=== PATIENT | male | born 1955 | race Caucasian/White ===

== ENCOUNTER 2018-11-01 07:39 | Emergency (ER) | payer MEDICARE, SELFPAY ==
[2018-11-01 07:40] VITALS: BP 170/93; PULSE 75; RESP 18; TEMP 36.2; O2SAT 95; BMI 23.9
[2018-11-01 07:55] VITALS: BP 163/101; PULSE 77; RESP 21; O2SAT 97
[2018-11-01] MEDS: 0.9% Normal Saline 1,000 ML 1000 ML IV (08:08)
[2018-11-01] MEDS: Ondansetron 4 MG/2 ML Vial IV (08:08)
[2018-11-01] MEDS: Morphine 4 MG/ML Syringe IV (08:09)
[2018-11-01 08:12] LABS: Absolute Lymphocyte Count 1.07 X10^3/ul (0.83-4.51); Absolute Neutrophil Count 11.1 X10^3/uL (2.0-7.7); Basophil# 0.02 X10^3/uL; Basophil% 0.2 % (0-1); Eosinophil# 0.08 X10^3/uL; Eosinophils% 0.6 % (0-5); Hematocrit 45.4 % (40-54); Hemoglobin 15.1 g/dl (13.0-16.5); Lymphocyte # 1.07 X10^3/ul (4.0); Lymphocyte % 8.3 % (19-41); Mean Corp Hgb Conc 33.3 g/gl (32-36); Mean Corpuscular Hgb 29.3 pg (27.0-32.0); Mean Platelet Vol. 8.8 fl (6.2-12.0); Monocyte# 0.54 X10^3/uL; Monocyte% 4.2 % (0-10); Neutrophil # 11.14 X10^3/uL (2.7-7.7); Neutrophil % 86.4 % (47-70); Platelet Count 387 K/mm3 (150-450); RBC Distribution Width CV 14.5 % (11.6-14.6); RBC Distribution Width SD 46.5 fl (35.1-43.9); Red Blood Count 5.16 M/mm3 (4.6-6.2); White Blood Count 12.9 K/mm3 (4.4-11.0)
[2018-11-01 08:14] LABS: POSITIVE COUNT NO; POSITIVE DIFFERENTIAL NO; POSITIVE MORPHOLOGY NO
[2018-11-01 08:25] LABS: ALB/GLOB Ratio 1.2 RATIO (0.9-2.4); AST(SGOT) 18 U/L (15-37); Alanine Aminotransfer ALT/SGPT 35 U/L (16-61); Albumin, Serum 4.1 g/dL (3.2-5.0); Alkaline Phosphatase 89 U/L (45-117); Anion Gap 11 (5-15); BUN 15 mg/dL (7-18); BUN/Creat Ratio 14.3 RATIO (10-20); Chloride 106 mmol/L (98-107); Creatinine, Serum 1.05 mg/dL (0.70-1.30); EST Glomerular Filtration Rate 75 mL/min (>60); Est Glom Filt Rate - Afr Amer 91 mL/min (>60); Estimated Creatinine Clearance 78.01 ml/min; Globulin 3.3 g/dL (2.2-4.2); Glucose 151 mg/dL (74-106); Lipase 51 U/L (73-393); Protein, Total 7.4 g/dL (6.4-8.2); Sodium Level 142 mmol/L (136-145)
[2018-11-01 08:50] LABS: Bacteria 0 SEEN /hpf (None Seen); Mucous, Urine 0 SEEN /hpf (<or=2+); Squamous Epithelial Cells - UA 0 SEEN /hpf (0-5); White Blood Cells 0 SEEN /hpf (0-5)
[2018-11-01 08:57] LABS: Color, Urine Yellow (Yellow); Glucose, Dipstick Normal (Normal); Ketone-Dipstick Negative (Negative); Leukocyte Esterase-Dipstick Negative /ul (Negative); Nitrite-Dipstick Negative (Negative); Occult Blood-Urine 25 /ul (Negative); Protein-Dipstick Negative (Negative); Urine Bilirubin Dipstick Negative (Negative); Urine Clarity Clear (Clear); Urine Urobilinogen Normal (Normal)
[2018-11-01 09:00] LABS: Red Blood Cells-Urine 0-5 SEEN /hpf (0-5)
--- NOTE | 2018-11-01 09:26 | ED.VISSUMM ---
- ER Visit Summary Date of Service: 11/01/18 Chief Complaint: I think I have the flu History of Present Illness: The patient is a 63 M who woke up around 2:30 AM today with nausea, vomiting, and diarrhea. He also reports right flank pain. He says he has a history of stomach issues but they can never find the cause. He is visiting from out of town. He reports a history of hypertension and COPD. He had an appendectomy. Physical Examination: Afebrile and vital signs unremarkable. HEENT exam unremarkable. Oropharynx is clear. No exudates. Neck nontender with no lymphadenopathy. Heart regular rate and rhythm. Lungs clear bilaterally. Abdomen soft and nontender. No CVA tenderness, but he does have some tenderness to palpation to the right flank just inferior to the rib margin. Skin appears unremarkable. Good pulses and sensation. Test Results: White count 12.9, glucose 151, lipase normal, liver normal, UA showed no evidence of bleeding or infection. Influenza test negative. Emergency Department Course and Treatment: Patient likely has a viral gastroenteritis. His UA did not show signs of infection or bleeding which makes kidney infection or stones very unlikely. His vital signs and laboratory studies were reassuring. He was treated with fluids, morphine, and Zofran and had improvement of his symptoms. There is nothing to suggest cardiac or pulmonary disease. Nothing to suggest vascular disease. Patient will be discharged with a course of Zofran and Imodium. Stay hydrated. Return for any new or worsening issues. Treatment Plan: As above Disposition: Discharge Impression: 1. Nausea, vomiting, diarrhea This note was generated with [employer] dictation software. It may contain incorrect words, spelling, and punctuation that were not noted in review of the chart prior to signing ED Disposition - Plan for ED Patient: Referrals: [facility],Out of [Primary Care Provider] -
--- NOTE | 2018-11-01 09:29 | ED.DEP ---
ED Disposition - Plan for ED Patient: Instructions: ED Diet Vomiting Diarrhea Prescriptions: Loperamide [Imodium] 2 mg PO Q4H PRN PRN #30 cap PRN Reason: Diarrhea Ondansetron [Zofran Odt] 4 mg PO Q8H PRN PRN #10 tab PRN Reason: Nausea Referrals: [facility],Out of [Primary Care Provider] -
[2018-11-01 09:47] VITALS: BP 135/87; PULSE 83; RESP 16; O2SAT 95
== END 2018-11-01 09:50 | disposition home or self-care (01) ==
PROVIDERS: Emergency Provider Emergency Medicine
DX: R11.2 Nausea with vomiting, unspecified (principal); R19.7 Diarrhea, unspecified; R10.9 Unspecified abdominal pain; J44.9 Chronic obstructive pulmonary disease, unspecified; I10 Essential (primary) hypertension; Z79.82 Long term (current) use of aspirin; Z79.899 Other long term (current) drug therapy
CPT/HCPCS: 80053; 81001; 83690; 85025; 87804; 96361; 96374; 96375; 99283; J7030; A4216; J2405

== ENCOUNTER 2019-02-01 11:31 | Emergency (ER) | payer MEDICARE, SELFPAY ==
[2019-02-01 11:32] VITALS: BP 155/70; PULSE 83; RESP 16; TEMP 36.9; O2SAT 95; BMI 22.4
--- NOTE | 2019-02-01 11:45 | EKG12_ITS ---
Test Reason : ABD PAIN Blood Pressure : / mmHG Vent. Rate : 074 BPM Atrial Rate : 074 BPM P-R Int : 148 ms QRS Dur : 096 ms QT Int : 420 ms P-R-T Axes : 082 073 061 degrees QTc Int : 466 ms Sinus rhythm Confirmed by MAKENZIE RIVERA, MESFIN ([id number]), manuscript editor NAFISA VALERO ([id number]) on 02/05/2019 1:12:28 PM Referred By: RAVI Confirmed By:MESFIN BANEGAS MD
[2019-02-01 12:01] LABS: Absolute Lymphocyte Count 0.92 X10^3/ul (0.83-4.51); Absolute Neutrophil Count 13.8 X10^3/uL (2.0-7.7); Basophil# 0.02 X10^3/uL; Basophil% 0.1 % (0-1); Hematocrit 47.6 % (40-54); Hemoglobin 16.4 g/dl (13.0-16.5); Lymphocyte # 0.92 X10^3/ul (4.0); Mean Corp Hgb Conc 34.5 g/gl (32-36); Mean Corpuscular Hgb 29.2 pg (27.0-32.0); Mean Corpuscular Volume 84.8 fL (80-94); Mean Platelet Vol. 8.9 fl (6.2-12.0); Monocyte# 0.64 X10^3/uL; Monocyte% 4.2 % (0-10); Neutrophil # 13.79 X10^3/uL (2.7-7.7); Neutrophil % 89.4 % (47-70); Platelet Count 356 K/mm3 (150-450); RBC Distribution Width SD 43.5 fl (35.1-43.9); Red Blood Count 5.61 M/mm3 (4.6-6.2); White Blood Count 15.4 K/mm3 (4.4-11.0)
[2019-02-01 12:02] LABS: POSITIVE COUNT NO; POSITIVE DIFFERENTIAL NO; POSITIVE MORPHOLOGY NO
--- NOTE | 2019-02-01 12:04 | CT_ITS ---
STUDY: CT ABDOMEN AND PELVIS WITH CONTRAST REASON FOR EXAM: Male, 63 years old. Nausea and vomiting. Prior appendectomy. RADIATION DOSAGE (If Supplied By Facility): CTDIvol = ( 10.62 ) mGy, DLP = ( 548.81 ) mGycm TECHNIQUE: Transaxial images were obtained from the dome of the diaphragm to the symphysis pubis without oral contrast. 100 IV/Oral Isovue 300 was administered. Sagittal and coronal images were reconstructed. Individualized dose optimization techniques were used for this CT. COMPARISON: None. FINDINGS: Mild degree of emphysematous changes seen in the lower lobes. The visualized portions of the heart are within normal limits. Normal liver. Normal gallbladder and extrahepatic biliary system. Normal spleen. Normal pancreas. Normal bilateral adrenal glands. Normal right kidney. Normal left kidney. Normal visualized stomach. Normal small intestine. There are multiple colonic diverticula consistent with diverticulosis. The patient is status post appendectomy. There is diffuse atherosclerotic calcification of the abdominal aorta and the major visceral branches, without a demonstrated aneurysm. Normal inferior vena cava. Normal retroperitoneum. Normal urinary bladder. There is enlargement of the prostate gland. The prostate measures 4.6 cm x 5.4 cm. Central calcifications are seen. Normal abdominal wall. Focal sclerosis seen along the anterior inferior origin of the L4 vertebrae on the right side. Focal metastasis cannot be ruled out. CT/Abdomen/Pelvis WITH Contrast IMPRESSION: Sigmoid diverticulosis. Enlarged prostate. Focal sclerosis in the inferior lateral aspect of the L4 vertebrae on the right side. Electronically Signed: Gabe Barrientos, at 15:10 EDT , Service support ,
--- NOTE | 2019-02-01 12:06 | ED.VISSUMM ---
- ER Visit Summary Date of Service: 02/01/19 Chief Complaint: Nausea, vomiting, abdominal pain History of Present Illness: The patient is a 63 M presents to the emergency department nausea and vomiting. The patient is in his normal state of health. He states last night, he had sudden onset abdominal cramping. He states he felt the urge to vomit. He states he vomited approximately 10 times. He is been unable to be taken down. He describes diffuse pain like a band across his abdomen. He has no history of prior abdominal surgery. He denies any fevers or chills. He denies any chest pain shortness of breath. He states up until last night, he was in his normal state of health. He does admit to occasional alcohol use. Physical Examination: Vital signs reviewed General: Well-nourished, well-developed Head: Normocephalic, atraumatic Eyes: Pupils equal and reactive, extraocular muscles intact Neck, supple, no lymphadenopathy Heart: Regular rate and rhythm Respiratory: No distress, clear bilaterally Abdomen: Soft, nontender, nondistended, no peritoneal signs Back: Nontender Extremities: Nontender, no edema, no cords Skin: Normal color no rash Neuro: Alert and oriented, no focal or lateralizing deficits Test Results: [] Emergency Department Course and Treatment: [The patient did have some diffuse abdominal pain, but no peritoneal signs. IV was established. He was given fluids, analgesics, and antiemetics. Pain was improved, but he was still nauseated. He did have a leukocytosis. With this, I did want to rule out dangerous intra-abdominal process. The patient underwent CT imaging. This was unremarkable. On reevaluation, he is pain-free. At this point, I do not suspect a dangerous process. I do feel that he is safe for outpatient therapy. He will be treated with Bentyl and Zofran. He was counseled on concerning symptoms and reasons to return. Treatment Plan: Discharge Disposition: Impression: 1. Epigastric abdominal pain 2. Nausea vomiting This note was generated with [employer] dictation software. It may contain incorrect words, spelling, and punctuation that were not noted in review of the chart prior to signing ED Disposition - Plan for ED Patient: Instructions: ED Nausea Vomiting Prescriptions: Ondansetron [Zofran Odt] 4 mg PO Q8H PRN PRN #10 tab PRN Reason: Nausea Dicyclomine HCl [Bentyl] 20 mg PO TIDAC #20 cap Referrals: [facility] Doctor,Out of [NON-STAFF] -
[2019-02-01 12:16] LABS: ALB/GLOB Ratio 1.2 RATIO (0.9-2.4); AST(SGOT) 14 U/L (15-37); Alanine Aminotransfer ALT/SGPT 26 U/L (16-61); Albumin, Serum 4.5 g/dL (3.2-5.0); Alkaline Phosphatase 91 U/L (45-117); Anion Gap 10 (5-15); BUN 16 mg/dL (7-18); BUN/Creat Ratio 12.8 RATIO (10-20); Calcium,Total 9.8 mg/dL (8.5-10.1); Chloride 106 mmol/L (98-107); Creatinine, Serum 1.25 mg/dL (0.70-1.30); EST Glomerular Filtration Rate 62 mL/min (>60); Est Glom Filt Rate - Afr Amer 75 mL/min (>60); Globulin 3.8 g/dL (2.2-4.2); Glucose 171 mg/dL (74-106); Lipase 37 U/L (73-393); Potassium 4.3 mmol/L (3.5-5.1); Protein, Total 8.3 g/dL (6.4-8.2); Sodium Level 141 mmol/L (136-145)
[2019-02-01] MEDS: 0.9% Normal Saline 1,000 ML 1000 ML IV (12:21)
[2019-02-01] MEDS: Morphine 4 MG/ML Syringe IV ×2 (12:22→13:08)
[2019-02-01] MEDS: Ondansetron 4 MG/2 ML Vial IV (12:22)
[2019-02-01] MEDS: proMETHazine 25 MG/ML Syringe 12.5 MG IV (13:07)
[2019-02-01 13:40] VITALS: RESP 18
[2019-02-01 15:00] VITALS: RESP 18
== END 2019-02-01 15:31 | disposition home or self-care (01) ==
LOC: ED 12:08
PROVIDERS: Emergency Provider Emergency Medicine
DX: R10.84 Generalized abdominal pain (principal); R11.2 Nausea with vomiting, unspecified; J44.9 Chronic obstructive pulmonary disease, unspecified; Z79.82 Long term (current) use of aspirin; Z79.899 Other long term (current) drug therapy; Z72.0 Tobacco use; Z86.73 Personal history of transient ischemic attack (TIA), and cerebral infarction without residual deficits
CPT/HCPCS: 74177; 80053; 83690; 85025; 93005; 96361; 96374; 96375; 96376; 99283; J7030; Q9967; A4216; J2405

== ENCOUNTER 2019-03-10 10:16 | Emergency (ER) | payer MEDICARE, SELFPAY ==
[2019-03-10 10:16] VITALS: BP 149/69; PULSE 87; RESP 20; TEMP 36.4; O2SAT 97; BMI 22.8
[2019-03-10 10:41] LABS: Absolute Lymphocyte Count 2.04 X10^3/ul (0.83-4.51); Absolute Neutrophil Count 13.5 X10^3/uL (2.0-7.7); Basophil# 0.05 X10^3/uL; Basophil% 0.3 % (0-1); Eosinophil# 0.41 X10^3/uL; Eosinophils% 2.4 % (0-5); Hematocrit 48.3 % (40-54); Hemoglobin 16.5 g/dl (13.0-16.5); Lymphocyte # 2.04 X10^3/ul (4.0); Lymphocyte % 11.9 % (19-41); Mean Corp Hgb Conc 34.2 g/gl (32-36); Mean Corpuscular Hgb 29.6 pg (27.0-32.0); Mean Corpuscular Volume 86.6 fL (80-94); Monocyte# 1.13 X10^3/uL; Monocyte% 6.6 % (0-10); Neutrophil # 13.48 X10^3/uL (2.7-7.7); Neutrophil % 78.5 % (47-70); Platelet Count 342 K/mm3 (150-450); RBC Distribution Width CV 14.4 % (11.6-14.6); RBC Distribution Width SD 45.2 fl (35.1-43.9); Red Blood Count 5.58 M/mm3 (4.6-6.2); White Blood Count 17.2 K/mm3 (4.4-11.0)
[2019-03-10 10:42] LABS: POSITIVE COUNT NO; POSITIVE DIFFERENTIAL NO; POSITIVE MORPHOLOGY NO
[2019-03-10] MEDS: 0.9% Normal Saline 1,000 ML 1000 ML IV (10:46)
[2019-03-10] MEDS: Morphine 4 MG/ML Syringe IV ×2 (10:46→11:32)
[2019-03-10] MEDS: Ondansetron 4 MG/2 ML Vial IV (10:46)
[2019-03-10 10:59] LABS: Anion Gap 5 (5-15); BUN 9 mg/dL (7-18); BUN/Creat Ratio 7.5 RATIO (10-20); Chloride 105 mmol/L (98-107); EST Glomerular Filtration Rate 65 mL/min (>60); Est Glom Filt Rate - Afr Amer 78 mL/min (>60); Estimated Creatinine Clearance 66.49 ml/min; Glucose 118 mg/dL (74-106); Lipase 46 U/L (73-393); Potassium 4.1 mmol/L (3.5-5.1); Sodium Level 138 mmol/L (136-145)
--- NOTE | 2019-03-10 11:00 | ED.VIS.GEN ---
History of Present Illness Chief Complaint: Nausea/Vomiting/Diarrhea Informant: Patient Onset: Today Narrative: Patient presents to the ED with reports of nausea, vomiting, and diarrhea that began this morning. He reports 5 episodes of emesis and diarrhea today. He reports generalized abdominal cramping but no localized abdominal pain. He did eat Mont[place]grin food last night. He states that he did have this in January and symptoms lasted for several days and then resolved. He was seen at this facility at this time and had complete work-up including CT scan which showed no acute abnormalities. Patient did try to take Zofran orally this morning, however vomited following taking it. Past Medical History - Allergies and Home Meds Allergies/Adverse Reactions: Allergies No Known Allergies Allergy (Verified 03/10/19 10:16) Primary Care Physician: Care Physician,No Primary [Primary Care Provider] - Smoking Status: Former smoker Review of Systems General: Denies: Chills, Fever, Sweats Eyes: Denies: Visual changes - bilaterally, Diplopia ENT: Denies: Rhinorrhea, Sore throat Cardiovascular: Denies: Chest pain, Palpitations Respiratory: Denies: Dyspnea, Cough, Dyspnea on exertion Gastrointestinal: Reports: Abdominal pain - Generalized, Nausea, Vomiting, Diarrhea. Denies: Melena, Hematochezia Genitourinary: Denies: Dysuria, Hematuria, Frequency Musculoskeletal: Denies: Back pain, Extremity Pain Skin: Denies: Rash, Wounds Neurological: Denies: Headache, Weakness, Numbness Physical Exam Vital Signs/Narrative: Vital Signs Temp Pulse Resp BP Pulse Ox 03/10/19 10:16 97.6 F L 87 20 H 149/69 H 97 General: Well nourished, Well developed, No Acute Distress Head: Normocephalic, Atraumatic Eyes: Perrl, EOMI ENT: Moist mucous membranes, No rhinorrhea Neck: Supple, Nontender Cardiovascular: Regular rate, Regular rhythm, No murmurs Respiratory: No distress, CTA bilaterally, Chest nontender Abdomen: Soft, Nondistended, Normal bowel sounds, Tender, - - Patient has generalized tenderness to palpation. No guarding, rigidity, or rebound.. Negative for: Rovsig's sign, Cortez's sign Back: Nontender, Normal Inspection Extremities: Nontender, No edema Skin: Normal color, No rash Neurological: Alert, Oriented x3, Cranial nerves II-XII grossly intact, Normal Strength, Normal Sensation Psychological: Normal affect, Normal Mood Diagnostic/Tx/Re-eval - Medical Decision Making Patient presents with nausea, vomiting, diarrhea that began this morning. He did eat takeout [place] last night. Patient was given IV fluids, Zofran, morphine for symptomatic relief. CBC indicates a leukocytosis of 17,000 but is otherwise unremarkable. BMP and lipase are unremarkable. Lactic acid is normal. Patient was given IV fluids, morphine, Zofran, and Phenergan for symptomatic relief. He does report improvement of symptoms. He was able to tolerate p.o. here. At this time, I do not feel further work-up is warranted. Patient was educated that this vomiting and diarrhea could be due to either food poisoning or gastroenteritis viral. He will be discharged home with prescriptions for Zofran and Bentyl. He was instructed to follow-up with his PCP. Educated on signs/symptoms to return to the ED. Provided discharge instructions. Agreeable to plan Impression: Nausea, vomiting, diarrhea, either due to food poisoning or gastroenteritis Disposition: Home stable ED Disposition - Plan for ED Patient: Disposition: Home or Assisted Living Diagnosis: Nausea vomiting and diarrhea Instructions: FOOD POISONING or GASTROENTERITIS (6y-Adult) Prescriptions: Dicyclomine HCl [Bentyl] 20 mg PO TIDAC #20 cap Prescription Printed Ondansetron [Zofran Odt] 4 mg PO Q8H PRN PRN #10 tab PRN Reason: Nausea Prescription Printed Referrals: Care Physician,No Primary [Primary Care Provider] -
[2019-03-10 11:16] VITALS: BP 182/93; PULSE 66; RESP 20; O2SAT 99
[2019-03-10] MEDS: proMETHazine 25 MG/ML Syringe 12.5 MG IV (11:32)
[2019-03-10 11:51] LABS: Lactic Acid 1.5 mmol/L (0.4-2.0)
--- NOTE | 2019-03-10 12:00 | ED.VISSUMM ---
- ER Visit Summary Date of Service: 03/10/19 Chief Complaint: [Vomiting and diarrhea] History of Present Illness: The patient is a 64 M presents to the emergency department complaint of vomiting and diarrhea that started around 3 AM. Patient initially started with nausea and then subsequently developed diarrhea. He is vomited 5 or 6 times and has had 5-6 episodes of watery stool. Patient describes diffuse abdominal discomfort before he throws up but otherwise does not have much in the way of abdominal pain. He has had no fevers. Patient does give a history of eating Sinhala food last night which his also ate but she ate different foods that he ate. Patient denies recent travel. He denies recent antibiotic usage. Patient has had prior appendectomy. He has history of COPD.] Physical Examination: [HEENT-PERRLA, EOMI. Cranial nerves II through XII grossly intact. TMs clear. Mucous membranes moist. No adenopathy. Cardiovascular-regular rate and rhythm without murmur or ectopy Lungs-clear to auscultation, chest wall stable without crepitus or subcu emphysema Abdomen-normoactive bowel sounds, soft. Patient has some mild diffuse tenderness to palpation. There is no rebound, rigidity, or perineal signs. Extremities-intact ?4, normal range of motion, normal pulses, atraumatic] Test Results: [Patient had an elevated white count of 17,000. Chemistries were unremarkable. Lactate was normal.] Emergency Department Course and Treatment: [Patient was medicated with Zofran and Phenergan and given a liter normal same fluid bolus. Patient was able to tolerate a p.o. challenge.] Treatment Plan: [Will be given a prescription for Zofran and Bentyl. Patient advised to push fluids. Patient to use Imodium as needed for diarrhea.] Disposition: [Discharged home stable condition.] Impression: [Vomiting and diarrhea-gastroenteritis versus food poisoning] This note was generated with [employer] dictation software. It may contain incorrect words, spelling, and punctuation that were not noted in review of the chart prior to signing ED Disposition - Plan for ED Patient: Referrals: Care Physician,No Primary [Primary Care Provider] -
[2019-03-10 12:37] VITALS: BP 184/92; PULSE 66; RESP 16; O2SAT 94
--- NOTE | 2019-03-10 12:38 | ED.RN ---
Pt StatesI don't feel good. Communicated this to PA. She stated he most likely had food poisoning. Pt d/c to home. Verbalized understanding. Tolerated po fluids well.
== END 2019-03-10 12:39 | disposition home or self-care (01) ==
PROVIDERS: Emergency Provider Physician Assistant
DX: K52.9 Noninfective gastroenteritis and colitis, unspecified (principal); J44.9 Chronic obstructive pulmonary disease, unspecified; Z87.891 Personal history of nicotine dependence
CPT/HCPCS: 80048; 83605; 83690; 85025; 96361; 96374; 96375; 96376; 99283; J7030; A4216; J2405

== ENCOUNTER 2019-04-11 08:28 | Emergency (ER) | payer MEDICARE, SELFPAY ==
[2019-04-11 08:29] VITALS: BP 172/121; PULSE 92; RESP 24; TEMP 36.6; O2SAT 97; BMI 22.4
--- NOTE | 2019-04-11 08:57 | ED.DCSUM_ITS ---
- ER Visit Summary Date of Service: 04/11/19 Chief Complaint: Abdominal pain with nausea and vomiting. History of Present Illness: The patient is a 64 M of prior stroke, COPD, BPH, diverticulosis and Pizano's esophagus. Patient states by last morning he started having abdominal pain with nausea vomiting. Able to sleep. Denies any dysuria. No diarrhea or melena. He had episodes like this before without any specific diagnosis. He was actually over trying to get in to see the GI nurse practitioner today at the [facility] when this episode occurred this in the ER. He denies any fever or chills. No dysuria. He has had a prior appendectomy Physical Examination: Older male diaphoretic vomiting. Vital signs are stable with blood pressure elevated 172 121 not be rechecked. He is afebrile. HEENT exam unremarkable. Neck nontender no lymphadenopathy. Lungs clear to auscultation bilaterally. Heart regular rhythm no murmur. Abdomen is soft. Nondistended. Normal bowel sounds. No peritoneal signs. Is nondistended with no signs of obstruction. There is no localizing tenderness. Extremities moves all 4. No edema. Neurologically he is awake alert with no focal deficits. Skin is diaphoretic. Back nontender. Test Results: CBC White count 16. Hemoglobin 16. No bands. Electrolytes A. BUN 13 creatinine 1.2. Liver enzymes normal. Lipase normal. Lactate 2.8. Emergency Department Course and Treatment: No abdominal pain no nausea vomiting. He has been worked up in the past that I saw him a CAT scan was basically unremarkable in January. Is really abdomen exam at this time is unimpressive. He will be treated with IV fluids Zofran and morphine. Screening labs will be obtained. On repeat exams and multiple doses of manic symptoms including morphine and Phenergan. He also received IV Haldol and Benadryl. His abdomen is been benign and nontender the entire time. At 1315 p.m. he is doing much better and felt comfortable being discharged home. It is noted that the patient does admit to smoking marijuana last evening and then started having the nausea and vomiting after that. Treatment Plan: Zofran as needed for nausea. Stop smoking marijuana. Disposition: Discharge Impression: Acute abdominal pain with nausea vomiting Marijuana use This note was generated with [employer] dictation software. It may contain incorrect words, spelling, and punctuation that were not noted in review of the chart prior to signing ED Disposition - Plan for ED Patient: Referrals: Care Physician,No Primary [Primary Care Provider] -
[2019-04-11 09:12] LABS: Absolute Lymphocyte Count 1.46 X10^3/uL (0.83-4.51); Absolute Neutrophil Count 13.6 X10^3/uL (2.0-7.7); Basophil# 0.08 X10^3/uL; Basophil% 0.5 % (0-1); Eosinophils% 1.2 % (0-5); Hematocrit 48.4 % (40-54); Hemoglobin 16.1 g/dL (13.0-16.5); Lymphocyte # 1.46 X10^3/ul (4.0); Lymphocyte % 8.8 % (19-41); Mean Corp Hgb Conc 33.3 g/dL (32-36); Mean Corpuscular Hgb 28.8 pg (27.0-32.0); Mean Corpuscular Volume 86.6 fL (80-94); Mean Platelet Vol. 8.8 fl (6.2-12.0); Monocyte# 1.11 X10^3/uL; Monocyte% 6.7 % (0-10); NRBC Flagged by Analyzer 0 % (0-5); Neutrophil # 13.62 X10^3/uL (2.7-7.7); Platelet Count 367 K/mm3 (150-450); RBC Distribution Width CV 14.2 % (11.6-14.6); RBC Distribution Width SD 45.1 fl (35.1-43.9); Red Blood Count 5.59 M/mm3 (4.6-6.2); White Blood Count 16.6 K/mm3 (4.4-11.0)
[2019-04-11] MEDS: Ondansetron 4 MG/2 ML Vial IV ×2 (09:13→10:06)
[2019-04-11] MEDS: Morphine 4 MG/ML Syringe IV ×2 (09:14→10:06)
[2019-04-11] MEDS: 0.9% Normal Saline 1,000 ML 1000 ML IV (09:15)
[2019-04-11 09:16] VITALS: BP 189/102; PULSE 77; RESP 16; TEMP 36.6; O2SAT 98
[2019-04-11 09:24] LABS: AST(SGOT) 15 U/L (15-37); Alanine Aminotransfer ALT/SGPT 30 U/L (16-61); Albumin, Serum 4.8 g/dL (3.2-5.0); Alkaline Phosphatase 86 U/L (45-117); Anion Gap 8 (5-15); BUN 13 mg/dL (7-18); BUN/Creat Ratio 10.2 RATIO (10-20); Bilirubin, Direct 0.19 mg/dL (0.00-0.30); Chloride 105 mmol/L (98-107); Creatinine, Serum 1.28 mg/dL (0.70-1.30); EST Glomerular Filtration Rate 60 mL/min (>60); Est Glom Filt Rate - Afr Amer 73 mL/min (>60); Estimated Creatinine Clearance 60.91 ml/min; Globulin 3.7 g/dL (2.2-4.2); Glucose 133 mg/dL (74-106); Lipase 40 U/L (73-393); Potassium 3.9 mmol/L (3.5-5.1); Protein, Total 8.5 g/dL (6.4-8.2); Sodium Level 139 mmol/L (136-145)
--- NOTE | 2019-04-11 09:46 | EKG12_ITS ---
Test Reason : CP Blood Pressure : / mmHG Vent. Rate : 072 BPM Atrial Rate : 072 BPM P-R Int : 158 ms QRS Dur : 100 ms QT Int : 384 ms P-R-T Axes : 079 064 061 degrees QTc Int : 420 ms Normal sinus rhythm Normal ECG Confirmed by DAGO MICHAEL ([id number]), assistant editor AYAN GUADALUPE ([id number]) on 04/16/2019 1:30:08 PM Referred By: ANJALI Confirmed By:DAGO MICHAEL
[2019-04-11 09:59] LABS: Lactic Acid 2.8 mmol/L (0.4-2.0)
--- NOTE | 2019-04-11 11:23 | EKG12_ITS ---
Test Reason : AB PAIN Blood Pressure : / mmHG Vent. Rate : 079 BPM Atrial Rate : 079 BPM P-R Int : 152 ms QRS Dur : 096 ms QT Int : 378 ms P-R-T Axes : 082 072 056 degrees QTc Int : 433 ms Sinus rhythm with marked sinus arrhythmia Otherwise normal ECG Confirmed by DAGO MICHAEL ([id number]), commissioning editor AYAN GUADALUPE ([id number]) on 04/16/2019 1:30:25 PM Referred By: ANJALI
[2019-04-11] MEDS: proMETHazine 25 MG/ML Syringe 12.5 MG IM (11:36)
[2019-04-11 11:37] VITALS: BP 189/106; PULSE 77; RESP 16; TEMP 36.4; O2SAT 98
[2019-04-11] MEDS: Haloperidol Lactate 5 MG/ML Vial 2 MG IV (12:28)
[2019-04-11] MEDS: DiphenhydrAMINE 50 MG/ML Syringe 25 MG IV (12:28)
[2019-04-11 12:56] VITALS: BP 187/109; PULSE 72; RESP 15; O2SAT 96
[2019-04-11 13:12] LABS: Reflex Lactate? Y
--- NOTE | 2019-04-11 13:17 | ED.DEP ---
ED Disposition - Plan for ED Patient: Disposition: Home or Assisted Living Prescriptions: Ondansetron [Zofran Odt] 4 mg PO Q8H PRN PRN #7 tab PRN Reason: Nausea Prescription Printed Referrals: Beto Wu MD [NON-STAFF] - 3-5 Days if not improving Additional Instructions: Stop smoking marijuana !!! Zofran as needed for nausea. Follow-up not improving return if worse.
== END 2019-04-11 13:39 | disposition home or self-care (01) ==
PROVIDERS: Emergency Provider Emergency Medicine
DX: R10.9 Unspecified abdominal pain (principal); R11.2 Nausea with vomiting, unspecified; F12.10 Cannabis abuse, uncomplicated; J44.9 Chronic obstructive pulmonary disease, unspecified; R03.0 Elevated blood-pressure reading, without diagnosis of hypertension; K22.70 Barrett's esophagus without dysplasia; Z79.82 Long term (current) use of aspirin; Z79.899 Other long term (current) drug therapy; Z90.49 Acquired absence of other specified parts of digestive tract; Z86.73 Personal history of transient ischemic attack (TIA), and cerebral infarction without residual deficits
CPT/HCPCS: 80048; 80076; 83605; 83690; 85025; 93005; 96361; 96372; 96374; 96375; 96376; 99284; J7030; A4216; J2405

== ENCOUNTER 2019-04-19 13:29 | Emergency (ER) | payer MEDICARE, SELFPAY ==
[2019-04-19 13:29] VITALS: BP 146/108; PULSE 95; RESP 22; TEMP 36.3; O2SAT 98; BMI 25.0
--- NOTE | 2019-04-19 13:38 | ED.VIS.GEN ---
History of Present Illness Chief Complaint: Abd Pain Informant: Patient Onset: Today Context: Gradual Onset Current Severity: Moderate Maximum Severity: Moderate Narrative: Patient presents with nausea vomiting and epigastric pain since this morning. He has been diagnosed with gastroparesis secondary to THC use. He however does not believe that diagnosis. He continues to smoke marijuana, he woke up with quite a bit of pain this morning he has no radiation to his back no tearing sensation he has no chest pain shortness of breath fever or chills. He has no diarrhea or constipation. Past Medical History - Allergies and Home Meds Allergies/Adverse Reactions: Allergies No Known Allergies Allergy (Verified 04/19/19 13:31) Primary Care Physician: Jordan Rosales MD [Primary Care Provider] - 3-5 Days Past Medical History: - - Otherwise noncontributory, gastroparesis Lives: Spouse/ Significant Other Smoking Status: Former smoker Review of Systems All systems negative except as indicated General: Denies: Fever Eyes: Denies: Visual changes - bilaterally Cardiovascular: Denies: Chest pain, Palpitations Respiratory: Denies: Dyspnea, Cough Gastrointestinal: Reports: Abdominal pain, Nausea, Vomiting. Denies: Diarrhea, Constipation Musculoskeletal: Denies: Back pain Skin: Denies: Rash Neurological: Denies: Headache, Weakness Psych: Denies: Depression Endocrine: Denies: Polyuria Physical Exam Vital Signs/Narrative: Vital Signs Temp Pulse Resp BP Pulse Ox 04/19/19 13:29 97.4 F L 95 22 H 146/108 H 98 General: - - He appears in some distress Head: Normocephalic ENT: Moist mucous membranes, No rhinorrhea Neck: Supple Cardiovascular: Regular rate, Regular rhythm, No murmurs Respiratory: No distress, CTA bilaterally Abdomen: Soft, - - There is epigastric tenderness without any guarding or rebound Back: Negative for: Nontender, Normal Inspection Extremities: Negative for: Nontender, No edema Skin: Negative for: Normal color Neurological: Oriented x3. Negative for: Alert Psychological: Normal affect Diagnostic/Tx/Re-eval - Medical Decision Making Patient is given analgesics and antiemetics, capsaicin. I will discharge him with education again. ED Disposition - Plan for ED Patient: Disposition: Home or Assisted Living Diagnosis: Gastroparesis Instructions: Gastroparesis Referrals: Jordan Rosales MD [Primary Care Provider] - 3-5 Days
[2019-04-19] MEDS: 0.9% Normal Saline 1,000 ML 1000 ML IV (13:48)
[2019-04-19] MEDS: Metoclopramide 10 MG/2 ML Vial IV ×2 (13:49→15:26)
[2019-04-19] MEDS: diazePAM 5 MG Tablet PO (13:49)
[2019-04-19] MEDS: HYDROmorphone 1 MG/ML Syringe IV (13:49)
[2019-04-19 13:53] LABS: Absolute Lymphocyte Count 1.23 X10^3/uL (0.83-4.51); Absolute Neutrophil Count 10.8 X10^3/uL (2.0-7.7); Basophil# 0.06 X10^3/uL; Basophil% 0.5 % (0-1); Eosinophil# 0.08 X10^3/uL; Eosinophils% 0.6 % (0-5); Hematocrit 48.4 % (40-54); Hemoglobin 16.3 g/dL (13.0-16.5); Lymphocyte # 1.23 X10^3/ul (4.0); Lymphocyte % 9.5 % (19-41); Mean Corp Hgb Conc 33.7 g/dL (32-36); Mean Corpuscular Hgb 29.4 pg (27.0-32.0); Mean Corpuscular Volume 87.2 fL (80-94); Mean Platelet Vol. 8.9 fl (6.2-12.0); Monocyte# 0.72 X10^3/uL; Monocyte% 5.5 % (0-10); NRBC Flagged by Analyzer 0 % (0-5); Neutrophil # 10.82 X10^3/uL (2.7-7.7); Neutrophil % 83.1 % (47-70); Platelet Count 376 K/mm3 (150-450); RBC Distribution Width CV 13.9 % (11.6-14.6); RBC Distribution Width SD 44.6 fl (35.1-43.9); Red Blood Count 5.55 M/mm3 (4.6-6.2)
[2019-04-19 14:15] LABS: ALB/GLOB Ratio 1.3 RATIO (0.9-2.4); AST(SGOT) 14 U/L (15-37); Alanine Aminotransfer ALT/SGPT 25 U/L (16-61); Albumin, Serum 4.8 g/dL (3.2-5.0); Alkaline Phosphatase 86 U/L (45-117); Anion Gap 9 (5-15); BUN 15 mg/dL (7-18); BUN/Creat Ratio 9.7 RATIO (10-20); Chloride 106 mmol/L (98-107); Creatinine, Serum 1.54 mg/dL (0.70-1.30); EST Glomerular Filtration Rate 48 mL/min (>60); Est Glom Filt Rate - Afr Amer 59 mL/min (>60); Estimated Creatinine Clearance 46.27 ml/min; Globulin 3.8 g/dL (2.2-4.2); Glucose 158 mg/dL (74-106); Lipase 37 U/L (73-393); Potassium 4.3 mmol/L (3.5-5.1); Protein, Total 8.6 g/dL (6.4-8.2); Sodium Level 141 mmol/L (136-145)
[2019-04-19] MEDS: HYDROmorphone 0.5 MG/0.5 ML SYRINGE IV (15:18)
[2019-04-19] MEDS: DiphenhydrAMINE 50 MG/ML Syringe 25 MG IV (15:23)
[2019-04-19 15:33] VITALS: BP 178/92; PULSE 86; RESP 18; O2SAT 94
[2019-04-19 15:43] VITALS: RESP 18
== END 2019-04-19 15:51 | disposition home or self-care (01) ==
PROVIDERS: Emergency Provider Emergency Medicine; Family Provider Internal Medicine; PCP Internal Medicine
DX: K31.84 Gastroparesis (principal); F12.988 Cannabis use, unspecified with other cannabis-induced disorder; Z79.899 Other long term (current) drug therapy; Z87.891 Personal history of nicotine dependence
CPT/HCPCS: 80053; 83690; 85025; 96361; 96374; 96375; 96376; 99284; J7030; A4216

== ENCOUNTER 2019-06-08 08:27 | Emergency (ER) | payer MEDICARE, SELFPAY ==
[2019-06-08 08:28] VITALS: BP 183/123; PULSE 75; RESP 17; TEMP 37; O2SAT 98; BMI 24.0
--- NOTE | 2019-06-08 08:55 | ED.DCSUM_ITS ---
- ER Visit Summary Date of Service: 06/08/19 Chief Complaint: Abdominal pain, nausea, vomiting History of Present Illness: The patient is a 64 M presents with abdominal pain, nausea, and vomiting that began today. Patient states he has a history of cyclic vomiting syndrome. Patient states he did use some marijuana yesterday. Patient denies any hematemesis or coffee-ground emesis. Patient states his pain is aching and burning. Patient states his pain is diffuse across his abdomen. Patient denies any diarrhea, melena, or hematochezia. Patient denies any dysuria or hematuria. Patient denies any chest pain or shortness of breath. Patient denies any fevers or chills. Physical Examination: Vital signs are stable except for an elevated blood pressure of 183/123. Patient is afebrile. Patient is in no acute distress. Oral mucosa is pink and moist. Neck is supple. Trachea is midline. There is no JVD noted. Heart was regular rate and rhythm. Lungs are clear and equal bilaterally. Abdomen is soft. Bowel sounds are somewhat diminished. There is diffuse tenderness. There is no rebound or guarding noted. Cranial nerves II through XII are intact. There are no focal motor or sensory deficits noted. Test Results: CBC shows a mild leukocytosis of 16.4. Comprehensive metabolic profile was normal. Emergency Department Course and Treatment: Patient was given IV fluids, morphine, and Zofran here. Patient required a repeat dose of morphine and Zofran. She was given a prescription for Zofran. Patient was instructed to follow-up with his primary care physician in 5 to 7 days. Patient understood and was agreeable with the plan. All questions were answered. Disposition: Discharge home Impression: 1. Cyclic vomiting This note was generated with [employer] dictation software. It may contain incorrect words, spelling, and punctuation that were not noted in review of the chart prior to signing ED Disposition - Plan for ED Patient: Disposition: Home or Assisted Living Diagnosis: Cyclical vomiting Instructions: ABDOMINAL PAIN, Unknown Cause, (Female) Prescriptions: Ondansetron [Zofran Odt] 4 mg PO Q8H PRN PRN #10 tab PRN Reason: Nausea Prescription Printed Referrals: Jordan Rosales MD [Primary Care Provider] - 5-7 Days
[2019-06-08] MEDS: 0.9% Normal Saline 1,000 ML 1000 ML IV (09:17)
[2019-06-08] MEDS: Morphine 2 MG/ML Syringe IV ×2 (09:17→10:39)
[2019-06-08] MEDS: Ondansetron 4 MG/2 ML Vial IV ×2 (09:17→10:39)
[2019-06-08 09:18] LABS: Absolute Lymphocyte Count 2.28 X10^3/uL (0.83-4.51); Absolute Neutrophil Count 11.6 X10^3/uL (2.0-7.7); Basophil# 0.12 X10^3/uL; Basophil% 0.7 % (0-1); Eosinophil# 0.46 X10^3/uL; Eosinophils% 2.8 % (0-5); Hematocrit 50.8 % (40-54); Lymphocyte # 2.28 X10^3/ul (4.0); Lymphocyte % 13.9 % (19-41); Mean Corp Hgb Conc 31.5 g/dL (32-36); Mean Corpuscular Hgb 28.8 pg (27.0-32.0); Mean Corpuscular Volume 91.4 fL (80-94); Mean Platelet Vol. 8.7 fl (6.2-12.0); Monocyte# 1.71 X10^3/uL; Monocyte% 10.5 % (0-10); NRBC Flagged by Analyzer 0 % (0-5); Neutrophil # 11.63 X10^3/uL (2.7-7.7); Neutrophil % 71.1 % (47-70); POSITIVE DIFFERENTIAL YES; Platelet Count 369 K/mm3 (150-450); RBC Distribution Width CV 14.2 % (11.6-14.6); RBC Distribution Width SD 47.9 fl (35.1-43.9); Red Blood Count 5.56 M/mm3 (4.6-6.2); White Blood Count 16.4 K/mm3 (4.4-11.0)
[2019-06-08 09:21] LABS: Differential Indicated SCAN CRITERIA MET
[2019-06-08 09:35] LABS: ALB/GLOB Ratio 1.6 RATIO (0.9-2.4); AST(SGOT) 19 U/L (15-37); Alanine Aminotransfer ALT/SGPT 29 U/L (16-61); Alkaline Phosphatase 75 U/L (45-117); Anion Gap 8 (5-15); BUN 14 mg/dL (7-18); Calcium,Total 9.8 mg/dL (8.5-10.1); Chloride 106 mmol/L (98-107); Creatinine, Serum 1.27 mg/dL (0.70-1.30); EST Glomerular Filtration Rate 60 mL/min (>60); Est Glom Filt Rate - Afr Amer 73 mL/min (>60); Estimated Creatinine Clearance 61.76 ml/min; Globulin 3.2 g/dL (2.2-4.2); Glucose 127 mg/dL (74-106); Lipase 81 U/L (73-393); Potassium 4.3 mmol/L (3.5-5.1); Protein, Total 8.2 g/dL (6.4-8.2); Sodium Level 144 mmol/L (136-145)
[2019-06-08 09:54] LABS: Hypersegmented Neutrophils RARE
[2019-06-08 10:51] VITALS: BP 164/78; PULSE 87; RESP 18; O2SAT 99
[2019-06-11 12:03] LABS: Pathologist Review Reviewed
== END 2019-06-08 10:52 | disposition home or self-care (01) ==
PROVIDERS: Emergency Provider Emergency Medicine; Family Provider Internal Medicine; PCP Internal Medicine
DX: R11.15 Cyclical vomiting syndrome unrelated to migraine (principal); J44.9 Chronic obstructive pulmonary disease, unspecified; I10 Essential (primary) hypertension; Z79.82 Long term (current) use of aspirin; Z79.899 Other long term (current) drug therapy
CPT/HCPCS: 80053; 83690; 85025; 96361; 96374; 96375; 96376; 99283; J7030; A4216; J2405

== ENCOUNTER 2019-07-25 07:08 | Emergency (ER) | payer MEDICARE, SELFPAY ==
[2019-07-25 07:09] VITALS: BP 168/120; PULSE 105; RESP 17; TEMP 36.5; O2SAT 97; BMI 23.3
[2019-07-25] MEDS: 0.9% Normal Saline 1,000 ML 1000 ML IV (07:39)
[2019-07-25] MEDS: Ondansetron 4 MG/2 ML Vial IV (07:40)
[2019-07-25] MEDS: LORazepam 2 MG/ML Syringe 0.5 MG IV (07:40)
[2019-07-25] MEDS: Famotidine 200 MG/20 ML MDV 20 MG in 0.9% Normal Saline (Pres. free 8 ML 300 MG IV (07:45)
--- NOTE | 2019-07-25 07:55 | ED.VIS.GEN ---
History of Present Illness Chief Complaint: Abd Pain Informant: Patient Onset: Today Context: Sudden Onset Timing: Continuous, Waxes and wanes Quality: Pain Location: Entire abdomen Current Severity: Moderate Maximum Severity: Severe Worsened by: Nothing Relieved by: Nothing Associated Symptoms: Nausea and vomiting, thirst and dry mouth and lightheadedness Narrative: Patient is a 64-year-old male with history of cyclic vomiting who presents because of nausea and vomiting started over 400. He is vomited numerous times. States emesis was green in color. There was no blood or coffee grounds. He states he had a hard bowel movement yesterday. He denied blood or mucus in his stool. He denies fever, chills or night sweats. He denies any exacerbating, precipitating or alleviating factors. He denies cardiac or respiratory symptoms. He denies history of pancreatitis. He denies history of food intolerance. Prior similar symptoms: Yes - 2 Months ago Recent Illness/Hospitalization: No - Past Medical History (1) History of hypercholesterolemia Status: Acute (2) History of hypertension Status: Acute (3) History of COPD Status: Chronic Past Medical History - Allergies and Home Meds Allergies/Adverse Reactions: Allergies No Known Allergies Allergy (Verified 07/25/19 07:09) Primary Care Physician: Jordan Rosales MD [Primary Care Provider] - Prior records reviewed: Yes Surgical History: appendectomy Lives: Alone Smoking Status: Former smoker Alcohol: None Drugs: None Review of Systems General: Denies: Chills, Fever, Malaise, Sweats Eyes: Denies: Visual changes - bilaterally, Blurred Vision - bilaterally, Diplopia ENT: Denies: Rhinorrhea, Sore throat Cardiovascular: Denies: Chest pain, Palpitations Respiratory: Denies: Dyspnea, Cough, Dyspnea on exertion Gastrointestinal: Reports: Abdominal pain, Nausea, Vomiting, Constipation. Denies: Diarrhea, Melena, Hematochezia Genitourinary: Denies: Dysuria, Hematuria, Frequency Musculoskeletal: Denies: Myalgias, Arthralgias, Neck pain, Back pain, Extremity Pain Skin: Denies: Rash, Wounds Neurological: Denies: Headache, Weakness, Parasthesia, Numbness Endocrine: Denies: Polyuria, Polydipsia Physical Exam Vital Signs/Narrative: Vital Signs Temp Pulse Resp BP Pulse Ox 07/25/19 07:09 97.7 F L 105 H 17 168/120 H 97 Inital Vital Signs reviewed: Yes General: Well nourished, Well developed Head: Normocephalic, Atraumatic. Negative for: Trauma, Tenderness Eyes: Perrl, EOMI. Negative for: Pale conjunctiva, Scleral icterus ENT: No rhinorrhea, TM's clear, Dry mucous membranes. Negative for: Nasal congestion Neck: Supple, Nontender Cardiovascular: Regular rate, Regular rhythm, No murmurs Respiratory: No distress, CTA bilaterally, Chest nontender Abdomen: Soft, Nondistended, Normal bowel sounds, No masses, Tender, - - Slight tympana to percussion.. Negative for: Guarding, Rebound tenderness Rectal: Deferred Back: Nontender, Normal Inspection. Negative for: CVA tenderness, Spinal tenderness Extremities: Nontender, No edema Skin: Normal color, No rash. Negative for: Cyanosis, Diaphoresis, Jaundice, No Trauma Neurological: Alert, Oriented x3, Cranial nerves II-XII grossly intact, Normal Strength, Normal Sensation Psychological: Depressed Diagnostic/Tx/Re-eval - Medical Decision Making With history of cyclic vomiting and a benign abdominal exam cyclic vomiting order set was initiated. I was informed by nursing staff he seemed puzzled that he did not receive morphine for his pain. He did receive 1 L of normal saline wide open since clinically he appears dehydrated and give symptoms of dehydration. His onset was less than 4 hours ago laboratory tests were not obtained. He was reassessed at 1055. He has slight queasiness. He has had no vomiting since arrival. He is passed p.o. challenge. Will discharge after he receives IV Reglan. ED Disposition - Plan for ED Patient: Disposition: Home or Assisted Living Diagnosis: Cyclical vomiting syndrome Instructions: When Your Child Has Cyclic Vomiting Syndrome ([facility]) Referrals: Jordan Rosales MD [Primary Care Provider] - 1-2 Days if not improving Additional Instructions: Since there are no adult home-going instructions for cyclic vomiting you receive the pediatric home-going instructions for cyclic vomiting.
[2019-07-25 08:40] VITALS: BP 203/96; PULSE 95; RESP 20; O2SAT 96
--- NOTE | 2019-07-25 09:38 | ED.RN ---
PT IS RESTING VERY COMFORTABLY IN BED. NO S/S OF DISTRESS, PAIN OR VOMITING.
[2019-07-25] MEDS: Metoclopramide 10 MG/2 ML Vial 2.5 MG IV (11:19)
[2019-07-25 11:21] VITALS: BP 178/84; PULSE 120; RESP 20; TEMP 36.8; O2SAT 92
[2019-07-25 11:37] VITALS: BP 150/81; PULSE 77; RESP 16; O2SAT 97
== END 2019-07-25 11:40 | disposition home or self-care (01) ==
PROVIDERS: Emergency Provider Emergency Medicine; Family Provider Internal Medicine; PCP Internal Medicine
DX: R11.15 Cyclical vomiting syndrome unrelated to migraine (principal); I10 Essential (primary) hypertension; J44.9 Chronic obstructive pulmonary disease, unspecified; E78.00 Pure hypercholesterolemia, unspecified; F32.9 Major depressive disorder, single episode, unspecified; Z79.82 Long term (current) use of aspirin; Z79.899 Other long term (current) drug therapy; Z87.891 Personal history of nicotine dependence
CPT/HCPCS: 96361; 96365; 96375; 99283; J7050; A4216; J2405; J3490

== ENCOUNTER 2019-08-02 03:34 | Emergency (ER) | payer MEDICARE, SELFPAY ==
[2019-08-02 03:35] VITALS: BP 136/91; PULSE 77; RESP 20; TEMP 36.6; O2SAT 96; BMI 24.0
--- NOTE | 2019-08-02 03:44 | CT_ITS ---
STUDY: CT ABDOMEN AND PELVIS WITHOUT CONTRAST REASON FOR EXAM: Male, 64 years old. Right-sided groin and flank pain. RADIATION DOSAGE (If Supplied By Facility): CTDIvol = ( 7.30 ) mGy, DLP = ( 350.04 ) mGycm TECHNIQUE: Transaxial images were obtained from the dome of the diaphragm to the symphysis pubis without oral contrast, and without intravenous contrast. Sagittal and coronal images were reconstructed. Individualized dose optimization techniques were used for this CT. COMPARISON: CT abdomen and pelvis dated February 01, 2019. FINDINGS: There is increased lucency at the lung bases probably related to centrilobular emphysema. There is a left basilar Bochdalek hernia. The visualized portions of the heart are within normal limits. Normal liver. The gallbladder is very distended and there are calcified gallstones. This may be related to prolonged fasting. Normal spleen. Normal pancreas. Normal bilateral adrenal glands. Normal right kidney. Normal left kidney. Normal visualized stomach. There is no evidence for dilated bowel, ascites or pneumoperitoneum. Stool is visible throughout the colon with scattered diverticula. There are multiple sigmoid colon diverticula with thickening of the guzmán of sigmoid colon. There is non-visualization of the appendix. There is multifocal atherosclerotic calcification of the abdominal aorta, without a demonstrated aneurysm. Normal inferior vena cava. Normal retroperitoneum. Normal urinary bladder. Normal abdominal wall. There are sclerotic lesions within the L4 vertebral body, unchanged since the previous study and may represent bone islands. There is narrowing of L4-5 and L5-S1 disc spaces with vacuum disc phenomenon consistent with degenerative disc disease. CT/Abdomen/Pelvis without Cont IMPRESSION: 1. Very distended gallbladder with cholelithiasis. 2. Moderately severe sigmoid colon diverticulosis with thickened guzmán could be indicative of very early acute diverticulitis. Electronically Signed: Kristie Banks MD at 4:43 EST , Service support ,
--- NOTE | 2019-08-02 03:45 | ED.VIS.GEN ---
History of Present Illness Chief Complaint: Flank Pain Detail of Chief Complaint: Right groin pain Informant: Patient Onset: Days - 3 days Context: Gradual Onset Timing: Waxes and wanes Current Severity: Moderate Maximum Severity: Moderate Narrative: Patient presents with pain to his right groin for the past 3 days. He states he thought he had thrown his back out and that his pain initially started in the back. He presents earlier this morning thinking he may have a DVT in his leg. He has no DVT risk factors. He has not noted swelling in his leg. He has had some chills but no fever. He denies nausea or vomiting. He denies diarrhea. Last bowel movement was this morning. He denies difficulty urinating or any obvious blood in his urine. He has no history of kidney stones. - Past Medical History (1) History of hypercholesterolemia Status: Chronic (2) History of hypertension Status: Chronic (3) History of COPD Status: Chronic Past Medical History - Allergies and Home Meds Allergies/Adverse Reactions: Allergies No Known Allergies Allergy (Verified 07/25/19 07:09) Primary Care Physician: Jordan Rosales MD [Primary Care Provider] - Prior records reviewed: Yes Surgical History: appendectomy Lives: Spouse/ Significant Other Smoking Status: Former smoker Review of Systems General: Reports: Chills. Denies: Fever Eyes: Denies: Visual changes - bilaterally ENT: Denies: Bilateral ear pain Cardiovascular: Denies: Chest pain Respiratory: Denies: Dyspnea, Cough Gastrointestinal: Reports: Abdominal pain. Denies: Nausea, Vomiting, Diarrhea Genitourinary: Denies: Dysuria, Hematuria Musculoskeletal: Reports: Extremity Pain - Right groin Skin: Denies: Rash, Wounds Endocrine: Denies: Polyuria, Polydipsia Hematologic: Denies: Easy bruising, Easy bleeding Allergy: Denies: Uticaria Physical Exam Vital Signs/Narrative: Vital Signs Temp Pulse Resp BP Pulse Ox 08/02/19 03:35 97.9 F 77 20 H 136/91 H 96 Inital Vital Signs reviewed: Yes General: Well nourished, Well developed Head: Normocephalic ENT: Moist mucous membranes Neck: Supple Cardiovascular: Regular rate, Regular rhythm Respiratory: No distress, CTA bilaterally Abdomen: Soft, Tender - Mild tenderness along the right groin. No palpable masses., Hypoactive bowel sounds Back: Negative for: CVA tenderness Extremities: Nontender, No edema Skin: Normal color Neurological: Alert, Oriented x3, Normal Strength, Normal Sensation Psychological: - - Anxious Diagnostic/Tx/Re-eval Impressions Abdomen/Pelvis CT 08/02/19 03:44 IMPRESSION: 1. Very distended gallbladder with cholelithiasis. 2. Moderately severe sigmoid colon diverticulosis with thickened guzmán could be indicative of very early acute diverticulitis. Electronically Signed: Kristie Banks MD at 4:43 EST , Service support , 08/02/19 03:44 Abdomen/Pelvis without Cont [CT] Stat Laboratory Results 08/02/19 08/02/19 08/02/19 03:55 03:55 03:55 WBC 10.9 RBC 5.13 Hgb 14.5 Hct 45.0 MCV 87.7 MCH 28.3 MCHC 32.2 RDW Std Deviation 44.1 H RDW Coeff of Sue 13.6 Plt Count 397 MPV 8.6 Immature Gran % (Auto) 1.000 H Neut % (Auto) 59.0 Lymph % (Auto) 21.8 [place] % (Auto) 13.9 H Eos % (Auto) 3.2 Baso % (Auto) 1.1 H Absolute Neuts (auto) 6.5 Absolute Lymphs (auto) 2.38 Nucleated RBC % 0 Differential Comment SCANNED Reactive Lymphocytes 2+ Platelet Estimate SLT INC D-Dimer Quant (PE/DVT) 0.48 Sodium 138 Potassium 4.0 Chloride 103 Carbon Dioxide 28.0 Anion Gap 7 BUN 14 Creatinine 1.07 Estim Creat Clear Calc 73.31 Est GFR (MDRD) Af Amer 89 Est GFR (MDRD) Non-Af 74 BUN/Creatinine Ratio 13.1 Glucose 113 H Calcium 8.9 Urine Color Urine Clarity Urine pH Ur Specific [place] Urine Protein Urine Glucose (UA) Urine Ketones Urine Occult Blood Urine Nitrite Urine Bilirubin Urine Urobilinogen Ur Leukocyte Esterase Urine RBC Urine WBC Ur Squamous Epith Cells Amorphous Sediment Urine Bacteria Urine Mucus 08/02/19 03:55 WBC RBC Hgb Hct MCV MCH MCHC RDW Std Deviation RDW Coeff of Sue Plt Count MPV Immature Gran % (Auto) Neut % (Auto) Lymph % (Auto) [place] % (Auto) Eos % (Auto) Baso % (Auto) Absolute Neuts (auto) Absolute Lymphs (auto) Nucleated RBC % Differential Comment Reactive Lymphocytes Platelet Estimate D-Dimer Quant (PE/DVT) Sodium Potassium Chloride Carbon Dioxide Anion Gap BUN Creatinine Estim Creat Clear Calc Est GFR (MDRD) Af Amer Est GFR (MDRD) Non-Af BUN/Creatinine Ratio Glucose Calcium Urine Color Yellow Urine Clarity Clear Urine pH 8.0 Ur Specific [place] 1.015 Urine Protein Negative Urine Glucose (UA) Normal Urine Ketones Negative Urine Occult Blood 25 H Urine Nitrite Negative Urine Bilirubin Negative Urine Urobilinogen Normal Ur Leukocyte Esterase Negative Urine RBC 0-5 SEEN Urine WBC 0 SEEN Ur Squamous Epith Cells 0 SEEN Amorphous Sediment 2+ Urine Bacteria 0 SEEN Urine Mucus 0 SEEN - Medical Decision Making Patient was initially given morphine and Zofran for pain. On repeat evaluation test results are discussed with him. He has no pain in the right upper quadrant around the gallbladder. He has no pain in the left side where they are reading evidence diverticulosis with possible early diverticulitis. He has no white count or fever. Pain is localized right along the right groin. There is no evidence of hernia. There is no evidence of radiopaque kidney stone. Due to continued pain patient was given a dose of Toradol along with another dose of morphine and Zofran. At this time patient's pain is improved. Test results were discussed with him. He will be given Toradol and Severn for pain. If his pain worsens, moves the left lower quadrant, or he develops fever he is to return for repeat evaluation. ED Disposition - Plan for ED Patient: Disposition: Home or Assisted Living Diagnosis: Abdominal pain Instructions: ABDOMINAL PAIN, Unkown Cause, (Male) Prescriptions: Hydrocodone Bitart/Apap 5-325 [Severn 5MG-325MG] 1 tablet PO Q6H PRN PRN 3 Days #10 tablet PRN Reason: Pain Ketorolac [Toradol] 10 mg PO Q6H PRN #10 tablet PRN Reason: Pain Score 1-10/10 Referrals: Jordan Rosales MD [Primary Care Provider] - 3-5 Days if not improving
[2019-08-02] MEDS: Morphine 4 MG/ML Syringe IV ×2 (03:59→05:11)
[2019-08-02] MEDS: 0.9% Normal Saline 1,000 ML 150 ML IV (03:59)
[2019-08-02] MEDS: Ondansetron 4 MG/2 ML Vial IV ×2 (03:59→05:11)
[2019-08-02 04:04] LABS: Bacteria 0 SEEN /hpf (None Seen); Mucous, Urine 0 SEEN /hpf (<or=2+); Squamous Epithelial Cells - UA 0 SEEN /hpf (0-5); White Blood Cells 0 SEEN /hpf (0-5)
[2019-08-02 04:24] LABS: Absolute Lymphocyte Count 2.38 X10^3/uL (0.83-4.51); Absolute Neutrophil Count 6.5 X10^3/uL (2.0-7.7); Basophil# 0.12 X10^3/uL; Basophil% 1.1 % (0-1); Eosinophil# 0.35 X10^3/uL; Eosinophils% 3.2 % (0-5); Hemoglobin 14.5 g/dL (13.0-16.5); Lymphocyte # 2.38 X10^3/ul (4.0); Lymphocyte % 21.8 % (19-41); Mean Corp Hgb Conc 32.2 g/dL (32-36); Mean Corpuscular Hgb 28.3 pg (27.0-32.0); Mean Corpuscular Volume 87.7 fL (80-94); Mean Platelet Vol. 8.6 fl (6.2-12.0); Monocyte# 1.52 X10^3/uL; Monocyte% 13.9 % (0-10); NRBC Flagged by Analyzer 0 % (0-5); Neutrophil # 6.45 X10^3/uL (2.7-7.7); POSITIVE DIFFERENTIAL YES; Platelet Count 397 K/mm3 (150-450); RBC Distribution Width CV 13.6 % (11.6-14.6); RBC Distribution Width SD 44.1 fl (35.1-43.9); Red Blood Count 5.13 M/mm3 (4.6-6.2); White Blood Count 10.9 K/mm3 (4.4-11.0)
[2019-08-02 04:27] LABS: Color, Urine Yellow (Yellow); Glucose, Dipstick Normal (Normal); Ketone-Dipstick Negative (Negative); Leukocyte Esterase-Dipstick Negative /ul (Negative); Nitrite-Dipstick Negative (Negative); Occult Blood-Urine 25 /ul (Negative); Protein-Dipstick Negative (Negative); Specific Gravity, Urine 1.015 (1.002-1.030); Urine Bilirubin Dipstick Negative (Negative); Urine Clarity Clear (Clear); Urine Urobilinogen Normal (Normal)
[2019-08-02 04:28] LABS: Differential Indicated SCAN CRITERIA MET
[2019-08-02 04:32] LABS: Amorphous Sediment 2+; Red Blood Cells-Urine 0-5 SEEN /hpf (0-5)
[2019-08-02 04:33] LABS: D-Dimer Quantitative (DVT/PE) 0.48 FEU/ug/m (0.27-0.49)
[2019-08-02 04:35] LABS: Anion Gap 7 (5-15); BUN 14 mg/dL (7-18); BUN/Creat Ratio 13.1 RATIO (10-20); Calcium,Total 8.9 mg/dL (8.5-10.1); Chloride 103 mmol/L (98-107); Creatinine, Serum 1.07 mg/dL (0.70-1.30); EST Glomerular Filtration Rate 74 mL/min (>60); Est Glom Filt Rate - Afr Amer 89 mL/min (>60); Estimated Creatinine Clearance 73.31 ml/min; Glucose 113 mg/dL (74-106); Sodium Level 138 mmol/L (136-145)
[2019-08-02 04:51] LABS: Differential Comment SCANNED; Reactive Lymphocyte 2+
[2019-08-02 04:52] LABS: Platelet Estimate SLT INC (ADEQ)
[2019-08-02] MEDS: Ketorolac 15 MG/ML Vial IV (05:11)
[2019-08-02 05:13] VITALS: BP 154/90; PULSE 68; RESP 20; O2SAT 94
[2019-08-02 06:00] VITALS: PULSE 92; RESP 16; O2SAT 95
== END 2019-08-02 06:06 | disposition home or self-care (01) ==
PROVIDERS: Emergency Provider Emergency Medicine; Family Provider Internal Medicine; PCP Internal Medicine
DX: R10.31 Right lower quadrant pain (principal); K80.20 Calculus of gallbladder without cholecystitis without obstruction; K57.30 Diverticulosis of large intestine without perforation or abscess without bleeding; J44.9 Chronic obstructive pulmonary disease, unspecified; I10 Essential (primary) hypertension; E78.00 Pure hypercholesterolemia, unspecified; Z79.82 Long term (current) use of aspirin; Z79.899 Other long term (current) drug therapy; Z87.891 Personal history of nicotine dependence
CPT/HCPCS: 74176; 80048; 81001; 85025; 85379; 96361; 96374; 96375; 96376; 99283; J7030; J2405

== ENCOUNTER 2019-08-25 06:05 | Emergency (ER) | payer MEDICARE, SELFPAY ==
[2019-08-25 06:06] VITALS: BP 148/87; PULSE 94; RESP 16; TEMP 36.6; O2SAT 100; BMI 24.0
--- NOTE | 2019-08-25 06:18 | ED.DCSUM_ITS ---
- ER Visit Summary Date of Service: 08/25/19 Chief Complaint: I think I have cyclic vomiting History of Present Illness: The patient is a 64 M who presents with cyclic vomiting syndrome. He said his symptoms started around 2 AM. He reports nausea and vomiting. He also has associated diffuse abdominal cramping. This is worse after using marijuana. It is relieved by using a hot shower and hot water on his abdomen. He has multiple visits for this in the past. Physical Examination: Afebrile and vital signs unremarkable. Patient appears uncomfortable but not toxic or in distress. He is moving without any apparent difficulty. Heart regular. No respiratory distress. Abdomen is soft and nontender. No guarding or rebound. Skin appears unremarkable. Test Results: CBC and CMP are pending. Emergency Department Course and Treatment: Patient declined topical capsaicin for treatment of cannabinoid hyperemesis syndrome. He said I would rather have pain medicine. His symptoms are consistent with cannabinoid hyperemesis syndrome. His exam is unremarkable. His vital signs are reassuring. We will check CBC and CMP given his vomiting. No indication to repeat imaging or other testing. He was treated with a liter of fluids, Zofran, and morphine. Will reassess. Labs were unremarkable. His white count is 13.6. Tends to run elevated. His symptoms only partly improved with morphine, Zofran, and capsaicin. We will try an additional round of pain medicine and Phenergan. Oncoming doctor will reassess Treatment Plan: As above Disposition: Discharge pending reassessment Impression: 1. Nausea and vomiting This note was generated with [employer] dictation software. It may contain incorrect words, spelling, and punctuation that were not noted in review of the chart prior to signing ED Disposition - Plan for ED Patient: Referrals: Jordan Rosales MD [Primary Care Provider] -
[2019-08-25 06:24] LABS: Absolute Lymphocyte Count 0.82 X10^3/uL (0.83-4.51); Absolute Neutrophil Count 11.8 X10^3/uL (2.0-7.7); Basophil# 0.05 X10^3/uL; Basophil% 0.4 % (0-1); Eosinophil# 0.23 X10^3/uL; Eosinophils% 1.7 % (0-5); Hematocrit 44.4 % (40-54); Hemoglobin 14.8 g/dL (13.0-16.5); Lymphocyte # 0.82 X10^3/ul (4.0); Mean Corp Hgb Conc 33.3 g/dL (32-36); Mean Corpuscular Volume 87.1 fL (80-94); Mean Platelet Vol. 8.3 fl (6.2-12.0); Monocyte# 0.63 X10^3/uL; Monocyte% 4.6 % (0-10); NRBC Flagged by Analyzer 0 % (0-5); Neutrophil # 11.82 X10^3/uL (2.7-7.7); Neutrophil % 86.8 % (47-70); Platelet Count 363 K/mm3 (150-450); RBC Distribution Width CV 13.8 % (11.6-14.6); RBC Distribution Width SD 44.4 fl (35.1-43.9); White Blood Count 13.6 K/mm3 (4.4-11.0)
[2019-08-25] MEDS: 0.9% Normal Saline 1,000 ML 1000 ML IV (06:25)
[2019-08-25 06:37] LABS: ALB/GLOB Ratio 1.2 RATIO (0.9-2.4); AST(SGOT) 21 U/L (15-37); Alanine Aminotransfer ALT/SGPT 32 U/L (16-61); Albumin, Serum 4.1 g/dL (3.2-5.0); Alkaline Phosphatase 73 U/L (45-117); Anion Gap 6 (5-15); BUN 14 mg/dL (7-18); BUN/Creat Ratio 13.3 RATIO (10-20); Calcium,Total 9.2 mg/dL (8.5-10.1); Chloride 108 mmol/L (98-107); Creatinine, Serum 1.05 mg/dL (0.70-1.30); EST Glomerular Filtration Rate 75 mL/min (>60); Est Glom Filt Rate - Afr Amer 91 mL/min (>60); Estimated Creatinine Clearance 72.42 ml/min; Globulin 3.5 g/dL (2.2-4.2); Glucose 144 mg/dL (74-106); Potassium 3.8 mmol/L (3.5-5.1); Protein, Total 7.6 g/dL (6.4-8.2); Sodium Level 140 mmol/L (136-145)
[2019-08-25] MEDS: Capsaicin 0.025% 1 APPLIC Tube TOPICAL (06:57)
[2019-08-25 07:24] VITALS: BP 173/96; PULSE 82; RESP 16
[2019-08-25] MEDS: Morphine 4 MG/ML Syringe IV ×2 (07:24→08:11)
[2019-08-25] MEDS: Ondansetron 4 MG/2 ML Vial IV (07:24)
[2019-08-25] MEDS: proMETHazine 25 MG/ML Syringe 6.25 MG IV (08:11)
[2019-08-25 09:06] VITALS: BP 184/99; PULSE 80; RESP 16; O2SAT 98; O2SAT 99
== END 2019-08-25 09:08 | disposition home or self-care (01) ==
PROVIDERS: Emergency Provider Emergency Medicine; Family Provider Internal Medicine; PCP Internal Medicine
DX: R11.2 Nausea with vomiting, unspecified (principal); R10.84 Generalized abdominal pain; J44.9 Chronic obstructive pulmonary disease, unspecified; F12.90 Cannabis use, unspecified, uncomplicated
CPT/HCPCS: 80053; 85025; 96361; 96374; 96375; 96376; 99284; J7030; A4216; J2405

== ENCOUNTER 2019-09-18 12:31 | Emergency (ER) | payer MEDICARE, SELFPAY ==
[2019-09-18 12:31] VITALS: BP 118/65; PULSE 97; RESP 18; TEMP 36.8; O2SAT 97; BMI 23.8
[2019-09-18] MEDS: 0.9% Normal Saline 1,000 ML 1000 ML IV (13:43)
[2019-09-18] MEDS: Ondansetron 4 MG/2 ML Vial IV (13:44)
[2019-09-18] MEDS: Dicyclomine 20 MG/2 ML Vial IM (13:44)
[2019-09-18 13:48] LABS: Absolute Lymphocyte Count 1.34 X10^3/uL (0.83-4.51); Absolute Neutrophil Count 13.2 X10^3/uL (2.0-7.7); Basophil# 0.08 X10^3/uL; Basophil% 0.5 % (0-1); Eosinophil# 0.05 X10^3/uL; Eosinophils% 0.3 % (0-5); Hematocrit 49.5 % (40-54); Hemoglobin 16.2 g/dL (13.0-16.5); Lymphocyte # 1.34 X10^3/ul (4.0); Lymphocyte % 8.5 % (19-41); Mean Corp Hgb Conc 32.7 g/dL (32-36); Mean Corpuscular Hgb 28.8 pg (27.0-32.0); Mean Corpuscular Volume 88.1 fL (80-94); Mean Platelet Vol. 8.7 fl (6.2-12.0); Monocyte# 0.93 X10^3/uL; Monocyte% 5.9 % (0-10); NRBC Flagged by Analyzer 0 % (0-5); Neutrophil # 13.23 X10^3/uL (2.7-7.7); Neutrophil % 84.2 % (47-70); Platelet Count 379 K/mm3 (150-450); RBC Distribution Width SD 44.9 fl (35.1-43.9); Red Blood Count 5.62 M/mm3 (4.6-6.2); White Blood Count 15.7 K/mm3 (4.4-11.0)
[2019-09-18 14:02] LABS: ALB/GLOB Ratio 1.3 RATIO (0.9-2.4); AST(SGOT) 19 U/L (15-37); Alanine Aminotransfer ALT/SGPT 37 U/L (16-61); Alkaline Phosphatase 88 U/L (45-117); Anion Gap 6 (5-15); BUN 15 mg/dL (7-18); BUN/Creat Ratio 12.5 RATIO (10-20); Calcium,Total 10.6 mg/dL (8.5-10.1); Chloride 108 mmol/L (98-107); EST Glomerular Filtration Rate 65 mL/min (>60); Est Glom Filt Rate - Afr Amer 78 mL/min (>60); Estimated Creatinine Clearance 63.37 ml/min; Globulin 3.9 g/dL (2.2-4.2); Glucose 131 mg/dL (74-106); Lipase 50 U/L (73-393); Potassium 4.3 mmol/L (3.5-5.1); Protein, Total 8.9 g/dL (6.4-8.2); Sodium Level 142 mmol/L (136-145)
[2019-09-18] MEDS: proMETHazine 25 MG/ML Syringe 12.5 MG IV (15:14)
[2019-09-18 15:36] VITALS: BP 167/99; PULSE 99; RESP 18; O2SAT 94
--- NOTE | 2019-09-18 15:38 | ED.VISSUMM ---
- ER Visit Summary Date of Service: 09/18/19 Chief Complaint: [Nausea vomiting and diarrhea] History of Present Illness: The patient is a 64 M [presents to the emergency department with symptoms that started this morning. Patient has thrown up 6 or 7 times and has had 6-7 episodes of watery stools. He denies any sick contacts. He denies eating any undercooked foods. Patient's had chills. He denies fevers. He describes diffuse abdominal discomfort and cramping. Patient has had prior appendectomy. He has a history of COPD, hypertension, and high cholesterol. ] Physical Examination: [HEENT-PERRLA, EOMI. Cranial nerves II through XII grossly intact. TMs clear. Mucous membranes moist. No adenopathy. Cardiovascular-regular rate and rhythm without murmur or ectopy Lungs-clear to auscultation, chest wall stable without crepitus or subcu emphysema Abdomen-normoactive bowel sounds, soft. Patient has some mild diffuse tenderness. There is no rebound, rigidity, or peritoneal signs. There is no distention. Extremities-intact ?4, normal range of motion, normal pulses, atraumatic] Test Results: [CBC with differential obtained showed a white blood cell count of 15.7, hemoglobin 16, hematocrit 49, platelets 379. Chemistries unremarkable. LFTs were normal. Lipase was normal at 50.] Emergency Department Course and Treatment: [She was given a liter in the same fluid bolus. Patient was medicated with Bentyl 20 mg IM as well as Zofran 4 mg IV patient was given 4 mg of morphine IV she also given Phenergan 12.5 mg IV for continued nausea.] Did feel improved after treatment. I do not feel any imaging is indicated as I feel he likely has a viral gastroenteritis. His exam is not consistent with bowel obstruction. I did order stool for enteric pathogens patient unable to give sample in the ER. Treatment Plan: [Patient will be given a prescription for Zofran and Bentyl. Patient advised to push fluids. Patient will be advised to follow-up with his primary care physician within next 3 to 5 days. Patient advised to return if persistent vomiting, dehydration, or condition should worsen anyway.] Disposition: [Discharged home in stable condition] Impression: [Viral gastroenteritis] This note was generated with [email or web address] software. It may contain incorrect words, spelling, and punctuation that were not noted in review of the chart prior to signing ED Disposition - Plan for ED Patient: Referrals: Jordan Rosales MD [Primary Care Provider] -
--- NOTE | 2019-09-18 15:43 | ED.DEP ---
ED Disposition - Plan for ED Patient: Instructions: GASTROENTERITIS, Viral (5y-Adult) Prescriptions: Dicyclomine HCl [Bentyl] 20 mg PO TIDAC #20 cap Prescription Printed proMETHazine tablet [Phenergan] 25 mg PO Q6H PRN PRN #10 tab PRN Reason: Nausea Prescription Printed Referrals: Jordan Rosales MD [Primary Care Provider] - 3-5 Days
[2019-09-18] MEDS: Morphine 4 MG/ML Syringe IV (15:53)
== END 2019-09-18 16:27 | disposition home or self-care (01) ==
LOC: ED 13:44
PROVIDERS: Emergency Provider Emergency Medicine; Family Provider Internal Medicine; PCP Internal Medicine
DX: A08.4 Viral intestinal infection, unspecified (principal); J44.9 Chronic obstructive pulmonary disease, unspecified; I10 Essential (primary) hypertension; E78.00 Pure hypercholesterolemia, unspecified; Z79.82 Long term (current) use of aspirin; Z79.899 Other long term (current) drug therapy
CPT/HCPCS: 80053; 83690; 85025; 96361; 96372; 96374; 96375; 99283; J7030; A4216; J2405

== ENCOUNTER 2019-10-13 10:12 | Emergency (ER) | payer MEDICARE, SELFPAY ==
[2019-10-13 10:13] VITALS: BP 162/114; PULSE 101; RESP 20; TEMP 36.6; O2SAT 95; BMI 23.6
--- NOTE | 2019-10-13 10:43 | ED.VISSUMM ---
- ER Visit Summary Date of Service: 10/13/19 Chief Complaint: Abdominal pain History of Present Illness: The patient is a 64 M presenting with abdominal pain and vomiting. He states this started this morning. He has had several episodes of vomiting and now dry heaving. Denies diarrhea or constipation. Complains of diffuse abdominal cramping. Denies fever. Denies chest pain or shortness of breath. He states his sister is also sick with similar symptoms. Denies other complaints. Physical Examination: Vitals are stable. Patient is afebrile. Alert no acute distress. HEENT exam is unremarkable. Neck is supple. Lungs are clear and equal bilaterally. Heart is regular rate and rhythm. Abdomen is soft nontender nondistended. No rebound or guarding Extremities are unremarkable. Skin is warm and dry. No focal neurologic deficit. Remainder of exam is unremarkable. Emergency Department Course and Treatment: Patient was given IV fluids, morphine, Phenergan. CBC shows white count 12.7. Chemistries show glucose 145. Liver lipase are normal. On reevaluation, patient is feeling improved. He is able to tolerate p.o. in the emergency department. Repeat abdominal exam is soft and nontender with no guarding or rebound. Patient feels improved and would like to go home. He is given prescription for Phenergan. Advised return to ED for worsening complaints. Disposition: Discharge home Impression: Abdominal pain, vomiting This note was generated with [employer] dictation software. It may contain incorrect words, spelling, and punctuation that were not noted in review of the chart prior to signing ED Disposition - Plan for ED Patient: Instructions: ABDOMINAL PAIN, Unknown Cause, (Female) Prescriptions: proMETHazine tablet [Phenergan] 25 mg PO Q6H PRN PRN #10 tab PRN Reason: Nausea Prescription Printed Referrals: Jordan Rosales MD [Primary Care Provider] -
[2019-10-13] MEDS: Morphine 4 MG/ML Syringe IV ×2 (10:58→12:17)
[2019-10-13] MEDS: proMETHazine 25 MG/ML Syringe 6.25 MG IV ×2 (10:58→12:15)
[2019-10-13] MEDS: 0.9% Normal Saline 1,000 ML 1000 ML IV (10:58)
[2019-10-13 11:05] LABS: Absolute Lymphocyte Count 0.96 X10^3/uL (0.83-4.51); Absolute Neutrophil Count 10.9 X10^3/uL (2.0-7.7); Basophil# 0.04 X10^3/uL; Basophil% 0.3 % (0-1); Eosinophil# 0.03 X10^3/uL; Eosinophils% 0.2 % (0-5); Lymphocyte # 0.96 X10^3/ul (4.0); Lymphocyte % 7.6 % (19-41); Mean Corp Hgb Conc 33.3 g/dL (32-36); Mean Corpuscular Hgb 28.7 pg (27.0-32.0); Mean Platelet Vol. 8.8 fl (6.2-12.0); Monocyte# 0.71 X10^3/uL; Monocyte% 5.6 % (0-10); NRBC Flagged by Analyzer 0 % (0-5); Neutrophil % 85.8 % (47-70); Platelet Count 358 K/mm3 (150-450); RBC Distribution Width CV 14.2 % (11.6-14.6); RBC Distribution Width SD 44.7 fl (35.1-43.9); Red Blood Count 5.23 M/mm3 (4.6-6.2); White Blood Count 12.7 K/mm3 (4.4-11.0)
[2019-10-13 11:22] LABS: ALB/GLOB Ratio 1.3 RATIO (0.9-2.4); AST(SGOT) 19 U/L (15-37); Alanine Aminotransfer ALT/SGPT 35 U/L (16-61); Albumin, Serum 4.5 g/dL (3.2-5.0); Alkaline Phosphatase 76 U/L (45-117); Anion Gap 6 (5-15); BUN 13 mg/dL (7-18); BUN/Creat Ratio 13.1 RATIO (10-20); Calcium,Total 10.3 mg/dL (8.5-10.1); Chloride 108 mmol/L (98-107); EST Glomerular Filtration Rate 80 mL/min (>60); Est Glom Filt Rate - Afr Amer 97 mL/min (>60); Estimated Creatinine Clearance 76.04 ml/min; Globulin 3.5 g/dL (2.2-4.2); Glucose 145 mg/dL (74-106); Lipase 29 U/L (73-393); Potassium 3.9 mmol/L (3.5-5.1); Sodium Level 139 mmol/L (136-145)
[2019-10-13 12:23] VITALS: PULSE 97; RESP 18; O2SAT 94
--- NOTE | 2019-10-13 12:40 | ED.DEP ---
ED Disposition - Plan for ED Patient: Instructions: ABDOMINAL PAIN, Unknown Cause, (Female) Prescriptions: proMETHazine tablet [Phenergan] 25 mg PO Q6H PRN PRN #10 tablet PRN Reason: Nausea Referrals: Jordan Rosales MD [Primary Care Provider] -
[2019-10-13 13:04] VITALS: PULSE 91; RESP 18; O2SAT 96
== END 2019-10-13 13:06 | disposition home or self-care (01) ==
LOC: ED 11:18
PROVIDERS: Emergency Provider Emergency Medicine; PCP Internal Medicine
DX: R10.9 Unspecified abdominal pain (principal); R11.2 Nausea with vomiting, unspecified; I10 Essential (primary) hypertension; J44.9 Chronic obstructive pulmonary disease, unspecified; Z79.82 Long term (current) use of aspirin; Z79.899 Other long term (current) drug therapy
CPT/HCPCS: 80053; 83690; 85025; 96361; 96374; 96375; 96376; 99283; J7030; A4216

== ENCOUNTER 2019-11-11 08:54 | Observation (INO) | payer MEDICARE, SELFPAY ==
[2019-11-11] VITALS (16 sets, daily range): BP systolic 108–156; BP diastolic 84–122; PULSE 90–118; RESP 14–24; TEMP 36.6–36.9; O2SAT 92–96; BMI 23.6; BMI 23.1; BMI 23.2
--- NOTE | 2019-11-11 09:10 | EKG12_ITS ---
Test Reason : CP/SOB Blood Pressure : / mmHG Vent. Rate : 112 BPM Atrial Rate : 112 BPM P-R Int : 154 ms QRS Dur : 094 ms QT Int : 328 ms P-R-T Axes : 083 075 063 degrees QTc Int : 447 ms Sinus tachycardia Right atrial enlargement Borderline ECG Confirmed by YAQUELIN RIVERA, BRANDI ([id number]), development editor NAFISA VALERO ([id number]) on 11/12/2019 3:20:58 PM Referred By: ADELA Confirmed By:BRANDI JAMISON MD
--- NOTE | 2019-11-11 09:10 | RAD_ITS ---
STUDY: X-RAY CHEST REASON FOR EXAM: Male, 64 years old. Dyspnea TECHNIQUE: Frontal and lateral views COMPARISON: None. FINDINGS: The lungs are hyperaerated. There is no demonstrated pleural abnormality. Normal size heart. Normal mediastinum and jonathan. Normal visualized pulmonary arteries. Mildly calcified visualized aortic arch and descending thoracic aorta. Normal visualized thoracic spine. Normal visualized ribs, clavicles, and shoulders. There is no demonstrated abnormality of the visualized soft tissue structures of the upper abdomen. RAD/Chest PA and Lateral IMPRESSION: Mild hyperaeration. Electronically Signed: Maury Hayden DO at 11:26 EDT Tel [phone], Service support ,
--- NOTE | 2019-11-11 09:15 | ED.VIS.DYS ---
History of Present Illness Informant: Patient, Relative Onset: Days - 3 days Activity at onset: Exertion, Light Activity Timing: Continuous Quality: Dyspnea on exertion, Wheezing. Negative for: Orthopnea, PND Current Severity: Severe Maximum Severity: Severe Worsened by: Coughing, Exertion Relieved by: Albuterol, Rest Associated Symptoms: Cough, Green sputum, Yellow sputum. Negative for: Bloody Sputum, Chills, Clear sputum, Ear pain, Fever, Post-nasal drainage, Rhinorrhea, Sore throat, Sweats, White sputum Chest Pain: Tightness Narrative: 64-year-old male history of CVA, COPD, Pizano's esophagus presents to the emergency department with shortness of breath. He has had shortness of breath now consistently for 3 days. Mostly with exertion. Usually relieved with rest and his nebulizer but he had an episode today of shortness of breath followed by coughing spell that made him lightheaded and he is now with his sister in the emergency department. He feels tightness in his chest that he gets frequently with his COPD. No fevers. No hemoptysis. No diaphoresis. No exertional chest pain. No vomiting or diarrhea. No symptoms of bleeding. No fevers. No sick contacts. No leg pain or swelling. No recent travel or surgery or history of DVT or PE. PE Risk Factors: Negative for: Cancer, OCP + Smoking + > 35, Prior DVT or PE, Recent immobilization, Recent surgery, Recent travel Prior similar symptoms: Yes Recent Illness/Hospitalization: No <Bartolome Devine - Last Filed: 11/11/19 10:34> <Cathryn Conde - Last Filed: 11/11/19 12:53> Chief Complaint: Shortness of Breath Past Medical History Prior records reviewed: Yes Past Medical History: - - COPD, CVA, Pizano's esophagus, hypertension, hyperlipidemia, chronic back pain, seasonal allergies Surgical History: appendectomy Lives: Alone Smoking Status: Former smoker Alcohol: Occasional Drugs: Marijuana <Bartolome Devine - Last Filed: 11/11/19 10:34> - Family History Maternal Family History: Reports: Diabetes, Hypertension Paternal Family History: Reports: Heart Disease <Cathryn Conde - Last Filed: 11/11/19 12:53> - Allergies and Home Meds Allergies/Adverse Reactions: Allergies No Known Allergies Allergy (Verified 11/11/19 08:56) Review of Systems All systems negative except as indicated General: Denies: Chills, Fever, Malaise Eyes: Denies: Visual changes - bilaterally, Blurred Vision - bilaterally, Diplopia ENT: Denies: Rhinorrhea, Sore throat Cardiovascular: Reports: Chest pain. Denies: Palpitations, Heart racing Respiratory: Reports: Dyspnea, Cough, Sputum, Dyspnea on exertion. Denies: Orthopnea, Paroxysmal nocturnal dyspnea Gastrointestinal: Denies: Abdominal pain, Nausea, Vomiting, Diarrhea, Melena, Hematochezia Genitourinary: Denies: Dysuria, Hematuria, Frequency Musculoskeletal: Denies: Myalgias, Neck pain, Back pain, Swelling, Extremity Pain Skin: Denies: Rash, Abscess, Abrasions, Wounds Neurological: Denies: Headache, Weakness, Parasthesia Hematologic: Denies: Easy bruising, Easy bleeding <Bartolome Devine - Last Filed: 11/11/19 10:34> Physical Exam Vital Signs/Narrative: Vital Signs Temp Pulse Resp BP Pulse Ox 11/11/19 08:55 97.8 F 118 H 24 H 156/90 H 92 Inital Vital Signs reviewed: Yes General: Well nourished, Well developed, No Acute Distress Head: Normocephalic, Atraumatic Eyes: Perrl, EOMI ENT: Moist mucous membranes Neck: Supple, Nontender, No lymphadenopathy, No JVD Cardiovascular: Regular rate, Regular rhythm, No murmurs Respiratory: No distress, Chest nontender, Wheezing, Decreased Air Movement Abdomen: Soft, Nontender, Nondistended, Normal bowel sounds, No masses Back: Nontender, Normal Inspection Extremities: Nontender, No edema Skin: Normal color, No rash Neurological: Alert, Oriented x3, Normal Gait Psychological: Normal affect, Normal Mood <Bartolome Devine - Last Filed: 11/11/19 10:34> Vital Signs/Narrative: Vital Signs Temp Pulse Resp BP Pulse Ox 11/11/19 09:28 108 H 14 11/11/19 08:55 97.8 F 118 H 24 H 156/90 H 92 <Cathryn Conde - Last Filed: 11/11/19 12:53> Diagnostic/Tx/Re-eval Chest X-Ray - ED: 2 View, Read by ED Physician, Chronic Changes, Right Infiltrate - Rhythm Strip Rhythm Strip: Sinus Tach Rate: 111 Ectopy: None - EKG Initial EKG Interpretation: No Acute Injury Pattern, Sinus Tachycardia Treatment - Dyspnea: Oxygen, Albuterol, Atrovent - Medical Decision Making On arrival EKG was sinus tachycardia without any signs of ST segment or T wave changes. Normal intervals. No ectopy. Patient is not having chest pain on arrival. He was treated with aerosols. Currently stable on 2 L of oxygen by nasal cannula. Laboratory work-up including CBC, BMP unremarkable but troponin was 0.1. Chest x-ray has not yet been read by radiology but was independently interpreted by the emergency physician showing a right-sided pneumonia. Patient was given Rocephin and Zithromax. He was given aspirin. He remains chest pain-free. His vital signs are stable. We will admit for further work-up. I spoke with Dr. Hall who agreed to admit the patient onto his service. <Bartolome Devine - Last Filed: 11/11/19 10:34> - Medical Decision Making Patient was seen with Bartolome the JOSÉ MIGUEL agree with history and physical as above complains of some cough and shortness of breath history of COPD his vital signs are unremarkable he has diminished at the bases minimal wheezing he is awake and alert abdomen soft nontender moving all 4 extremities in no distress undergo ED evaluation see the chart for full details <Cathryn Conde - Last Filed: 11/11/19 12:53> ED Disposition <Bartolome Devine - Last Filed: 11/11/19 10:34> <Cathryn Conde - Last Filed: 11/11/19 12:53> - Plan for ED Patient: Disposition: Acute Care Hospital [facility] Diagnosis: Chest pain, Elevated troponin, COPD (chronic obstructive pulmonary disease), Community acquired pneumonia
[2019-11-11 09:18] LABS: Absolute Lymphocyte Count 0.89 X10^3/uL (0.83-4.51); Absolute Neutrophil Count 7.8 X10^3/uL (2.0-7.7); Basophil# 0.05 X10^3/uL; Basophil% 0.5 % (0-1); Eosinophil# 0.16 X10^3/uL; Eosinophils% 1.5 % (0-5); Hematocrit 48.8 % (40-54); Hemoglobin 16.1 g/dL (13.0-16.5); Lymphocyte # 0.89 X10^3/ul (4.0); Lymphocyte % 8.2 % (19-41); Mean Corpuscular Hgb 28.7 pg (27.0-32.0); Mean Platelet Vol. 8.8 fl (6.2-12.0); Monocyte# 1.94 X10^3/uL; Monocyte% 17.9 % (0-10); NRBC Flagged by Analyzer 0 % (0-5); Neutrophil # 7.75 X10^3/uL (2.7-7.7); Neutrophil % 71.5 % (47-70); POSITIVE DIFFERENTIAL YES; Platelet Count 254 K/mm3 (150-450); RBC Distribution Width CV 14.2 % (11.6-14.6); RBC Distribution Width SD 45.3 fl (35.1-43.9); Red Blood Count 5.61 M/mm3 (4.6-6.2); White Blood Count 10.8 K/mm3 (4.4-11.0)
[2019-11-11] MEDS: Albuterol 2.5 MG/3 ML VIAL.NEB. INHALATION ×3 (09:28)
[2019-11-11] MEDS: Ipratropium/Albuterol Sulfate 3 ML AMPUL.NEB INHALATION ×4 (09:28→22:19)
[2019-11-11 09:38] LABS: Anion Gap 8 (5-15); BUN 15 mg/dL (7-18); Calcium,Total 9.5 mg/dL (8.5-10.1); Chloride 100 mmol/L (98-107); EST Glomerular Filtration Rate 80 mL/min (>60); Est Glom Filt Rate - Afr Amer 97 mL/min (>60); Estimated Creatinine Clearance 76.04 ml/min; Glucose 118 mg/dL (74-106); Potassium 4.1 mmol/L (3.5-5.1); Sodium Level 132 mmol/L (136-145)
[2019-11-11 09:41] LABS: Differential Indicated SCAN CRITERIA MET
[2019-11-11 10:01] LABS: Platelet Estimate ADEQUATE (ADEQ); Red Cell Morphology NORM C+C NORMAL (NORM C&C)
[2019-11-11] MEDS: Ceftriaxone 1 GM/50 ML BAG IV (11:02)
[2019-11-11] MEDS: Aspirin 325 MG Tablet PO (11:03)
--- NOTE | 2019-11-11 11:43 | HP.PCM_ITS ---
History of Present Illness Date of Admission: 11/11/19 Chief Complaint: Chest pain The patient is a 64 year old M with a PMH as below who presents with shortness of breath, cough, and chest pain for the last several days. Most of his shortness of breath has been with exertion, however he does get significantly short of breath with coughing which limits to lightheadedness and dizziness. He states that his chest pain is more in the left chest without any radiation. There is some consistency with his chest pain and palpation. He is a former smoker and has a significant family history of heart attacks and heart disease. He had a cath about 15 years ago but he does not remember if it was positive for any, he denies having a stent. In the ER he was found to have abnormal EKG with elevated troponin of 0.165. He was given antibiotics for the possible pneumonia as well as aspirin for his elevated troponin. He will be admitted to the PCU for observation. Past Medical History Past Medical History (Chronic Problems): Chronic Problems History of hypercholesterolemia (Chronic) History of hypertension (Chronic) History of COPD (Chronic) COPD (chronic obstructive pulmonary disease) (Chronic) Allergies No Known Allergies Allergy (Verified 11/11/19 08:56) Home Medications: Ambulatory Orders Medication Instructions Recorded Albuterol Aerosols [Ventolin 2.5 mg INHALATION Q6H PRN PRN 11/01/18 Aerosols] Aspirin [Aspirin, Baby] 81 mg PO DAILY@0800 11/01/18 Citalopram [Celexa] 20 mg PO DAILY 11/01/18 Lisinopril 5 mg PO DAILY 11/01/18 Loperamide [Imodium] 2 mg PO Q4H PRN PRN #30 cap 11/01/18 Omeprazole 40 mg PO DAILY 11/01/18 Simvastatin 20 mg PO DAILY 11/01/18 Gabapentin [Neurontin] 300 mg PO QHS 08/02/19 Dicyclomine HCl [Bentyl] 20 mg PO TIDAC #20 cap 09/18/19 proMETHazine tablet [Phenergan] 25 mg PO Q6H PRN PRN #10 tab 09/18/19 proMETHazine tablet [Phenergan] 25 mg PO Q6H PRN PRN #10 tab 10/13/19 Surgical History: appendectomy Lives: Alone Smoking Status: Former smoker Alcohol: Occasional Drugs: Marijuana - *Family History Maternal History Items: Diabetes, Hypertension Paternal History Items: Heart Disease Review of Systems Constitutional: Denies: Chills, Fever, Weight Change HEENT: Denies: Head Aches, Sinus Congestion, Sinus Drainage Cardiovascular: Reports: Chest Tightness, Light Headedness. Denies: Chest Pain, Palpitations Respiratory: Reports: Cough, Shortness of Breath, Shortness of breath upon exertion, Sputum production. Denies: Shortness of breath at rest Gastrointestinal: Denies: Abdominal Pain, Nausea, Vomiting Genitourinary: Denies: Dysuria Musculoskeletal: Denies: Joint Pain, Joint Tenderness Skin: Denies: Rash, Wounds Neurological: Denies: Numbness, Tingling, Focal weakness Psychiatric: Denies: Anxiety, Depression Hematologic/ Lymphatic: Denies: Easy Bruising, Easy Bleeding VTE Information - Inpt Only VTE Present on Admission: No Patient Problems: Active and Suspected Problems Chest pain (Acute) Elevated troponin (Acute) Community acquired pneumonia (Acute) - Physical Exam Vitals/I&O's: Vital Signs Temp Pulse Resp BP Pulse Ox 98.4 F 117 H 19 H 137/97 H 95 11/11/19 10:33 11/11/19 11:00 11/11/19 11:00 11/11/19 11:00 11/11/19 11:00 Oxygen Flow Rate (L/min) 2 Oxygen Delivery Method Nasal Cannula Weight: 165 lb Body Mass Index (BMI) 23.6 General: Alert, Oriented x3, Cooperative, No apparent distress HEENT: Atraumatic, PERRLA, EOMI, Normocephalic Oral: Moist Mucosa Neck: Supple, No JVD Lungs: Clear to auscultation, No rhonchi, No wheeze, No rales, - - Poor air movement Cardiovascular: Regular rate, Regular Rhythm, Normal S1, Normal S2, No murmurs Abdomen: Soft, Non Tender, Non-Distended, No Hepato-splenomegaly Extremities: No edema, Capillary Refill Less than 3 Seconds Skin: No rashes, No breakdown Neurological: Neuro grossly intact, Sensory exam intact to light touch and pain Psych/Mental Status: Normal Affect, Appropriate Laboratory Results 11/11/19 09:00: WBC 10.8, RBC 5.61, Hgb 16.1, Hct 48.8, MCV 87.0, MCH 28.7, MCHC 33.0, RDW Std Deviation 45.3 H, RDW Coeff of Sue 14.2, Plt Count 254, MPV 8.8, Immature Gran % (Auto) 0.400, Neut % (Auto) 71.5 H, Lymph % (Auto) 8.2 L, [place] % (Auto) 17.9 H, Eos % (Auto) 1.5, Baso % (Auto) 0.5, Absolute Neuts (auto) 7.8 H , Absolute Lymphs (auto) 0.89, Nucleated RBC % 0, Diff Path Review January foll, Pl atelet Estimate ADEQUATE, RBC Morphology NORM C+C 11/11/19 09:00: Sodium 132 L, Potassium 4.1, Chloride 100, Carbon Dioxide 24.0, Anion Gap 8, BUN 15, Creatinine 1.00, Estim Creat Clear Calc 76.04, Est GFR (MDRD) Af Amer 97, Est GFR (MDRD) Non-Af 80, BUN/Creatinine Ratio 15.0, Glucose 118 H, Calcium 9.5, Troponin I 0.165 H Current Medications Acetaminophen (Tylenol) 650 mg PO Q6H PRN PRN PRN Reason: Pain Score 1-10/Temp > 100.7 F Albuterol/Ipratropium (Duoneb) 3 ml INHALATION Q4HWA.RT CHLOE Enoxaparin Sodium (Lovenox) 70 mg SC Q12 CHLOE Azithromycin 500 mg/ Dextrose 255 mls @ 250 mls/hr IV Q24 CHLOE Ceftriaxone Sodium 2 gm/ (Sodium Chloride) 50 mls @ 100 mls/hr IV Q24 CHLOE Nitroglycerin (Nitrostat) 0.4 mg SUBLINGUAL Q5M PRN PRN Reason: CARDIAC/CHEST PAIN Ondansetron HCl (Zofran) 4 mg IV Q8H PRN PRN PRN Reason: NAUSEA/VOMITING Assessment/Plan All Active Problems Chest pain (Acute) Elevated troponin (Acute) Community acquired pneumonia (Acute) 1. Chest pain/HTN/HLD -We will trend his troponin however his a SWATI score 4-5 therefore also providing therapeutic Lovenox and aspirin -Nitro is available as well for his pain -We will consult cardiology -He does say that there is some reproduction of his chest pain with palpation this could represent some costochondritis given his coughing -Continue with his lisinopril and simvastatin 2. Acute COPD exacerbation -He is currently on 2 L nasal cannula which he states that he wears at night but not usually during the day -We will start him on steroids as well as duo nebs -There is no leukocytosis and he is afebrile, chest x-ray on my read did not show significant pneumonia and radiology concurs -We will discontinue antibiotics 3. Anxiety/depression -Stable -Continue with Celexa 4. GERD -Stable -Continue with PPI DVT: Lovenox OBSV E&M: [id number] Initial observation care L3
--- NOTE | 2019-11-11 12:01 | EKG12_ITS ---
Test Reason : AM EKG Blood Pressure : / mmHG Vent. Rate : 095 BPM Atrial Rate : 095 BPM P-R Int : 152 ms QRS Dur : 100 ms QT Int : 378 ms P-R-T Axes : 083 081 063 degrees QTc Int : 475 ms Normal sinus rhythm Normal ECG Confirmed by MAKENZIE RIVERA, MESFIN ([id number]), slot editor AYAN GUADALUPE ([id number]) on 11/14/2019 10:00:28 AM Referred By: CATHLEEN Confirmed By:MESFIN BANEGAS MD
--- NOTE | 2019-11-11 12:45 | ECHOD_ITS ---
Reason For Study: CHEST PAIN Procedure This was a 2D Doppler, Color Flow transthoracic echocardiogram. Exam performed portable in patient room. Left Ventricle Normal LV size. Left ventricular systolic function is normal. The estimated ejection fraction is 55 %. Stage 2 diastolic dysfunction. No regional wall motion abnormalities noted. Right Ventricle Normal RV size. Normal systolic function. Atria Normal left atrium. Normal right atrium. Mitral Valve Normal mitral valve. Tricuspid Valve Normal tricuspid valve. Mild tricuspid valve insufficiency. Pulmonary artery systolic pressure is 36 mmHg. Aortic Valve Normal aortic valve. Trisinus/trileaflet aortic valve. Pulmonic Valve Normal pulmonic valve. Great Vessels Normal aortic root. The pulmonary artery is normal size. Normal inferior vena cava. Pericardium/Pleural No pericardial effusion. MMode/2D Measurements & Calculations LVIDd: 4.5 cm IVSd: 0.82 cm Ao root diam: 3.4 cm LVIDs: 2.7 cm LVPWd: 0.94 cm RVDd: 3.5 cm FS: 39.3 % LAV(MOD-bp): 36.0 ml LVAd ap4: 32.7 cm2 SV(MOD-sp4): 53.9 ml LAV(MOD-bp) Indexed: 18.9 ml/m2 EDV(MOD-sp4): 103.1 ml LAV(MOD-sp2): 36.1 ml EDV(sp4-el): 105.9 ml LAV(MOD-sp4): 35.5 ml LVAs ap4: 20.7 cm2 ESV(MOD-sp4): 49.2 ml ESV(sp4-el): 49.2 ml EF(MOD-sp4): 52.3 % EF(sp4-el): 53.6 % SV(sp4-el): 56.8 ml LA A4 area: 14.3 cm2 LA dimension(2D): 3.6 cm RA A4 area: 8.9 cm2 Time Measurements MV dec time: 0.47 sec Doppler Measurements & Calculations MV E max andrew: 54.8 cm/sec Lat Peak E' Andrew: 10.5 cm/sec Med Peak E' Andrew: 6.8 cm/sec MV A max andrew: 62.6 cm/sec E/E' lat: 5.2 E/E' med: 8.1 MV E/A: 0.88 Ao V2 max: 129.9 cm/sec LV V1 max: 106.0 cm/sec PA V2 max: 110.4 cm/sec Ao max P.8 mmHg LV V1 max P.5 mmHg TR max andrew: 288.0 cm/sec TR max P.2 mmHg Interpretation Summary Normal LV size. Left ventricular systolic function is normal. The estimated ejection fraction is 55 %. Stage 2 diastolic dysfunction. Mild tricuspid valve insufficiency. Pulmonary artery systolic pressure is 36 mmHg. Ordering Physician: Justin Clifton Referring Physician: Jordan Rosales M.D. Performed By: Hyacinth Holman, JEVON, RVT
--- NOTE | 2019-11-11 12:46 | CON.PCM_ITS ---
Reason for Consult Date of Consultation: 11/11/19 Reason for Consultation: Shortness of breath and chest pain. Abnormal cardiac enzymes History of Present Illness: The patient is a 64 year old M with a past medical history significant for hypertension and COPD and previous remote cardiac catheterization. He presents with shortness of breath which he says has been progressive and much worse over the last few days. He has had no dizziness or diaphoresis no near syncope or syncope. He did have mild chest discomfort described as a tightness. He decided to present to the emergency room was evaluated and noted to have normal EKG, and mildly abnormal troponin. Cardiology was called for further evaluation and management. He has had no neck arm or jaw discomfort otherwise. He has not had any presyncope. He is currently pain-free but mildly short of breath. [] Past Medical History Allergies/Adverse Reactions: Allergies No Known Allergies Allergy (Verified 11/11/19 08:56) Home Medications: Ambulatory Orders Medication Instructions Recorded Albuterol Aerosols [Ventolin 2.5 mg INHALATION Q6H PRN PRN 11/01/18 Aerosols] Aspirin [Aspirin, Baby] 81 mg PO DAILY@0800 11/01/18 Citalopram [Celexa] 20 mg PO DAILY 11/01/18 Lisinopril 5 mg PO DAILY 11/01/18 Loperamide [Imodium] 2 mg PO Q4H PRN PRN #30 cap 11/01/18 Omeprazole 40 mg PO DAILY 11/01/18 Simvastatin 20 mg PO DAILY 11/01/18 Gabapentin [Neurontin] 300 mg PO QHS 08/02/19 proMETHazine tablet [Phenergan] 25 mg PO Q6H PRN PRN #10 tab 09/18/19 proMETHazine tablet [Phenergan] 25 mg PO Q6H PRN PRN #10 tab 10/13/19 Cetirizine HCl [Zyrtec] 10 mg PO DAILY 11/11/19 Cyclobenzaprine HCl 10 mg PO DINNER 11/11/19 Past Medical History (Chronic Problems): Chronic Problems History of hypercholesterolemia (Chronic) History of hypertension (Chronic) History of COPD (Chronic) COPD (chronic obstructive pulmonary disease) (Chronic) Surgical History: appendectomy - *Family History Maternal History Items: Diabetes, Hypertension Paternal History Items: Heart Disease Lives: Alone Smoking Status: Former smoker Alcohol: Occasional Drugs: Marijuana Review of Systems - Review of Systems General: Denies: Fever, Night Sweats, Fatigue HEENT: Denies: Vision Change Cardiovascular: Reports: Chest Discomfort, Shortness of Breath. Denies: Orthopnea, PND, Peripheral Edema, Palpitations, Lightheadedness, Dizziness, Near Syncope, Syncope Respiratory: Denies: Cough, Sputum Production, Hemoptysis Gastrointestinal: Denies: Hematemesis, Hematochezia, Melena Genitourinary: Denies: Dysuria, Hematuria Muscoloskeletal: Denies: Myalgias Skin: Denies: Rash Neurological: Denies: Dizziness Psychiatric: Denies: Anxiety Endocrine: Denies: Unexplained Weight Loss Hematologic/ Lymphatic: Denies: Anemia Subjectve: Pleasant gentleman in no distress Objective: Vital Signs Temp Pulse Resp BP Pulse Ox 98.5 F 107 H 16 126/84 H 95 11/11/19 11:50 11/11/19 11:50 11/11/19 11:50 11/11/19 11:50 11/11/19 12:07 Oxygen Flow Rate (L/min) 3 Oxygen Delivery Method Nasal Cannula Weight: 161 lb 9.581 oz Body Mass Index (BMI) 23.1 General: Awake, Alert, Oriented x 3 HEENT: PERRL, EOMI, Sclera Non Icteric Neck: Supple, Good ROM, No Lymph Node Enlargement Lungs: Clear to auscultation Cardiovascular: Regular Rhythm, Normal S1, Normal S2, No Murmurs, No Rubs, No Gallops Vascular: No Carotid Bruits, Normal Femoral Pulses, Normal Radial Pulses, Normal Dorsalis Pedal Pulse, Normal Posterior Tibial Pulses Abdomen: Bowel Sounds Present, Soft, Non Tender, No HSM, No Organomegaly Extremities: No Cyanosis, No Clubbing, No edema Musculoskeletal: No Erythema Skin: No Rashes Lymphatic: No Lymph Node Enlargement Neurological: No Focal Motor or Sensory Deficit Psych/Mental Status: Appropriate 11/11/19 09:00: WBC 10.8, RBC 5.61, Hgb 16.1, Hct 48.8, MCV 87.0, MCH 28.7, MCHC 33.0, Plt Count 254, MPV 8.8, Immature Gran % (Auto) 0.400, Neut % (Auto) 71.5 H, Lymph % (Auto) 8.2 L, [place] % (Auto) 17.9 H, Eos % (Auto) 1.5, Baso % (Auto) 0.5, Absolute Neuts (auto) 7.8 H, Nucleated RBC % 0 11/11/19 09:00: Sodium 132 L, Potassium 4.1, Chloride 100, Carbon Dioxide 24.0, Anion Gap 8, BUN 15, Creatinine 1.00, Est GFR (MDRD) Af Amer 97, Est GFR (MDRD) Non-Af 80, BUN/Creatinine Ratio 15.0, Glucose 118 H, Calcium 9.5, Troponin I 0.165 H 11/11/19 12:10: Troponin I 0.116 H Rhythm: EKG: Normal sinus rhythm with no acute changes ECHO: Stress Test: Cardiac Cath: PCI: CT Surgery: Holter monitor: EPS: PPM: CXR: Chest CT Scan: Assessment/Plan 1. Shortness of breath * The etiology of the above is unclear at this particular time. It could very well be an anginal equivalent. I would also like us to exclude congestive heart failure by obtaining a natruretic peptide level. * Would also recommend that we obtain an echocardiogram to assess his left ventricular function * I would also like to obtain a d-dimer to exclude pulmonary embolism even though he has not had any recent travel. His EKG demonstrates right atrial enlargement * Together with the abnormal cardiac enzymes I would recommend that we evaluate his coronary anatomy with a left heart catheterization. The risks benefits and alternatives have been explained to him he understands and agrees to proceed. * 2. Abnormal cardiac enzymes * He does have a history of abnormal cardiac enzymes. This suggests myocardial necrosis. In view of the fact that he has markedly progressive shortness of breath I would like us to exclude obstructive coronary disease. He will be scheduled for cardiac catheterization in a.m. * He will continue on aspirin * We will start clopidogrel * He will be started on high intensity statin * 3. Hypertension * His blood pressure appears to be under good control at this particular time and I would not recommend we make any other changes. * * Thank you for allowing me to participate in the care of your patient. Please don't hesitate to call if any issues arise
[2019-11-11] MEDS: Enoxaparin 80 MG/0.8 ML Syringe 70 MG SC ×2 (13:05→21:12)
[2019-11-11 13:26] LABS: D-Dimer Quantitative (DVT/PE) 0.46 FEU/ug/m (0.27-0.49)
[2019-11-11 13:40] LABS: BNP,B-Type NATRIURETIC PEPTIDE 173.6 pg/mL (0-100)
[2019-11-11] MEDS: Clopidogrel Bisulfate 300 MG Tablet PO (13:50)
[2019-11-11] MEDS: 0.9% Saline Lock 10 ML Syringe IV ×2 (13:52→21:12)
[2019-11-11] MEDS: Dicyclomine 10 MG Capsule 20 MG PO (16:45)
--- NOTE | 2019-11-11 18:27 | NURSING ---
Per pt, staff may speak with meghan and JOSE L Barton about pt care/status
[2019-11-11] MEDS: Gabapentin 300 MG Capsule PO (21:13)
[2019-11-11] MEDS: Atorvastatin Calcium 10 MG Tablet PO (21:13)
[2019-11-11] MEDS: Citalopram 20 MG Tablet PO (21:19)
[2019-11-12] VITALS (20 sets, daily range): BP systolic 101–141; BP diastolic 61–97; PULSE 72–107; RESP 16–22; TEMP 36.3–36.7; O2SAT 84–96
[2019-11-12] MEDS: Ipratropium/Albuterol Sulfate 3 ML AMPUL.NEB INHALATION ×3 (03:24→11:06)
--- NOTE | 2019-11-12 05:55 | EKG12_ITS ---
Test Reason : CP ADMIT Blood Pressure : / mmHG Vent. Rate : 108 BPM Atrial Rate : 108 BPM P-R Int : 152 ms QRS Dur : 096 ms QT Int : 342 ms P-R-T Axes : 082 067 061 degrees QTc Int : 458 ms Sinus tachycardia Confirmed by MAKENZIE RIVERA, MESFIN ([id number]), editor producer AYAN GUADALUPE ([id number]) on 11/14/2019 10:01:23 AM Referred By: CATHLEEN Confirmed By:MESFIN BANEGAS MD
[2019-11-12 06:26] LABS: Absolute Lymphocyte Count 0.69 X10^3/uL (0.83-4.51); Absolute Neutrophil Count 5.5 X10^3/uL (2.0-7.7); Basophil# 0.01 X10^3/uL; Basophil% 0.1 % (0-1); Hematocrit 46.8 % (40-54); Hemoglobin 15.3 g/dL (13.0-16.5); Lymphocyte # 0.69 X10^3/ul (4.0); Mean Corp Hgb Conc 32.7 g/dL (32-36); Mean Corpuscular Hgb 28.3 pg (27.0-32.0); Mean Corpuscular Volume 86.5 fL (80-94); Mean Platelet Vol. 9.2 fl (6.2-12.0); Monocyte# 0.67 X10^3/uL; Monocyte% 9.7 % (0-10); NRBC Flagged by Analyzer 0 % (0-5); Neutrophil # 5.53 X10^3/uL (2.7-7.7); Neutrophil % 79.8 % (47-70); Platelet Count 263 K/mm3 (150-450); RBC Distribution Width CV 14.3 % (11.6-14.6); RBC Distribution Width SD 45.4 fl (35.1-43.9); Red Blood Count 5.41 M/mm3 (4.6-6.2); White Blood Count 6.9 K/mm3 (4.4-11.0)
[2019-11-12] MEDS: Clopidogrel Bisulfate 75 MG Tablet PO (06:30)
[2019-11-12] MEDS: 0.9% Saline Lock 10 ML Syringe IV ×2 (06:30→14:15)
[2019-11-12] MEDS: Lisinopril 5 MG Tablet PO (06:30)
[2019-11-12] MEDS: Aspirin 81 MG TAB.CHEW PO (06:30)
[2019-11-12] MEDS: 0.9% Normal Saline 1,000 ML 15 ML IV (06:31)
[2019-11-12 06:48] LABS: Anion Gap 8 (5-15); BUN 20 mg/dL (7-18); BUN/Creat Ratio 21.7 RATIO (10-20); Calcium,Total 9.5 mg/dL (8.5-10.1); Chloride 103 mmol/L (98-107); Creatinine, Serum 0.92 mg/dL (0.70-1.30); EST Glomerular Filtration Rate 87 mL/min (>60); Est Glom Filt Rate - Afr Amer 106 mL/min (>60); Estimated Creatinine Clearance 82.65 ml/min; Glucose 126 mg/dL (74-106); Potassium 4.7 mmol/L (3.5-5.1); Sodium Level 134 mmol/L (136-145)
--- NOTE | 2019-11-12 09:02 | PN.CARD_ITS ---
Subjectve: Patient seen and evaluated. Appears to be doing well this morning. Underwent cardiac catheterization. Objective: Vital Signs Temp Pulse Resp BP Pulse Ox 97.7 F L 102 H 16 127/77 H 94 11/12/19 06:27 11/12/19 07:02 11/12/19 06:58 11/12/19 06:27 11/12/19 06:58 Oxygen Flow Rate (L/min) 2 Oxygen Delivery Method Nasal Cannula Weight: 161 lb 9.581 oz Body Mass Index (BMI) 23.1 Intake and Output for Last 24 Hours 11/10/19 11/11/19 11/12/19 22:59 23:59 23:59 Intake Total Balance General: Awake, Alert, Oriented x 3 HEENT: PERRL, EOMI, Sclera Non Icteric Neck: Supple, Good ROM, No Lymph Node Enlargement Lungs: Clear to auscultation Cardiovascular: Regular Rhythm, Normal S1, Normal S2, No Murmurs, No Rubs, No Gallops Vascular: No Carotid Bruits, Normal Femoral Pulses, Normal Radial Pulses, Normal Dorsalis Pedal Pulse, Normal Posterior Tibial Pulses Abdomen: Bowel Sounds Present, Soft, Non Tender, No HSM, No Organomegaly Extremities: No Cyanosis, No Clubbing, No edema Musculoskeletal: No Erythema Skin: No Rashes Lymphatic: No Lymph Node Enlargement Neurological: No Focal Motor or Sensory Deficit Psych/Mental Status: Appropriate 11/11/19 09:00: WBC 10.8, RBC 5.61, Hgb 16.1, Hct 48.8, MCV 87.0, MCH 28.7, MCHC 33.0, Plt Count 254, MPV 8.8, Immature Gran % (Auto) 0.400, Neut % (Auto) 71.5 H , Lymph % (Auto) 8.2 L, Mellette % (Auto) 17.9 H, Eos % (Auto) 1.5, Baso % (Auto) 0.5, Absolute Neuts (auto) 7.8 H, Nucleated RBC % 0 11/11/19 09:00: Sodium 132 L, Potassium 4.1, Chloride 100, Carbon Dioxide 24.0, Anion Gap 8, BUN 15, Creatinine 1.00, Est GFR (MDRD) Af Amer 97, Est GFR (MDRD) Non-Af 80, BUN/Creatinine Ratio 15.0, Glucose 118 H, Calcium 9.5, Troponin I 0.165 H 11/11/19 09:00: B-Natriuretic Peptide 173.6 H 11/11/19 09:00: D-Dimer Quant (PE/DVT) 0.46 11/11/19 12:10: Troponin I 0.116 H 11/11/19 15:00: Troponin I 0.097 H 11/12/19 05:54: WBC 6.9, RBC 5.41, Hgb 15.3, Hct 46.8, MCV 86.5, MCH 28.3, MCHC 32.7, Plt Count 263, MPV 9.2, Immature Gran % (Auto) 0.400, Neut % (Auto) 79.8 H , Lymph % (Auto) 10.0 L, Mellette % (Auto) 9.7, Eos % (Auto) 0.0, Baso % (Auto) 0.1, Absolute Neuts (auto) 5.5, Nucleated RBC % 0 11/12/19 05:54: Sodium 134 L, Potassium 4.7, Chloride 103, Carbon Dioxide 23.0, Anion Gap 8, BUN 20 H, Creatinine 0.92, Est GFR (MDRD) Af Amer 106, Est GFR (MDRD) Non-Af 87, BUN/Creatinine Ratio 21.7 H, Glucose 126 H, Calcium 9.5 Rhythm: EKG: ECHO: Stress Test: Cardiac Cath: PCI: CT Surgery: Holter monitor: EPS: PPM: CXR: Chest CT Scan: Medical Necessity - Tobacco Use Smoking Status: Former smoker Assessment/Plan 1. Shortness of breath * The etiology of the above is unclear at this particular time. It could very well be an anginal equivalent. * Cardiac catheterization today demonstrated the following: Normal left main coronary artery. Left anterior descending artery with mild disease. First diagonal vessel with moderate segment disease. Left circumflex artery with no significant disease. Dominant right coronary artery with no significant disease. Preserved left ventricular ejection fraction. Based on the above angiographic findings I would recommend that we treat him with medical therapy. This will consist of aspirin, statin, and diet. * 2. Abnormal cardiac enzymes * He does have a history of abnormal cardiac enzymes. Cardiac catheterization results noted above * He will be started on high intensity statin * 3. Hypertension * His blood pressure appears to be under good control at this particular time and I would not recommend we make any other changes. * Would recommend diltiazem 120 mg a day due to his relative tachycardia which is likely secondary to his pulmonary disease. * Thank you for allowing me to participate in the care of your patient. Please don't hesitate to call if any issues arise
--- NOTE | 2019-11-12 09:10 | CL.D_ITS ---
Patient Name: BRIGIDA BARCENAS Study Date: 11/12/2019 Performing: Justin Clifton MD Ht: 70.07 inches 178 cm : 1955 Wt: 160.94 lbs 73 kg Age: 64 Gender: male BSA: 1.9 PROCEDURE(S) PERFORMED UR83-TRH/COR/LV CLINICAL PROFILE AND INDICATIONS Indications: Suspected CAD Heart Failure: None Stress/Imaging Stress/Image Study Performed: No CAD Presentations: Unstable angina. CONCLUSIONS Mild disease involved in the first diagonal vessel. Minimal disease in the left anterior descending artery. RECOMMENDATIONS Medical therapy DESCRIPTION OF PROCEDURE The patient arrived to the procedure lab. The risks and benefits of the procedure as well as a full d escription of our services here and current unavailability of surgical backup were fully explained to the patient and/or their significant other prior to the catheterization. The Timeout was completed, verifying the correct patient and procedure. The patient's procedural site was prepped and draped in the usual fashion. Local anesthetic was given subcutaneously to right groin region with Lidocaine 2%. Using a modified Seldinger technique, arterial access was obtained via the right femoral artery, a 5 Fr sheath was inserted. Left Coronary Artery selective angiography was performed in multiple views u sing a 5 Fr. JL4 catheter. Right Coronary Artery selective angiography was then performed in multiple views using a 5 Fr. 3DRC (Ravindra) catheter. Left Ventriculography was performed in PIZANO projection using a 5 Fr. Pigtail catheter. LV to AO pullback pressures were then recorded.Contrast was injected through the sheath and the Right Iliac and Femoral artery were assessed for possible aurora sure device.The arterial sheath was pulled and manual compression applied until hemostasis is achieve d. CORONARY ANGIOGRAPHY DOMINANCE: Right Dominant LEFT HEART ASSESSMENT Left Ventricular Ejection Fraction: by LV Gram 60 % Normal LV wall motion Normal Left Ventricular systolic function LEFT MAIN: Angiographically normal, Mild calcification LEFT ANTERIOR DESCENDING ARTERY: Mild luminal irregularities DIAGONAL 1: Proximal - Diffusely diseased up to 60 % CIRCUMFLEX ARTERY: Mild luminal irregularities RIGHT CORONARY ARTERY: No significant disease noted COMPLICATIONS No Complications PROCEDURE MEDICATIONS Versed 2 mg IV Oxygen: 2 L/min via nasal cannula SUMMARY OF HEMODYNAMIC DATA Time AIR REST ECG 08:36:05 AO 93/77 (82) SA 08:44:29 AO 103/67 (83) 08:44:54 LV 88/5, 10 08:51:53 LV 91/5, 10 08:52:00 LV 93/7, 10 08:52:42 LV 91/7, 12 08:52:49 LVp 90/6, 11 08:52:53 AO 98/65 (80) 08:52:58 Signed By Justin Clifton MD On 11/12/2019 09:09:54 Justin Clifton MD
--- NOTE | 2019-11-12 09:10 | PCA ---
pt off floor
--- NOTE | 2019-11-12 10:44 | PCM.DC ---
- Discharge Diagnoses Current Active Problems: Current Active and Chronic Problems (Last Updated 11/12/19 @ 09:48 by Kasey Gutiérrez) Arteriosclerotic cardiovascular disease (ASCVD) (Chronic) Mild disease involved in the first diagonal vessel. Minimal disease in the left anterior descending artery Medical therapy recommended. 11/12/2019 per [employer] CLOSER History of left heart catheterization (Chronic 11/12/19) Mild disease involved in the first diagonal vessel. Minimal disease in the left anterior descending artery Medical therapy recommended. 11/12/2019 per SH[employer] CLOSER Chest pain (Acute) Elevated troponin (Acute) COPD (chronic obstructive pulmonary disease) (Chronic) Community acquired pneumonia (Acute) You will use the following diet at home:: Cardiac Discharge Activity: Return to Normal Activity Allergies/Adverse Reactions: Allergies No Known Allergies Allergy (Verified 11/11/19 08:56) Medications to take at Discharge Albuterol Aerosols [Ventolin Aerosols] 2.5 mg INHALATION Q6H PRN PRN 11/01/18 Aspirin [Aspirin, Baby] 81 mg PO DAILY@0800 11/01/18 Citalopram [Celexa] 20 mg PO DAILY 11/01/18 Loperamide [Imodium] 2 mg PO Q4H PRN PRN #30 cap 11/01/18 Omeprazole 40 mg PO DAILY 11/01/18 Gabapentin [Neurontin] 600 mg PO BID 08/02/19 proMETHazine tablet [Phenergan tablet] 25 mg PO Q6H PRN PRN #10 tab 09/18/19 proMETHazine tablet [Phenergan tablet] 25 mg PO Q6H PRN PRN #10 tab 10/13/19 Cetirizine HCl [Zyrtec] 10 mg PO DAILY 11/11/19 Cyclobenzaprine HCl 10 mg PO DINNER 11/11/19 Atorvastatin Calcium [Lipitor] 40 mg PO QHS #90 tab 11/12/19 Azithromycin [Zithromax] 500 mg PO DAILY #3 tab 11/12/19 Diltiazem CD [Cardizem CD] 120 mg PO DAILY #90 cap 11/12/19 Guaifenesin [Mucinex] 1,200 mg PO BID #14 tab.er.12h 11/12/19 Prednisone 40 mg PO DAILY #10 tab 11/12/19 The following prescriptions were given: Diltiazem CD [Cardizem CD] 120 mg PO DAILY #90 cap Transmission Status: Pending to [facility] Atorvastatin Calcium [Lipitor] 40 mg PO QHS #90 tab Transmission Status: P[facility] to [facility] Guaifenesin [Mucinex] 1,200 mg PO BID #14 tab.er.12h Transmission Status: Pending to [facility] Prednisone 40 mg PO DAILY #10 tab Transmission Status: Pending to [facility] Azithromycin [Zithromax] 500 mg PO DAILY #3 tab Transmission Status: Pending to [facility] Primary Care Physician: Jordan Rosales MD [Primary Care Provider] - Test Results: Test results from this visit will be discussed in further detail at your follow-up appointment, if applicable. Please Follow Up With: Jordan Rosales MD Proposed Discharge Date: 11/12/19
[2019-11-12] MEDS: dilTIAZem CD 120 MG Capsule PO (10:50)
[2019-11-12] MEDS: Pantoprazole Sodium 40 MG Tablet PO (10:51)
--- NOTE | 2019-11-12 11:00 | PCM.DC.SUM ---
Discharge Date and Diagnosis - Problem List Patient Problems: Active and Suspected Problems (Last Updated 11/12/19 @ 09:48 by Kasey Gutiérrez) Chest pain (Acute) Elevated troponin (Acute) Community acquired pneumonia (Acute) Date of Admission: 11/11/19 Date of Discharge: 11/12/19 - Primary Discharge Diagnosis Active and Suspected Problems (Last Updated 11/12/19 @ 09:48 by Kasey Gutiérrez) Chest pain (Acute) Elevated troponin (Acute) Community acquired pneumonia (Acute) - Secondary Discharge Diagnosis Chronic Problems (Last Updated 11/12/19 @ 09:48 by Kasey Gutiérrez) Arteriosclerotic cardiovascular disease (ASCVD) (Chronic) Mild disease involved in the first diagonal vessel. Minimal disease in the left anterior descending artery Medical therapy recommended. 11/12/2019 per [employer] MA[employer]GER History of left heart catheterization (Chronic 11/12/19) Mild disease involved in the first diagonal vessel. Minimal disease in the left anterior descending artery Medical therapy recommended. 11/12/2019 per [employer]LL[employer] MANAGER History of hypercholesterolemia (Chronic) History of hypertension (Chronic) History of COPD (Chronic) COPD (chronic obstructive pulmonary disease) (Chronic) Hospital Course and Treatment Summary of Care Provided: The patient is a 64 year old M with medical history single for dyslipidemia hypertension COPD who presented with chest pain 1. Acute non-STEMI type II secondary to demand ischemia Patient was admitted to monitored bed consult placed to cardiology patient underwent left heart catheterization by Dr. Clifton on 11/12/2019 which failed to demonstrate any hemodynamically significant lesions. Patient was discharged home with optimization of medical therapy 2. COPD with acute exacerbation ?Patient was managed with systemic steroid antibiotics as well as aerosol treatment. Patient was assessed for home oxygen prior to being discharged 3. Chronic hypoxic respiratory failure ?Patient is on home oxygen at night was assessed for 24-hour needs prior to discharge 4. Dyslipidemia ?Patient was on simvastatin this was switched to Lipitor following addition of Cardizem to patient antihypertensive regimen and also to control his heart rate 5. Depression with anxiety ?Patient stable on Celexa did continue 6. Essential hypertension ?Patient blood pressure remains controlled. Was on lisinopril discontinued following addition of Cardizem 7. GERD ?On PPI discontinued 8. DVT prophylaxis ?Lovenox Patient Problems: Active and Suspected Problems (Last Updated 11/12/19 @ 09:48 by Kasey Gutiérrez) Chest pain (Acute) Elevated troponin (Acute) Community acquired pneumonia (Acute) - Physical Exam Vitals/I&O's: Vital Signs Temp Pulse Resp BP Pulse Ox 97.4 F L 99 18 101/70 92 11/12/19 09:30 11/12/19 10:58 11/12/19 10:58 11/12/19 10:58 11/12/19 10:58 Oxygen Flow Rate (L/min) 2 Oxygen Delivery Method Room Air Weight: 73.3 kg Body Mass Index (BMI) 23.1 Intake and Output for Last 24 Hours 11/10/19 11/11/19 11/12/19 22:59 23:59 23:59 Intake Total Balance HEENT: Atraumatic Lungs: Diminished Cardiovascular: Regular rate, Regular Rhythm Laboratory Results 11/11/19 09:00: B-Natriuretic Peptide 173.6 H 11/11/19 09:00: D-Dimer Quant (PE/DVT) 0.46 11/11/19 12:10: Troponin I 0.116 H 11/11/19 15:00: Troponin I 0.097 H 11/12/19 05:54: WBC 6.9, RBC 5.41, Hgb 15.3, Hct 46.8, MCV 86.5, MCH 28.3, MCHC 32.7, RDW Std Deviation 45.4 H, RDW Coeff of Sue 14.3, Plt Count 263, MPV 9.2, Immature Gran % (Auto) 0.400, Neut % (Auto) 79.8 H, Lymph % (Auto) 10.0 L, Dunn % (Auto) 9.7, Eos % (Auto) 0.0, Baso % (Auto) 0.1, Absolute Neuts (auto) 5.5, Absolute Lymphs (auto) 0.69 L, Nucleated RBC % 0 11/12/19 05:54: Sodium 134 L, Potassium 4.7, Chloride 103, Carbon Dioxide 23.0, Anion Gap 8, BUN 20 H, Creatinine 0.92, Estim Creat Clear Calc 82.65, Est GFR (MDRD) Af Amer 106, Est GFR (MDRD) Non-Af 87, BUN/Creatinine Ratio 21.7 H, Glucose 126 H, Calcium 9.5 Current Medications Acetaminophen (Tylenol) 650 mg PO Q6H PRN PRN PRN Reason: Pain Score 1-10/Temp > 100.7 F Albuterol/Ipratropium (Duoneb) 3 ml INHALATION Q4HWA.RT [facility] Last Admin: 11/12/19 06:58 Dose: 3 ml Documented by: Aspirin (Aspirin, Baby) 81 mg PO DAILY@0800 [facility] Last Admin: 11/12/19 06:30 Dose: 81 mg Documented by: Atorvastatin Calcium (Lipitor) 10 mg PO QHS [facility] Last Admin: 11/11/19 21:13 Dose: 10 mg Documented by: Citalopram Hydrobromide (Celexa) 20 mg PO DAILY [facility] Last Admin: 11/12/19 10:42 Dose: Not Given Documented by: Dicyclomine HCl (Bentyl) 20 mg PO TIDAC [facility] Last Admin: 11/12/19 10:43 Dose: Not Given Documented by: Diltiazem HCl (Cardizem Cd) 120 mg PO DAILY [facility] Last Admin: 11/12/19 10:50 Dose: 120 mg Documented by: Enoxaparin Sodium (Lovenox) 40 mg SC DAILY [facility] Last Admin: 11/12/19 09:46 Dose: Not Given Documented by: Gabapentin (Neurontin) 600 mg PO QHS [facility] Heparin Sodium (Beef Lung) (Heparin 500 Unit/5 Ml (100/Ml)) 500 unit IV UD PRN PRN Reason: HEPARIN FLUSH Sodium Chloride () 250 mls @ 15 mls/hr IV .[id number] PRN PRN Reason: Saline Flush Sodium Chloride () 250 mls @ 15 mls/hr IV .[id number] PRN PRN Reason: Additional IVPB Infusion Sodium Chloride () 1,000 mls @ 15 mls/hr IV .Q48H [facility] Last Admin: 11/12/19 06:31 Dose: 15 mls/hr Documented by: Labetalol HCl (Trandate) 5 mg IV X1 PRN PRN Reason: SBP > 160 prior to sheath pull Stop: 11/14/19 09:05 Methylprednisolone (Solu-Medrol) 40 mg IV Q8 [facility] Last Admin: 11/12/19 06:30 Dose: 40 mg Documented by: Nitroglycerin (Nitrostat) 0.4 mg SUBLINGUAL Q5M PRN PRN Reason: CARDIAC/CHEST PAIN Ondansetron HCl (Zofran) 4 mg IV Q8H PRN PRN PRN Reason: NAUSEA/VOMITING Pantoprazole Sodium (Protonix) 40 mg PO DAILY [facility] Last Admin: 11/12/19 10:51 Dose: 40 mg Documented by: Sodium Chloride () 10 - 40 ml IV UD PRN PRN Reason: SALINE FLUSH Last Admin: 11/12/19 06:30 Dose: 10 ml Documented by: Discharge Diet: No Restrictions Discharge Activity: Return to Normal Activity Home Medications: Medications to take at Discharge Albuterol Aerosols [Ventolin Aerosols] 2.5 mg INHALATION Q6H PRN PRN 11/01/18 Aspirin [Aspirin, Baby] 81 mg PO DAILY@0800 11/01/18 Citalopram [Celexa] 20 mg PO DAILY 11/01/18 Loperamide [Imodium] 2 mg PO Q4H PRN PRN #30 cap 11/01/18 Omeprazole 40 mg PO DAILY 11/01/18 Gabapentin [Neurontin] 600 mg PO BID 08/02/19 proMETHazine tablet [Phenergan tablet] 25 mg PO Q6H PRN PRN #10 tab 09/18/19 proMETHazine tablet [Phenergan tablet] 25 mg PO Q6H PRN PRN #10 tab 10/13/19 Cetirizine HCl [Zyrtec] 10 mg PO DAILY 11/11/19 Cyclobenzaprine HCl 10 mg PO DINNER 11/11/19 Atorvastatin Calcium [Lipitor] 40 mg PO QHS #90 tab 11/12/19 Azithromycin [Zithromax] 500 mg PO DAILY #3 tab 11/12/19 Diltiazem CD [Cardizem CD] 120 mg PO DAILY #90 cap 11/12/19 Guaifenesin [Mucinex] 1,200 mg PO BID #14 tab.er.12h 11/12/19 Prednisone 40 mg PO DAILY #10 tab 11/12/19 Following Prescrptions Were Given to Patient: Diltiazem CD [Cardizem CD] 120 mg PO DAILY #90 cap Transmission Status: Received by [facility] Atorvastatin Calcium [Lipitor] 40 mg PO QHS #90 tab Transmission Status: Received by [facility] Guaifenesin [Mucinex] 1,200 mg PO BID #14 tab.er.12h Transmission Status: Received by [facility] Prednisone 40 mg PO DAILY #10 tab Transmission Status: Received by [facility] Azithromycin [Zithromax] 500 mg PO DAILY #3 tab Transmission Status[facility] Primary Care Physician: Jordan Rosales MD [Primary Care Provider] - Please Follow Up With: Jordan Rosales MD Disposition: Home Minutes spent on discharge:: 35 Patient Condition:: Stable Medical Necessity - Tobacco Use Smoking Status: Former smoker Meaningful Use Info Meaningful Use Diagnoses (Choose all that apply): None applicable OBSV E&M: 30970 Observation care discharge
--- NOTE | 2019-11-12 11:34 | PHA.DC.MC ---
Pharmacy Service has performed discharge medication reconciliation and counseling for this patient. The patient's discharge medication list was reviewed for discrepancies and discrepancies were resolved. The patient was counseled on the following discharge medications and changes in medications for homegoing were reviewed. 1. DILTIAZEM 2. ATORVASTATIN 3. PREDNISONE 4. ZITHROMAX The Reason for Use, instructions for use, and potential side effects were reviewed for all new medications. The patient's questions regarding all of their medications were answered. The patient was able to verbally demonstrate an understanding of their discharge medications. Home Medications Albuterol Aerosols [Ventolin Aerosols] 2.5 mg INHALATION Q6H PRN PRN 11/01/18 Aspirin [Aspirin, Baby] 81 mg PO DAILY@0800 11/01/18 Citalopram [Celexa] 20 mg PO DAILY 11/01/18 Loperamide [Imodium] 2 mg PO Q4H PRN PRN #30 cap 11/01/18 Omeprazole 40 mg PO DAILY 11/01/18 Gabapentin [Neurontin] 600 mg PO BID 08/02/19 proMETHazine tablet [Phenergan tablet] 25 mg PO Q6H PRN PRN #10 tab 09/18/19 Cetirizine HCl [Zyrtec] 10 mg PO DAILY 11/11/19 Cyclobenzaprine HCl 10 mg PO DINNER 11/11/19 Atorvastatin Calcium [Lipitor] 40 mg PO QHS #90 tab 11/12/19 Azithromycin [Zithromax] 500 mg PO DAILY #3 tab 11/12/19 Diltiazem CD [Cardizem CD] 120 mg PO DAILY #90 cap 11/12/19 Guaifenesin [Mucinex] 1,200 mg PO BID #14 tab.er.12h 11/12/19 Prednisone 40 mg PO DAILY #10 tab 11/12/19
--- NOTE | 2019-11-12 14:45 | NURSING ---
pt abmulated to bathroom and in hallway post 5 hours of bedrest. Heart cath site c/d/i, no signs of bleeding or hematoma noted. Pt denies pain.
[2019-11-13 10:26] LABS: Pathologist Review Reviewed
== END 2019-11-12 09:05 | disposition home or self-care (01) ==
LOC: ED 10:36 → PCU 10:50
PROVIDERS: Internal Medicine Cardiovascular Disease; Admitting Provider Family Medicine; Emergency Provider Physician Assistant Medical; PCP Internal Medicine; Visit Provider Internal Medicine
DX: J44.0 Chronic obstructive pulmonary disease with (acute) lower respiratory infection (principal); J18.9 Pneumonia, unspecified organism; R07.89 Other chest pain; E78.5 Hyperlipidemia, unspecified; K22.70 Barrett's esophagus without dysplasia; I10 Essential (primary) hypertension; G89.29 Other chronic pain; J44.1 Chronic obstructive pulmonary disease with (acute) exacerbation; K21.9 Gastro-esophageal reflux disease without esophagitis; Z79.899 Other long term (current) drug therapy; Z87.891 Personal history of nicotine dependence; Z79.82 Long term (current) use of aspirin; J96.11 Chronic respiratory failure with hypoxia; Z99.81 Dependence on supplemental oxygen; F41.8 Other specified anxiety disorders; R00.0 Tachycardia, unspecified; I07.1 Rheumatic tricuspid insufficiency
CPT/HCPCS: 36415; 71046; 80048; 83880; 84484; 85025; 85379; 93005; 93306; 93458; 94640; 96365; 96372; 96375; 96376; 99152; 99218; 99251; 99285; C1760; J7030; J7050; A4216; C1769; G0378; G0463; Q9967

== ENCOUNTER 2019-12-09 16:24 | Emergency (ER) | payer MEDICARE, SELFPAY ==
[2019-11-11 11:48] VITALS: BMI 23.1
[2019-12-09] VITALS (9 sets, daily range): BP systolic 128–165; BP diastolic 87–103; PULSE 93–112; RESP 12–21; TEMP 36.6; O2SAT 93–96; BMI 23.6
--- NOTE | 2019-12-09 16:31 | EKG12_ITS ---
Test Reason : SOB/CP Blood Pressure : / mmHG Vent. Rate : 102 BPM Atrial Rate : 102 BPM P-R Int : 150 ms QRS Dur : 100 ms QT Int : 354 ms P-R-T Axes : 082 072 050 degrees QTc Int : 461 ms Sinus tachycardia Otherwise normal ECG Confirmed by MAKENZIE RIVERA, MESFIN ([id number]), food expeditor LARA IZQUIERDO ([id number]) on 12/11/2019 1:23:11 PM Referred By: DC Confirmed By:MESFIN BANEGAS MD
--- NOTE | 2019-12-09 17:06 | RAD_ITS ---
STUDY: X-RAY CHEST REASON FOR EXAM: Male, 64 years old. Shortness of breath TECHNIQUE: Frontal view of the chest COMPARISON: 11/11/2019 FINDINGS: The lungs are hyperinflated, but clear. There are no pleural effusions. There is no pneumothorax. The heart is normal in size. The visualized osseous structures are within normal limits. RAD/Chest 1 View (Portable) IMPRESSION: No acute thoracic pathology. Electronically Signed: Rodolfo Villalobos, at 17:42 EDT Tel , Service support ,
[2019-12-09 17:15] LABS: Absolute Lymphocyte Count 1.45 X10^3/uL (0.83-4.51); Absolute Neutrophil Count 11.5 X10^3/uL (2.0-7.7); Basophil# 0.06 X10^3/uL; Basophil% 0.4 % (0-1); Eosinophils% 1.4 % (0-5); Hematocrit 45.8 % (40-54); Lymphocyte # 1.45 X10^3/ul (4.0); Lymphocyte % 10.1 % (19-41); Mean Corp Hgb Conc 32.8 g/dL (32-36); Mean Corpuscular Hgb 28.5 pg (27.0-32.0); Mean Corpuscular Volume 87.1 fL (80-94); Mean Platelet Vol. 8.3 fl (6.2-12.0); Monocyte# 0.98 X10^3/uL; Monocyte% 6.8 % (0-10); NRBC Flagged by Analyzer 0 % (0-5); Neutrophil # 11.51 X10^3/uL (2.7-7.7); Neutrophil % 80.5 % (47-70); Platelet Count 372 K/mm3 (150-450); RBC Distribution Width CV 14.6 % (11.6-14.6); RBC Distribution Width SD 45.9 fl (35.1-43.9); Red Blood Count 5.26 M/mm3 (4.6-6.2); White Blood Count 14.3 K/mm3 (4.4-11.0)
[2019-12-09 17:21] LABS: D-Dimer Quantitative (DVT/PE) 0.48 FEU/ug/m (0.27-0.49)
[2019-12-09 17:22] LABS: ALB/GLOB Ratio 1.1 RATIO (0.9-2.4); AST(SGOT) 21 U/L (15-37); Alanine Aminotransfer ALT/SGPT 39 U/L (16-61); Albumin, Serum 4.3 g/dL (3.2-5.0); Alkaline Phosphatase 95 U/L (45-117); Anion Gap 9 (5-15); BUN 9 mg/dL (7-18); BUN/Creat Ratio 9.5 RATIO (10-20); Calcium,Total 9.5 mg/dL (8.5-10.1); Chloride 100 mmol/L (98-107); Creatinine, Serum 0.95 mg/dL (0.70-1.30); EST Glomerular Filtration Rate 85 mL/min (>60); Est Glom Filt Rate - Afr Amer 102 mL/min (>60); Estimated Creatinine Clearance 80.04 ml/min; Globulin 3.8 g/dL (2.2-4.2); Glucose 112 mg/dL (74-106); Potassium 3.6 mmol/L (3.5-5.1); Protein, Total 8.1 g/dL (6.4-8.2); Sodium Level 137 mmol/L (136-145)
--- NOTE | 2019-12-09 17:49 | ED.VISSUMM ---
- ER Visit Summary Date of Service: 12/09/19 Chief Complaint: Shortness of breath History of Present Illness: The patient is a 64 M who presents with shortness of breath and chest pain that began yesterday. Patient states it is gradually gotten worse. Patient states it is been constant. Patient describes the pain as a pressure. Patient states the pain is across the substernal area. Patient states nothing makes it better or worse. Patient does admit to a cough with some thick yellow sputum. Patient denies any fevers or chills. Patient admits to nausea but denies any vomiting. Patient admits to some diaphoresis. Patient is concerned that he is having a heart attack. Physical Examination: Vital signs are stable. Patient is afebrile. Patient is in no acute distress. Oral mucosa is pink and moist. Oropharynx is clear. Neck is supple. Trachea is midline. There is no JVD. Heart was regular rate and rhythm. Lungs are clear and equal bilaterally. Abdomen is soft. Bowel sounds are normal. There is no tenderness. Cranial nerves II through XII are intact. There are no focal motor or sensory deficits noted. Extremities are intact. There is no calf tenderness or edema. Test Results: EKG showed sinus tachycardia with a rate of 102. There are no acute ST or T wave changes. This is unchanged compared to previous EKG dated 11/12/2019. Portable chest x-ray was obtained. There is no acute cardiopulmonary process. CBC shows a mild leukocytosis of 14.3. Comprehensive metabolic profile was within normal limits. Troponin was normal. D-dimer was normal. Emergency Department Course and Treatment: Patient was given aspirin and nitroglycerin here. Patient was feeling better on reevaluation. Old records were reviewed. Patient had a recent cardiac catheterization on 11/12/2019 that showed minimal coronary artery disease. Given that his symptoms have been present for approximately 24 hours and his troponin is normal along with his EKG and labs, I feel the patient is able to be discharged home safely. Patient was instructed to follow-up with his primary care physician in 3 to 5 days. Patient understood and was agreeable with the plan. All questions were answered. Disposition: Discharge home Impression: Chest pain of uncertain etiology This note was generated with [employer] dictation software. It may contain incorrect words, spelling, and punctuation that were not noted in review of the chart prior to signing ED Disposition - Plan for ED Patient: Disposition: Home or Assisted Living Diagnosis: Chest pain Instructions: ED Chest Pain Atypical Unkn Cause Referrals: Jordan Rosales MD [Primary Care Provider] - 3-5 Days
[2019-12-09] MEDS: Aspirin 81 MG TAB.CHEW 324 MG PO (18:20)
[2019-12-09] MEDS: Nitroglycerin SL (ED/IMG/CATH) 0.4 MG TABLET SUBLINGUAL ×3 (18:20→18:29)
== END 2019-12-09 19:26 | disposition home or self-care (01) ==
PROVIDERS: Emergency Provider Emergency Medicine; PCP Internal Medicine
DX: R07.9 Chest pain, unspecified (principal); R06.02 Shortness of breath; R06.00 Dyspnea, unspecified; R05 Cough; R11.0 Nausea; I25.10 Atherosclerotic heart disease of native coronary artery without angina pectoris; R00.0 Tachycardia, unspecified; I25.2 Old myocardial infarction; Z79.82 Long term (current) use of aspirin; Z79.899 Other long term (current) drug therapy; Z87.891 Personal history of nicotine dependence
CPT/HCPCS: 71045; 80053; 84484; 85025; 85379; 87804; 87807; 87880; 93005; 99285; A4216

== ENCOUNTER 2020-03-21 11:07 | Emergency (ER) | payer MEDICARE, SELFPAY ==
[2019-12-09 16:25] VITALS: BMI 23.6
[2020-03-21 11:08] VITALS: BP 180/123; PULSE 105; RESP 22; TEMP 36.4; O2SAT 96; BMI 22.7
--- NOTE | 2020-03-21 11:21 | CT_ITS ---
STUDY: CT ABDOMEN AND PELVIS WITHOUT CONTRAST REASON FOR EXAM: Male, 65 years old. NO BM X ONE WEEK/ABD PAIN. Prior appendectomy and hernia repair x 2 RADIATION DOSAGE (If Supplied By Facility): CTDIvol = ( 6.79 ) mGy, DLP = ( 310.23 ) mGycm TECHNIQUE: Transaxial images were obtained from the dome of the diaphragm to the symphysis pubis without oral contrast, and without intravenous contrast. Sagittal and coronal images were reconstructed. Individualized dose optimization techniques were used for this CT. COMPARISON: August 02, 2019 FINDINGS: The visualized lung bases are hyperaerated. The visualized portions of the heart are within normal limits. Normal liver. Normal gallbladder and extrahepatic biliary system. Normal spleen. Normal pancreas. Normal bilateral adrenal glands. Normal right kidney. 7 mm hypoattenuated cortical nodule in the left kidney. Normal visualized stomach. Normal small intestine. Mild diverticulosis. Mild fecal retention in the colon. The appendix is not visualized. Calcified abdominal aorta. Normal inferior vena cava. Normal retroperitoneum. Normal urinary bladder. Normal abdominal wall. Normal osseous structures. CT/Abdomen/Pelvis without Cont IMPRESSION: Hypoattenuated left renal nodule possibly cystic in nature. Mild colonic fecal retention. Mild colonic diverticulosis. Electronically Signed: Maury Hayden DO at 12:23 EDT Tel [phone], Service support ,
[2020-03-21] MEDS: Morphine 4 MG/ML Syringe IV ×2 (11:28→12:44)
[2020-03-21] MEDS: Metoclopramide 10 MG/2 ML Vial IV (11:28)
[2020-03-21 11:33] LABS: Absolute Lymphocyte Count 1.81 X10^3/uL (0.83-4.51); Absolute Neutrophil Count 7.8 X10^3/uL (2.0-7.7); Basophil# 0.05 X10^3/uL; Basophil% 0.4 % (0-1); Eosinophil# 0.17 X10^3/uL; Eosinophils% 1.5 % (0-5); Hematocrit 50.5 % (40-54); Lymphocyte # 1.81 X10^3/ul (4.0); Lymphocyte % 16.1 % (19-41); Mean Corp Hgb Conc 33.7 g/dL (32-36); Mean Corpuscular Hgb 28.4 pg (27.0-32.0); Mean Corpuscular Volume 84.3 fL (80-94); Mean Platelet Vol. 8.5 fl (6.2-12.0); Monocyte# 1.37 X10^3/uL; Monocyte% 12.2 % (0-10); NRBC Flagged by Analyzer 0 % (0-5); Neutrophil # 7.76 X10^3/uL (2.7-7.7); Neutrophil % 69.3 % (47-70); Platelet Count 412 K/mm3 (150-450); RBC Distribution Width CV 14.2 % (11.6-14.6); RBC Distribution Width SD 43.5 fl (35.1-43.9); Red Blood Count 5.99 M/mm3 (4.6-6.2); White Blood Count 11.2 K/mm3 (4.4-11.0)
[2020-03-21] MEDS: 0.9% Normal Saline 1,000 ML 125 ML IV (11:35)
[2020-03-21 11:50] LABS: ALB/GLOB Ratio 1.4 RATIO (0.9-2.4); AST(SGOT) 17 U/L (15-37); Alanine Aminotransfer ALT/SGPT 26 U/L (16-61); Albumin, Serum 5.2 g/dL (3.2-5.0); Alkaline Phosphatase 103 U/L (45-117); Anion Gap 9 (5-15); BUN 15 mg/dL (7-18); BUN/Creat Ratio 12.1 RATIO (10-20); Calcium,Total 10.5 mg/dL (8.5-10.1); Chloride 105 mmol/L (98-107); Creatinine, Serum 1.24 mg/dL (0.70-1.30); EST Glomerular Filtration Rate 62 mL/min (>60); Est Glom Filt Rate - Afr Amer 75 mL/min (>60); Estimated Creatinine Clearance 59.51 ml/min; Globulin 3.8 g/dL (2.2-4.2); Glucose 162 mg/dL (74-106); Lipase 24 U/L (73-393); Sodium Level 138 mmol/L (136-145)
--- NOTE | 2020-03-21 11:58 | ED.VISSUMM ---
- ER Visit Summary Date of Service: 03/21/20 ` Chief Complaint: Abdominal pain History of Present Illness: The patient is a [address] Rosales. He reports that he has diffuse abdominal pain that began at 4:00 this morning is gradually gotten worse. Is a cramping pain is 10 of 10 at worst 910 currently. Is worsened by nothing. It was transiently relieved by a hot shower. He reports he is been nausea and vomited several times. No blood in his emesis. Reports his last bowel was 1 week ago. States that since that time it is just been marbles. Denies any new medications. Denies dysuria or frequency. No fever, chills, chest pain, shortness of breath. Physical Examination: Vitals: Stable. Afebrile. General: Well-nourished and well-developed. Head: Normocephalic atraumatic. Neck: Supple, no lymphadenopathy. No JVD. Nontender. Cardiovascular: Regular rate and rhythm. No murmurs. Respiratory: No respiratory distress. Clear to auscultation bilaterally. Abdominal: Soft, mild diffuse tenderness to palpation, nondistended, normal bowel sounds. No guarding, rebound, or peritoneal signs. Back: Nontender. Extremities: Nontender, no edema. Skin: Normal color, no rash. Neurologic: Alert and oriented ?3. Cranial nerves II through XII are intact. Normal strength and sensation. Psych: Normal affect. Test Results: CBC shows a white count of 11.2 with hemoglobin of 17.0, lymphocytes 16, monocytes 12. Chem-7 shows a glucose 162, calcium of 10.5. LFTs show total protein 9.0 and albumin of 5.2. Lipase is 24. Corrected calcium for his albumin of 5.2 was 9.5. Clinical Impression(s) from Imaging Studies Abdomen/Pelvis CT 03/21/20 11:21 IMPRESSION: Hypoattenuated left renal nodule possibly cystic in nature. Mild colonic fecal retention. Mild colonic diverticulosis. Electronically Signed: Maury Hayden DO at 12:23 EDT Tel [phone], Service support , Emergency Department Course and Treatment: Patient had an IV placed. He was given morphine and Reglan IV. He is resting more comfortably. Patient had a soapsuds enema performed with moderate results. Treatment Plan: Patient will be discharged with Reglan and magnesium citrate. Instructed to follow-up with his primary care physician in 1 to 2 days if not improving. Return to the emergency department for any worsening symptoms. Disposition: To home in improved and stable condition. Impression: 1. Constipation. This note was generated with [employer] dictation software. It may contain incorrect words, spelling, and punctuation that were not noted in review of the chart prior to signing ED Disposition - Plan for ED Patient: Instructions: ED Constipation Prescriptions: Magnesium Citrate [Citrate Of Magnesia] 300 ml PO X1 #1 bottle Metoclopramide [Reglan] 10 mg PO 4X/DAY PRN #20 tablet PRN Reason: Nausea Referrals: Jordan Rosales MD [Primary Care Provider] - 1-2 Days if not improving
[2020-03-21] MEDS: Ketorolac 15 MG/ML Vial IV (12:21)
[2020-03-21] MEDS: Ondansetron 4 MG/2 ML Vial IV (12:21)
[2020-03-21 13:19] VITALS: RESP 18
[2020-03-21 14:17] VITALS: RESP 18
== END 2020-03-21 14:43 | disposition home or self-care (01) ==
LOC: ED 12:11
PROVIDERS: Emergency Provider Emergency Medicine; PCP Internal Medicine
DX: K59.00 Constipation, unspecified (principal); R11.2 Nausea with vomiting, unspecified; I25.10 Atherosclerotic heart disease of native coronary artery without angina pectoris; J44.9 Chronic obstructive pulmonary disease, unspecified; I10 Essential (primary) hypertension; Z79.82 Long term (current) use of aspirin; Z79.899 Other long term (current) drug therapy
CPT/HCPCS: 74176; 80053; 83690; 85025; 96361; 96374; 96375; 96376; 99285; J7030; A4216; J2405

== ENCOUNTER 2020-05-24 09:21 | Emergency (ER) | payer MEDICARE, SELFPAY ==
[2020-05-24 09:22] VITALS: BP 152/106; PULSE 106; RESP 19; TEMP 36.7; O2SAT 97; BMI 23.6
--- NOTE | 2020-05-24 10:01 | ED.VIS.GEN ---
History of Present Illness <Jerson Hurley - Last Filed: 05/24/20 10:01> Narrative: 65 year old male with no significant PMH presents with abdominal pain that started at 0300 this morning. Pain is diffuse cramping. He vomited twice and now has dry heaves. No hematemesis. Pain improved with a hot shower. He is having normal urinary and bowel movements with last BM yesterday. He gets this abdominal pain every couple months and has had negative CT scans. He does admit to smoking marijuana several days per week and he smoked yesterday. Abdominal surgeries include appendectomy and bilateral inguinal hernia repairs. [place] fevers, chills, cough, chest pain, dyspnea, urinary complaints, back pain, or blood in stool. <Enedina Muniz - Last Filed: 05/24/20 14:30> Chief Complaint: Abd Pain Past Medical History Surgical History: appendectomy Smoking Status: Former smoker - Family History Maternal Family History: Reports: Diabetes, Hypertension Paternal Family History: Reports: Heart Disease <Jerson Hurley - Last Filed: 05/24/20 10:01> Surgical History: appendectomy, - - Bilateral inguinal hernia repair <Enedina Muniz - Last Filed: 05/24/20 14:30> - Allergies and Home Meds Allergies/Adverse Reactions: Allergies No Known Allergies Allergy (Verified 05/24/20 09:22) Primary Care Physician: Jordan Rosales MD [Primary Care Provider] - Review of Systems General: Denies: Chills, Fever, Sweats Eyes: Denies: Visual changes - bilaterally, Diplopia ENT: Denies: Rhinorrhea, Sore throat Cardiovascular: Denies: Chest pain, Palpitations Respiratory: Denies: Dyspnea, Cough, Dyspnea on exertion Gastrointestinal: Reports: Abdominal pain, Nausea, Vomiting. Denies: Diarrhea, Melena, Hematochezia Genitourinary: Denies: Dysuria, Hematuria, Frequency Musculoskeletal: Denies: Back pain, Extremity Pain Skin: Denies: Rash, Wounds Neurological: Denies: Headache, Weakness, Numbness <Enedina Muniz - Last Filed: 05/24/20 14:30> Physical Exam Vital Signs/Narrative: Vital Signs Temp Pulse Resp BP Pulse Ox 05/24/20 09:22 98.1 F 106 H 19 H 152/106 H 97 <Jerson Hurley - Last Filed: 05/24/20 10:01> Vital Signs/Narrative: Vital Signs Temp Pulse Resp BP Pulse Ox 05/24/20 09:22 98.1 F 106 H 19 H 152/106 H 97 <Enedina Muniz - Last Filed: 05/24/20 14:30> Diagnostic/Tx/Re-eval Laboratory Data 05/24/20 05/24/20 05/24/20 10:05 10:05 11:40 WBC 10.5 RBC 6.02 Hgb 16.5 Hct 50.3 MCV 83.6 MCH 27.4 MCHC 32.8 RDW Std Deviation 45.4 H RDW Coeff of Sue 15.0 H Plt Count 433 MPV 8.4 Immature Gran % (Auto) 0.600 Neut % (Auto) 82.0 H Lymph % (Auto) 9.7 L [place] % (Auto) 6.8 Eos % (Auto) 0.3 Baso % (Auto) 0.6 Absolute Neuts (auto) 8.6 H Absolute Lymphs (auto) 1.02 Nucleated RBC % 0 Sodium 136 Potassium 3.8 Chloride 99 Carbon Dioxide 27.0 Anion Gap 10 BUN 18 Creatinine 1.19 Estim Creat Clear Calc 63.05 Est GFR (MDRD) Af Amer 79 Est GFR (MDRD) Non-Af 65 BUN/Creatinine Ratio 15.1 Glucose 151 H Calcium 10.2 H Total Bilirubin 1.20 H AST 23 ALT 29 Alkaline Phosphatase 110 Total Protein 8.7 H Albumin 4.9 Globulin 3.8 Albumin/Globulin Ratio 1.3 Lipase 19 L Urine Color Yellow Urine Clarity Clear Urine pH 6.0 Ur Specific [place] 1.025 Urine Protein 30 H Urine Glucose (UA) Normal Urine Ketones 150 H Urine Occult Blood 150 H Urine Nitrite Negative Urine Bilirubin 1 H Urine Urobilinogen 1 H Ur Leukocyte Esterase 25 H Urine RBC 0 SEEN Urine WBC 0-5 SEEN Ur Squamous Epith Cells 0-5 SEEN Urine Bacteria 0 SEEN Urine Mucus 2+ - Medical Decision Making Patient appears well and nontoxic. Vital signs show a BP of 165/100, otherwise normal. This is actually improved from his baseline BP. He has generalized abdominal tenderness but no peritoneal signs. Labs and urine were obtained and are unremarkable. He was treated with morphine, Zofran, and capsaicin cream. No vomiting in the ED but he did still complain of nausea and was treated with Phenergan. He is now feeling significantly improved and has a completely benign abdominal exam. With a normal CT in March and improvement of symptoms I feel the risk outweighs the benefit for CT today. Patient was advised that his symptoms of cyclical vomiting and abdominal pain that improves with hot showers may be due to cannabis hyperemesis syndrome. I advised him to stop smoking. He was given a prescription for Phenergan as he states this worked best and discharged home in stable condition. <Enedina Muniz - Last Filed: 05/24/20 14:30> ED Disposition <Jerson Hurley - Last Filed: 05/24/20 10:01> <Enedina Muniz - Last Filed: 05/24/20 14:30> - Plan for ED Patient: Disposition: Home or Assisted Living Diagnosis: Abdominal pain, Vomiting, Cannabinoid hyperemesis syndrome Instructions: ED Acute Pain UKO, ED Vomiting and Diarrhea Nonspecific Adult Prescriptions: proMETHazine tablet [Phenergan tablet] 25 mg PO Q6H PRN PRN 5 Days #20 tab PRN Reason: Gi Cramping Transmission Status: Received by [id number] Referrals: Jordan Rosales MD [Primary Care Provider] -
[2020-05-24] MEDS: 0.9% Normal Saline 1,000 ML 1000 ML IV (10:09)
[2020-05-24] MEDS: Ondansetron 4 MG/2 ML Vial IV (10:09)
[2020-05-24] MEDS: Morphine 4 MG/ML Syringe IV (10:09)
[2020-05-24 10:25] LABS: Absolute Lymphocyte Count 1.02 X10^3/uL (0.83-4.51); Absolute Neutrophil Count 8.6 X10^3/uL (2.0-7.7); Basophil# 0.06 X10^3/uL; Basophil% 0.6 % (0-1); Eosinophil# 0.03 X10^3/uL; Eosinophils% 0.3 % (0-5); Hematocrit 50.3 % (40-54); Hemoglobin 16.5 g/dL (13.0-16.5); Lymphocyte # 1.02 X10^3/ul (4.0); Lymphocyte % 9.7 % (19-41); Mean Corp Hgb Conc 32.8 g/dL (32-36); Mean Corpuscular Hgb 27.4 pg (27.0-32.0); Mean Corpuscular Volume 83.6 fL (80-94); Mean Platelet Vol. 8.4 fl (6.2-12.0); Monocyte# 0.72 X10^3/uL; Monocyte% 6.8 % (0-10); NRBC Flagged by Analyzer 0 % (0-5); Neutrophil # 8.64 X10^3/uL (2.7-7.7); Platelet Count 433 K/mm3 (150-450); RBC Distribution Width SD 45.4 fl (35.1-43.9); Red Blood Count 6.02 M/mm3 (4.6-6.2); White Blood Count 10.5 K/mm3 (4.4-11.0)
[2020-05-24 10:30] LABS: ALB/GLOB Ratio 1.3 RATIO (0.9-2.4); AST(SGOT) 23 U/L (15-37); Alanine Aminotransfer ALT/SGPT 29 U/L (16-61); Albumin, Serum 4.9 g/dL (3.2-5.0); Alkaline Phosphatase 110 U/L (45-117); Anion Gap 10 (5-15); BUN 18 mg/dL (7-18); BUN/Creat Ratio 15.1 RATIO (10-20); Calcium,Total 10.2 mg/dL (8.5-10.1); Chloride 99 mmol/L (98-107); Creatinine, Serum 1.19 mg/dL (0.70-1.30); EST Glomerular Filtration Rate 65 mL/min (>60); Est Glom Filt Rate - Afr Amer 79 mL/min (>60); Estimated Creatinine Clearance 63.05 ml/min; Globulin 3.8 g/dL (2.2-4.2); Glucose 151 mg/dL (74-106); Lipase 19 U/L (73-393); Potassium 3.8 mmol/L (3.5-5.1); Protein, Total 8.7 g/dL (6.4-8.2); Sodium Level 136 mmol/L (136-145)
[2020-05-24] MEDS: Capsaicin 0.025% 1 APPLIC Tube TOPICAL (10:54)
[2020-05-24 11:38] VITALS: BP 165/100; PULSE 73; RESP 16
[2020-05-24] MEDS: proMETHazine 25 MG/ML Syringe 12.5 MG IV (11:42)
[2020-05-24] MEDS: Morphine 2 MG/ML Syringe IV (11:42)
[2020-05-24 11:51] LABS: Bacteria 0 SEEN /hpf (None Seen); Red Blood Cells-Urine 0 SEEN /hpf (0-5)
[2020-05-24 11:53] LABS: Color, Urine Yellow (Yellow); Glucose, Dipstick Normal (Normal); Leukocyte Esterase-Dipstick 25 /ul (Negative); Nitrite-Dipstick Negative (Negative); Occult Blood-Urine 150 /ul (Negative); Protein-Dipstick 30 mg/dl (Negative); Specific Gravity, Urine 1.025 (1.002-1.030); Urine Clarity Clear (Clear); Urine Urobilinogen 1 mg/dl (Normal)
[2020-05-24 11:57] LABS: Urine Bilirubin Dipstick 1 mg/dL (Negative)
[2020-05-24 11:58] LABS: Ketone-Dipstick 150 mg/dl (Negative)
[2020-05-24 12:24] LABS: Mucous, Urine 2+ /hpf (<or=2+); Squamous Epithelial Cells - UA 0-5 SEEN /hpf (0-5); White Blood Cells 0-5 SEEN /hpf (0-5)
[2020-05-24 13:02] VITALS: BP 148/91; PULSE 89; RESP 14; O2SAT 99
== END 2020-05-24 13:02 | disposition home or self-care (01) ==
PROVIDERS: Emergency Provider Physician Assistant; PCP Internal Medicine
DX: R10.84 Generalized abdominal pain (principal); R11.2 Nausea with vomiting, unspecified; Z79.82 Long term (current) use of aspirin; Z79.899 Other long term (current) drug therapy; Z87.891 Personal history of nicotine dependence
CPT/HCPCS: 80053; 81001; 83690; 85025; 96361; 96374; 96375; 96376; 99282; J7030; A4216; J2405

== ENCOUNTER 2020-06-17 09:11 | Emergency (ER) | payer MEDICARE, SELFPAY ==
[2020-06-17 09:12] VITALS: BP 165/106; PULSE 93; RESP 16; TEMP 36.4; O2SAT 96; BMI 23.6
--- NOTE | 2020-06-17 09:18 | ED.VIS.GEN ---
History of Present Illness Chief Complaint: Abd Pain Informant: Patient Onset: Yesterday Context: Gradual Onset Timing: Continuous Current Severity: Moderate Maximum Severity: Moderate Narrative: The patient is a 65-year-old male with history of marijuana abuse that presents to the emergency department nausea, vomiting, diarrhea. The patient states that he has had this a few times in the past. He states he has had multiple CT scans which were negative. He states that yesterday, he began to have some cramping. Today, he had 3 episodes of vomiting. The patient states that he is also had some loose, watery diarrhea. He denies any focal pain. He denies any fevers or chills. He denies any recent travel. He states he is otherwise been on his normal state of health. He does have history of prior appendectomy. Prior similar symptoms: Yes Recent Illness/Hospitalization: No Past Medical History - Allergies and Home Meds Allergies/Adverse Reactions: Allergies No Known Allergies Allergy (Verified 06/17/20 09:11) Primary Care Physician: Jordan Rosales MD [Primary Care Provider] - Prior records reviewed: Yes Past Medical History: - - Prior marijuana abuse Surgical History: appendectomy, - - Bilateral inguinal hernia repair Smoking Status: Never smoker - Family History Maternal Family History: Reports: Diabetes, Hypertension Paternal Family History: Reports: Heart Disease Review of Systems General: Denies: Chills, Fever, Sweats Eyes: Denies: Visual changes - bilaterally, Diplopia ENT: Denies: Rhinorrhea, Sore throat Cardiovascular: Denies: Chest pain, Palpitations Respiratory: Denies: Dyspnea, Cough, Dyspnea on exertion Gastrointestinal: Reports: Abdominal pain, Nausea, Vomiting, Diarrhea. Denies: Melena, Hematochezia Genitourinary: Denies: Dysuria, Hematuria, Frequency Musculoskeletal: Denies: Back pain, Extremity Pain Skin: Denies: Rash, Wounds Neurological: Denies: Headache, Weakness, Numbness Physical Exam Vital Signs/Narrative: Vital Signs Temp Pulse Resp BP Pulse Ox 06/17/20 09:12 97.5 F L 93 16 165/106 H 96 Inital Vital Signs reviewed: Yes General: Well nourished, Well developed, No Acute Distress Head: Normocephalic, Atraumatic Eyes: Perrl, EOMI ENT: Moist mucous membranes, No rhinorrhea Neck: Supple, Nontender Cardiovascular: Regular rate, Regular rhythm, No murmurs Respiratory: No distress, CTA bilaterally, Chest nontender Abdomen: Soft, Nontender, Nondistended, Normal bowel sounds Back: Nontender, Normal Inspection Extremities: Nontender, No edema Skin: Normal color, No rash Neurological: Alert, Oriented x3, Cranial nerves II-XII grossly intact, Normal Strength, Normal Sensation Psychological: Normal affect, Normal Mood Diagnostic/Tx/Re-eval Abnormal Lab Results 06/17/20 06/17/20 10:35 10:35 WBC 13.1 H RBC 5.62 Hgb 15.7 Hct 48.7 MCV 86.7 MCH 27.9 MCHC 32.2 RDW Std Deviation 48.0 H RDW Coeff of Sue 14.9 H Plt Count 353 MPV 8.2 Immature Gran % (Auto) 0.500 Neut % (Auto) 86.4 H Lymph % (Auto) 7.6 L [place] % (Auto) 4.5 Eos % (Auto) 0.5 Baso % (Auto) 0.5 Absolute Neuts (auto) 11.4 H Absolute Lymphs (auto) 1.00 Nucleated RBC % 0 Sodium 139 Potassium 3.7 Chloride 106 Carbon Dioxide 26.0 Anion Gap 7 BUN 10 Creatinine 1.10 Estim Creat Clear Calc 68.21 Est GFR (MDRD) Af Amer 86 Est GFR (MDRD) Non-Af 71 BUN/Creatinine Ratio 9.1 L Glucose 137 H Calcium 9.5 Total Bilirubin 1.00 AST 15 ALT 28 Alkaline Phosphatase 103 Total Protein 8.1 Albumin 4.5 Globulin 3.6 Albumin/Globulin Ratio 1.2 - Medical Decision Making The patient presents with nausea, vomiting, and diarrhea. He does have significant history of marijuana dependence. He has had this presentation multiple times. His abdomen is soft without focal tenderness. There is no rebound, guarding, peritoneal signs. IV was established. The patient was treated with IV fluids, antiemetics, and analgesics. Screening labs were obtained were unremarkable. On reevaluation, he is resting more comfortably. At this point, I do feel that he safe for outpatient follow-up. I will prescribe Phenergan for symptom control. He will be discharged. Impression 1. Nausea vomiting diarrhea 2. Cannabinoid hyperemesis ED Disposition - Plan for ED Patient: Instructions: ED Nausea Vomiting Adult Prescriptions: proMETHazine tablet [Phenergan] 25 mg PO Q6H PRN PRN #10 tab PRN Reason: Nausea Prescription Printed Referrals: Jordan Rosales MD [Primary Care Provider] -
[2020-06-17] MEDS: proMETHazine 25 MG/ML Syringe 12.5 MG IV (10:43)
[2020-06-17] MEDS: Famotidine 200 MG/20 ML MDV 20 MG in 0.9% Normal Saline (Pres. free 8 ML 300 MG IV (10:44)
[2020-06-17] MEDS: LORazepam 2 MG/ML Syringe 0.5 MG IV (10:46)
[2020-06-17 10:48] VITALS: BP 166/84; PULSE 85; RESP 17; TEMP 36.7; O2SAT 97
[2020-06-17 10:50] LABS: Absolute Neutrophil Count 11.4 X10^3/uL (2.0-7.7); Basophil# 0.06 X10^3/uL; Basophil% 0.5 % (0-1); Eosinophil# 0.07 X10^3/uL; Eosinophils% 0.5 % (0-5); Hematocrit 48.7 % (40-54); Hemoglobin 15.7 g/dL (13.0-16.5); Lymphocyte % 7.6 % (19-41); Mean Corp Hgb Conc 32.2 g/dL (32-36); Mean Corpuscular Hgb 27.9 pg (27.0-32.0); Mean Corpuscular Volume 86.7 fL (80-94); Mean Platelet Vol. 8.2 fl (6.2-12.0); Monocyte# 0.59 X10^3/uL; Monocyte% 4.5 % (0-10); NRBC Flagged by Analyzer 0 % (0-5); Neutrophil # 11.35 X10^3/uL (2.7-7.7); Neutrophil % 86.4 % (47-70); Platelet Count 353 K/mm3 (150-450); RBC Distribution Width CV 14.9 % (11.6-14.6); Red Blood Count 5.62 M/mm3 (4.6-6.2); White Blood Count 13.1 K/mm3 (4.4-11.0)
[2020-06-17 11:19] LABS: ALB/GLOB Ratio 1.2 RATIO (0.9-2.4); AST(SGOT) 15 U/L (15-37); Alanine Aminotransfer ALT/SGPT 28 U/L (16-61); Albumin, Serum 4.5 g/dL (3.2-5.0); Alkaline Phosphatase 103 U/L (45-117); Anion Gap 7 (5-15); BUN 10 mg/dL (7-18); BUN/Creat Ratio 9.1 RATIO (10-20); Calcium,Total 9.5 mg/dL (8.5-10.1); Chloride 106 mmol/L (98-107); EST Glomerular Filtration Rate 71 mL/min (>60); Est Glom Filt Rate - Afr Amer 86 mL/min (>60); Estimated Creatinine Clearance 68.21 ml/min; Globulin 3.6 g/dL (2.2-4.2); Glucose 137 mg/dL (74-106); Potassium 3.7 mmol/L (3.5-5.1); Protein, Total 8.1 g/dL (6.4-8.2); Sodium Level 139 mmol/L (136-145)
[2020-06-17 11:47] VITALS: BP 170/90; PULSE 85; RESP 25; TEMP 36.7; O2SAT 93
[2020-06-17 11:48] VITALS: BP 170/90; PULSE 85; RESP 25; O2SAT 93
[2020-06-17] MEDS: Dicyclomine 20 MG/2 ML Vial IM (12:01)
[2020-06-17] MEDS: Morphine 4 MG/ML Syringe IV (12:48)
[2020-06-17 13:10] VITALS: BP 132/77; PULSE 116; RESP 22
[2020-06-17 13:17] VITALS: BP 136/77; PULSE 116; RESP 22; O2SAT 91
== END 2020-06-17 13:39 | disposition home or self-care (01) ==
LOC: ED 10:03
PROVIDERS: Emergency Provider Emergency Medicine; PCP Internal Medicine
DX: R11.2 Nausea with vomiting, unspecified (principal); R19.7 Diarrhea, unspecified; Z79.82 Long term (current) use of aspirin; Z79.899 Other long term (current) drug therapy
CPT/HCPCS: 80053; 85025; 96365; 96367; 96372; 96375; 99282; J7030; A4216; J3490

== ENCOUNTER 2020-09-16 12:58 | Emergency (ER) | payer MEDICARE, SELFPAY ==
[2020-09-16 12:59] VITALS: BP 159/109; PULSE 105; RESP 16; TEMP 36.3; O2SAT 93; BMI 24.6
[2020-09-16] MEDS: 0.9% Normal Saline 1,000 ML 999 ML IV (14:37)
[2020-09-16] MEDS: LORazepam 2 MG/ML Syringe 1 MG IV (14:39)
[2020-09-16] MEDS: Famotidine 200 MG/20 ML MDV 20 MG in 0.9% Normal Saline (Pres. free 8 ML 300 MG IV (14:40)
[2020-09-16] MEDS: Ondansetron 4 MG/2 ML Vial IV (14:40)
--- NOTE | 2020-09-16 14:47 | ED.VIS.GEN ---
History of Present Illness Chief Complaint: Nausea/Vomiting Informant: Patient Narrative: 65-year-old male states that he has a history of cyclic vomiting syndrome. He tells me that chocolate is his trigger and he ate a chocolate last night. He states has been several month since his last flare. He does not believe it is related to cannabis use. He does not see anybody for cyclic vomiting. He states that he always gets narcotics and Phenergan when he comes to the emergency department. He notes crampy abdominal pain that is not any different than his normal cyclic vomiting symptoms. He reports a normal bowel movement this morning. He notes a prior appendectomy. No history of small bowel obstructions. 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 Minimal disease in the left anterior descending artery Medical therapy recommended. 11/12/2019 per [employer] (2) COPD (chronic obstructive pulmonary disease) Status: Chronic (3) History of hypercholesterolemia Status: Chronic (4) History of hypertension Status: Chronic Past Medical History - Allergies and Home Meds Allergies/Adverse Reactions: Allergies No Known Allergies Allergy (Verified 09/16/20 13:00) Primary Care Physician: Jordan Rosales MD [Primary Care Provider] - Past Medical History: - - Cyclic vomiting syndrome Surgical History: appendectomy, - - Bilateral inguinal hernia repair Smoking Status: Former smoker Drugs: Marijuana - Family History Maternal Family History: Reports: Diabetes, Hypertension Paternal Family History: Reports: Heart Disease Review of Systems General: Denies: Chills, Fever, Sweats Eyes: Denies: Visual changes - bilaterally, Diplopia ENT: Denies: Rhinorrhea, Sore throat Cardiovascular: Denies: Chest pain, Palpitations Respiratory: Denies: Dyspnea, Cough, Dyspnea on exertion Gastrointestinal: Reports: Abdominal pain, Nausea, Vomiting. Denies: Diarrhea, Melena, Hematochezia Genitourinary: Denies: Dysuria, Hematuria, Frequency Musculoskeletal: Denies: Back pain, Extremity Pain Skin: Denies: Rash, Wounds Neurological: Denies: Headache, Weakness, Numbness Physical Exam Vital Signs/Narrative: Vital Signs Temp Pulse Resp BP Pulse Ox 09/16/20 12:59 97.4 F L 105 H 16 159/109 H 93 Inital Vital Signs reviewed: Yes General: Well nourished, Well developed, No Acute Distress Head: Normocephalic, Atraumatic Eyes: Perrl, EOMI ENT: Moist mucous membranes, No rhinorrhea Neck: Supple, Nontender Cardiovascular: Regular rate, Regular rhythm, No murmurs Respiratory: No distress, CTA bilaterally, Chest nontender Abdomen: Soft, Nontender, Nondistended, Normal bowel sounds Back: Nontender, Normal Inspection Extremities: Nontender, No edema Skin: Normal color, No rash Neurological: Alert, Oriented x3, Cranial nerves II-XII grossly intact, Normal Strength, Normal Sensation Psychological: Normal affect, Normal Mood Diagnostic/Tx/Re-eval - Medical Decision Making Using the cyclic vomiting order set I ordered the patient famotidine, Ativan, and Zofran. He also received a liter of IV fluids. It is no longer having any vomiting and he tells me I am still uncomfortable my stomach.. I do not feel that narcotics are the appropriate medication for him. I will give him a dose of Bentyl. He has Phenergan at home. I will refer him to gastroenterology. ED Disposition - Plan for ED Patient: Disposition: Home or Assisted Living Diagnosis: Cyclic vomiting syndrome Instructions: ED Vomiting (Adult) Prescriptions: Dicyclomine HCl [Bentyl] 20 mg PO TIDAC #20 cap Prescription Printed Referrals: Jordan Rosales MD [Primary Care Provider] - As Needed Torito Benjamin MD [NON-STAFF] - (for gastroenterology )
[2020-09-16] MEDS: Dicyclomine 20 MG/2 ML Vial IM (16:07)
[2020-09-16 16:09] VITALS: BP 157/89
== END 2020-09-16 16:38 | disposition home or self-care (01) ==
PROVIDERS: Emergency Provider Emergency Medicine; PCP Internal Medicine
DX: R11.15 Cyclical vomiting syndrome unrelated to migraine (principal); I25.10 Atherosclerotic heart disease of native coronary artery without angina pectoris; J44.9 Chronic obstructive pulmonary disease, unspecified; I10 Essential (primary) hypertension; E78.00 Pure hypercholesterolemia, unspecified; Z79.82 Long term (current) use of aspirin; Z79.899 Other long term (current) drug therapy; Z87.891 Personal history of nicotine dependence
CPT/HCPCS: 96361; 96372; 96374; 96375; 99283; J7030; A4216; J2405; J3490

== ENCOUNTER 2020-11-11 10:10 | Outpatient (RCR) | payer MEDICARE, SELFPAY ==
[2020-11-11] MEDS: COVID-19 VACC, MRNA(PFIZER)/PF 30 MCG/0.3 ML SYRINGE IM (17:24)
[2020-12-02] MEDS: COVID-19 VACC, MRNA(PFIZER)/PF 30 MCG/0.3 ML SYRINGE IM (16:30)
== END 2021-02-10 23:59 ==
LOC: IMMUN 10:10
PROVIDERS: PCP Internal Medicine; Referring Provider Family Medicine; Visit Provider Family Medicine
DX: Z23 Encounter for immunization (principal)
CPT/HCPCS: 0001A; 0002A; 91300

== ENCOUNTER 2020-12-26 09:45 | Observation (INO) | payer MEDICARE, SELFPAY ==
[2020-12-18 09:29] VITALS: BMI 25.5
[2020-12-26] VITALS (13 sets, daily range): BP systolic 136–151; BP diastolic 80–106; PULSE 71–105; RESP 14–20; TEMP 36.7–37.1; O2SAT 90–95; BMI 24.3; BMI 24.0
--- NOTE | 2020-12-26 10:02 | RAD_ITS ---
STUDY: X-RAY CHEST REASON FOR EXAM: Male, 65 years old. Sob TECHNIQUE: Single AP portable view of the chest. COMPARISON: Comparison is made with prior study dated 12/09/2019. FINDINGS: EKG electrodes are seen. There is hyperinflation of the lungs consistent with chronic obstructive lung disease (COPD). There is no demonstrated pleural abnormality. Normal size heart. Normal mediastinum and jonathan. Normal visualized pulmonary arteries. There is atherosclerotic calcification of the aortic arch with tortuosity. Normal visualized thoracic spine. Normal visualized ribs, clavicles, and shoulders. There is no demonstrated abnormality of the visualized soft tissue structures of the upper abdomen. RAD/Chest 1 View (Portable) IMPRESSION: Hyperinflation and emphysematous changes with decreased bronchovascular markings in the upper lobes. Electronically Signed: Gabe Barrientos MD at 10:46 EDT , Service support ,
--- NOTE | 2020-12-26 10:03 | EKG12_ITS ---
Test Reason : Blood Pressure : / mmHG Vent. Rate : 096 BPM Atrial Rate : 096 BPM P-R Int : 148 ms QRS Dur : 098 ms QT Int : 370 ms P-R-T Axes : 083 081 066 degrees QTc Int : 467 ms Normal sinus rhythm Normal ECG Confirmed by MEHUL RIVERA, KELVIN ([id number]), restaurant expeditor AYAN GUADALUPE ([id number]) on 12/29/2020 9:47:08 AM Referred By: Confirmed By:YEHUDA CARVER MD
--- NOTE | 2020-12-26 10:03 | CT_ITS ---
STUDY: CT ABDOMEN AND PELVIS WITH CONTRAST REASON FOR EXAM: Male, 65 years old. 3 day history of generalized abdominal pain. RADIATION DOSAGE (If Supplied By Facility): CTDIvol = ( 8.29 ) mGy, DLP = ( 350.20 ) mGycm TECHNIQUE: Transaxial images were obtained from the dome of the diaphragm to the symphysis pubis without oral contrast. IV 100ML ISOVUE 300 was administered. Sagittal and coronal images were reconstructed. Individualized dose optimization techniques were used for this CT. COMPARISON: Comparison is made with prior study dated 03/21/2020. FINDINGS: The visualized lung bases are unremarkable. The visualized portions of the heart are within normal limits. Normal liver. Normal gallbladder and extrahepatic biliary system. Normal spleen. Normal pancreas. Normal bilateral adrenal glands. Normal right kidney. 7 mm cyst in the posterior aspect of the left kidney. Normal visualized stomach. Normal small intestine. There is diverticulosis, with mild thickening of the colon wall, and mild pericolonic inflammation changes consistent with mild acute diverticulitis. The patient is status post appendectomy. There is diffuse atherosclerotic calcification of the abdominal aorta and its major visceral branches, without a demonstrated aneurysm. Normal inferior vena cava. Normal retroperitoneum. Normal urinary bladder. Normal abdominal wall. Disc space narrowing and disc degeneration at the L4-L5 and L5-S1 levels. CT/Abdomen/Pelvis W IV Cont ONLY IMPRESSION: Findings suggest a mild degree of sigmoid diverticulitis. Electronically Signed: Gabe Barrientos MD at 12:03 EDT , Service support ,
[2020-12-26] MEDS: Ondansetron 4 MG/2 ML Vial IV (10:48)
[2020-12-26] MEDS: Morphine 4 MG/ML Syringe IV ×2 (10:48→11:28)
[2020-12-26 10:55] LABS: Absolute Lymphocyte Count 1.53 X10^3/uL (0.83-4.51); Absolute Neutrophil Count 7.2 X10^3/uL (2.0-7.7); Basophil# 0.05 X10^3/uL; Basophil% 0.5 % (0-1); Eosinophil# 0.05 X10^3/uL; Eosinophils% 0.5 % (0-5); Hematocrit 46.2 % (40-54); Hemoglobin 15.3 g/dL (13.0-16.5); Lymphocyte # 1.53 X10^3/ul (0.83-4.51); Lymphocyte % 15.5 % (19-41); Mean Corp Hgb Conc 33.1 g/dL (32-36); Mean Corpuscular Hgb 28.3 pg (27.0-32.0); Mean Corpuscular Volume 85.6 fL (80-94); Mean Platelet Vol. 8.3 fl (6.2-12.0); Monocyte# 0.97 X10^3/uL; Monocyte% 9.8 % (0-10); NRBC Flagged by Analyzer 0 % (0-5); Neutrophil # 7.22 X10^3/uL (2.7-7.7); Neutrophil % 73.3 % (47-70); Platelet Count 367 K/mm3 (150-450); RBC Distribution Width CV 14.7 % (11.6-14.6); RBC Distribution Width SD 46.7 fl (35.1-43.9); White Blood Count 9.9 K/mm3 (4.4-11.0)
[2020-12-26 10:58] LABS: Mucous, Urine 0 SEEN /hpf (<or=2+)
[2020-12-26 11:03] LABS: Color, Urine Yellow (Yellow); Glucose, Dipstick Normal (Normal); Ketone-Dipstick 50 mg/dl (Negative); Leukocyte Esterase-Dipstick 25 /ul (Negative); Nitrite-Dipstick Negative (Negative); Occult Blood-Urine 25 /ul (Negative); Protein-Dipstick 30 mg/dl (Negative); Specific Gravity, Urine 1.015 (1.002-1.030); Urine Bilirubin Dipstick Negative (Negative); Urine Clarity Sl. Cloudy (Clear); Urine Urobilinogen 1 mg/dl (Normal)
--- NOTE | 2020-12-26 11:09 | ED.DCSUM_ITS ---
- ER Visit Summary Date of Service: 12/26/20 Chief Complaint: Abdominal pain, chest pain History of Present Illness: The patient is a 65 M presenting with abdominal pain and chest pain. States this started approximately 3 days ago. He states he feels dehydrated. He has had nausea and vomiting. He denies diarrhea or constipation. Denies urinary complaints. He also complains of chest pain and shortness of breath which has also been ongoing for the last several days. He has a history of COPD. He received a second Covid vaccine on December 02. Physical Examination: Vitals are stable. Patient is afebrile. Alert no acute distress. HEENT exam is unremarkable. Neck is supple. Lungs are clear and equal bilaterally. Heart is regular rate and rhythm. Abdomen is soft diffuse tenderness, no guarding or rebound Extremities are unremarkable. Skin is warm and dry. No focal neurologic deficit. Remainder of exam is unremarkable. Emergency Department Course and Treatment: Patient given morphine, Zofran IV. EKG sinus rhythm rate of 96 with no acute ischemic changes. Chest x-ray read by myself and radiology shows hyperinflation and emphysematous changes with decreased bronchovascular markings in the upper lobes. Covid negative. CBC, chemistries unremarkable. Troponin is negative. Urinalysis unremarkable. Lipase is normal. CT abdomen pelvis shows findings suggest a mild degree of sigmoid diverticulitis. Patient continues to have significant pain. He is given Cipro Flagyl IV. Discussed with hospitalist for observation. Disposition: Observation Impression: Diverticulitis, chest pain This note was generated with [employer] dictation software. It may contain incorrect words, spelling, and punctuation that were not noted in review of the chart prior to signing ED Disposition - Plan for ED Patient:
[2020-12-26 11:13] LABS: Bacteria 1+ /hpf (None Seen); Red Blood Cells-Urine 0-5 SEEN /hpf (0-5); Squamous Epithelial Cells - UA 0-5 SEEN /hpf (0-5); White Blood Cells 0-5 SEEN /hpf (0-5)
[2020-12-26 11:14] LABS: ALB/GLOB Ratio 1.2 RATIO (0.9-2.4); AST(SGOT) 23 U/L (15-37); Alanine Aminotransfer ALT/SGPT 33 U/L (16-61); Albumin, Serum 4.3 g/dL (3.2-5.0); Alkaline Phosphatase 95 U/L (45-117); Anion Gap 7 (5-15); BUN 16 mg/dL (7-18); BUN/Creat Ratio 15.7 RATIO (10-20); Calcium,Total 9.9 mg/dL (8.5-10.1); Chloride 101 mmol/L (98-107); Creatinine, Serum 1.02 mg/dL (0.70-1.30); EST Glomerular Filtration Rate 78 mL/min (>60); Est Glom Filt Rate - Afr Amer 94 mL/min (>60); Estimated Creatinine Clearance 73.56 ml/min; Globulin 3.7 g/dL (2.2-4.2); Glucose 111 mg/dL (74-106); Lipase 20 U/L (73-393); Potassium 3.8 mmol/L (3.5-5.1); Sodium Level 135 mmol/L (136-145)
--- NOTE | 2020-12-26 12:33 | HP.PCM_ITS ---
Problem List (1) Sigmoid diverticulitis Status: Acute (2) Epigastric/atypical chest pain Status: Acute (3) Nonobstructive atherosclerosis of coronary artery Status: Chronic (4) History of non-ST elevation myocardial infarction (NSTEMI) Status: Inactive (5) Essential hypertension Status: Chronic (6) Hyperlipidemia Status: Chronic (7) Emphysema lung Status: Chronic History of Present Illness Date of Admission: 12/26/20 Chief Complaint: Abdominal pain and epigastric pain The patient is a 65 year old M with multiple comorbidities as listed above came to ER with abdominal pain for 3 days ago. Abdominal pain started spontaneously on lower quadrants got worse in the last 3 days. Patient also has been lose bowel movements for 1 week but no blood, brown/black or red-colored stool. Has nausea but no vomiting. Abdominal pain is 8/10 intensity, persistent with exacerbation mainly in lower quadrants without precipitating or relieving factor. In ED, patient also had chest pain which was more epigastric in location without radiation or migration, dizziness lightheadedness or diaphoresis. Patient has been feeling short of breath for past few days and has doubled his breathing treatment, DuoNeb. In ER vital signs are in the suitable limit. No hypoxia or tachypnea. Patient uses oxygen at night baseline. Twelve-lead EKG shows normal sinus rhythm at 96 bpm, QTC 467 ms. Previous EKG on December 2019 shows sinus tachycardia. Patient was last admitted in November 2019 for non-STEMI but no clinically/hemodynamically significant atherosclerotic disease found on cardiac cath Past Medical History Past Medical History (Chronic Problems): Chronic Problems (Last Reviewed 12/18/20 @ 11:[address] Justin Clifton MD) Emphysema lung (Chronic) Nonobstructive atherosclerosis of coronary artery (Chronic) Essential hypertension (Chronic) Hyperlipidemia (Chronic) Medical History: Medical History (Last Reviewed 12/18/20 @ 11:[address] Justin Clifton MD) Nonobstructive atherosclerosis of coronary artery (Chronic) I25.10 History of non-ST elevation myocardial infarction (NSTEMI) (Resolved) Onset Date: 11/11/19 I25.2 Essential hypertension (Chronic) I10 Hyperlipidemia (Chronic) E78.5 COPD (chronic obstructive pulmonary disease) J44.9 Cyclic vomiting syndrome R11.15 Spinal stenosis M48.00 Allergies No Known Allergies Allergy (Verified 12/26/20 09:46) Home Medications: Ambulatory Orders Medication Instructions Recorded Albuterol Aerosols [Ventolin 2.5 mg INHALATION Q4H PRN PRN 11/01/18 Aerosols] Aspirin [Aspirin, Baby] 81 mg PO DAILY@0800 11/01/18 Omeprazole 40 mg PO DAILY 11/01/18 Cetirizine HCl [Zyrtec] 10 mg PO DAILY 11/11/19 Atorvastatin Calcium [Lipitor] 40 mg PO QHS #90 tab 11/12/19 Diltiazem CD [Cardizem CD] 120 mg PO DAILY #90 cap 11/12/19 citalopram 20 mg tablet 20 mg PO DAILY 12/18/20 fluticasone 500 mcg-salmeterol 50 1 inh INHALATION BID each 12/18/20 mcg/dose blistr powdr for inhalation gabapentin 300 mg capsule 300 mg PO BID 12/18/20 ipratropium 0.5 mg-albuterol 3 mg 3 ml INHALATION Q4H 12/18/20 (2.5 mg base)/3 mL nebulization soln Surgical History: Surgical History (Last Reviewed 12/18/20 @ 11:[address] Justin Clifton MD) History of appendectomy Z90.49 History of inguinal hernia repair Z98.890, Z87.19 History of left heart catheterization Onset Date: 11/12/19 Z98.890 Mild disease involved in the first diagonal vessel. Minimal disease in the left anterior descending artery Medical therapy recommended. 11/12/2019 per [employer] History of lumbosacral spine surgery Z98.890 Surgical History: appendectomy, - - Bilateral inguinal hernia repair Smoking Status: Former smoker - *Family History Maternal Family History: Family History (Last Reviewed 12/18/20 @ 11:[address] Justin Clifton MD) Other Heart disease Hypertension History Items: Diabetes, Hypertension Paternal Family History: Family History (Last Reviewed 12/18/20 @ 11:[address] Justin Clifton MD) Other Heart disease Hypertension History Items: Heart Disease Review of Systems Constitutional: Denies: Chills, Fever, Weight Change HEENT: Denies: Head Aches, Sinus Congestion, Sinus Drainage Cardiovascular: Reports: Chest Pain - Epigastric. Denies: Palpitations Respiratory: Reports: Cough - [place] baseline cough of COPD, Shortness of breath upon exertion. Denies: Shortness of breath at rest, Sputum production Gastrointestinal: Reports: Abdominal Pain, Diarrhea - 5-6 soft bowel movements, Nausea. Denies: Hematemesis, Hematochezia - per day, Melena, Vomiting Genitourinary: Denies: Dysuria, Frequency, Hesitancy, Incontinence, Nocturia, Retention, Urgency Musculoskeletal: Denies: Joint Pain, Joint Tenderness Skin: Denies: Rash, Wounds Neurological: Denies: Numbness, Tingling, Focal weakness Psychiatric: Denies: Anxiety, Depression, Homicidal Ideations, Suicidal Ideations Hematologic/ Lymphatic: Denies: Easy Bruising, Easy Bleeding VTE Information - Inpt Only VTE Present on Admission: No VTE Mechan Device Prophylaxis: None VTE Pharm Prophylaxis ordered?: Yes Objective: Physical exam General: Alert, Oriented x3, Cooperative HEENT: Atraumatic, PERRLA, EOMI, Normocephalic Oral: No Gingival or Mucosal Lesions/ Ulcerations Neck: Supple, No JVD, Negative Carotid Bruits Lungs: Air entry diminished in bilateral lung bases. No crepitation/rhonchi/wheezing. No tachypnea or hypoxia Cardiovascular: Regular rate, Regular Rhythm, Normal S1, Normal S2, No murmurs Abdomen: Redness present in both lower quadrants, left more than right. No guarding or rigidity. No palpable mass. Bowel sounds present. : No renal angle tenderness. No suprapubic tenderness. Extremities: No edema, Capillary Refill Less than 3 Seconds Skin: No rashes, No breakdown Musculoskeletal: No Tenderness to Palpation of Joints or Extremities Neurological: Cranial nerves II-XII grossly intact, Deep Tendon Reflexes 2+/4 and Symmetrical, Neuro grossly intact Psych/Mental Status: Normal Affect, Appropriate. - Physical Exam Vitals/I&O's: Vital Signs Temp Pulse Resp BP Pulse Ox 98.2 F 77 14 151/97 H 93 12/26/20 09:46 12/26/20 11:29 12/26/20 11:29 12/26/20 11:29 12/26/20 11:29 Oxygen Delivery Method Room Air Weight: 170 lb Body Mass Index (BMI) 24.3 Intake and Output for Last 24 Hours 12/24/20 12/25/20 12/26/20 23:59 23:59 23:59 Intake Total 500 / 500 Balance 500 / 500 Microbiology Past 72 Hours 12/26/20 10:45 Nasal Secretion SARS-CoV-2 Antigen (Rapid) - Final Laboratory Results 12/26/20 10:44: WBC 9.9, RBC 5.40, Hgb 15.3, Hct 46.2, MCV 85.6, MCH 28.3, MCHC 33.1, RDW Std Deviation 46.7 H, RDW Coeff of Sue 14.7 H, Plt Count 367, MPV 8.3, Immature Gran % (Auto) 0.400, Neut % (Auto) 73.3 H, Lymph % (Auto) 15.5 L, [place] % (Auto) 9.8, Eos % (Auto) 0.5, Baso % (Auto) 0.5, Absolute Neuts (auto) 7.2, Absolute Lymphs (auto) 1.53, Nucleated RBC % 0 12/26/20 10:44: Sodium 135 L, Potassium 3.8, Chloride 101, Carbon Dioxide 27.0, Anion Gap 7, BUN 16, Creatinine 1.02, Estim Creat Clear Calc 73.56, Est GFR (MDRD) Af Amer 94, Est GFR (MDRD) Non-Af 78, BUN/Creatinine Ratio 15.7, Glucose 111 H, Calcium 9.9, Total Bilirubin 1.00, AST 23, ALT 33, Alkaline Phosphatase 95, Troponin I < 0.015, Total Protein 8.0, Albumin 4.3, Globulin 3.7, Albumin/Globulin Ratio 1.2, Lipase 20 L 12/26/20 10:52: Urine Color Yellow, Urine Clarity Sl. Cloudy, Urine pH 7.0, Ur Specific [place] 1.015, Urine Protein 30 H, Urine Glucose (UA) Normal, Urine Ketones 50 H, Urine Occult Blood 25 H, Urine Nitrite Negative, Urine Bilirubin Negative, Urine Urobilinogen 1 H, Ur Leukocyte Esterase 25 H, Urine RBC 0-5 SEEN, Urine WBC 0-5 SEEN, Ur Squamous Epith Cells 0-5 SEEN, Urine Bacteria 1+, Urine Mucus 0 SEEN Assessment/Plan All Active Problems (Last Reviewed 12/18/20 @ 11:[address] Justin Clifton MD) Sigmoid diverticulitis (Acute) Epigastric/atypical chest pain (Acute) Chest pain (Resolved) Community acquired pneumonia (Resolved) Elevated troponin (Resolved) This 65-year-old question gentleman admitted for lower quadrant abdominal pain and CT findings suggestive of sigmoid diverticulitis. 1. Acute sigmoid diverticulitis: CT abdomen reviewed shows diverticulosis with mild thickening of colon wall, mild pericolic inflammation change consistent with mild acute diverticulitis. Status post appendectomy. IV fluid for hydration. IV Cipro and Flagyl. Started on clear liquid diet. 1. Acute non-STEMI type II secondary to demand ischemia Patient was admitted to monitored bed consult placed to cardiology patient underwent left heart catheterization by Dr. Clifton on 11/12/2019 which failed to demonstrate any hemodynamically significant lesions. Patient was discharged home with optimization of medical therapy 2. Atypical chest pain/epigastric pain probably due to overuse of DuoNeb at home/continuation of abdominal pain: Serial troponin enzymes. Patient recently had cardiac cath in November 2019 which did not show any hemodynamically significant lesion. On medical management. 3. COPD with chronic hypoxic respiratory failure: No exacerbation. Patient is not hypoxic, tachypneic or dyspnea at rest. Continue patient's home inhaler. Oxygen therapy as needed to keep pulse ox about 90% ?Patient was managed with systemic steroid antibiotics as well as aerosol treatment. Patient was assessed for home oxygen prior to being discharged 4. Dyslipidemia: On atorvastatin. Lipid profile tomorrow a.m. 5. Depression with anxiety dose of citalopram decreased to 10 mg daily for drug drug interaction with Cipro to avoid QT prolongation. 6. Essential hypertension blood pressure is controlled. On lisinopril and Cardizem CD. 7. GERD with Pizano's esophagus: Patient had EGD and colonoscopy 4 years ago in [place]. He was told he has Pizano's esophagus but unclear extent and severity of lesion. Continue PPI. Advised outpatient EGD colonoscopy after 1 month of resolution of diverticulitis. 8. DVT prophylaxis ?Lovenox Living will/advanced directive/end of life care: Patient does not have living will or advanced directive. Her daughter is power of criminal attorney for health. After discussion of benefits/risks procedures involved with full code, DNR CC arrest and DNR CC, the patient opted for full code. Patient does want artificial life support including intubation, tube feed, ventilator and/chest compression, central venous catheter, vasopressor and DC shock if needed Total time spent in [id number] encounter in discussion of advanced directive 16 minutes. Clinical Impression(s) from Imaging Studies Chest X-Ray 12/26/20 10:02 IMPRESSION: Hyperinflation and emphysematous changes with decreased bronchovascular markings in the upper lobes. Abdomen/Pelvis CT 12/26/20 10:03 IMPRESSION: Findings suggest a mild degree of sigmoid diverticulitis. Electronically Signed: Gabe Barrientos MD at 12:03 EDT , Service support , OBSV E&M: [id number] Initial observation care L3 Procedures: [id number] Advncd Care Plan 30 Min
[2020-12-26] MEDS: Ciprofloxacin 400 MG/200 ML BAG 200 MG IV ×2 (13:14→22:58)
--- NOTE | 2020-12-26 13:55 | EKG12_ITS ---
Test Reason : CP ADMISSION Blood Pressure : / mmHG Vent. Rate : 070 BPM Atrial Rate : 070 BPM P-R Int : 152 ms QRS Dur : 098 ms QT Int : 408 ms P-R-T Axes : 078 078 061 degrees QTc Int : 440 ms Normal sinus rhythm with sinus arrhythmia Normal ECG Confirmed by MAKENZIE RIVERA, MESFIN ([id number]), sports editor AYAN GUADALUPE ([id number]) on 12/31/2020 9:04:20 AM Referred By: Confirmed By:MESFIN BANEGAS MD
[2020-12-26] MEDS: metroNIDAZOLE 500 MG/100 ML BAG 100 MG IV ×2 (14:22→21:35)
[2020-12-26 16:14] LABS: Cholesterol 136 mg/dL (200); High Density Lipoprotein 48 mg/dL; Triglycerides 98 mg/dL; Very Low Density Lipoprotein 20 mg/dL (5-40)
[2020-12-26 16:18] LABS: Magnesium 2.2 mg/dL (1.6-2.6)
[2020-12-26] MEDS: Gabapentin 300 MG Capsule PO (16:23)
[2020-12-26] MEDS: 0.9% Normal Saline 1,000 ML 100 ML IV (16:23)
[2020-12-26] MEDS: HYDROmorphone 0.5 MG/0.5 ML SYRINGE IV ×2 (16:25→20:28)
[2020-12-26] MEDS: 0.9% Saline Lock 10 ML Syringe IV ×2 (16:26→23:48)
[2020-12-26] MEDS: Pantoprazole Sodium 40 MG Tablet PO (16:28)
[2020-12-26] MEDS: Budesonide Respules 0.5 MG/2 ML AMPUL.NEB. INHALATION (17:03)
[2020-12-26] MEDS: Ipratropium/Albuterol Sulfate 3 ML AMPUL.NEB INHALATION ×2 (17:04→23:08)
[2020-12-26] MEDS: Atorvastatin Calcium 40 MG Tablet PO (21:36)
[2020-12-26] MEDS: proCHLORPERazine 10 MG/2 ML Vial 5 MG IV (23:43)
[2020-12-27] VITALS (8 sets, daily range): BP systolic 117–118; BP diastolic 63–74; PULSE 58–78; RESP 16–20; TEMP 36.8–36.9; O2SAT 94–96
[2020-12-27] MEDS: 0.9% Normal Saline 1,000 ML 100 ML IV (04:31)
[2020-12-27 06:11] LABS: Absolute Lymphocyte Count 1.39 X10^3/uL (0.83-4.51); Absolute Neutrophil Count 5.4 X10^3/uL (2.0-7.7); Basophil# 0.05 X10^3/uL; Basophil% 0.6 % (0-1); Eosinophil# 0.23 X10^3/uL; Eosinophils% 2.8 % (0-5); Hematocrit 41.7 % (40-54); Hemoglobin 13.1 g/dL (13.0-16.5); Lymphocyte # 1.39 X10^3/ul (0.83-4.51); Mean Corp Hgb Conc 31.4 g/dL (32-36); Mean Corpuscular Hgb 27.9 pg (27.0-32.0); Mean Corpuscular Volume 88.9 fL (80-94); Mean Platelet Vol. 8.3 fl (6.2-12.0); Monocyte# 1.12 X10^3/uL; Monocyte% 13.7 % (0-10); NRBC Flagged by Analyzer 0 % (0-5); Neutrophil # 5.36 X10^3/uL (2.7-7.7); Neutrophil % 65.5 % (47-70); Platelet Count 282 K/mm3 (150-450); RBC Distribution Width CV 14.6 % (11.6-14.6); RBC Distribution Width SD 46.9 fl (35.1-43.9); Red Blood Count 4.69 M/mm3 (4.6-6.2); White Blood Count 8.2 K/mm3 (4.4-11.0)
[2020-12-27] MEDS: HYDROmorphone 0.5 MG/0.5 ML SYRINGE IV (06:31)
[2020-12-27] MEDS: 0.9% Saline Lock 10 ML Syringe IV (06:34)
[2020-12-27] MEDS: metroNIDAZOLE 500 MG/100 ML BAG 100 MG IV (06:35)
[2020-12-27] MEDS: Budesonide Respules 0.5 MG/2 ML AMPUL.NEB. INHALATION (06:40)
[2020-12-27] MEDS: Ipratropium/Albuterol Sulfate 3 ML AMPUL.NEB INHALATION (06:40)
[2020-12-27 06:42] LABS: Anion Gap 3 (5-15); BUN 12 mg/dL (7-18); BUN/Creat Ratio 13.9 RATIO (10-20); Calcium,Total 8.6 mg/dL (8.5-10.1); Chloride 105 mmol/L (98-107); Creatinine, Serum 0.86 mg/dL (0.70-1.30); EST Glomerular Filtration Rate 94 mL/min (>60); Est Glom Filt Rate - Afr Amer 114 mL/min (>60); Estimated Creatinine Clearance 87.24 ml/min; Glucose 105 mg/dL (74-106); Potassium 3.9 mmol/L (3.5-5.1); Sodium Level 137 mmol/L (136-145); Thyroid Stim Hormone (TSH) 1.33 uIU/mL (0.358-3.74)
[2020-12-27] MEDS: Ciprofloxacin 400 MG/200 ML BAG 200 MG IV (08:09)
[2020-12-27] MEDS: Citalopram 10 MG Tablet PO (08:13)
[2020-12-27] MEDS: dilTIAZem CD 120 MG Capsule PO (08:13)
[2020-12-27] MEDS: Aspirin 81 MG TAB.CHEW PO (08:13)
[2020-12-27] MEDS: Gabapentin 300 MG Capsule PO (08:13)
[2020-12-27] MEDS: Pantoprazole Sodium 40 MG Tablet PO (08:13)
[2020-12-27] MEDS: Enoxaparin 40 MG/0.4 ML Syringe SC (08:17)
--- NOTE | 2020-12-27 09:35 | PCM.DC ---
- Discharge Diagnoses Current Active Problems: Current Active and Chronic Problems (Last Reviewed 12/18/20 @ 11:[address] Justin Clifton MD) Sigmoid diverticulitis (Acute) Epigastric/atypical chest pain (Acute) Emphysema lung (Chronic) Nonobstructive atherosclerosis of coronary artery (Chronic) Essential hypertension (Chronic) Hyperlipidemia (Chronic) You will use the following diet at home:: Cardiac - Soft diet. Avoid hard meat. Your food should be the consistency of: Soft (bite-sized & easy to chew/swallow) Discharge Activity: May Not Drive - For 2 weeks Call your doctor if you observe: Fever of 101 or Higher, Coldness, Increased Pain, Numbness or Tingling, Change in Color, Inability to urinate, Inability to have a bowel movement, Shortness of breath, Dizziness, Fainting spells, Swelling in the ankles, Chest pain, Prolonged hiccoughing, Increased palpitations (irregular heartbeat), Calf discomfort, Uncontrolled pain Allergies/Adverse Reactions: Allergies No Known Allergies Allergy (Verified 12/26/20 09:46) Medications to take at Discharge Albuterol Aerosols [Ventolin Aerosols] 2.5 mg INHALATION Q4H PRN PRN 11/01/18 Aspirin [Aspirin, Baby] 81 mg PO DAILY@0800 11/01/18 Omeprazole 40 mg PO DAILY 11/01/18 Cetirizine HCl [Zyrtec] 10 mg PO DAILY 11/11/19 Atorvastatin Calcium [Lipitor] 40 mg PO QHS #90 tab 11/12/19 Diltiazem CD [Cardizem CD] 120 mg PO DAILY #90 cap 11/12/19 citalopram 20 mg tablet 20 mg PO DAILY 12/18/20 fluticasone 500 mcg-salmeterol 50 mcg/dose blistr powdr for inhalation 1 inh INHALATION BID each 12/18/20 gabapentin 300 mg capsule 300 mg PO BID 12/18/20 ipratropium 0.5 mg-albuterol 3 mg (2.5 mg base)/3 mL nebulization soln 3 ml INHALATION Q4H 12/18/20 Amox/Clavulanate Tablet [Augmentin Tablet] 875 mg PO Q12H #14 tab 12/27/20 Lactobacillus Acidophilus [Acidophilus] 1 tablet PO BID #14 tab 12/27/20 The following prescriptions were given: Lactobacillus Acidophilus [Acidophilus] 1 tablet PO BID #14 tab Transmission Status: Pending to [id number] Amox/Clavulanate Tablet [Augmentin Tablet] 875 mg PO Q12H #14 tab Transmission Status: Pending to [id number] Primary Care Physician: Jordan Rosales MD [Primary Care Provider] - Please follow up with your Primary Care Physician in: In 2 weeks Test Results: Test results from this visit will be discussed in further detail at your follow-up appointment, if applicable.
--- NOTE | 2020-12-27 09:37 | PCM.DC.SUM ---
Discharge Date and Diagnosis - Problem List Patient Problems: Active and Suspected Problems (Last Reviewed 12/18/20 @ 11:[address] Justin Clifton MD) Sigmoid diverticulitis (Acute) Epigastric/atypical chest pain (Acute) Date of Admission: 12/26/20 Date of Discharge: 12/27/20 - Primary Discharge Diagnosis Acute Problems: Active Problems (Last Reviewed 12/18/20 @ 11:[address] Justin Clifton MD) Sigmoid diverticulitis (Acute) Epigastric/atypical chest pain (Acute) - Secondary Discharge Diagnosis Chronic Problems: Chronic Problems (Last Reviewed 12/18/20 @ 11:[address] Justin Clifton MD) Emphysema lung (Chronic) Nonobstructive atherosclerosis of coronary artery (Chronic) Essential hypertension (Chronic) Hyperlipidemia (Chronic) Hospital Course and Treatment Summary of Care Provided: The patient is a 65 year old M admitted to PCU for left lower quadrant abdominal pain, CT findings suggestive of sigmoid diverticulitis. CT abdomen reviewed shows diverticulosis with mild thickening of colon wall, mild pericolic inflammation change consistent with mild acute diverticulitis. Status post appendectomy. Patient was started on IV fluid, Cipro and Flagyl and pain was well controlled next day. He tolerated clear liquid and then diet advanced to soft diet. Patient wants to go home and is discharged on Augmentin 875 mg p.o. twice daily for 7 days. Patient also had epigastric pain probably migration from his abdominal pain or due to frequent DuoNeb nebulization. Serial troponin enzymes normal. Twelve-lead EKG showed normal sinus rhythm at 96 bpm with no significant change from previous EKG. He had non-STEMI type II due to demand ischemia in November 2019 for which cath did not show any hemodynamically significant lesion. Patient other comorbidities which include COPD with chronic hypoxic respiratory failure, uses oxygen at night, dyslipidemia, anxiety with depression, essential hypertension, GERD with Pizano's esophagus. Patient was advised to follow-up with surgeon Dr. Gilman in 4 weeks for colonoscopy and surveillance EGD for Pizano's esophagus. Full code. Discharge medication reconciliation done. Discharge follow-up instructions completed. Discharge process discussed with the patient and all questions were answered to patient's satisfaction. Patient is on PPI for Pizano's esophagus and has enough refill. Total time spent, exact 35 minutes on discharge meds reconciliation, examination, coordination of care with nurses and ancillary staff, review of imaging and blood test and discussion with the patient on follow-up instructions Patient Problems: Active and Suspected Problems (Last Reviewed 12/18/20 @ 11:[address] Justin Clifton MD) Sigmoid diverticulitis (Acute) Epigastric/atypical chest pain (Acute) Objective: Patient complain of mild pain over left lower quadrant. Tolerated clear liquid diet advance to soft diet to soft. Heart rate and blood pressure controlled. No fever. Physical exam General: Alert, Oriented x3, Cooperative HEENT: Atraumatic, PERRLA, EOMI, Normocephalic Oral: No Gingival or Mucosal Lesions/ Ulcerations Neck: Supple, No JVD, Negative Carotid Bruits Lungs: Air entry diminished in bilateral lung bases. No crepitation/rhonchi Cardiovascular: Regular rate, Regular Rhythm, Normal S1, Normal S2, No murmurs Abdomen: Bowel Sounds Present, Soft, mild diffuse tenderness on palpation over left lower quadrant. No palpable mass. Non-Distended : No renal angle tenderness. No suprapubic tenderness. Extremities: No edema, Capillary Refill Less than 3 Seconds Skin: No rashes, No breakdown Musculoskeletal: No Tenderness to Palpation of Joints or Extremities Neurological: Cranial nerves II-XII grossly intact, Deep Tendon Reflexes 2+/4 and Symmetrical, Neuro grossly intact Psych/Mental Status: Normal Affect, Appropriate. - Physical Exam Vitals/I&O's: Vital Signs Temp Pulse Resp BP Pulse Ox 98.3 F 62 18 118/74 96 12/27/20 08:07 12/27/20 08:07 12/27/20 08:07 12/27/20 08:07 12/27/20 08:07 Oxygen Flow Rate (L/min) 3 Oxygen Delivery Method Nasal Cannula Weight: 167 lb 5.294 oz Body Mass Index (BMI) 24.0 Intake and Output for Last 24 Hours 12/25/20 12/26/20 12/27/20 23:59 23:59 23:59 Intake Total 1700 / 1700 1000 / 1000 Output Total 475 / 475 950 / 950 Balance 1225 / 1225 50 / 50 Microbiology Past 72 Hours 12/26/20 10:45 Nasal Secretion SARS-CoV-2 Antigen (Rapid) - Final Laboratory Results 12/26/20 10:44: WBC 9.9, RBC 5.40, Hgb 15.3, Hct 46.2, MCV 85.6, MCH 28.3, MCHC 33.1, RDW Std Deviation 46.7 H, RDW Coeff of Sue 14.7 H, Plt Count 367, MPV 8.3, Immature Gran % (Auto) 0.400, Neut % (Auto) 73.3 H, Lymph % (Auto) 15.5 L, [place] % (Auto) 9.8, Eos % (Auto) 0.5, Baso % (Auto) 0.5, Absolute Neuts (auto) 7.2, Absolute Lymphs (auto) 1.53, Nucleated RBC % 0 12/26/20 10:44: Sodium 135 L, Potassium 3.8, Chloride 101, Carbon Dioxide 27.0, Anion Gap 7, BUN 16, Creatinine 1.02, Estim Creat Clear Calc 73.56, Est GFR (MDRD) Af Amer 94, Est GFR (MDRD) Non-Af 78, BUN/Creatinine Ratio 15.7, Glucose 111 H, Calcium 9.9, Total Bilirubin 1.00, AST 23, ALT 33, Alkaline Phosphatase 95, Troponin I < 0.015, Total Protein 8.0, Albumin 4.3, Globulin 3.7, Albumin/Globulin Ratio 1.2, Lipase 20 L 12/26/20 10:52: Urine Color Yellow, Urine Clarity Sl. Cloudy, Urine pH 7.0, Ur Specific [place] 1.015, Urine Protein 30 H, Urine Glucose (UA) Normal, Urine Ketones 50 H, Urine Occult Blood 25 H, Urine Nitrite Negative, Urine Bilirubin Negative, Urine Urobilinogen 1 H, Ur Leukocyte Esterase 25 H, Urine RBC 0-5 SEEN, Urine WBC 0-5 SEEN, Ur Squamous Epith Cells 0-5 SEEN, Urine Bacteria 1+, Urine Mucus 0 SEEN 12/26/20 15:05: Triglycerides 98, Cholesterol 136, LDL Cholesterol 68, VLDL Cholesterol 20, HDL Cholesterol 48 12/26/20 15:05: Magnesium 2.2, Troponin I < 0.015 12/26/20 17:36: Troponin I < 0.015 12/27/20 05:50: WBC 8.2, RBC 4.69, Hgb 13.1, Hct 41.7, MCV 88.9, MCH 27.9, MCHC 31.4 L D, RDW Std Deviation 46.9 H, RDW Coeff of Sue 14.6, Plt Count 282, MPV 8.3, Immature Gran % (Auto) 0.400, Neut % (Auto) 65.5, Lymph % (Auto) 17.0 L, [place] % (Auto) 13.7 H, Eos % (Auto) 2.8, Baso % (Auto) 0.6, Absolute Neuts (auto) 5.4, Absolute Lymphs (auto) 1.39, Nucleated RBC % 0 12/27/20 05:50: Sodium 137, Potassium 3.9, Chloride 105, Carbon Dioxide 29.0, Anion Gap 3 L, BUN 12, Creatinine 0.86, Estim Creat Clear Calc 87.24, Est GFR (MDRD) Af Amer 114, Est GFR (MDRD) Non-Af 94, BUN/Creatinine Ratio 13.9, Glucose 105, Calcium 8.6, TSH 1.33 Current Medications Acetaminophen (Acetaminophen 325 Mg Tablet) 650 mg PO Q6H PRN PRN PRN Reason: Pain Score 1-10/Temp > 100.7 F Al Hydroxide/Mg Hydroxide (Mag Hydrox/Al Hydrox/Simeth 30 Ml Udc) 30 ml PO Q6H PRN PRN PRN Reason: Gastric Burning Albuterol Sulfate (Albuterol 2.5 Mg/3 Ml Vial.Neb.) 2.5 mg INHALATION Q6H PRN PRN PRN Reason: Wheezing Albuterol/Ipratropium (Ipratropium/Albuterol Sulfate 3 Ml Ampul.Neb) 3 ml INHALATION Q4HWA.RT [facility] Last Admin: 12/27/20 06:40 Dose: 3 ml Documented by: Aspirin (Aspirin 81 Mg Tab.Chew) 81 mg PO DAILY@0800 [facility] Last Admin: 12/27/20 08:13 Dose: 81 mg Documented by: Atorvastatin Calcium (Atorvastatin Calcium 40 Mg Tablet) 40 mg PO QHS [facility] Last Admin: 12/26/20 21:36 Dose: 40 mg Documented by: Budesonide (Budesonide Respules 0.5 Mg/2 Ml Ampul.Neb.) 0.5 mg INHALATION Q12H.RT [facility] Last Admin: 12/27/20 06:40 Dose: 0.5 mg Documented by: Citalopram Hydrobromide (Citalopram 10 Mg Tablet) 10 mg PO DAILY [facility] Last Admin: 12/27/20 08:13 Dose: 10 mg Documented by: Diltiazem HCl (Diltiazem Cd 120 Mg Capsule) 120 mg PO DAILY [facility] Last Admin: 12/27/20 08:13 Dose: 120 mg Documented by: Enoxaparin Sodium (Enoxaparin 40 Mg/0.4 Ml Syringe) 40 mg SC DAILY [facility] Last Admin: 12/27/20 08:17 Dose: 40 mg Documented by: Gabapentin (Gabapentin 300 Mg Capsule) 300 mg PO BIDCM [facility] Last Admin: 12/27/20 08:13 Dose: 300 mg Documented by: Hydromorphone HCl (Hydromorphone 0.5 Mg/0.5 Ml Syringe) 0.5 mg IV Q4H PRN PRN PRN Reason: Pain Score 6-10 Last Admin: 12/27/20 06:31 Dose: 0.5 mg Documented by: Sodium Chloride () 1,000 mls @ 100 mls/hr IV .Q10H [facility] Stop: 12/27/20 10:45 Last Admin: 12/27/20 04:31 Dose: 100 mls/hr Documented by: Ciprofloxacin (Cipro) 400 mg in 200 mls @ 200 mls/hr IV Q12 [facility] Last Admin: 12/27/20 08:09 Dose: 200 mls/hr Documented by: Metronidazole (Flagyl) 500 mg in 100 mls @ 100 mls/hr IV Q8H [facility] Last Admin: 12/27/20 06:35 Dose: 100 mls/hr Documented by: Loratadine (Loratadine 10 Mg Tablet) 10 mg PO DAILY PRN PRN Reason: nasal allergy Nitroglycerin (Nitroglycerin (Inpatient Use) 0.4 Mg Tab.Subl) 0.4 mg SL Q5M PRN PRN Reason: CARDIAC/CHEST PAIN Oxycodone HCl (Oxycodone 5 Mg Tablet) 5 mg PO Q4H PRN PRN PRN Reason: Pain Score 4-5 Pantoprazole Sodium (Pantoprazole Sodium 40 Mg Tablet) 40 mg PO DAILY [facility] Last Admin: 12/27/20 08:13 Dose: 40 mg Documented by: Prochlorperazine Edisylate (Prochlorperazine 10 Mg/2 Ml Vial) 5 mg IV Q4H PRN PRN PRN Reason: Breakthrough Nausea/Vomiting Last Admin: 12/26/20 23:43 Dose: 5 mg Documented by: Senna/Docusate Sodium (Senna/Docusate Sodium 1 Tablet) 2 tablet PO BID PRN PRN PRN Reason: Constipation Sodium Chloride (0.9% Saline Lock 10 Ml Syringe) 10 - 40 ml IV UD PRN PRN Reason: SALINE FLUSH Last Admin: 12/27/20 06:34 Dose: 10 ml Documented by: Discharge Activity: May Not Drive - For 2 weeks Call your doctor if you observe: Fever of 101 or Higher, Coldness, Increased Pain, Numbness or Tingling, Change in Color, Inability to urinate, Inability to have a bowel movement, Shortness of breath, Dizziness, Fainting spells, Swelling in the ankles, Chest pain, Prolonged hiccoughing, Increased palpitations (irregular heartbeat), Calf discomfort, Uncontrolled pain Home Medications: Medications to take at Discharge Albuterol Aerosols [Ventolin Aerosols] 2.5 mg INHALATION Q4H PRN PRN 11/01/18 Aspirin [Aspirin, Baby] 81 mg PO DAILY@0800 11/01/18 Omeprazole 40 mg PO DAILY 11/01/18 Cetirizine HCl [Zyrtec] 10 mg PO DAILY 11/11/19 Atorvastatin Calcium [Lipitor] 40 mg PO QHS #90 tab 11/12/19 Diltiazem CD [Cardizem CD] 120 mg PO DAILY #90 cap 11/12/19 citalopram 20 mg tablet 20 mg PO DAILY 12/18/20 fluticasone 500 mcg-salmeterol 50 mcg/dose blistr powdr for inhalation 1 inh INHALATION BID each 12/18/20 gabapentin 300 mg capsule 300 mg PO BID 12/18/20 ipratropium 0.5 mg-albuterol 3 mg (2.5 mg base)/3 mL nebulization soln 3 ml INHALATION Q4H 12/18/20 Amox/Clavulanate Tablet [Augmentin Tablet] 875 mg PO Q12H #14 tab 12/27/20 Lactobacillus Acidophilus [Acidophilus] 1 tablet PO BID #14 tab 12/27/20 Following Prescriptions Were Given to Patient: Lactobacillus Acidophilus [Acidophilus] 1 tablet PO BID #14 tab Transmission Status: Received by [id number] Amox/Clavulanate Tablet [Augmentin Tablet] 875 mg PO Q12H #14 tab Transmission Status: Received by [id number] Primary Care Physician: Jordan Rosales MD [Primary Care Provider] - Please follow up with your Primary Care Physician in: In 2 weeks Medical Necessity - Tobacco Use Smoking Status: Former smoker Meaningful Use Info Meaningful Use Diagnoses (Choose all that apply): None applicable OBSV E&M: 37980 Observation care discharge
== END 2020-12-27 09:36 | disposition home or self-care (01) ==
LOC: ED 11:07 → PCU 13:02
PROVIDERS: Admitting Provider Internal Medicine; Emergency Provider Emergency Medicine; PCP Internal Medicine; Visit Provider Internal Medicine
DX: K57.32 Diverticulitis of large intestine without perforation or abscess without bleeding (principal); R07.89 Other chest pain; I25.2 Old myocardial infarction; E78.5 Hyperlipidemia, unspecified; I10 Essential (primary) hypertension; J43.9 Emphysema, unspecified; I25.10 Atherosclerotic heart disease of native coronary artery without angina pectoris; J96.11 Chronic respiratory failure with hypoxia; F41.8 Other specified anxiety disorders; K22.70 Barrett's esophagus without dysplasia; K21.9 Gastro-esophageal reflux disease without esophagitis; Z79.82 Long term (current) use of aspirin; Z79.899 Other long term (current) drug therapy; Z79.51 Long term (current) use of inhaled steroids; Z87.891 Personal history of nicotine dependence
CPT/HCPCS: 36415; 71045; 74177; 80048; 80053; 80061; 81001; 83690; 83735; 84443; 84484; 85025; 87426; 93005; 94640; 96361; 96365; 96366; 96367; 96372; 96375; 96376; 99218; 99251; 99285; J7030; Q9967; A4216; G0378; G0463; J0744; J2405

== ENCOUNTER 2021-01-10 11:23 | Observation (INO) | payer MEDICARE, SELFPAY ==
[2020-12-26 14:00] VITALS: BMI 24.0
[2021-01-10] VITALS (10 sets, daily range): BP systolic 120–203; BP diastolic 78–120; PULSE 80–107; RESP 14–22; TEMP 36.6–37.2; O2SAT 88–97; BMI 24.3
--- NOTE | 2021-01-10 11:42 | CT_ITS ---
STUDY: CT ABDOMEN AND PELVIS WITHOUT CONTRAST REASON FOR EXAM: Male, 65 years old. Pain RADIATION DOSAGE (If Supplied By Facility): CTDIvol = ( 8.52 ) mGy, DLP = ( 383.23 ) mGycm TECHNIQUE: Transaxial images were obtained from the dome of the diaphragm to the symphysis pubis without oral contrast, and without intravenous contrast. Sagittal and coronal images were reconstructed. Individualized dose optimization techniques were used for this CT. COMPARISON: None. FINDINGS: Diffuse COPD related changes of the lung bases are present. The visualized portions of the heart are within normal limits. Normal liver. Normal gallbladder and extrahepatic biliary system. Normal spleen. Normal pancreas. Normal bilateral adrenal glands. Normal right kidney. Normal left kidney. Normal visualized stomach. Normal small intestine. There are multiple colonic diverticula consistent with diverticulosis. Minimal sigmoid wall thickening is present. The appendix is visualized and appears normal. There is diffuse atherosclerotic calcification of the abdominal aorta, without a demonstrated aneurysm. Normal inferior vena cava. Normal retroperitoneum. Normal urinary bladder. Normal abdominal wall. There are diffuse degenerative changes of the visualized lumbar spine. CT/Abdomen/Pelvis without Cont IMPRESSION: Minimal sigmoid wall thickening is possibly present with mild sigmoid colitis not excluded though no evidence of significant inflammatory stranding or fluid layering. Otherwise no evidence of acute process. Electronically Signed: Paresh Hammonds DO at 12:54 EDT , Service support ,
--- NOTE | 2021-01-10 11:44 | EDS_ITS ---
HPI HPI - GI History of Present Illness Chief Complaint: Abd Pain Detail of Chief Complaint: Abdominal pain that started this morning Informant: patient Abdominal Pain/Flank Pain Current Severity: 9/10 Nausea/Vomiting/Emesis GI Symptom: Positive for Nausea Narrative Narrative: Patient presents with lower abdominal pain that started this morning. Patient states that he did not feel well when he woke up and progressively has had increasing pain to the lower abdomen. Patient states that he was admitted 2 weeks ago for diverticulitis and does not think he completely got better. He has been eating and drinking normally leading up to today. He is had no fever. He denies any blood in his stool or black tarry stool. Patient denies urinary symptoms. Prior similar symptoms: Yes [facility] Medical History (Updated 01/10/21 @ 13:[address] Lolly Núñez, ) COPD (chronic obstructive pulmonary disease) Cyclic vomiting syndrome Essential hypertension History of non-ST elevation myocardial infarction (NSTEMI) (11/11/19) Hyperlipidemia Nonobstructive atherosclerosis of coronary artery Spinal stenosis Home Medications albuterol sulfate 2.5 mg INHALATION Q4H PRN PRN 11/01/18 [History Last Taken Unknown] aspirin 81 mg PO DAILY@0800 11/01/18 [History Last Taken 11/11/19] omeprazole 40 mg PO DAILY 11/01/18 [History Last Taken 11/11/19] cetirizine 10 mg PO DAILY 11/11/19 [History Last Taken 11/11/19] atorvastatin 40 mg PO QHS #90 tab 11/12/19 [Rx Last Taken Unknown] diltiazem HCl 120 mg PO DAILY #90 cap 11/12/19 [Rx Last Taken Unknown] citalopram 20 mg tablet 20 mg PO DAILY 12/18/20 [History Last Taken Unknown] fluticasone 500 mcg-salmeterol 50 mcg/dose blistr powdr for inhalation 1 inh INHALATION BID each 12/18/20 [History Last Taken Unknown] gabapentin 300 mg capsule 300 mg PO BID 12/18/20 [History Last Taken Unknown] ipratropium 0.5 mg-albuterol 3 mg (2.5 mg base)/3 mL nebulization soln 3 ml INHALATION Q4H 12/18/20 [History Last Taken Unknown] acidophilus-pectin, citrus 1 tablet PO BID #14 tab 12/27/20 [Rx Last Taken Unknown] amoxicillin-pot clavulanate 875 mg PO Q12H #14 tab 12/27/20 [Rx Last Taken Unknown] Allergy/AdvReac Type Severity Reaction Status Date / Time No Known Allergies Allergy Verified 01/10/21 11:27 Family History Other Heart disease Hypertension Surgical History History of appendectomy History of inguinal hernia repair History of left heart catheterization (11/12/19) History of lumbosacral spine surgery Social History (Updated 12/18/20 @ 11:[address] Justin Clifton MD) Smoking Status: Former smoker substance use type: marijuana ROS ROS ED Constitutional Constitutional ED: Reports systems reviewed and no addt'l complaints, except as documented; Denies body ache(s), change in weight or chills Eyes Eyes: Denies acute decrease in peripheral vision, change in vision, double vision or loss of vision ENT ENT ED: Reports none; Denies ear pain, lip swelling, loss taste/smell, neck pain, otalgia or sore throat Cardiovascular Cardiovascular: Reports none; Denies abdominal pain, chest pain with activity, leg edema, lightheadedness, palpitations, rapid heart rate or syncope Respiratory/Chest Respiratory/Chest: Reports none; Denies change in mental status, dry cough, dyspnea, hemoptysis, shortness of breath at rest or shortness of breath with exertion Gastrointestinal Gastrointestinal: Reports none, abdominal pain and nausea; Denies change in stool character, diarrhea, hematemesis, hematochezia, melena, rectal bleeding or vomiting Genitourinary Genitourinary ED: Reports none; Denies abdominal discomfort, anuria, dysuria, genital pain or polyuria Musculoskeletal Musculoskeletal: Reports none; Denies arthralgias, back pain, difficulty walking, extremity pain, muscle weakness or myalgias Integumentary Reports none; Denies abscess or rash Neurologic Neurologic: Reports none; Denies abnormal gait, confusion, focal weakness, frequent falls, headache(s), loss of vision, numbness, paresthesias, radicular pain, vertigo or weakness Psychiatric Psychiatric: Reports systems reviewed and no addt'l complaints, except as documented and none; Denies behavioral changes, confusion, difficulty concentrating, hallucinations, suicidal ideation, tactile hallucinations or visual hallucinations Endocrine Endocrinology: Denies none, cold intolerance, excessive sweating, fatigue or heat intolerance Hematologic/Lymphatic Hematologic/Lymphatic: Reports none; Denies anemia, easy bleeding or easy bruising Allergic/Immunologic Allergic/Immunologic ED: Denies as per HPI, none, lip swelling, mouth swelling, throat swelling, tongue swelling or hives EXAM Physical Exam Const Vital Signs: 01/10/21 11:26 01/10/21 12:06 Temperature 98.2 F 98.2 F Temperature Source Temporal Oral Pulse Rate 107 H 107 H Respiratory Rate 22 H 20 H Blood Pressure 130/101 H 130/101 H Blood Pressure Mean 110 110 Pulse Ox 94 94 Oxygen Delivery Method Room Air Room Air Positive well nourished and well developed General Appearance ED: well developed and NAD HEENT Reports TM's clear and moist mucous membranes normocephalic and atraumatic; Negative for trauma or tenderness Tympanic Membrane ED: Yes TM's clear Eyes PERRL and EOMs intact bilaterally General Eye ED: Negative for pale conjunctiva or scleral icterus Neck no lymphadenopathy, supple and no JVD General: Negative for tenderness Chest Wall inspection of chest normal and palpation of chest normal Chest: Negative for tenderness Resp normal respiratory effort and clear to auscultation bilaterally Effort and Inspection: Negative for respiratory distress or pain with movement Auscultation: Negative for rhonchi, wheezes or diminished lung sounds Cardio regular rate, regular rhythm, S1 normal heart sound, S2 normal heart sound and no murmurs Peripheral Pulses: pulses 2+ throughout GI normal to inspection, nondistended, normoactive bowel sounds, soft to palpation, non-distended and no masses GI Narrative: Patient has diffuse tenderness over the suprapubic region as well as the left lower quadrant. There is no rebound, rigidity, or perineal signs. Auscultation: normoactive bowel sounds Palpation: soft and tender LLQ and suprapubic Back/Spine no CVA tenderness and no thoracic nor lumbar tenderness Extremity normal to inspection General Extremety ED: Negative for edema General Extremity: Negative for edema Neuro oriented x3, CN's II-XII intact bilaterally, no sensory deficits noted and gait normal Sensorium / Orientation: awake, alert, oriented to person, oriented to place and oriented to time Motor Exam: strength 5/5 throughout and strength abnormal Psych mental status grossly normal Skin no rashes or lesions noted and no wounds MDM MDM MDM Narrative Medical decision making narrative: Patient was medicated morphine and Zofran x2 and continues to complain of severe abdominal pain and nausea. Case will be discussed with hospitalist evaluate for admission for intractable abdominal pain. I will start patient on Cipro and Flagyl. Lab Data Attestation: I reviewed the patient's lab results. Labs: Laboratory Results - last 24 hr 01/10/21 01/10/21 01/10/21 11:48 11:48 12:05 WBC 10.1 RBC 5.21 Hgb 14.5 Hct 44.8 MCV 86.0 MCH 27.8 MCHC 32.4 RDW Std Deviation 47.9 H RDW Coeff of Sue 15.0 H Plt Count 370 MPV 8.3 Immature Gran % (Auto) 0.400 Neut % (Auto) 80.5 H Lymph % (Auto) 11.0 L [place] % (Auto) 6.4 Eos % (Auto) 1.0 Baso % (Auto) 0.7 Absolute Neuts (auto) 8.1 H Absolute Lymphs (auto) 1.11 Nucleated RBC % 0 Sodium 138 Potassium 4.0 Chloride 103 Carbon Dioxide 30.0 Anion Gap 5 BUN 11 Creatinine 0.92 Estim Creat Clear Calc 81.55 Est GFR (MDRD) Af Amer 106 Est GFR (MDRD) Non-Af 87 BUN/Creatinine Ratio 12.0 Glucose 106 Lactic Acid Calcium 9.2 Urine Color Yellow Urine Clarity Clear Urine pH 8.0 Ur Specific [place] 1.015 Urine Protein Negative Urine Glucose (UA) Normal Urine Ketones 50 H Urine Occult Blood 10 H Urine Nitrite Negative Urine Bilirubin Negative Urine Urobilinogen Normal Ur Leukocyte Esterase Negative Urine RBC 0-5 SEEN Urine WBC 0 SEEN Ur Squamous Epith Cells 0 SEEN Urine Bacteria 0 SEEN Urine Mucus 0 SEEN 01/10/21 12:21 WBC RBC Hgb Hct MCV MCH MCHC RDW Std Deviation RDW Coeff of Sue Plt Count MPV Immature Gran % (Auto) Neut % (Auto) Lymph % (Auto) [place] % (Auto) Eos % (Auto) Baso % (Auto) Absolute Neuts (auto) Absolute Lymphs (auto) Nucleated RBC % Sodium Potassium Chloride Carbon Dioxide Anion Gap BUN Creatinine Estim Creat Clear Calc Est GFR (MDRD) Af Amer Est GFR (MDRD) Non-Af BUN/Creatinine Ratio Glucose Lactic Acid 0.9 Calcium Urine Color Urine Clarity Urine pH Ur Specific [place] Urine Protein Urine Glucose (UA) Urine Ketones Urine Occult Blood Urine Nitrite Urine Bilirubin Urine Urobilinogen Ur Leukocyte Esterase Urine RBC Urine WBC Ur Squamous Epith Cells Urine Bacteria Urine Mucus Radiography Diagnostic Testing: Radiology Impression Abdomen/Pelvis CT 01/10/21 11:42 IMPRESSION: Minimal sigmoid wall thickening is possibly present with mild sigmoid colitis not excluded though no evidence of significant inflammatory stranding or fluid layering. Otherwise no evidence of acute process. Electronically Signed: Paresh Hammonds DO at 12:54 EDT , Service support , Discharge Plan Dx/Rx/DC Orders Clinical Impression: Intractable abdominal pain, Colitis Disposition Disposition: Acute Care [facility]
[2021-01-10 12:08] LABS: Absolute Lymphocyte Count 1.11 X10^3/uL (0.83-4.51); Absolute Neutrophil Count 8.1 X10^3/uL (2.0-7.7); Basophil# 0.07 X10^3/uL; Basophil% 0.7 % (0-1); Hematocrit 44.8 % (40-54); Hemoglobin 14.5 g/dL (13.0-16.5); Lymphocyte # 1.11 X10^3/ul (0.83-4.51); Mean Corp Hgb Conc 32.4 g/dL (32-36); Mean Corpuscular Hgb 27.8 pg (27.0-32.0); Mean Platelet Vol. 8.3 fl (6.2-12.0); Monocyte# 0.65 X10^3/uL; Monocyte% 6.4 % (0-10); NRBC Flagged by Analyzer 0 % (0-5); Neutrophil # 8.11 X10^3/uL (2.7-7.7); Neutrophil % 80.5 % (47-70); Platelet Count 370 K/mm3 (150-450); RBC Distribution Width SD 47.9 fl (35.1-43.9); Red Blood Count 5.21 M/mm3 (4.6-6.2); White Blood Count 10.1 K/mm3 (4.4-11.0)
[2021-01-10 12:12] LABS: Anion Gap 5 (5-15); BUN 11 mg/dL (7-18); Calcium,Total 9.2 mg/dL (8.5-10.1); Chloride 103 mmol/L (98-107); Creatinine, Serum 0.92 mg/dL (0.70-1.30); EST Glomerular Filtration Rate 87 mL/min (>60); Est Glom Filt Rate - Afr Amer 106 mL/min (>60); Estimated Creatinine Clearance 81.55 ml/min; Glucose 106 mg/dL (74-106); Sodium Level 138 mmol/L (136-145)
[2021-01-10 12:13] LABS: Bacteria 0 SEEN /hpf (None Seen); Mucous, Urine 0 SEEN /hpf (<or=2+); Squamous Epithelial Cells - UA 0 SEEN /hpf (0-5); White Blood Cells 0 SEEN /hpf (0-5)
[2021-01-10 12:16] LABS: Color, Urine Yellow (Yellow); Glucose, Dipstick Normal (Normal); Ketone-Dipstick 50 mg/dl (Negative); Leukocyte Esterase-Dipstick Negative /ul (Negative); Nitrite-Dipstick Negative (Negative); Occult Blood-Urine 10 /ul (Negative); Protein-Dipstick Negative (Negative); Specific Gravity, Urine 1.015 (1.002-1.030); Urine Bilirubin Dipstick Negative (Negative); Urine Clarity Clear (Clear); Urine Urobilinogen Normal (Normal)
[2021-01-10] MEDS: 0.9% Normal Saline 1,000 ML 125 ML IV (12:18)
[2021-01-10] MEDS: Morphine 4 MG/ML Syringe IV ×2 (12:18→12:44)
[2021-01-10] MEDS: Ondansetron 4 MG/2 ML Vial IV ×2 (12:19→12:44)
[2021-01-10 12:23] LABS: Red Blood Cells-Urine 0-5 SEEN /hpf (0-5)
[2021-01-10 13:09] LABS: Lactic Acid 0.9 mmol/L (0.4-1.9)
[2021-01-10] MEDS: Metoclopramide 10 MG/2 ML Vial 5 MG IV (13:52)
--- NOTE | 2021-01-10 13:58 | HP.PCM.HOS_ITS ---
HPI - General General Date of Admission: 01/10/21 HPI Narrative BRIGIDA BARCENAS, is a 65 M with history of recent admission on 12/26 for sigmoid uncomplicated diverticulitis came to ER with severe abdominal pain, left lower quadrant. Patient stated when he went home his abdominal pain was 1?3/10 intensity and he stated like that until today when it became 10/10 intensity, constant, cramping/colic in nature. Patient has nausea and dry heaving but denies vomiting. No change in bowel movement or GI bleed. Patient felt chills but no fever. Patient also complained of epigastric pain similar to the previous admission. In ED, no fever, mild tachycardia, heart rate 107/min. No hypoxia or tachypnea. CT abdomen done in the ER similar to the previous admission which shows minimal sigmoid wall thickening suggestive of colitis otherwise no evidence of acute process. Patient given IV Zosyn in ED. [facility] Medical History (Updated 01/10/21 @ 14:[address] Lance Paredes MD) COPD (chronic obstructive pulmonary disease) Cyclic vomiting syndrome Epigastric/atypical chest pain Essential hypertension History of non-ST elevation myocardial infarction (NSTEMI) (11/11/19) Hyperlipidemia Nonobstructive atherosclerosis of coronary artery Spinal stenosis Home Medications albuterol sulfate 2.5 mg INHALATION Q4H PRN PRN 11/01/18 [History Last Taken Unknown] aspirin 81 mg PO DAILY@0800 11/01/18 [History Last Taken 11/11/19] omeprazole 40 mg PO DAILY 11/01/18 [History Last Taken 11/11/19] cetirizine 10 mg PO DAILY 11/11/19 [History Last Taken 11/11/19] atorvastatin 40 mg PO QHS #90 tab 11/12/19 [Rx Last Taken Unknown] diltiazem HCl 120 mg PO DAILY #90 cap 11/12/19 [Rx Last Taken Unknown] citalopram 20 mg tablet 20 mg PO DAILY 12/18/20 [History Last Taken Unknown] fluticasone 500 mcg-salmeterol 50 mcg/dose blistr powdr for inhalation 1 inh INHALATION BID each 12/18/20 [History Last Taken Unknown] gabapentin 300 mg capsule 300 mg PO BID 12/18/20 [History Last Taken Unknown] ipratropium 0.5 mg-albuterol 3 mg (2.5 mg base)/3 mL nebulization soln 3 ml INHALATION Q4H 12/18/20 [History Last Taken Unknown] acidophilus-pectin, citrus 1 tablet PO BID #14 tab 12/27/20 [Rx Last Taken Unknown] amoxicillin-pot clavulanate 875 mg PO Q12H #14 tab 12/27/20 [Rx Last Taken Unknown] Allergy/AdvReac Type Severity Reaction Status Date / Time No Known Allergies Allergy Verified 01/10/21 11:27 Family History Other Heart disease Hypertension Surgical History History of appendectomy History of inguinal hernia repair History of left heart catheterization (11/12/19) History of lumbosacral spine surgery Social History (Updated 12/18/20 @ 11:[address] Justin Clifton MD) Smoking Status: Former smoker substance use type: marijuana ROS Constitutional Constitutional: Reports chills, fatigue and weakness Eyes Eyes: Reports systems reviewed and no addt'l complaints, except as documented ENT HEENT: Reports systems reviewed and no addt'l complaints, except as documented Cardiovascular Cardiovascular: Reports other Details: Mild epigastric pain Respiratory/Chest Respiratory/Chest: Denies cough, productive cough or shortness of breath with exertion Gastrointestinal Gastrointestinal: Reports abdominal pain and nausea; Denies coffee ground emesis, constipation, diarrhea, hematemesis, hematochezia, loose stools, melena or vomiting Genitourinary Genitourinary: Denies burning urination Musculoskeletal Musculoskeletal: Reports joint pain and limited range of motion Neurologic Neurologic: Denies seizure-like activity Endocrine Endocrinology: Reports systems reviewed and no addt'l complaints, except as documented Hematologic/Lymphatic Hematologic/Lymphatic: Reports systems reviewed and no addt'l complaints, except as documented Allergic/Immunologic Allergic/Immunologic: Reports systems reviewed and no addt'l complaints, except as documented Vital Signs Vital Signs Vital Signs: 01/10/21 11:26 01/10/21 12:06 Temperature 98.2 F 98.2 F Temperature Source Temporal Oral Pulse Rate 107 H 107 H Respiratory Rate 22 H 20 H Blood Pressure 130/101 H 130/101 H Blood Pressure Mean 110 110 Pulse Ox 94 94 Oxygen Delivery Method Room Air Room Air Physical Exam Narrative General: Alert, Oriented x3, Cooperative HEENT: Atraumatic, PERRLA, EOMI, Normocephalic Oral: Oral mucosa dry. No Gingival or Mucosal Lesions/ Ulcerations Neck: Supple, No JVD, Negative Carotid Bruits Lungs: Air entry diminished in bilateral lung bases. No crepitation/rhonchi/tachypnea or hypoxia Cardiovascular: Regular rate, Regular Rhythm, Normal S1, Normal S2, No murmurs Abdomen: Soft, tenderness present over left lower quadrant. Bowel sounds are hyperactive. No palpable mass. Hernial sites intact : No renal angle tenderness. No suprapubic tenderness. Extremities: No edema, Capillary Refill Less than 3 Seconds Skin: No rashes, No breakdown Musculoskeletal: No Tenderness to Palpation of Joints or Extremities Neurological: Cranial nerves II-XII grossly intact, Deep Tendon Reflexes 2+/4 and Symmetrical, Neuro grossly intact Psych/Mental Status: Normal Affect, Appropriate. Lab / Micro Data Result Diagrams: 01/10/21 11:48 01/10/21 11:48 Labs: Laboratory Results - last 24 hr 01/10/21 01/10/21 01/10/21 11:48 11:48 12:05 WBC 10.1 RBC 5.21 Hgb 14.5 Hct 44.8 MCV 86.0 MCH 27.8 MCHC 32.4 RDW Std Deviation 47.9 H RDW Coeff of Sue 15.0 H Plt Count 370 MPV 8.3 Immature Gran % (Auto) 0.400 Neut % (Auto) 80.5 H Lymph % (Auto) 11.0 L [place] % (Auto) 6.4 Eos % (Auto) 1.0 Baso % (Auto) 0.7 Absolute Neuts (auto) 8.1 H Absolute Lymphs (auto) 1.11 Nucleated RBC % 0 Sodium 138 Potassium 4.0 Chloride 103 Carbon Dioxide 30.0 Anion Gap 5 BUN 11 Creatinine 0.92 Estim Creat Clear Calc 81.55 Est GFR (MDRD) Af Amer 106 Est GFR (MDRD) Non-Af 87 BUN/Creatinine Ratio 12.0 Glucose 106 Lactic Acid Calcium 9.2 Urine Color Yellow Urine Clarity Clear Urine pH 8.0 Ur Specific [place] 1.015 Urine Protein Negative Urine Glucose (UA) Normal Urine Ketones 50 H Urine Occult Blood 10 H Urine Nitrite Negative Urine Bilirubin Negative Urine Urobilinogen Normal Ur Leukocyte Esterase Negative Urine RBC 0-5 SEEN Urine WBC 0 SEEN Ur Squamous Epith Cells 0 SEEN Urine Bacteria 0 SEEN Urine Mucus 0 SEEN 01/10/21 12:21 WBC RBC Hgb Hct MCV MCH MCHC RDW Std Deviation RDW Coeff of Sue Plt Count MPV Immature Gran % (Auto) Neut % (Auto) Lymph % (Auto) [place] % (Auto) Eos % (Auto) Baso % (Auto) Absolute Neuts (auto) Absolute Lymphs (auto) Nucleated RBC % Sodium Potassium Chloride Carbon Dioxide Anion Gap BUN Creatinine Estim Creat Clear Calc Est GFR (MDRD) Af Amer Est GFR (MDRD) Non-Af BUN/Creatinine Ratio Glucose Lactic Acid 0.9 Calcium Urine Color Urine Clarity Urine pH Ur Specific [place] Urine Protein Urine Glucose (UA) Urine Ketones Urine Occult Blood Urine Nitrite Urine Bilirubin Urine Urobilinogen Ur Leukocyte Esterase Urine RBC Urine WBC Ur Squamous Epith Cells Urine Bacteria Urine Mucus Radiology Impression Abdomen/Pelvis CT 01/10/21 11:42 IMPRESSION: Minimal sigmoid wall thickening is possibly present with mild sigmoid colitis not excluded though no evidence of significant inflammatory stranding or fluid layering. Otherwise no evidence of acute process. Electronically Signed: Paresh Hammonds DO at 12:54 EDT , Service support , Assessment & Plan Assessment/Plan (1) Sigmoid diverticulitis: (2) Diverticula of colon: PLAN: This 65-year-old question gentleman admitted for lower quadrant abdominal pain and CT findings suggestive of sigmoid diverticulitis. 1. Acute/subacute persistent sigmoid uncomplicated diverticulitis: CT abdomen individually reviewed and with the surgeon. Minimal sigmoid wall thickening otherwise no evidence of abscess, perforation or serious findings. Surgeon consulted and advised continued antibiotic IV Zosyn. IV fluid hydration. Started on clear liquid diet. Patient does not have leukocytosis or fever in ED. 2.. H/o non-STEMI type II in November 2019 and cardiac cath did not show hemodynamically significant lesion. On medical treatment. Patient complained of mild epigastric pain. IV PPI today and then oral PPI from tomorrow a.m. 3. COPD with history of chronic hypoxic respiratory failure: No exacerbation. Patient is not hypoxic, tachypneic or dyspnea at rest. Continue patient's DuoNeb and home inhaler. Currently patient is on room air. 4. Dyslipidemia: On atorvastatin. 5. Depression with anxiety: 6. Essential hypertension blood pressure is controlled. On lisinopril and Cardizem CD. 7. GERD with Pizano's esophagus: Patient had EGD and colonoscopy 4 years ago in [place]. He was told he has Pizano's esophagus but unclear extent and severity of lesion. Continue PPI. Advised outpatient EGD colonoscopy after 1 month of resolution of diverticulitis and he has appointment with [facility] [place] surgery probably Dr. Roach 8. DVT prophylaxis ?Lovenox 40 subcu daily Advanced directive/CODE STATUS: Discussed with the patient during recent admission. Continue full code. Clinical Impression(s) from Imaging Studies Abdomen/Pelvis CT 01/10/21 11:42 IMPRESSION: Minimal sigmoid wall thickening is possibly present with mild sigmoid colitis not excluded though no evidence of significant inflammatory stranding or fluid layering. Otherwise no evidence of acute process. Visit Charges OBSV E&M: 31318 Initial observation care L3
[2021-01-10 14:11] LABS: Magnesium 2.2 mg/dL (1.6-2.6)
[2021-01-10] MEDS: Morphine 2 MG/ML Syringe IV (15:43)
[2021-01-10] MEDS: oxyCODONE 5 MG Tablet 10 MG PO ×2 (16:26→21:11)
[2021-01-10] MEDS: Ipratropium/Albuterol Sulfate 3 ML AMPUL.NEB INHALATION ×3 (16:30→23:36)
[2021-01-10] MEDS: dilTIAZem CD 120 MG Capsule PO (16:34)
[2021-01-10] MEDS: Senna/Docusate Sodium 1 Tablet 2 TABLET PO (16:34)
[2021-01-10] MEDS: Gabapentin 300 MG Capsule PO (16:34)
[2021-01-10] MEDS: Citalopram 20 MG Tablet PO (16:34)
[2021-01-10] MEDS: Polyethylene Glycol 3350 17 GM PACKET PO (16:35)
[2021-01-10] MEDS: Enoxaparin 40 MG/0.4 ML Syringe SC (16:35)
[2021-01-10] MEDS: 0.9% Normal Saline 1,000 ML 100 ML IV (17:49)
--- NOTE | 2021-01-10 19:42 | CON.PCM.SX_ITS ---
Assessment & Plan Assessment/Plan (1) Acute abdominal pain in right upper quadrant: (2) Epigastric abdominal pain: (3) LLQ abdominal pain: (4) Pizano's esophagus: PLAN: Did personally review CT abdomen pelvis from previous ER visit as well as his most recent ER visit and today. Did show the patient these CAT scan s. CAT scan from 2 weeks ago again does not show much of any inflammation of the sigmoid colon on my read. And at that time patient mitts he did have some epigastric pain as well. CT scan from today again does not really show any inflammation of the sigmoid colon per my read I would doubt that his pain would be due to diverticulitis. Did discuss with patient as well as Dr. Paredes will plan to stop Zosyn. Patient said abdominal pain seems to be more due to constipation he does have a bit of stool in the right colon patient is having right upper quadrant and epigastric pain along with some left lower quadrant pain on exam. Patient gives a history of not feeling well when he wakes up in the morning causing abdominal pain and nausea and he has had multiple episodes of these in the past. Patient also states he has had episodes of and woke up not felt well and when he passed gas he did feel better. We will try laxatives patient did get MiraLAX and senna today. Plan to try half a bottle magnesium citrate tonight try to do this gently as patient states sometimes when he does take laxatives it caused some abdominal discomfort. Did discuss with patient the importance of fiber as well as increase water intake. However with the possibility that he may have had a little bit of diverticulitis 2 weeks ago not sure we would jump right into a high-fiber diet may use more laxatives at that time. Patient also history of Pizano's esophagus. Patient has been on omeprazole 40 mg p.o. daily. Also question if he could have been having some issues with reflux or gastritis due to the epigastric and right upper quadrant discomfort. Suggest patient may do better trying to change to Protonix 40 mg p.o. as an outpatient to see if this would improve some of his discomfort. Patient was agreeable with plan. Patient states she does have colonoscopy scheduled with Dr. Roach in the future. We will continue to follow. Rosa Isela Kennedy M.D. Pager: [phone] [facility] [address] [place] [address], [facility], [address] [place] [address] Office: [phone] HPI Consult Data Date of Consult: 01/12/21 HPI Narrative HPI Narrative: BRIGIDA BARCENAS, is a 65 M who presents presented to the ER due to ab dominal pain. Patient states that he woke up with discomfort in his abdomen which was pretty diffuse and that did cause some nausea. Patient also points to his lower abdomen is also having some discomfort. Patient was previously admitted at the end of December due to similar episode per patient patient states he had CT abdomen pelvis which showed some mild sigmoid diverticulitis. Patient was on antibiotics for 7 days. Patient completed antibiotic over a week ago. Presents again with a similar episode. Patient states he has been to the ER multiple times for this and he has also had previous CAT scans which did not show any diverticulitis. Patient's repeat CAT scan from today because mini mal/possible sigmoid diverticulitis but no obvious stranding or inflammation. Patient has right upper quadrant as well as epigastric and some left lower quadrant abdominal pain. Patient states he has had issues with constipation for a while where he may not go for couple days and then he will go a couple times in 1 day first 1 may be a little bit more formed and then he will have diarrhea for softer stools after. Patient states he has taken some laxatives previously [id number] which has caused some abdominal discomfort. Patient is unsure amount of fiber he gets in a day. Does state that he drinks enough water. [facility] Medical History (Updated 01/10/21 @ 20:[address] Rosa Isela Kennedy MD) COPD (chronic obstructive pulmonary disease) Cyclic vomiting syndrome Epigastric/atypical chest pain Essential hypertension Former smoker History of non-ST elevation myocardial infarction (NSTEMI) (11/11/19) Hyperlipidemia Nonobstructive atherosclerosis of coronary artery Spinal stenosis Stroke/cerebrovascular accident Substance abuse Home Medications albuterol sulfate 2.5 mg INHALATION Q4H PRN PRN 11/01/18 [History Last Taken 01/10/21 09:00] aspirin 81 mg PO DAILY@0800 11/01/18 [History Last Taken 01/09/21] omeprazole 40 mg PO DAILY 11/01/18 [History Last Taken 01/09/21 09:30] cetirizine 10 mg PO DAILY 11/11/19 [History Last Taken 01/09/21] atorvastatin 40 mg PO QHS #90 tab 11/12/19 [Rx Last Taken 01/08/21] diltiazem HCl 120 mg PO DAILY #90 cap 11/12/19 [Rx Last Taken 01/09/21] citalopram 20 mg tablet 20 mg PO DAILY 12/18/20 [History Last Taken 01/08/21] fluticasone 500 mcg-salmeterol 50 mcg/dose blistr powdr for inhalation 1 inh INHALATION BID each 12/18/20 [History Last Taken Unknown] gabapentin 300 mg capsule 300 mg PO BID 12/18/20 [History Last Taken 01/09/21] ipratropium 0.5 mg-albuterol 3 mg (2.5 mg base)/3 mL nebulization soln 3 ml INHALATION Q4H 12/18/20 [History Last Taken Unknown] acidophilus-pectin, citrus 1 tablet PO BID 01/10/21 [History Last Taken 01/09/21 20:30] Allergy/AdvReac Type Severity Reaction Status Date / Time No Known Allergies Allergy Verified 01/10/21 11:27 Family History Other Heart disease Hypertension Surgical History History of appendectomy History of inguinal hernia repair History of left heart catheterization (11/12/19) History of lumbosacral spine surgery Social History (Updated 12/18/20 @ 11:[address] Justin Clifton MD) Smoking Status: Former smoker substance use type: marijuana ROS Constitutional Constitutional: Reports anorexia; Denies fever(s) ENT HEENT: Denies dizziness Cardiovascular Cardiovascular: Denies chest pain Respiratory/Chest Respiratory/Chest: Denies shortness of breath at rest Gastrointestinal Gastrointestinal: Reports abdominal pain, constipation and diarrhea; Denies heartburn, hematemesis, melena or vomiting Genitourinary Genitourinary: Denies burning urination Musculoskeletal Musculoskeletal: Denies joint pain Integumentary Integumentary: Denies rash Neurologic Neurologic: Denies focal weakness Endocrine Endocrinology: Denies palpitations Hematologic/Lymphatic Hematologic/Lymphatic: Denies easy bleeding or easy bruising Physical Exam Const alert, oriented x3 and no apparent distress HEENT normocephalic and head/scalp atraumatic Resp normal respiratory effort Cardio regular rate GI soft to palpation and non-distended Palpation: tender epigastric, LLQ, RUQ and other (No peritoneal signs); Negative for guarding Extremity no clubbing, cyanosis or edema Neuro CN's II-XII intact bilaterally Psych mental status grossly normal Lab / Micro Data Result Diagrams: 01/11/21 06:35 01/12/21 07:00 Labs: Laboratory Results - last 24 hr 01/10/21 01/10/21 01/10/21 11:48 11:48 11:48 WBC 10.1 RBC 5.21 Hgb 14.5 Hct 44.8 MCV 86.0 MCH 27.8 MCHC 32.4 RDW Std Deviation 47.9 H RDW Coeff of Sue 15.0 H Plt Count 370 MPV 8.3 Immature Gran % (Auto) 0.400 Neut % (Auto) 80.5 H Lymph % (Auto) 11.0 L [place] % (Auto) 6.4 Eos % (Auto) 1.0 Baso % (Auto) 0.7 Absolute Neuts (auto) 8.1 H Absolute Lymphs (auto) 1.11 Nucleated RBC % 0 Sodium 138 Potassium 4.0 Chloride 103 Carbon Dioxide 30.0 Anion Gap 5 BUN 11 Creatinine 0.92 Estim Creat Clear Calc 81.55 Est GFR (MDRD) Af Amer 106 Est GFR (MDRD) Non-Af 87 BUN/Creatinine Ratio 12.0 Glucose 106 Lactic Acid Calcium 9.2 Magnesium 2.2 Urine Color Urine Clarity Urine pH Ur Specific [place] Urine Protein Urine Glucose (UA) Urine Ketones Urine Occult Blood Urine Nitrite Urine Bilirubin Urine Urobilinogen Ur Leukocyte Esterase Urine RBC Urine WBC Ur Squamous Epith Cells Urine Bacteria Urine Mucus 01/10/21 01/10/21 12:05 12:21 WBC RBC Hgb Hct MCV MCH MCHC RDW Std Deviation RDW Coeff of Sue Plt Count MPV Immature Gran % (Auto) Neut % (Auto) Lymph % (Auto) [place] % (Auto) Eos % (Auto) Baso % (Auto) Absolute Neuts (auto) Absolute Lymphs (auto) Nucleated RBC % Sodium Potassium Chloride Carbon Dioxide Anion Gap BUN Creatinine Estim Creat Clear Calc Est GFR (MDRD) Af Amer Est GFR (MDRD) Non-Af BUN/Creatinine Ratio Glucose Lactic Acid 0.9 Calcium Magnesium Urine Color Yellow Urine Clarity Clear Urine pH 8.0 Ur Specific [place] 1.015 Urine Protein Negative Urine Glucose (UA) Normal Urine Ketones 50 H Urine Occult Blood 10 H Urine Nitrite Negative Urine Bilirubin Negative Urine Urobilinogen Normal Ur Leukocyte Esterase Negative Urine RBC 0-5 SEEN Urine WBC 0 SEEN Ur Squamous Epith Cells 0 SEEN Urine Bacteria 0 SEEN Urine Mucus 0 SEEN Radiology Impression Abdomen/Pelvis CT 01/10/21 11:42 IMPRESSION: Minimal sigmoid wall thickening is possibly present with mild sigmoid colitis not excluded though no evidence of significant inflammatory stranding or fluid layering. Otherwise no evidence of acute process. Electronically Signed: Paresh Hammonds DO at 12:54 EDT , Service support , Charges/Coding Visit Charges Inpatient E&M: 11072 Init Hosp L3
[2021-01-10] MEDS: Budesonide Respules 0.5 MG/2 ML AMPUL.NEB. INHALATION (20:17)
[2021-01-10] MEDS: Magnesium Citrate 300 ML 150 ML PO (21:11)
[2021-01-10] MEDS: Atorvastatin Calcium 40 MG Tablet PO (21:13)
[2021-01-11] VITALS (11 sets, daily range): BP systolic 116–138; BP diastolic 72–88; PULSE 62–82; RESP 14–18; TEMP 36.6–36.9; O2SAT 90–96
[2021-01-11] MEDS: Acetaminophen 325 MG Tablet 650 MG PO (02:26)
[2021-01-11] MEDS: Budesonide Respules 0.5 MG/2 ML AMPUL.NEB. INHALATION (06:47)
[2021-01-11] MEDS: Ipratropium/Albuterol Sulfate 3 ML AMPUL.NEB INHALATION ×5 (06:47→23:14)
[2021-01-11 06:59] LABS: Absolute Lymphocyte Count 1.58 X10^3/uL (0.83-4.51); Basophil# 0.06 X10^3/uL; Basophil% 0.7 % (0-1); Eosinophil# 0.26 X10^3/uL; Eosinophils% 2.9 % (0-5); Hemoglobin 13.9 g/dL (13.0-16.5); Lymphocyte # 1.58 X10^3/ul (0.83-4.51); Lymphocyte % 17.6 % (19-41); Mean Corp Hgb Conc 31.6 g/dL (32-36); Mean Corpuscular Hgb 27.7 pg (27.0-32.0); Mean Corpuscular Volume 87.6 fL (80-94); Monocyte# 1.07 X10^3/uL; Monocyte% 11.9 % (0-10); NRBC Flagged by Analyzer 0 % (0-5); Neutrophil # 5.99 X10^3/uL (2.7-7.7); Neutrophil % 66.7 % (47-70); Platelet Count 318 K/mm3 (150-450); RBC Distribution Width CV 15.1 % (11.6-14.6); RBC Distribution Width SD 48.6 fl (35.1-43.9); Red Blood Count 5.02 M/mm3 (4.6-6.2)
[2021-01-11 07:48] LABS: ALB/GLOB Ratio 1.2 RATIO (0.9-2.4); AST(SGOT) 12 U/L (15-37); Alanine Aminotransfer ALT/SGPT 19 U/L (16-61); Albumin, Serum 3.6 g/dL (3.2-5.0); Alkaline Phosphatase 85 U/L (45-117); Anion Gap 3 (5-15); BUN 8 mg/dL (7-18); BUN/Creat Ratio 9.7 RATIO (10-20); Calcium,Total 8.7 mg/dL (8.5-10.1); Chloride 103 mmol/L (98-107); Creatinine, Serum 0.82 mg/dL (0.70-1.30); EST Glomerular Filtration Rate 99 mL/min (>60); Est Glom Filt Rate - Afr Amer 120 mL/min (>60); Globulin 3.1 g/dL (2.2-4.2); Glucose 102 mg/dL (74-106); Potassium 4.2 mmol/L (3.5-5.1); Protein, Total 6.7 g/dL (6.4-8.2); Sodium Level 137 mmol/L (136-145)
--- NOTE | 2021-01-11 07:57 | PCM.PN.SRG ---
Subjective Subjective: Patient states his abdominal pain started to get worse again, points to his entire abdomen rates a 6?7/10. Patient has been having flatus no bowel movement with the laxatives yesterday. Objective Data Objective Data Vital Signs: Vital Signs Temp Pulse Resp BP Pulse Ox 97.8 F 82 14 138/88 H 94 01/11/21 07:53 01/11/21 07:53 01/11/21 07:53 01/11/21 07:53 01/11/21 07:53 Oxygen Flow Rate (L/min) 3 Oxygen Delivery Method Room Air Weight: 170 lb Body Mass Index (BMI) 24.3 Intake & Output: Intake and Output for Last 24 Hours 01/09/21 01/10/21 01/11/21 23:59 23:59 23:59 Intake Total 1430.83 / 1430.83 1323.33 / 1323.33 Balance 1430.83 / 1430.83 1323.33 / 1323.33 Lab / Micro Data Result Diagrams: 01/11/21 06:35 01/12/21 07:00 Labs: Laboratory Results - last 24 hr 01/10/21 01/10/21 01/10/21 11:48 11:48 11:48 WBC 10.1 RBC 5.21 Hgb 14.5 Hct 44.8 MCV 86.0 MCH 27.8 MCHC 32.4 RDW Std Deviation 47.9 H RDW Coeff of Sue 15.0 H Plt Count 370 MPV 8.3 Immature Gran % (Auto) 0.400 Neut % (Auto) 80.5 H Lymph % (Auto) 11.[address] % (Auto) 6.4 Eos % (Auto) 1.0 Baso % (Auto) 0.7 Absolute Neuts (auto) 8.1 H Absolute Lymphs (auto) 1.11 Nucleated RBC % 0 Sodium 138 Potassium 4.0 Chloride 103 Carbon Dioxide 30.0 Anion Gap 5 BUN 11 Creatinine 0.92 Estim Creat Clear Calc 81.55 Est GFR (MDRD) Af Amer 106 Est GFR (MDRD) Non-Af 87 BUN/Creatinine Ratio 12.0 Glucose 106 Lactic Acid Calcium 9.2 Magnesium 2.2 Total Bilirubin AST ALT Alkaline Phosphatase Total Protein Albumin Globulin Albumin/Globulin Ratio Urine Color Urine Clarity Urine pH Ur Specific [place] Urine Protein Urine Glucose (UA) Urine Ketones Urine Occult Blood Urine Nitrite Urine Bilirubin Urine Urobilinogen Ur Leukocyte Esterase Urine RBC Urine WBC Ur Squamous Epith Cells Urine Bacteria Urine Mucus 01/10/21 01/10/21 01/11/21 12:05 12:21 06:35 WBC 9.0 RBC 5.02 Hgb 13.9 Hct 44.0 MCV 87.6 MCH 27.7 MCHC 31.6 L RDW Std Deviation 48.6 H RDW Coeff of Sue 15.1 H Plt Count 318 MPV 8.0 Immature Gran % (Auto) 0.200 Neut % (Auto) 66.7 Lymph % (Auto) 17.[address] % (Auto) 11.9 H Eos % (Auto) 2.9 Baso % (Auto) 0.7 Absolute Neuts (auto) 6.0 Absolute Lymphs (auto) 1.58 Nucleated RBC % 0 Sodium Potassium Chloride Carbon Dioxide Anion Gap BUN Creatinine Estim Creat Clear Calc Est GFR (MDRD) Af Amer Est GFR (MDRD) Non-Af BUN/Creatinine Ratio Glucose Lactic Acid 0.9 Calcium Magnesium Total Bilirubin AST ALT Alkaline Phosphatase Total Protein Albumin Globulin Albumin/Globulin Ratio Urine Color Yellow Urine Clarity Clear Urine pH 8.0 Ur Specific [place] 1.015 Urine Protein Negative Urine Glucose (UA) Normal Urine Ketones 50 H Urine Occult Blood 10 H Urine Nitrite Negative Urine Bilirubin Negative Urine Urobilinogen Normal Ur Leukocyte Esterase Negative Urine RBC 0-5 SEEN Urine WBC 0 SEEN Ur Squamous Epith Cells 0 SEEN Urine Bacteria 0 SEEN Urine Mucus 0 SEEN 01/11/21 06:35 WBC RBC Hgb Hct MCV MCH MCHC RDW Std Deviation RDW Coeff of Sue Plt Count MPV Immature Gran % (Auto) Neut % (Auto) Lymph % (Auto) Lane % (Auto) Eos % (Auto) Baso % (Auto) Absolute Neuts (auto) Absolute Lymphs (auto) Nucleated RBC % Sodium 137 Potassium 4.2 Chloride 103 Carbon Dioxide 31.0 Anion Gap 3 L BUN 8 Creatinine 0.82 Estim Creat Clear Calc 91.50 Est GFR (MDRD) Af Amer 120 Est GFR (MDRD) Non-Af 99 BUN/Creatinine Ratio 9.7 L Glucose 102 Lactic Acid Calcium 8.7 Magnesium Total Bilirubin 0.60 AST 12 L ALT 19 Alkaline Phosphatase 85 Total Protein 6.7 Albumin 3.6 Globulin 3.1 Albumin/Globulin Ratio 1.2 Urine Color Urine Clarity Urine pH Ur Specific [place] Urine Protein Urine Glucose (UA) Urine Ketones Urine Occult Blood Urine Nitrite Urine Bilirubin Urine Urobilinogen Ur Leukocyte Esterase Urine RBC Urine WBC Ur Squamous Epith Cells Urine Bacteria Urine Mucus Radiography Diagnostic Testing: Radiology Impression Abdomen/Pelvis CT 01/10/21 11:42 IMPRESSION: Minimal sigmoid wall thickening is possibly present with mild sigmoid colitis not excluded though no evidence of significant inflammatory stranding or fluid layering. Otherwise no evidence of acute process. Electronically Signed: Paresh Hammonds at 12:54 EDT , Service support , Physical Exam Const oriented x3 and no apparent distress Resp normal respiratory effort Cardio regular rate GI soft to palpation Inspection: Negative for abdominal distention Palpation: tender epigastric, LLQ, RUQ and other (No peritoneal signs) Assessment & Plan Assessment/Plan (1) Acute abdominal pain in right upper quadrant: (2) Epigastric abdominal pain: (3) LLQ abdominal pain: (4) Pizano's esophagus: PLAN: Patient has not had bowel movements with the laxatives, but is passing flatus. Recommend enemas as patient may get a more crampy abdominal pain if we try p.o. laxatives at this time until he starts going. Patient was agreeable we will do a soapsuds enema this morning may do additional ones today depending on if we get a results. Patient still having some epigastric and right upper quadrant discomfort along with the left lower quadrant. Rosa Isela Kennedy M.D. Pager: [phone] [facility] [address] [place] [address], [facility], [address] [place] [address] Office: [phone] Visit Charges Inpatient E&M: 94246 Subs Hosp L2
[2021-01-11] MEDS: oxyCODONE 5 MG Tablet 10 MG PO ×2 (08:05→12:09)
[2021-01-11] MEDS: Ondansetron 4 MG/2 ML Vial IV ×2 (08:05→21:19)
[2021-01-11] MEDS: 0.9% Saline Lock 10 ML Syringe IV ×2 (08:05→21:19)
[2021-01-11] MEDS: dilTIAZem CD 120 MG Capsule PO (08:07)
[2021-01-11] MEDS: Aspirin 81 MG TAB.CHEW PO (08:07)
[2021-01-11] MEDS: Enoxaparin 40 MG/0.4 ML Syringe SC (08:08)
[2021-01-11] MEDS: Polyethylene Glycol 3350 17 GM PACKET PO (08:08)
[2021-01-11] MEDS: Pantoprazole Sodium 40 MG Tablet PO (08:08)
[2021-01-11] MEDS: Senna/Docusate Sodium 1 Tablet 2 TABLET PO ×2 (08:08→21:19)
[2021-01-11] MEDS: Gabapentin 300 MG Capsule PO ×2 (08:09→17:10)
[2021-01-11] MEDS: Citalopram 20 MG Tablet PO (08:09)
--- NOTE | 2021-01-11 11:34 | PCM.PN.HOSP ---
Subjective Subjective: Patient did not had fever chills or tachycardia. Complains of abdominal pain left lower quadrant, right side and epigastrium. CT abdomen reviewed with surgeon discussed. Antibiotic was discontinued yesterday after no clear evidence of diverticulitis found. Objective Data Objective Data Vital Signs: Vital Signs Temp Pulse Resp BP Pulse Ox 97.8 F 69 16 138/88 H 94 01/11/21 07:53 01/11/21 10:14 01/11/21 10:14 01/11/21 07:53 01/11/21 07:53 Oxygen Flow Rate (L/min) 3 Oxygen Delivery Method Room Air Weight: 170 lb Body Mass Index (BMI) 24.3 Intake & Output: Intake and Output for Last 24 Hours 01/09/21 01/10/21 01/11/21 23:59 23:59 23:59 Intake Total 1430.83 / 1430.83 1323.33 / 1323.33 Balance 1430.83 / 1430.83 1323.33 / 1323.33 Lab / Micro Data Result Diagrams: 01/11/21 06:35 01/11/21 06:35 Labs: Laboratory Results - last 24 hr 01/10/21 01/10/21 01/10/21 11:48 11:48 11:48 WBC 10.1 RBC 5.21 Hgb 14.5 Hct 44.8 MCV 86.0 MCH 27.8 MCHC 32.4 RDW Std Deviation 47.9 H RDW Coeff of Sue 15.0 H Plt Count 370 MPV 8.3 Immature Gran % (Auto) 0.400 Neut % (Auto) 80.5 H Lymph % (Auto) 11.0 L [place] % (Auto) 6.4 Eos % (Auto) 1.0 Baso % (Auto) 0.7 Absolute Neuts (auto) 8.1 H Absolute Lymphs (auto) 1.11 Nucleated RBC % 0 Sodium 138 Potassium 4.0 Chloride 103 Carbon Dioxide 30.0 Anion Gap 5 BUN 11 Creatinine 0.92 Estim Creat Clear Calc 81.55 Est GFR (MDRD) Af Amer 106 Est GFR (MDRD) Non-Af 87 BUN/Creatinine Ratio 12.0 Glucose 106 Lactic Acid Calcium 9.2 Magnesium 2.2 Total Bilirubin AST ALT Alkaline Phosphatase Total Protein Albumin Globulin Albumin/Globulin Ratio Urine Color Urine Clarity Urine pH Ur Specific [place] Urine Protein Urine Glucose (UA) Urine Ketones Urine Occult Blood Urine Nitrite Urine Bilirubin Urine Urobilinogen Ur Leukocyte Esterase Urine RBC Urine WBC Ur Squamous Epith Cells Urine Bacteria Urine Mucus 01/10/21 01/10/21 01/11/21 12:05 12:21 06:35 WBC 9.0 RBC 5.02 Hgb 13.9 Hct 44.0 MCV 87.6 MCH 27.7 MCHC 31.6 L RDW Std Deviation 48.6 H RDW Coeff of Sue 15.1 H Plt Count 318 MPV 8.0 Immature Gran % (Auto) 0.200 Neut % (Auto) 66.7 Lymph % (Auto) 17.6 L [place] % (Auto) 11.9 H Eos % (Auto) 2.9 Baso % (Auto) 0.7 Absolute Neuts (auto) 6.0 Absolute Lymphs (auto) 1.58 Nucleated RBC % 0 Sodium Potassium Chloride Carbon Dioxide Anion Gap BUN Creatinine Estim Creat Clear Calc Est GFR (MDRD) Af Amer Est GFR (MDRD) Non-Af BUN/Creatinine Ratio Glucose Lactic Acid 0.9 Calcium Magnesium Total Bilirubin AST ALT Alkaline Phosphatase Total Protein Albumin Globulin Albumin/Globulin Ratio Urine Color Yellow Urine Clarity Clear Urine pH 8.0 Ur Specific [place] 1.015 Urine Protein Negative Urine Glucose (UA) Normal Urine Ketones 50 H Urine Occult Blood 10 H Urine Nitrite Negative Urine Bilirubin Negative Urine Urobilinogen Normal Ur Leukocyte Esterase Negative Urine RBC 0-5 SEEN Urine WBC 0 SEEN Ur Squamous Epith Cells 0 SEEN Urine Bacteria 0 SEEN Urine Mucus 0 SEEN 01/11/21 06:35 WBC RBC Hgb Hct MCV MCH MCHC RDW Std Deviation RDW Coeff of Sue Plt Count MPV Immature Gran % (Auto) Neut % (Auto) Lymph % (Auto) [place] % (Auto) Eos % (Auto) Baso % (Auto) Absolute Neuts (auto) Absolute Lymphs (auto) Nucleated RBC % Sodium 137 Potassium 4.2 Chloride 103 Carbon Dioxide 31.0 Anion Gap 3 L BUN 8 Creatinine 0.82 Estim Creat Clear Calc 91.50 Est GFR (MDRD) Af Amer 120 Est GFR (MDRD) Non-Af 99 BUN/Creatinine Ratio 9.7 L Glucose 102 Lactic Acid Calcium 8.7 Magnesium Total Bilirubin 0.60 AST 12 L ALT 19 Alkaline Phosphatase 85 Total Protein 6.7 Albumin 3.6 Globulin 3.1 Albumin/Globulin Ratio 1.2 Urine Color Urine Clarity Urine pH Ur Specific [place] Urine Protein Urine Glucose (UA) Urine Ketones Urine Occult Blood Urine Nitrite Urine Bilirubin Urine Urobilinogen Ur Leukocyte Esterase Urine RBC Urine WBC Ur Squamous Epith Cells Urine Bacteria Urine Mucus Radiography Diagnostic Testing: Radiology Impression Abdomen/Pelvis CT 01/10/21 11:42 IMPRESSION: Minimal sigmoid wall thickening is possibly present with mild sigmoid colitis not excluded though no evidence of significant inflammatory stranding or fluid layering. Otherwise no evidence of acute process. Electronically Signed: Paresh Hammonds DO at 12:54 EDT , Service support , Physical Exam Narrative General: Alert, Oriented x3, Cooperative HEENT: Atraumatic, PERRLA, EOMI, Normocephalic Oral: No Gingival or Mucosal Lesions/ Ulcerations Neck: Supple, No JVD, Negative Carotid Bruits Lungs: Air entry diminished in bilateral lung bases. No crepitation/rhonchi Cardiovascular: Regular rate, Regular Rhythm, Normal S1, Normal S2, No murmurs Abdomen: Mild tenderness present in right and left lower quadrant but overall abdomen is soft. No rebound tenderness. Nondistended. Bowel sounds hyperactive. No palpable mass. : No renal angle tenderness. No suprapubic tenderness. Extremities: No edema, Capillary Refill Less than 3 Seconds Skin: No rashes, No breakdown Musculoskeletal: No Tenderness to Palpation of Joints or Extremities Neurological: Cranial nerves II-XII grossly intact, Deep Tendon Reflexes 2+/4 and Symmetrical, Neuro grossly intact Psych/Mental Status: Normal Affect, Appropriate. Assessment & Plan Assessment/Plan (1) Sigmoid diverticulitis: (2) Diverticula of colon: PLAN: This 65-year-old question gentleman admitted for lower quadrant abdominal pain and CT findings suggestive of sigmoid diverticulitis. 1. Acute/subacute abdominal pain most likely due to retained stool/constipation and Pizano's esophagus/GERD: CT abdomen individually reviewed and with the surgeon. Minimal sigmoid wall thickening otherwise no evidence of abscess, perforation or serious findings. Discussed with the surgeon. In view of generalized and intermittent abdominal pain but since patient has retained stool and also has Pizano's esophagus. CT abdomen with no contrast is not sensitive or specific for diverticulitis and patient had full treatment of antibiotic therefore Zosyn was discontinued on 01/10. Diet advanced to soft diet. Patient had magnesium citrate and did not have bowel movement therefore we will try soapsuds enema and p.o. laxatives. Continue PPI. 2.. H/o non-STEMI type II in November 2019 and cardiac cath did not show hemodynamically significant lesion. On medical treatment. Patient complained of mild epigastric pain. IV PPI today and then oral PPI from tomorrow a.m. 3. COPD with history of chronic hypoxic respiratory failure: No exacerbation. Patient is not hypoxic, tachypneic or dyspnea at rest. Continue patient's DuoNeb and home inhaler. Currently patient is on room air. 4. Dyslipidemia: On atorvastatin. 5. Depression with anxiety: 6. Essential hypertension blood pressure is controlled. On lisinopril and Cardizem CD. 7. GERD with Pizano's esophagus: Patient had EGD and colonoscopy 4 years ago in [place]. He was told he has Pizano's esophagus but unclear extent and severity of lesion. Continue PPI. Advised outpatient EGD colonoscopy after 1 month of resolution of diverticulitis and he has appointment with [facility] surgery probably Dr. Roach 8. DVT prophylaxis ?Lovenox 40 subcu daily Advanced directive/CODE STATUS: Discussed with the patient during recent admission. Continue full code. Clinical Impression(s) from Imaging Studies Abdomen/Pelvis CT 01/10/21 11:42 IMPRESSION: Minimal sigmoid wall thickening is possibly present with mild sigmoid colitis not excluded though no evidence of significant inflammatory stranding or fluid layering. Otherwise no evidence of acute process. Visit Charges Inpatient E&M: 19319 Subs Hosp L2
--- NOTE | 2021-01-11 15:02 | NURSING ---
1200 soap suds enema administered, pt tolerated 1500ml. later reported liquid mixed w/stool. has had several movements now and reports seeing no water this last time. reports that he is feeling slightly better.
[2021-01-11] MEDS: Mag Hydrox/Al Hydrox/Simeth 30 ML UDC PO (16:59)
[2021-01-11] MEDS: oxyCODONE 5 MG Tablet PO ×2 (17:00→21:23)
[2021-01-11] MEDS: Magnesium Citrate 300 ML PO (18:30)
[2021-01-11] MEDS: Atorvastatin Calcium 40 MG Tablet PO (21:19)
[2021-01-12] VITALS (7 sets, daily range): BP systolic 107–141; BP diastolic 68–92; PULSE 62–74; RESP 14–20; TEMP 36.8–36.9; O2SAT 93–98
[2021-01-12] MEDS: Ipratropium/Albuterol Sulfate 3 ML AMPUL.NEB INHALATION ×2 (02:08→07:00)
[2021-01-12] MEDS: Acetaminophen 325 MG Tablet 650 MG PO (02:53)
[2021-01-12] MEDS: Budesonide Respules 0.5 MG/2 ML AMPUL.NEB. INHALATION (07:00)
[2021-01-12 07:50] LABS: Anion Gap 3 (5-15); BUN 10 mg/dL (7-18); Chloride 101 mmol/L (98-107); Creatinine, Serum 0.91 mg/dL (0.70-1.30); EST Glomerular Filtration Rate 88 mL/min (>60); Est Glom Filt Rate - Afr Amer 107 mL/min (>60); Estimated Creatinine Clearance 82.45 ml/min; Glucose 102 mg/dL (74-106); Sodium Level 135 mmol/L (136-145)
[2021-01-12] MEDS: Gabapentin 300 MG Capsule PO (08:11)
[2021-01-12] MEDS: Aspirin 81 MG TAB.CHEW PO (08:11)
--- NOTE | 2021-01-12 09:31 | PN.SURG_ITS ---
Subjective Subjective: Patient has been having diarrhea after taking the magnesium citrate. Patient states his abdominal pain has improved. Denies any left lower quadrant abdominal pain still has very minimal right upper quadrant abdominal soreness. Objective Data Objective Data Vital Signs: Vital Signs Temp Pulse Resp BP Pulse Ox 98.2 F 68 18 115/84 H 98 01/12/21 08:55 01/12/21 08:55 01/12/21 09:00 01/12/21 08:55 01/12/21 08:55 Oxygen Flow Rate (L/min) 3 Oxygen Delivery Method Room Air Weight: 170 lb Body Mass Index (BMI) 24.3 Intake & Output: Intake and Output for Last 24 Hours 01/10/21 01/11/21 01/12/21 23:59 23:59 23:59 Intake Total 1430.83 / 1430.83 1723.33 / 1723.33 350 / 350 Balance 1430.83 / 1430.83 1723.33 / 1723.33 350 / 350 Lab / Micro Data Result Diagrams: 01/11/21 06:35 01/12/21 07:00 Labs: Laboratory Results - last 24 hr 01/12/21 07:00 Sodium 135 L Potassium 4.0 Chloride 101 Carbon Dioxide 31.0 Anion Gap 3 L BUN 10 Creatinine 0.91 Estim Creat Clear Calc 82.45 Est GFR (MDRD) Af Amer 107 Est GFR (MDRD) Non-Af 88 BUN/Creatinine Ratio 11.0 Glucose 102 Calcium 9.0 Micro: Microbiology 01/12/21 Unknown Stool Stool Lactoferrin - Final 01/12/21 Unknown Stool Stool Occult Blood (FLAKITO) - Final Physical Exam Const oriented x3 and no apparent distress Resp normal respiratory effort Cardio regular rate GI soft to palpation Inspection: Negative for abdominal distention Palpation: tender RUQ (Minimal) and other (No peritoneal signs) Assessment & Plan Assessment/Plan (1) Acute abdominal pain in right upper quadrant: (2) Epigastric abdominal pain: (3) LLQ abdominal pain: (4) Pizano's esophagus: PLAN: Patient has been having some diarrhea after taking an entire bottle of magnesium citrate last night. Patient states abdominal pain is improved. Denies any left lower quadrant abdominal pain just minimal soreness in the right upper quadrant area. Did discuss importance of hydration and increase fiber intake with the patient. Due to minimal changes on CT for diverticulitis I believe patient would be fine to transition to a high-fiber diet once he is able to. Did discuss with patient to first figure out where he is at his first fiber not to increase too quickly. And also encourage patient to drink plenty of water. Patient does have colonoscopy scheduled with [facility] in a month. Patient to follow-up with him in the future. Patient is agreeable with plan. Rosa Isela Kennedy M.D. Pager: [phone] [facility] [address] [place] [address], [facility], [address] [place] [id number] Office: [phone] Visit Charges Inpatient E&M: 33541 Subs Hosp L2
[2021-01-12] MEDS: Pantoprazole Sodium 40 MG Tablet PO (10:17)
[2021-01-12] MEDS: Enoxaparin 40 MG/0.4 ML Syringe SC (10:17)
[2021-01-12] MEDS: dilTIAZem CD 120 MG Capsule PO (10:25)
--- NOTE | 2021-01-12 11:27 | PCM.DC ---
Discharge Instructions Diet Discharge Diet: No restrictions and - (Abdominal pain increase fiber in diet) Activity Discharge Activity: Return to Normal Activity Follow Up Care Test Results: Test results from this visit will be discussed in further detail at your follow-up appointment, if applicable. Discharge Plan Admission Admit Date/Time: 01/10/21 13:42 Primary Reason for Your Visit: Abdominal pain Attending Provider: Rey Rodriguez Primary Care Provider: Jordan Rosales Consulting Providers: Rosa Isela Kennedy Instructions Patient Instructions: ED Chest Pain, Noncardiac Additional Instructions / Restrictions: Maintain a high-fiber diet and drink 6 to 8 glasses of liquid per day Discharge Orders/Prescriptions Prescriptions: New pantoprazole 40 mg tablet,delayed release (DR/EC) 40 mg PO DAILY Qty: 30 RF: 3 Continued citalopram 20 mg tablet 20 mg PO DAILY RF: 0 fluticasone propion-salmeterol 500-50 mcg/dose blister with device 1 inh INHALATION BID RF: 0 gabapentin 300 mg capsule 300 mg PO BID RF: 0 albuterol sulfate 2.5 MG/3 ML solution for nebulization 2.5 mg INHALATION Q4H PRN PRN (Reason: Shortness Of Breath) RF: 0 aspirin 81 MG tablet,chewable 81 mg PO DAILY@0800 RF: 0 cetirizine 10 MG tablet 10 mg PO DAILY RF: 0 diltiazem HCl 120 MG capsule 120 mg PO DAILY Qty: 90 RF: 0 atorvastatin 40 MG tablet 40 mg PO QHS Qty: 90 RF: 0 ipratropium-albuterol 0.5 mg-3 mg(2.5 mg base)/3 mL solution for nebulization 3 ml INHALATION Q4H RF: 0 acidophilus-pectin, citrus 1 TABLET tablet 1 tablet PO BID RF: 0 Discontinued omeprazole 40 MG capsule,delayed release(DR/EC) 40 mg PO DAILY RF: 0 Referrals / Follow Up: Jordan Rosales MD [Primary Care Provider] - In 1 Week Disposition Disposition (needs filled in before D/C Order can be placed): Home, self care
--- NOTE | 2021-01-12 12:14 | PHA.DC.MC ---
Pharmacy Service has performed discharge medication reconciliation and counseling for this patient. 1. PANTOPRAZOLE 40MG PO DAILY The patient's discharge medication list was reviewed for discrepancies and discrepancies were resolved. Home Medications albuterol sulfate 2.5 mg INHALATION Q4H PRN PRN 11/01/18 aspirin 81 mg PO DAILY@0800 11/01/18 cetirizine 10 mg PO DAILY 11/11/19 atorvastatin 40 mg PO QHS #90 tab 11/12/19 diltiazem HCl 120 mg PO DAILY #90 cap 11/12/19 citalopram 20 mg tablet 20 mg PO DAILY 12/18/20 fluticasone 500 mcg-salmeterol 50 mcg/dose blistr powdr for inhalation 1 inh INHALATION BID each 12/18/20 gabapentin 300 mg capsule 300 mg PO BID 12/18/20 ipratropium 0.5 mg-albuterol 3 mg (2.5 mg base)/3 mL nebulization soln 3 ml INHALATION Q4H 12/18/20 acidophilus-pectin, citrus 1 tablet PO BID 01/10/21 pantoprazole 40 mg PO DAILY #30 tab 01/12/21 The patient was counseled on the following discharge medications and changes in medications for homegoing were reviewed. The Reason for Use, instructions for use, and potential side effects were reviewed for all new medications. The patient's questions regarding all of their medications were answered. The patient was able to verbally demonstrate an understanding of their discharge medications.
--- NOTE | 2021-01-12 12:19 | CASEMGMT ---
CASEY SIMON in to discuss MAY form with patient. RN AURORA explained MAY form to patient, patient voiced understanding. Patient signed MAY Form and filed in chart. Patient provided with copy of signed MAY form. Patient had no further questions or concerns at this time.
--- NOTE | 2021-01-16 19:16 | DS.PCM_ITS ---
Providers Date of Admission: 01/10/21 Date of Discharge: 01/12/21 Primary Care Physician: Dr. Jordan Rosales MD Consultations 01/10/21 15:15 Consult: General Surgery Routine Consulting Provider: Rosa Isela Kennedy Reason for Consult: Persistant sigmoid divertiuclitis EMERGENT Consult: No MD Notified: Yes Date Notified:: 01/10/21 Time Notified: 14:22 Method of Notification: Verbal Reason For Visit: SIGMOID DIVERTICULITIS Diagnosis Discharge Diagnosis (1) Acute abdominal pain in right upper quadrant: Status: Acute Code(s): R10.11 - Right upper quadrant pain (2) Epigastric abdominal pain: Status: Acute Code(s): R10.13 - Epigastric pain (3) LLQ abdominal pain: Status: Acute Code(s): R10.32 - Left lower quadrant pain (4) Pizano's esophagus: Status: Acute Code(s): K22.70 - Pizano's esophagus without dysplasia Plan: 1. Acute abdominal pain secondary to constipation #2 chronic obstructive pulmonary disease #3 hyperlipidemia #4 essential hypertension No evidence for acute diverticulitis Medications at Discharge Home Medications albuterol sulfate 2.5 mg INHALATION Q4H PRN PRN 11/01/18 aspirin 81 mg PO DAILY@0800 11/01/18 cetirizine 10 mg PO DAILY 11/11/19 atorvastatin 40 mg PO QHS #90 tab 11/12/19 diltiazem HCl 120 mg PO DAILY #90 cap 11/12/19 citalopram 20 mg tablet 20 mg PO DAILY 12/18/20 fluticasone 500 mcg-salmeterol 50 mcg/dose blistr powdr for inhalation 1 inh INHALATION BID each 12/18/20 gabapentin 300 mg capsule 300 mg PO BID 12/18/20 ipratropium 0.5 mg-albuterol 3 mg (2.5 mg base)/3 mL nebulization soln 3 ml INHALATION Q4H 12/18/20 acidophilus-pectin, citrus 1 tablet PO BID 01/10/21 pantoprazole 40 mg PO DAILY #30 tab 01/12/21 Hospital Course Operations None Procedures None Summary of Care Provided Minutes Spent on Discharge: 30 Hospital Course: 65-year-old white male was seen in the emergency room with com plaints of abdominal pain. He had been hospitalized approximately 2 weeks prior for diverticulitis. Labs obtained showed a normal white blood cell count, patient's chemistry was unremarkable and CT of the abdomen and pelvis showed minimal sigmoid wall thickening and question mild colitis. Patient was given antinausea medications in the emergency room and IV fluids and he was placed into observation status on MedSurg 3. He was seen by general surgery who did not feel he had diverticulitis and recommended that he be given laxatives for constipation. Patient had a good bowel movement before discharge and his abdominal pain was greatly improved at the time of discharge. On 01/13/2021, patient was seen and examined: On examination he appeared in good health and spirits. Vital signs as documented. Skin warm and dry and without overt rashes. Neck without JVD, neck was supple, trachea midline, thyroid was normal. Lungs clear bilaterally, normal air movement was noted. Heart exam notable for regular rhythm, normal sounds and absence of murmurs, rubs or gallops. Abdomen unremarkable and without evidence of organomegaly, masses, or abdominal aortic enlargement. Bowel sounds are present, abdomen is not distended. Extremities nonedematous, no cyanosis was noted, no clubbing was noted. Neuro: Cranial nerves II through XII are grossly intact, no focal motor deficits were noted, sensation to light touch and pinprick intact, motor exam 5/5 throughout. Psych: Patient is alert and oriented x3, he does not appear anxious or depressed, he does not appear agitated. Patient was discharged in stable condition on 01/13/2021. ABG / Lab / Microbiology Data Result Diagrams: 01/11/21 06:35 01/12/21 07:00 Microbiology: Microbiology 01/12/21 Unknown Stool Stool Lactoferrin - Final 01/12/21 Unknown Stool Stool Occult Blood (FLAKITO) - Final D/C Instructions Discharge Diet: No restrictions and - (Abdominal pain increase fiber in diet) Discharge Activity: Return to Normal Activity Meaningful Use Info Meaningful Use Diagnoses (Choose all that apply): None applicable Discharge Plan Admission Admit Date/Time: 01/10/21 13:42 Primary Reason for Your Visit: Abdominal pain Attending Provider: Rey Rodriguez Primary Care Provider: Jordan Roasles Consulting Providers: Rosa Isela Kennedy Instructions Patient Instructions: ED Chest Pain, Noncardiac Additional Instructions / Restrictions: Maintain a high-fiber diet and drink 6 to 8 glasses of liquid per day Discharge Orders/Prescriptions Prescriptions: New pantoprazole 40 mg tablet,delayed release (DR/EC) 40 mg PO DAILY Qty: 30 RF: 3 Continued citalopram 20 mg tablet 20 mg PO DAILY RF: 0 fluticasone propion-salmeterol 500-50 mcg/dose blister with device 1 inh INHALATION BID RF: 0 gabapentin 300 mg capsule 300 mg PO BID RF: 0 albuterol sulfate 2.5 MG/3 ML solution for nebulization 2.5 mg INHALATION Q4H PRN PRN (Reason: Shortness Of Breath) RF: 0 aspirin 81 MG tablet,chewable 81 mg PO DAILY@0800 RF: 0 cetirizine 10 MG tablet 10 mg PO DAILY RF: 0 diltiazem HCl 120 MG capsule 120 mg PO DAILY Qty: 90 RF: 0 atorvastatin 40 MG tablet 40 mg PO QHS Qty: 90 RF: 0 ipratropium-albuterol 0.5 mg-3 mg(2.5 mg base)/3 mL solution for nebulization 3 ml INHALATION Q4H RF: 0 acidophilus-pectin, citrus 1 TABLET tablet 1 tablet PO BID RF: 0 Discontinued omeprazole 40 MG capsule,delayed release(DR/EC) 40 mg PO DAILY RF: 0 Referrals / Follow Up: Jordan Rosales MD [Primary Care Provider] - In 1 Week Disposition Disposition (needs filled in before D/C Order can be placed): Home, self care Visit Charges OBSV E&M: 44176 Observation care discharge
== END 2021-01-12 13:40 | disposition home or self-care (01) ==
LOC: ED 13:14 → MS3 13:47
PROVIDERS: Admitting Provider Internal Medicine; Emergency Provider Emergency Medicine; PCP Internal Medicine; Visit Provider Internal Medicine
DX: R10.9 Unspecified abdominal pain (principal); R10.11 Right upper quadrant pain; R10.13 Epigastric pain; K22.70 Barrett's esophagus without dysplasia; E78.5 Hyperlipidemia, unspecified; I25.2 Old myocardial infarction; J44.9 Chronic obstructive pulmonary disease, unspecified; I10 Essential (primary) hypertension; Z79.82 Long term (current) use of aspirin; Z79.51 Long term (current) use of inhaled steroids; Z79.899 Other long term (current) drug therapy; Z87.891 Personal history of nicotine dependence; J96.11 Chronic respiratory failure with hypoxia; K21.9 Gastro-esophageal reflux disease without esophagitis; F41.8 Other specified anxiety disorders
CPT/HCPCS: 36415; 74176; 80048; 80053; 81001; 82274; 83605; 83630; 83735; 85025; 94640; 96361; 96365; 96367; 96372; 96375; 96376; 99218; 99251; 99284; J7030; A4216; G0378; G0463; J2405

== ENCOUNTER 2021-02-26 10:46 | Day surgery (SDC) | payer MEDICARE, SELFPAY ==
[2020-12-26 14:00] VITALS: BMI 24.0
[2021-01-10 15:49] VITALS: BMI 24.3
[2021-02-26] VITALS (12 sets, daily range): BP systolic 118–175; BP diastolic 77–101; PULSE 81–98; RESP 16–20; TEMP 36.5–37; O2SAT 94–99; BMI 23.6
[2021-02-26] MEDS: Lactated Ringers 1,000 ML 100 ML IV ×2 (11:14→13:04)
--- NOTE | 2021-02-26 12:00 | EGD_PTH ---
PATIENT: BRIGIDA BARCENAS LOC: EN U#:[id number] AGE/SX: 66/M ROOM: RE02/26/[address]: Dr. Carlos A Roach MD : 1955 BED: DIS: 02/26/2021 SPEC #: [id number] RECD: 02/26/21 13:17 STATUS: MADHU DWAYNE #: [id number] GISELE: 02/26/21 12:[address]: Carlos A Roach DEPT: SURGICAL PATHOLOGY RECD BY: Zoë Crawford ENTERED: 02/27/21 09:08 SP TYPE: EGD BIOPSY KADI DR: Dr. Jordan Rosales MD Tissues: A - Gastric mucous membrane B - Transverse colon Procedures: Surgery Specimen Level IV HEADER OPERATION[place] [place] DIAGNOSIS: Diverticulitis and Pizano?s esophagus TISSUE SUBMITTED: A ? Antrum biopsy for H. pylori and path, B ? Transverse colon hot snare MICROSCOPIC DIAGNOSIS A. Gastric antrum, biopsy: Mild chronic gastritis. B. Transverse colon, biopsy: Fragments of tubular adenoma. AM:andre 03/02/2021 COMMENT A. The results of immunohistochemistry for Helicobacter pylori will be reported separately ([id number]). MICROSCOPIC DESCRIPTION Slides are reviewed. GROSS DESCRIPTION A - Received in fixative is one container labeled with the patient's name and designated antrum biopsy. The specimen consists of one irregular fragment of light ly soft tissue that measures 0.3 x 0.3 x 0.1 cm. The specimen is totally submitted in one cassette. B - Received in fixative is one container labeled with the patient's name and designated transverse colon. The specimen consists of two irregular fragments of light ly soft tissue that in aggregate measure 0.5 x 0.5 x 0.1 cm. The specimen is totally submitted in one cassette. / SJ:andre 02/27/21 TC:3 CPT: 34784 x2
--- NOTE | 2021-02-26 12:00 | IMM_PTH ---
PATIENT: BRIGIDA BARCENAS LOC: [place] U#:[id number] AGE/SX: 66/M ROOM: RE02/26/[address]: Dr. Carlos A Raoch MD : 1955 BED: DIS: 02/26/2021 SPEC #: [id number] RECD: 02/27/21 09:34 STATUS: MADHU RESubha #: [id number] GISELE: 02/26/21 12:[address]: Carlos A Roach DEPT: IMMUNOHISTOCHEMISTRY RECD BY: Florence Ross ENTERED: 02/27/21 09:41 SP TYPE: IMMUNO OTHR DR: Dr. Jordan Rosales MD Tissues: A - Stomach, NOS Procedures: H Pylori (initial) PHYSICIAN & INSTITUTION [place] [id number] SPECIMEN INFORMATION: Tissue Source: A ? Antrum biopsy Clinical Info: Diverticulitis and Pizano?s esophagus Specimen Number: [id number] CPT code: 55993 METHODOLOGY: Deparaffinized sections of prefer/formalin-fixed tissue or PAP/DQ stained slides are incubated with monoclonal/polyclonal antibodies/oligonucleotide probes. Localization is made via biotin free immunoperoxidase method. Appropriate controls are performed and reacted as expected. Results on target cell population are indicated in the following table: RESULTS: ANTIBODY / CLONE RESULT Block A H Pylori (polyclonal) negative These tests were developed and their performance characteristics determined by [facility]. They may not have been cleared or approved by the U.[place]. Food and Drug Administration. The FDA has determined that such clearance or approval is not necessary. INTERPRETATION: A. Antrum biopsy: Negative for Helicobacter pylori organisms. AM:andre 03/02/2021
--- NOTE | 2021-02-26 12:58 | OP.EGD_ITS ---
Patient Name: Daniel Hand Procedure Date: 02/26/2021 11:41 AM Date of : 1955 Age: 66 Procedure: Upper GI endoscopy Indications: Follow-up of Pizano's esophagus Providers: Carlos A Roach MD Referring MD: Jordan Rosales Medicines: See the Anesthesia note for documentation of the administered medications Patient Profile: This is a 66 year old male. Refer to note in patient chart for documentation of history and physical. Complications: No immediate complications. Procedure: Pre-Anesthesia Assessment: - Prior to the procedure, a History and Physical was performed, and patient medications and allergies were reviewed. The patient's tolerance of previous anesthesia was also reviewed. The risks and benefits of the procedure and the sedation options and risks were discussed with the patient. All questions were answered, and informed consent was obtained. Prior Anticoagulants: The patient has taken aspirin, last dose was 7 days prior to procedure. ASA Grade Assessment: III - A patient with severe systemic disease. After reviewing the risks and benefits, the patient was deemed in satisfactory condition to undergo the procedure. After obtaining informed consent, the endoscope was passed under direct vision. Throughout the procedure, the patient's blood pressure, pulse, and oxygen saturations were monitored continuously. The gastroscope was introduced through the mouth, and advanced to the second part of duodenum. The upper GI endoscopy was accomplished without difficulty. The patient tolerated the procedure well. Scope In: 12:28:10 PM Scope Out: 12:30:52 PM Total Procedure Duration Time 0 hours 2 minutes 42 seconds Findings: The Z-line was regular and was found 45 cm from the incisors. A small hiatal hernia was present. Localized minimal inflammation characterized by erythema was found in the prepyloric region of the stomach. Biopsies were taken with a cold forceps for Helicobacter pylori testing. The examined duodenum was normal. No biopsies or other specimens were collected for this exam. Impression: - Z-line regular, 45 cm from the incisors. - Small hiatal hernia. - Gastritis. Biopsied. - Normal examined duodenum. No specimens collected. Recommendation: - Discharge patient to home. - Resume previous diet. - Continue present medications. - Await pathology results. - Repeat upper endoscopy in 3 years for surveillance. - Return to physician assistant professor of radiology in 1 week. Procedure Code(s): --- Professional --- 97214, Esophagogastroduodenoscopy, flexible, transoral; with biopsy, single or multiple Diagnosis Code(s): --- Professional --- K22.70, Pizano's esophagus without dysplasia K44.9, Diaphragmatic hernia without obstruction or gangrene K29.70, Gastritis, unspecified, without bleeding CPT copyright 2017 [employer]. All rights reserved. The codes documented in this report are preliminary and upon lesson instructor review may be revised to meet current compliance requirements. MD Carlos A Arias MD 02/26/2021 12:58:23 PM This report has been signed electronically. Number of Addenda: 0 Note Initiated On: 02/26/2021 11:41 AM
--- NOTE | 2021-02-26 12:59 | OP.CCLET_ITS ---
02/26/2021 Jordan Rosales [address] [place] [address] Re : Upper GI endoscopy procedure for Daniel Rich[place] Dear Dr. Rosales This procedure was performed on February. My impressions and recommendations are as follows: Impressions : - Z-line regular, 45 cm from the incisors. - Small hiatal hernia. - Gastritis. Biopsied. - Normal examined duodenum. No specimens collected. Recommendations : - Discharge patient to home. - Resume previous diet. - Continue present medications. - Await pathology results. - Repeat upper endoscopy in 3 years for surveillance. - Return to physician media assistant in 1 week. My findings are described in the full procedure note, which is enclosed. If I can be of further assistance, please feel free to contact me at Doctor phone number(s): , Fax: [phone], Work: . Sincerely, MD Carlos A Arias MD 02/26/2021 12:58:23 PM This report has been signed electronically.
--- NOTE | 2021-02-26 13:01 | OP.CCLET_ITS ---
02/26/2021 Jordan Rosales [address] [place] [address] Re : Colonoscopy procedure for Daniel Hand Dear Dr. Rosales This procedure was performed on February. My impressions and recommendations are as follows: Impressions : - One 7 mm polyp in the transverse colon, removed with a hot snare. Resected and retrieved. - One 5 mm polyp in the transverse colon, removed with a jumbo cold forceps. Resected and retrieved. - Diverticulosis in the sigmoid colon and in the descending colon. - Non-bleeding internal hemorrhoids. - The examination was otherwise normal. Recommendations : - Discharge patient to home. - Resume previous diet. - Continue present medications. - Await pathology results. - Repeat colonoscopy in 3 - 5 years for surveillance. - Return to physician commercial assistant in 1 week. My findings are described in the full procedure note, which is enclosed. If I can be of further assistance, please feel free to contact me at Doctor phone number(s): , Fax: [phone], Work: . Sincerely, MD Carlos A Arias MD 02/26/2021 1:01:17 PM This report has been signed electronically.
--- NOTE | 2021-02-26 13:01 | OP.COLON_ITS ---
Patient Name: Daniel Hand Procedure Date: 02/26/2021 12:32 PM Date of : 1955 Age: 66 Procedure: Colonoscopy Indications: Follow-up of diverticulitis Providers: Carlos A Roach MD Referring MD: Jordan Rosales Medicines: See the Anesthesia note for documentation of the administered medications Patient Profile: This is a 66 year old male. Refer to note in patient chart for documentation of history and physical. Last Colonoscopy: several years ago. Complications: No immediate complications. Procedure: Pre-Anesthesia Assessment: - Prior to the procedure, a History and Physical was performed, and patient medications and allergies were reviewed. The patient's tolerance of previous anesthesia was also reviewed. The risks and benefits of the procedure and the sedation options and risks were discussed with the patient. All questions were answered, and informed consent was obtained. Prior Anticoagulants: The patient has taken aspirin, last dose was 7 days prior to procedure. ASA Grade Assessment: III - A patient with severe systemic disease. After reviewing the risks and benefits, the patient was deemed in satisfactory condition to undergo the procedure. After I obtained informed consent, the scope was passed under direct vision. Throughout the procedure, the patient's blood pressure, pulse, and oxygen saturations were monitored continuously. The adult colonoscope was introduced through the anus and advanced to the cecum, identified by appendiceal orifice and ileocecal valve. The colonoscopy was performed without difficulty. The patient tolerated the procedure well. The quality of the bowel preparation was good. Scope In: 12:34:01 PM Scope Withdrawal Time 0 hours 11 minutes 31 seconds Scope Out: 12:51:06 PM Total Procedure Duration Time 0 hours 17 minutes 5 seconds Findings: A 7 mm polyp was found in the transverse colon. The polyp was sessile. The polyp was removed with a hot snare. Resection and retrieval were complete. A 5 mm polyp was found in the transverse colon. The polyp was sessile. The polyp was removed with a jumbo cold forceps. Resection and retrieval were complete. Multiple small and large-mouthed diverticula were found in the sigmoid colon and descending colon. Non-bleeding internal hemorrhoids were found during retroflexion. The hemorrhoids were mild and small. The exam was otherwise without abnormality. Impression: - One 7 mm polyp in the transverse colon, removed with a hot snare. Resected and retrieved. - One 5 mm polyp in the transverse colon, removed with a jumbo cold forceps. Resected and retrieved. - Diverticulosis in the sigmoid colon and in the descending colon. - Non-bleeding internal hemorrhoids. - The examination was otherwise normal. Recommendation: - Discharge patient to home. - Resume previous diet. - Continue present medications. - Await pathology results. - Repeat colonoscopy in 3 - 5 years for surveillance. - Return to physician assistant spa manager in 1 week. Procedure Code(s): --- Professional --- 00633, Colonoscopy, flexible; with removal of tumor(s), polyp(s), or other lesion(s) by snare technique 95882, 59, Colonoscopy, flexible; with biopsy, single or multiple Diagnosis Code(s): --- Professional --- D12.3, Benign neoplasm of transverse colon (hepatic flexure or splenic flexure) K64.8, Other hemorrhoids K57.32, Diverticulitis of large intestine without perforation or abscess without bleeding K57.30, Diverticulosis of large intestine without perforation or abscess without bleeding CPT copyright 2017 [employer]. All rights reserved. The codes documented in this report are preliminary and upon wrapper stemmer hand review may be revised to meet current compliance requirements. MD Carlos A Arias MD 02/26/2021 1:01:17 PM This report has been signed electronically. Number of Addenda: 0 Note Initiated On: 02/26/2021 12:32 PM
--- NOTE | 2021-02-26 13:03 | EX.PCM.DISCH ---
Discharge Instructions Follow Up Care Test Results: Test results from this visit will be discussed in further detail at your follow-up appointment, if applicable. Discharge Plan Admission Attending Provider: Carlos A Roach Primary Care Provider: Jordan Rosales Discharge Orders/Prescriptions Prescriptions: No Action citalopram 20 mg tablet 20 mg PO DAILY RF: 0 gabapentin 300 mg capsule 300 mg PO BID RF: 0 albuterol sulfate 2.5 MG/3 ML solution for nebulization 2.5 mg INHALATION Q4H PRN PRN (Reason: Shortness Of Breath) RF: 0 aspirin 81 MG tablet,chewable 81 mg PO DAILY@0800 RF: 0 cetirizine 10 MG tablet 10 mg PO DAILY RF: 0 diltiazem HCl 120 MG capsule 120 mg PO DAILY Qty: 90 RF: 0 atorvastatin 40 MG tablet 40 mg PO QHS Qty: 90 RF: 0 ipratropium-albuterol 0.5 mg-3 mg(2.5 mg base)/3 mL solution for nebulization 3 ml INHALATION Q4H RF: 0 Trelegy Ellipta 200-62.5-25 mcg blister with device 1 inh INHALATION DAILY RF: 0 fluticasone propionate [Flonase] 50 mcg/actuation [place],Suspension 1 spray INTRANASAL DAILY RF: 0 pantoprazole 40 mg tablet,delayed release (DR/EC) 40 mg PO DAILY Qty: 30 RF: 3
== END 2021-02-26 14:17 | disposition home or self-care (01) ==
LOC: EN 10:47 → AC 10:48
PROVIDERS: PCP Internal Medicine; Referring Provider Internal Medicine; Visit Provider Surgery
PROC: 0DJD8ZZ Inspection of Lower Intestinal Tract, Via Natural or Artificial Opening Endoscopic (ICD-10-PCS; CPT 45378; principal; 2021-02-26 11:55)
DX: D12.3 Benign neoplasm of transverse colon (principal); K29.50 Unspecified chronic gastritis without bleeding; K22.70 Barrett's esophagus without dysplasia; K57.32 Diverticulitis of large intestine without perforation or abscess without bleeding; K44.9 Diaphragmatic hernia without obstruction or gangrene; K21.9 Gastro-esophageal reflux disease without esophagitis; K64.8 Other hemorrhoids; I25.10 Atherosclerotic heart disease of native coronary artery without angina pectoris; J44.9 Chronic obstructive pulmonary disease, unspecified; I10 Essential (primary) hypertension; E78.49 Other hyperlipidemia; M19.90 Unspecified osteoarthritis, unspecified site; F32.9 Major depressive disorder, single episode, unspecified; F41.9 Anxiety disorder, unspecified; Z99.81 Dependence on supplemental oxygen; Z79.899 Other long term (current) drug therapy; Z86.010 Personal history of colon polyps; I25.2 Old myocardial infarction; Z86.73 Personal history of transient ischemic attack (TIA), and cerebral infarction without residual deficits; Z87.19 Personal history of other diseases of the digestive system; Z87.891 Personal history of nicotine dependence
CPT/HCPCS: 43239; 45380; 45385; 88305; 88342; J7120; J2405

== ENCOUNTER 2021-03-04 15:49 | Emergency (ER) | payer MEDICARE, SELFPAY ==
[2021-02-26 11:03] VITALS: BMI 23.6
[2021-03-04 15:49] VITALS: BP 168/105; PULSE 96; RESP 14; O2SAT 97
[2021-03-04 15:50] VITALS: BP 179/111; PULSE 103; RESP 20; TEMP 36.2; O2SAT 97; BMI 23.0
--- NOTE | 2021-03-04 16:16 | EKG12_ITS ---
Test Reason : ABD PAIN Blood Pressure : / mmHG Vent. Rate : 095 BPM Atrial Rate : 095 BPM P-R Int : 186 ms QRS Dur : 098 ms QT Int : 386 ms P-R-T Axes : 084 075 071 degrees QTc Int : 485 ms Normal sinus rhythm Right atrial enlargement Prolonged QT Abnormal ECG Confirmed by YAQUELIN RIVERA, BRANDI ([id number]), industrial editor AYAN GUADALUPE ([id number]) on 03/06/2021 1:11:31 PM Referred By: FREDI Confirmed By:BRANDI JAMISON MD
--- NOTE | 2021-03-04 16:18 | EDS_ITS ---
HPI History of Present Illness Chief Complaint: Abd Pain Narrative Narrative: Patient presents with abdominal pain that started earlier today. It is periumbilical and epigastric. No fever chills cough or congestion he is denying chest pain or shortness of breath although he does have chronic COPD and is not bothering him today. He has no back pain or radiation to his back. He has no urinary symptoms or testicular pain. He has no diarrhea or constipation he has some nausea but no vomiting. Pain is achy and crampy. He tells me he has had this pain before and it feels similarly although he does not have a diagnosis for this pain, he does have a diagnosis of irritable bowel disease and diverticulitis but he tells me this does not feel the same. [facility] Medical History (Updated 03/04/21 @ 18:[address] Jose Cruz Espitia MD) Anxiety Arthritis Back pain Cardiology follow-up encounter Chronic cough COPD (chronic obstructive pulmonary disease) Cyclic vomiting syndrome Depression Epigastric/atypical chest pain Essential hypertension Former smoker Gastric reflux History of diverticulitis History of heart attack History of IBS History of non-ST elevation myocardial infarction (NSTEMI) (11/11/19) Hyperlipidemia Hypertension Marijuana use Nonobstructive atherosclerosis of coronary artery Normal echocardiogram (~11/12/19) On home oxygen therapy Shortness of breath on exertion Spinal stenosis Stroke/cerebrovascular accident Substance abuse Wears dentures Wears glasses Home Medications albuterol sulfate 2.5 mg INHALATION Q4H PRN PRN 11/01/18 [History Last Taken 01/10/21 09:00] aspirin 81 mg PO DAILY@0800 11/01/18 [History Last Taken 01/09/21] cetirizine 10 mg PO DAILY 11/11/19 [History Last Taken 01/09/21] atorvastatin 40 mg PO QHS #90 tab 11/12/19 [Rx Last Taken 01/08/21] diltiazem HCl 120 mg PO DAILY #90 cap 11/12/19 [Rx Last Taken 01/09/21] citalopram 20 mg tablet 20 mg PO DAILY 12/18/20 [History Last Taken 01/08/21] gabapentin 300 mg capsule 300 mg PO BID 12/18/20 [History Last Taken 02/26/21] ipratropium 0.5 mg-albuterol 3 mg (2.5 mg base)/3 mL nebulization soln 3 ml INHALATION Q4H 12/18/20 [History Last Taken Unknown] pantoprazole 40 mg PO DAILY #30 tab 01/12/21 [Rx Last Taken 02/26/21] fluticasone propionate [Flonase] 1 spray INTRANASAL DAILY 02/23/21 [History Last Taken Unknown] ilenzrhqhfc-nhrmjegez-yalwkdmj [Trelegy Ellipta] 1 inh INHALATION DAILY 02/23/21 [History Last Taken Unknown] Allergy/AdvReac Type Severity Reaction Status Date / Time No Known Allergies Allergy Verified 02/23/21 12:11 Family History Other Heart disease Hypertension Surgical History History of appendectomy History of inguinal hernia repair History of left heart catheterization (11/12/19) History of lumbosacral spine surgery History of surgery on right wrist Social History (Updated 12/18/20 @ 11:[address] Justin Clifton MD) Smoking Status: Former smoker substance use type: marijuana ROS ROS ED ROS Narrative Past medical history: Reviewed Medications: Reviewed Social history: Noncontributory Review of systems: All systems negative except as indicated General: No fever Eyes: No visual changes ENT: No upper airway congestion, normal voice Neck: No neck pain Cardiovascular: No chest pain Respiratory: No shortness of breath or cough Gastrointestinal: Abdominal pain as in HPI Genitourinary: No dysuria Musculoskeletal: Denies myalgias no difficulty with ambulation Skin: No rash Neurological: No memory loss, confusion or any focal weakness Psych: No recent behavioral changes Hematologic: No easy bleeding or easy bruising EXAM Physical Exam Narrative Exam Narrative: Physical exam General: Patient appears relatively comfortable in bed. Head: Normocephalic, Atraumatic Eyes: Conjunctiva not pale ENT: Moist mucous membranes Neck: Supple, Nontender, No lymphadenopathy Cardiovascular: Regular rate, Regular rhythm Respiratory: No distress, CTA bilaterally Abdomen: Soft, there is some tenderness over the epigastrium and periumbilical region. No guarding or rebound. No pain in the left lower quadrant, no right lower quadrant pain. No guarding or rebound. Back: Nontender, Normal Inspection. Negative for: CVA tenderness Extremities: Nontender, No edema Skin: Normal color, No rash Neurological: Alert, Normal Strength, Normal Sensation Psychological: Normal affect Const Vital Signs: 03/04/21 15:49 03/04/21 15:50 03/04/21 17:49 Temperature 97.2 F L Temperature Source Temporal Pulse Rate 96 103 H 88 Respiratory Rate 14 20 H 15 Blood Pressure 168/105 H 179/111 H Blood Pressure Mean 126 133 Pulse Ox 97 97 92 Oxygen Delivery Method Room Air Room Air Nasal Cannula MDM MDM MDM Narrative Medical decision making narrative: Patient has an unremarkable work-up, Bentyl significantly improved his symptoms. I will discharge him in stable condition of noticed he is constipated, he has MiraLAX but has not taken it recently I told him to take it 3-4 times a day for the next few days until adequate bowel movement. Otherwise I will discharge in stable condition. Lab Data Labs: Laboratory Results - last 24 hr 03/04/21 03/04/21 03/04/21 16:30 16:30 18:15 WBC 12.8 H RBC 5.23 Hgb 14.9 Hct 45.3 MCV 86.6 MCH 28.5 MCHC 32.9 RDW Std Deviation 46.1 H RDW Coeff of Sue 14.4 Plt Count 360 MPV 8.4 Immature Gran % (Auto) 0.500 Neut % (Auto) 88.3 H Lymph % (Auto) 6.2 L Caroline % (Auto) 4.7 Eos % (Auto) 0.0 Baso % (Auto) 0.3 Absolute Neuts (auto) 11.3 H Absolute Lymphs (auto) 0.79 L Nucleated RBC % 0 Sodium 138 Potassium 4.0 Chloride 102 Carbon Dioxide 28.0 Anion Gap 8 BUN 9 Creatinine 1.05 Estim Creat Clear Calc 70.20 Est GFR (MDRD) Af Amer 91 Est GFR (MDRD) Non-Af 75 BUN/Creatinine Ratio 8.6 L Glucose 137 H Calcium 9.6 Total Bilirubin 0.80 AST 10 L ALT 23 Alkaline Phosphatase 105 Troponin I High Sens 6.4 Total Protein 8.2 Albumin 4.8 Globulin 3.4 Albumin/Globulin Ratio 1.4 Lipase 21 L Urine Color Yellow Urine Clarity Clear Urine pH 8.0 Ur Specific [place] 1.010 Urine Protein Negative Urine Glucose (UA) Normal Urine Ketones 50 H Urine Occult Blood 25 H Urine Nitrite Negative Urine Bilirubin Negative Urine Urobilinogen Normal Ur Leukocyte Esterase Negative Radiography Diagnostic Testing: Radiology Impression Abdomen/Pelvis CT 03/04/21 17:30 IMPRESSION: No acute intra-abdominal process is identified. Large stool burden. Small infrarenal abdominal aortic aneurysm as above. Electronically Signed: Daron Guillen MD at 18:15 EDT Tel , Service support , Discharge Plan Triage Chief Complaint: Abd Pain ED Provider: Jose Cruz Espitia Dx/Rx/DC Orders Clinical Impression: Abdominal pain Instructions: Abdominal Pain Prescriptions: No Action citalopram 20 mg tablet 20 mg PO DAILY RF: 0 gabapentin 300 mg capsule 300 mg PO BID RF: 0 albuterol sulfate 2.5 MG/3 ML solution for nebulization 2.5 mg INHALATION Q4H PRN PRN (Reason: Shortness Of Breath) RF: 0 aspirin 81 MG tablet,chewable 81 mg PO DAILY@0800 RF: 0 cetirizine 10 MG tablet 10 mg PO DAILY RF: 0 diltiazem HCl 120 MG capsule 120 mg PO DAILY Qty: 90 RF: 0 atorvastatin 40 MG tablet 40 mg PO QHS Qty: 90 RF: 0 ipratropium-albuterol 0.5 mg-3 mg(2.5 mg base)/3 mL solution for nebulization 3 ml INHALATION Q4H RF: 0 Trelegy Ellipta 200-62.5-25 mcg blister with device 1 inh INHALATION DAILY RF: 0 fluticasone propionate [Flonase] 50 mcg/actuation [place],Suspension 1 spray INTRANASAL DAILY RF: 0 pantoprazole 40 mg tablet,delayed release (DR/EC) 40 mg PO DAILY Qty: 30 RF: 3 Primary Care Provider: Jordan Rosales Referrals: Jordan Rosales MD [Primary Care Provider] - 2 Days
[2021-03-04] MEDS: 0.9% Normal Saline 1,000 ML 1000 ML IV (16:33)
[2021-03-04] MEDS: Morphine 2 MG/ML Syringe IV (16:34)
[2021-03-04] MEDS: Ondansetron 4 MG/2 ML Vial IV (16:34)
[2021-03-04] MEDS: Dicyclomine 20 MG/2 ML Vial IM (16:35)
[2021-03-04 16:39] LABS: Absolute Lymphocyte Count 0.79 X10^3/uL (0.83-4.51); Absolute Neutrophil Count 11.3 X10^3/uL (2.0-7.7); Basophil# 0.04 X10^3/uL; Basophil% 0.3 % (0-1); Hematocrit 45.3 % (40-54); Hemoglobin 14.9 g/dL (13.0-16.5); Lymphocyte # 0.79 X10^3/ul (0.83-4.51); Lymphocyte % 6.2 % (19-41); Mean Corp Hgb Conc 32.9 g/dL (32-36); Mean Corpuscular Hgb 28.5 pg (27.0-32.0); Mean Corpuscular Volume 86.6 fL (80-94); Mean Platelet Vol. 8.4 fl (6.2-12.0); Monocyte% 4.7 % (0-10); NRBC Flagged by Analyzer 0 % (0-5); Neutrophil % 88.3 % (47-70); Platelet Count 360 K/mm3 (150-450); RBC Distribution Width CV 14.4 % (11.6-14.6); RBC Distribution Width SD 46.1 fl (35.1-43.9); Red Blood Count 5.23 M/mm3 (4.6-6.2); White Blood Count 12.8 K/mm3 (4.4-11.0)
[2021-03-04 16:56] LABS: ALB/GLOB Ratio 1.4 RATIO (0.9-2.4); AST(SGOT) 10 U/L (15-37); Alanine Aminotransfer ALT/SGPT 23 U/L (16-61); Albumin, Serum 4.8 g/dL (3.2-5.0); Alkaline Phosphatase 105 U/L (45-117); Anion Gap 8 (5-15); BUN 9 mg/dL (7-18); BUN/Creat Ratio 8.6 RATIO (10-20); Calcium,Total 9.6 mg/dL (8.5-10.1); Chloride 102 mmol/L (98-107); Creatinine, Serum 1.05 mg/dL (0.70-1.30); EST Glomerular Filtration Rate 75 mL/min (>60); Est Glom Filt Rate - Afr Amer 91 mL/min (>60); Globulin 3.4 g/dL (2.2-4.2); Glucose 137 mg/dL (74-106); Lipase 21 U/L (73-393); Protein, Total 8.2 g/dL (6.4-8.2); Sodium Level 138 mmol/L (136-145); Troponin-I HS 6.4 pg/mL (3.0-78.5)
--- NOTE | 2021-03-04 17:30 | CT_ITS ---
STUDY: CT ABDOMEN AND PELVIS WITHOUT CONTRAST REASON FOR EXAM: Male, 66 years old. Abd pain RADIATION DOSAGE (If Supplied By Facility): CTDIvol = ( 7.40 ) mGy, DLP = ( 366.17 ) mGycm TECHNIQUE: Transaxial images were obtained from the dome of the diaphragm to the symphysis pubis without oral contrast, and without intravenous contrast. Sagittal and coronal images were reconstructed. Individualized dose optimization techniques were used for this CT. COMPARISON: 01/10/21 FINDINGS: The visualized lung bases demonstrate diffuse emphysema. The visualized portions of the heart are within normal limits. Normal liver. Normal gallbladder and extrahepatic biliary system. Normal spleen. Normal pancreas. Normal bilateral adrenal glands. Normal right kidney. Normal left kidney. Normal visualized stomach. Normal small intestine. There are multiple colonic diverticula consistent with diverticulosis. There is non-visualization of the appendix. Large stool burden. Diffuse atherosclerosis of the aorta with a small infrarenal aneurysm measuring up to 2.9 cm. Normal inferior vena cava. Normal retroperitoneum. Normal urinary bladder. Normal visualized prostate gland. Normal abdominal wall. There are diffuse degenerative changes of the visualized lumbar spine. CT/Abdomen/Pelvis without Cont IMPRESSION: No acute intra-abdominal process is identified. Large stool burden. Small infrarenal abdominal aortic aneurysm as above. Electronically Signed: Daron Guillen MD at 18:15 EDT Tel , Service support ,
--- NOTE | 2021-03-04 17:39 | ED.RN ---
1700- pt sleeping in bed with hypoxia obs at 84% pt usually wears 3l at hs at home. o2 applied at 2l at this time
[2021-03-04 17:49] VITALS: PULSE 88; RESP 15; O2SAT 92
[2021-03-04 18:22] LABS: Bacteria 0 SEEN /hpf (None Seen); Mucous, Urine 0 SEEN /hpf (<or=2+); Squamous Epithelial Cells - UA 0 SEEN /hpf (0-5); White Blood Cells 0 SEEN /hpf (0-5)
[2021-03-04 18:41] LABS: Color, Urine Yellow (Yellow); Glucose, Dipstick Normal (Normal); Ketone-Dipstick 50 mg/dl (Negative); Leukocyte Esterase-Dipstick Negative /ul (Negative); Nitrite-Dipstick Negative (Negative); Occult Blood-Urine 25 /ul (Negative); Protein-Dipstick Negative (Negative); Urine Bilirubin Dipstick Negative (Negative); Urine Clarity Clear (Clear); Urine Urobilinogen Normal (Normal)
[2021-03-04 19:00] LABS: Red Blood Cells-Urine 0-5 SEEN /hpf (0-5)
[2021-03-04 19:28] VITALS: BP 134/74; PULSE 71; RESP 16; O2SAT 97
== END 2021-03-04 19:29 | disposition home or self-care (01) ==
PROVIDERS: Emergency Provider Emergency Medicine; PCP Internal Medicine
DX: R10.9 Unspecified abdominal pain (principal); K59.00 Constipation, unspecified; R11.0 Nausea; J44.9 Chronic obstructive pulmonary disease, unspecified; I10 Essential (primary) hypertension; E78.5 Hyperlipidemia, unspecified; M19.90 Unspecified osteoarthritis, unspecified site; K58.9 Irritable bowel syndrome, unspecified; K21.9 Gastro-esophageal reflux disease without esophagitis; F32.9 Major depressive disorder, single episode, unspecified; F41.9 Anxiety disorder, unspecified; Z99.81 Dependence on supplemental oxygen; Z79.82 Long term (current) use of aspirin; Z79.899 Other long term (current) drug therapy; I25.2 Old myocardial infarction; Z87.891 Personal history of nicotine dependence; Z86.73 Personal history of transient ischemic attack (TIA), and cerebral infarction without residual deficits
CPT/HCPCS: 74176; 80053; 81001; 83690; 84484; 85025; 93005; 96361; 96372; 96374; 96375; 99283; A4216; J2405

== ENCOUNTER 2021-04-24 10:35 | Emergency (ER) | payer MEDICARE, SELFPAY ==
[2021-04-24 10:35] VITALS: BP 198/131; PULSE 85; RESP 20; TEMP 36.2; O2SAT 95; BMI 24.3
--- NOTE | 2021-04-24 10:47 | CT_ITS ---
STUDY: CT ABDOMEN AND PELVIS WITH CONTRAST REASON FOR EXAM: Male, 66 years old. Lower abdominal pain, nausea RADIATION DOSAGE (If Supplied By Facility): CTDIvol = ( 13.88 ) mGy, DLP = ( 697.83 ) mGycm TECHNIQUE: Transaxial images were obtained from the dome of the diaphragm to the symphysis pubis without oral contrast. IV 100mL [id number]-[id number] was administered. Sagittal and coronal images were reconstructed. Individualized dose optimization techniques were used for this CT. COMPARISON: 03/04/2021 FINDINGS: Lung bases show underlying emphysema with right basilar atelectasis. The visualized portions of the heart are within normal limits. Normal liver. Normal gallbladder and extrahepatic biliary system. Normal spleen. Normal pancreas. Normal bilateral adrenal glands. Normal right kidney. Normal left kidney. There is a small hiatal hernia. Multiple nondistended fluid-filled small bowel loops are noted consistent with ileus. Retained stool noted in the colon with scattered sigmoid diverticulosis, no CT evidence of acute diverticulitis The appendix is visualized and appears normal. Appendix best seen on coronal recon images 75 through 80 There is diffuse atherosclerotic calcification of the abdominal aorta, without a demonstrated aneurysm. Normal inferior vena cava. Normal retroperitoneum. Normal urinary bladder. There is mild prostate enlargement, the prostate contains multiple calcifications suggesting chronic prostatitis. Normal abdominal wall. There are diffuse degenerative changes of the visualized lumbar spine, and pelvis. CT/Abdomen/Pelvis W IV Cont ONLY IMPRESSION: Small bowel ileus Sigmoid diverticulosis, no CT evidence of acute diverticulitis Small hiatal hernia with evidence of GE reflux Right basilar atelectasis Mild prostate enlargement Degenerative bony changes Electronically Signed: Jonny Scherer MD at 11:51 EDT , Service support ,
--- NOTE | 2021-04-24 10:49 | EDS_ITS ---
HPI HPI - GI History of Present Illness Chief Complaint: Abd Pain Informant: patient Abdominal Pain/Flank Pain Onset: Today Context: Sudden Onset Timing: Continuous Location: LLQ Current Severity: Mild Maximum Severity: Mild Nausea/Vomiting/Emesis GI Symptom: Positive for Nausea and Vomiting Onset: Today Severity: Mild Diarrhea/Melena/Hematochezia GI Symptom: Negative for Diarrhea, Melena and Hematochezia Associated Symptoms Associated Symptoms: Negative for Dysuria, Frequency and Hematuria Narrative Narrative: Six 6-year-old male with prior history of coronary disease and prior stroke. States that this morning he had sudden onset left lower quadrant abdominal pain. Associated with one episode nausea vomiting. No diarrhea or dysuria. No fever or chills. No melena. He had a history of diverticulitis before in the past. Prior similar symptoms: Yes Recent Illness/Hospitalization: No PFSH PFSH Medical History Anxiety Arthritis Back pain Cardiology follow-up encounter Chronic cough COPD (chronic obstructive pulmonary disease) Cyclic vomiting syndrome Depression Epigastric/atypical chest pain Essential hypertension Former smoker Gastric reflux History of diverticulitis History of heart attack History of IBS History of non-ST elevation myocardial infarction (NSTEMI) (11/11/19) Hyperlipidemia Hypertension Marijuana use Nonobstructive atherosclerosis of coronary artery Normal echocardiogram (~11/12/19) On home oxygen therapy Shortness of breath on exertion Spinal stenosis Stroke/cerebrovascular accident Substance abuse Wears dentures Wears glasses Home Medications albuterol sulfate 2.5 mg INHALATION Q4H PRN PRN 11/01/18 [History Last Taken 01/10/21 09:00] aspirin 81 mg PO DAILY@0800 11/01/18 [History Last Taken 01/09/21] cetirizine 10 mg PO DAILY 11/11/19 [History Last Taken 01/09/21] atorvastatin 40 mg PO QHS #90 tab 11/12/19 [Rx Last Taken 01/08/21] diltiazem HCl 120 mg PO DAILY #90 cap 11/12/19 [Rx Last Taken 01/09/21] citalopram 20 mg tablet 20 mg PO DAILY 12/18/20 [History Last Taken 01/08/21] gabapentin 300 mg capsule 300 mg PO BID 12/18/20 [History Last Taken 02/26/21] ipratropium 0.5 mg-albuterol 3 mg (2.5 mg base)/3 mL nebulization soln 3 ml INHALATION Q4H 12/18/20 [History Last Taken Unknown] pantoprazole 40 mg PO DAILY #30 tab 01/12/21 [Rx Last Taken 02/26/21] fluticasone propionate [Flonase] 1 spray INTRANASAL DAILY 02/23/21 [History Last Taken Unknown] giejtjtirli-qetustomt-toznmtke [Trelegy Ellipta] 1 inh INHALATION DAILY 02/23/21 [History Last Taken Unknown] ondansetron HCl [Zofran] 4 mg PO Q8H #7 tab 03/04/21 [Rx Last Taken Unknown] ondansetron 4 mg PO Q6H PRN #7 tab 04/24/21 [Rx Last Taken Unknown] Allergy/AdvReac Type Severity Reaction Status Date / Time No Known Allergies Allergy Verified 04/24/21 10:36 Family History Other Heart disease Hypertension Surgical History History of appendectomy History of inguinal hernia repair History of left heart catheterization (11/12/19) History of lumbosacral spine surgery History of surgery on right wrist Social History Smoking Status: Former smoker substance use type: marijuana ROS ROS ED ROS Narrative Denies recent illness. Review of Systems ROS Unobtainable: Denies due to encephalopathy Constitutional Constitutional ED: Denies chills or fever(s) ENT ENT ED: Denies ear pain or sore throat Cardiovascular Cardiovascular: Denies chest pain or racing heartbeat Respiratory/Chest Respiratory/Chest: Denies dyspnea Gastrointestinal Gastrointestinal: Reports abdominal pain, nausea and vomiting; Denies constipation, diarrhea or melena Genitourinary Genitourinary ED: Denies dysuria or hematuria Musculoskeletal Musculoskeletal: Denies myalgias Integumentary Denies rash Neurologic Neurologic: Denies headache(s) Psychiatric Psychiatric: Denies depression Endocrine Endocrinology: Denies polyuria Hematologic/Lymphatic Hematologic/Lymphatic: Denies easy bruising Allergic/Immunologic Allergic/Immunologic ED: Denies urticaria EXAM Physical Exam Narrative Exam Narrative: 66-year-old male no acute distress. Vital signs stable afebrile initial blood pressure elevated will recheck that. H EENT exam unremarkable. Moist with memories. Lungs clear to auscultation. Heart regular rhythm. Abdomen soft. Nondistended normal bowel sounds no peritoneal signs. Mild tenderness left lower quadrant. Otherwise unremarkable. No pulsatile mass. No hernias. No signs of obstruction. Extremities moves all four. No edema. Back nontender. Neurologically awake and alert moving all four extremities. Const Vital Signs: 04/24/21 10:35 Temperature 97.2 F L Temperature Source Temporal Pulse Rate 85 Respiratory Rate 20 H Blood Pressure 198/131 H Blood Pressure Mean 153 Pulse Ox 95 Oxygen Delivery Method Room Air Positive well nourished and well developed; Negative for obese, cachectic, contractures or unkempt General Appearance ED: well developed and NAD; Negative for unkempt, cachectic or contractures Nutritional Appearance: Negative for cachectic or obese HEENT Reports moist mucous membranes; Denies TM's clear normocephalic and atraumatic; Negative for trauma or tenderness Tympanic Membrane ED: Negative for TM's clear Eyes PERRL and EOMs intact bilaterally Neck no lymphadenopathy, supple and no JVD General: Negative for tenderness Resp normal respiratory effort and clear to auscultation bilaterally Auscultation: Negative for rales, rhonchi or wheezes Cardio regular rate, regular rhythm, S1 normal heart sound, S2 normal heart sound and no murmurs GI non-distended and no masses; Negative for non-tender Auscultation: normoactive bowel sounds Palpation: soft and tender; Negative for guarding, rigid or rebound tenderness present Back/Spine no CVA tenderness General Back: Negative for CVA tenderness Extremity full ROM General Extremety ED: Negative for edema or tenderness General Extremity: Negative for edema Neuro CN's II-XII intact bilaterally and moves all extremities Sensorium / Orientation: alert, oriented to person, oriented to place and oriented to time; Negative for orientation impaired Motor Exam: strength 5/5 throughout Psych mental status grossly normal Appearance: Negative for unkempt Skin Lesions: no lesions Rashes: no rashes MDM MDM MDM Narrative Medical decision making narrative: 66-year-old male with left lower quadrant abdominal pain. Screening labs urinalysis and CAT scan will be obtained. He has a history of diverticulitis. He will be treated with Zofran for nausea and morphine for pain. IV fluids. Repeat exam patient doing well at 12:19 PM. He will be given a second dose of Zofran IV. And p.o. fluid challenge. Showing nothing specific on his CAT scan that he would need to be admitted for any further evaluation. He will be discharged home with Zofran for nausea and clear liquid diet increase slowly as tolerated. Repeat exam at 1:40 PM patient doing well. Held down p.o. fluids difficulty. Abdomen is soft and completely benign and nontender. Lab Data Attestation: I reviewed the patient's lab results. Lab results narrative: CBC shows a white count of 13.2. Hemoglobin 15. Electrolytes unremarkable gap of 5. Creatinine of 1. Urinalysis normal no signs of infection. Labs: Laboratory Results - last 24 hr 04/24/21 04/24/21 04/24/21 10:55 10:55 11:42 WBC 13.2 H RBC 5.15 Hgb 15.0 Hct 44.5 MCV 86.4 MCH 29.1 MCHC 33.7 RDW Std Deviation 45.9 H RDW Coeff of Sue 14.4 Plt Count 337 MPV 8.3 Immature Gran % (Auto) 0.300 Neut % (Auto) 84.8 H Lymph % (Auto) 7.8 L [place] % (Auto) 5.5 Eos % (Auto) 1.1 Baso % (Auto) 0.5 Absolute Neuts (auto) 11.2 H Absolute Lymphs (auto) 1.03 Nucleated RBC % 0 Sodium 139 Potassium 4.0 Chloride 104 Carbon Dioxide 30.0 Anion Gap 5 BUN 9 Creatinine 1.00 Estim Creat Clear Calc 74.01 Est GFR (MDRD) Af Amer 96 Est GFR (MDRD) Non-Af 79 BUN/Creatinine Ratio 9.0 L Glucose 137 H Calcium 9.9 Urine Color Yellow Urine Clarity Clear Urine pH 8.0 Ur Specific [place] 1.015 Urine Protein Negative Urine Glucose (UA) Normal Urine Ketones 50 H Urine Occult Blood 10 H Urine Nitrite Negative Urine Bilirubin Negative Urine Urobilinogen Normal Ur Leukocyte Esterase Negative Urine RBC 0-5 SEEN Urine WBC 0 SEEN Ur Squamous Epith Cells 0-5 SEEN Urine Bacteria 0 SEEN Urine Mucus 0 SEEN Radiography Diagnostic Testing: Radiology Impression Abdomen/Pelvis CT 04/24/21 10:47 IMPRESSION: Small bowel ileus Sigmoid diverticulosis, no CT evidence of acute diverticulitis Small hiatal hernia with evidence of GE reflux Right basilar atelectasis Mild prostate enlargement Degenerative bony changes Electronically Signed: Jonny Scherer MD at 11:51 EDT , Service support , Discharge Plan Triage Chief Complaint: Abd Pain ED Provider: Miles Pena Dx/Rx/DC Orders Clinical Impression: LLQ abdominal pain Instructions: Abdominal Pain Prescriptions: New ondansetron 4 mg tablet,disintegrating 4 mg PO Q6H PRN (Reason: nausea and vomiting) Qty: 7 RF: 0 No Action citalopram 20 mg tablet 20 mg PO DAILY RF: 0 gabapentin 300 mg capsule 300 mg PO BID RF: 0 albuterol sulfate 2.5 MG/3 ML solution for nebulization 2.5 mg INHALATION Q4H PRN PRN (Reason: Shortness Of Breath) RF: 0 aspirin 81 MG tablet,chewable 81 mg PO DAILY@0800 RF: 0 cetirizine 10 MG tablet 10 mg PO DAILY RF: 0 diltiazem HCl 120 MG capsule 120 mg PO DAILY Qty: 90 RF: 0 atorvastatin 40 MG tablet 40 mg PO QHS Qty: 90 RF: 0 ipratropium-albuterol 0.5 mg-3 mg(2.5 mg base)/3 mL solution for nebulization 3 ml INHALATION Q4H RF: 0 Trelegy Ellipta 200-62.5-25 mcg blister with device 1 inh INHALATION DAILY RF: 0 fluticasone propionate [Flonase] 50 mcg/actuation [place],Suspension 1 spray INTRANASAL DAILY RF: 0 pantoprazole 40 mg tablet,delayed release (DR/EC) 40 mg PO DAILY Qty: 30 RF: 3 ondansetron HCl [Zofran] 4 mg tablet 4 mg PO Q8H Qty: 7 RF: 0 Primary Care Provider: Jordan Rosales Referrals: Jordan Rosales MD [Primary Care Provider] - 3-5 Days if not improving Activity Restrictions/Additional Instructions: Follow-up with your doctor if not improving. Zofran as needed for nausea. If you are feeling worse increasing pain, fever intractable vomiting return. Start with clear liquids and then slowly increase your diet as tolerated. Disposition Disposition: Home, Self Care
[2021-04-24 10:59] LABS: Absolute Lymphocyte Count 1.03 X10^3/uL (0.83-4.51); Absolute Neutrophil Count 11.2 X10^3/uL (2.0-7.7); Basophil# 0.06 X10^3/uL; Basophil% 0.5 % (0-1); Eosinophil# 0.14 X10^3/uL; Eosinophils% 1.1 % (0-5); Hematocrit 44.5 % (40-54); Lymphocyte # 1.03 X10^3/ul (0.83-4.51); Lymphocyte % 7.8 % (19-41); Mean Corp Hgb Conc 33.7 g/dL (32-36); Mean Corpuscular Hgb 29.1 pg (27.0-32.0); Mean Corpuscular Volume 86.4 fL (80-94); Mean Platelet Vol. 8.3 fl (6.2-12.0); Monocyte# 0.73 X10^3/uL; Monocyte% 5.5 % (0-10); NRBC Flagged by Analyzer 0 % (0-5); Neutrophil # 11.16 X10^3/uL (2.7-7.7); Neutrophil % 84.8 % (47-70); Platelet Count 337 K/mm3 (150-450); RBC Distribution Width CV 14.4 % (11.6-14.6); RBC Distribution Width SD 45.9 fl (35.1-43.9); Red Blood Count 5.15 M/mm3 (4.6-6.2); White Blood Count 13.2 K/mm3 (4.4-11.0)
[2021-04-24] MEDS: Metoclopramide 10 MG/2 ML Vial IV (10:59)
[2021-04-24] MEDS: 0.9% Normal Saline 1,000 ML 1000 ML IV (10:59)
[2021-04-24] MEDS: morphine 8 MG/ML Syringe 6 MG IV (10:59)
[2021-04-24 11:12] LABS: Anion Gap 5 (5-15); BUN 9 mg/dL (7-18); Calcium,Total 9.9 mg/dL (8.5-10.1); Chloride 104 mmol/L (98-107); EST Glomerular Filtration Rate 79 mL/min (>60); Est Glom Filt Rate - Afr Amer 96 mL/min (>60); Estimated Creatinine Clearance 74.01 ml/min; Glucose 137 mg/dL (74-106); Sodium Level 139 mmol/L (136-145)
[2021-04-24 11:52] LABS: Bacteria 0 SEEN /hpf (None Seen); Mucous, Urine 0 SEEN /hpf (<or=2+); White Blood Cells 0 SEEN /hpf (0-5)
[2021-04-24 11:53] LABS: Color, Urine Yellow (Yellow); Glucose, Dipstick Normal (Normal); Ketone-Dipstick 50 mg/dl (Negative); Leukocyte Esterase-Dipstick Negative /ul (Negative); Nitrite-Dipstick Negative (Negative); Occult Blood-Urine 10 /ul (Negative); Protein-Dipstick Negative (Negative); Specific Gravity, Urine 1.015 (1.002-1.030); Urine Bilirubin Dipstick Negative (Negative); Urine Clarity Clear (Clear); Urine Urobilinogen Normal (Normal)
[2021-04-24 12:04] LABS: Red Blood Cells-Urine 0-5 SEEN /hpf (0-5); Squamous Epithelial Cells - UA 0-5 SEEN /hpf (0-5)
[2021-04-24] MEDS: Ondansetron 4 MG/2 ML Vial IV (12:44)
[2021-04-24 13:55] VITALS: BP 134/88; PULSE 97; RESP 18; O2SAT 94
== END 2021-04-24 13:55 | disposition home or self-care (01) ==
PROVIDERS: Emergency Provider Emergency Medicine; PCP Internal Medicine
DX: R10.32 Left lower quadrant pain (principal); K58.9 Irritable bowel syndrome, unspecified; I25.10 Atherosclerotic heart disease of native coronary artery without angina pectoris; J44.9 Chronic obstructive pulmonary disease, unspecified; I10 Essential (primary) hypertension; M19.90 Unspecified osteoarthritis, unspecified site; K21.9 Gastro-esophageal reflux disease without esophagitis; F32.9 Major depressive disorder, single episode, unspecified; F41.9 Anxiety disorder, unspecified; Z99.81 Dependence on supplemental oxygen; Z79.82 Long term (current) use of aspirin; Z79.899 Other long term (current) drug therapy; I25.2 Old myocardial infarction; Z87.19 Personal history of other diseases of the digestive system; Z86.73 Personal history of transient ischemic attack (TIA), and cerebral infarction without residual deficits; Z87.891 Personal history of nicotine dependence
CPT/HCPCS: 74177; 80048; 81001; 85025; 96361; 96374; 96375; 99283; J7030; Q9967; A4216; J2405

== ENCOUNTER 2021-06-21 18:10 | Observation (INO) | payer MEDICARE, SELFPAY ==
[2021-06-21] VITALS (11 sets, daily range): BP systolic 106–200; BP diastolic 81–143; PULSE 89–141; RESP 15–26; TEMP 36.6–36.8; O2SAT 89–96; BMI 24.3
--- NOTE | 2021-06-21 18:18 | EKG12_ITS ---
Test Reason : CP Blood Pressure : / mmHG Vent. Rate : 155 BPM Atrial Rate : 155 BPM P-R Int : 130 ms QRS Dur : 088 ms QT Int : 328 ms P-R-T Axes : 088 079 084 degrees QTc Int : 526 ms Sinus tachycardia Nonspecific ST abnormality Abnormal ECG Confirmed by YAQUELIN RIVERA, BRANDI ([id number]), social media editor AYAN GUADALUPE ([id number]) on 06/23/2021 9:20:16 AM Referred By: MARISELA Confirmed By:BRANID JAMISON MD
[2021-06-21] MEDS: Nitroglycerin SL (ED/IMG/CATH) 0.4 MG TABLET SL ×3 (18:24→18:34)
[2021-06-21] MEDS: Aspirin 81 MG TAB.CHEW 324 MG PO (18:24)
[2021-06-21 18:26] LABS: Absolute Lymphocyte Count 1.19 X10^3/uL (0.83-4.51); Absolute Neutrophil Count 5.7 X10^3/uL (2.0-7.7); Basophil# 0.09 X10^3/uL; Eosinophil# 0.38 X10^3/uL; Eosinophils% 4.2 % (0-5); Hemoglobin 16.2 g/dL (13.0-16.5); Lymphocyte # 1.19 X10^3/ul (0.83-4.51); Lymphocyte % 13.1 % (19-41); Mean Corp Hgb Conc 33.1 g/dL (32-36); Mean Corpuscular Hgb 28.2 pg (27.0-32.0); Mean Corpuscular Volume 85.4 fL (80-94); Mean Platelet Vol. 7.8 fl (6.2-12.0); Monocyte# 1.62 X10^3/uL; Monocyte% 17.9 % (0-10); NRBC Flagged by Analyzer 0 % (0-5); Neutrophil # 5.73 X10^3/uL (2.7-7.7); Neutrophil % 63.4 % (47-70); POSITIVE DIFFERENTIAL YES; Platelet Count 295 K/mm3 (150-450); RBC Distribution Width CV 14.7 % (11.6-14.6); RBC Distribution Width SD 45.7 fl (35.1-43.9); Red Blood Count 5.74 M/mm3 (4.6-6.2); White Blood Count 9.1 K/mm3 (4.4-11.0)
[2021-06-21 18:27] LABS: Differential Indicated SCAN CRITERIA MET
--- NOTE | 2021-06-21 18:35 | RAD_ITS ---
EXAM: XR CHEST, 1 VIEW : 1955 CLINICAL INDICATION: chest pain TECHNIQUE: Frontal view of the chest. This report was created using [employer] [place] report generation technology. COMPARISON: 12/26/2020 FINDINGS: LUNGS AND PLEURAL SPACES: The lungs are hyperinflated. No pneumothorax. No effusion. HEART: Unremarkable. Cardiac silhouette not enlarged. MEDIASTINUM: Central airways and mediastinal contour are unremarkable. BONES/JOINTS: Unremarkable. SOFT TISSUES: Unremarkable. RAD/Chest 1 View (Portable) IMPRESSION: Pulmonary hyperinflation compatible with chronic obstructive pulmonary disease. There are no acute pulmonary abnormalities. at 1902 Reported and signed by: Prakash Hudson MD Electronically Signed: Prakash Hudson MD at 19:01 EDT Tel , Service support ,
[2021-06-21 18:41] LABS: Anion Gap 9 (5-15); BUN 9 mg/dL (7-18); BUN/Creat Ratio 8.8 RATIO (10-20); Calcium,Total 9.9 mg/dL (8.5-10.1); Chloride 98 mmol/L (98-107); Creatinine, Serum 1.02 mg/dL (0.70-1.30); EST Glomerular Filtration Rate 77 mL/min (>60); Est Glom Filt Rate - Afr Amer 94 mL/min (>60); Estimated Creatinine Clearance 72.56 ml/min; Glucose 104 mg/dL (74-106); Potassium 3.9 mmol/L (3.5-5.1); Sodium Level 136 mmol/L (136-145); Troponin-I HS 34 pg/mL (3.0-78.0)
[2021-06-21 18:54] LABS: Platelet Estimate ADEQUATE (ADEQ); Red Cell Morphology NORM C+C NORMAL (NORM C&C)
--- NOTE | 2021-06-21 19:15 | EDS_ITS ---
HPI History of Present Illness Chief Complaint: Chest Pain Informant: patient Onset/Context/Timing Onset: Today Activity at onset: gradual Timing: Waxes and wanes Quality: Positive for Pressure and Tightness Location: Substernal Worsened By: Nothing Relieved By: Nothing Associated Symptoms: Positive for Diaphoresis, Dyspnea and Cough; Negative for Nausea, Vomiting, Fever, Lightheadedness, Acid Reflux and Palpitations Narrative Narrative: Patient presents with chest pain that began today. Patient states that he felt like he had another heart attack this morning. Patient states his pain this morning felt like it did when he had his prior heart attack. Patient states he got better in the middle of the day and is starting to come back. Patient describes as a tightness and heaviness. Patient states it is over the substernal area. Patient states nothing makes it worse and nothing makes it better. Patient states he broke out into a sweat with it. Patient states he got short of breath with it. Patient also admits to a cough. Patient states the pain radiated up into his jaw. Patient denies any rhinorrhea. Patient denies any nausea or vomiting. CVD Risk Factors: Positive for Hypertension; Negative for Diabetes, Hypercholesterolemia, Family History 1' </=55 and Smoking PE Risk Factors: Negative for Recent Travel/Surgery, Recent Immobilization, Prior DVT or PE and Cancer [facility] Medical History Anxiety Arthritis Back pain Cardiology follow-up encounter Chronic cough COPD (chronic obstructive pulmonary disease) Cyclic vomiting syndrome Depression Epigastric/atypical chest pain Essential hypertension Former smoker Gastric reflux History of diverticulitis History of heart attack History of IBS History of non-ST elevation myocardial infarction (NSTEMI) (11/11/19) Hyperlipidemia Hypertension Marijuana use Nonobstructive atherosclerosis of coronary artery Normal echocardiogram (~11/12/19) On home oxygen therapy Shortness of breath on exertion Spinal stenosis Stroke/cerebrovascular accident Substance abuse Wears dentures Wears glasses Home Medications albuterol sulfate 2.5 mg INHALATION Q4H PRN PRN 11/01/18 [History Last Taken 06/22/21] aspirin 81 mg PO DAILY@0800 11/01/18 [History Last Taken 06/22/21] cetirizine 10 mg PO DAILY 11/11/19 [History Last Taken 06/21/21] atorvastatin 40 mg PO QHS #90 tab 11/12/19 [Rx Last Taken 06/21/21] diltiazem HCl 120 mg PO DAILY #90 cap 11/12/19 [Rx Last Taken 06/21/21] citalopram 20 mg tablet 20 mg PO DAILY 12/18/20 [History Last Taken 06/21/21] gabapentin 300 mg capsule 300 mg PO BID 12/18/20 [History Last Taken 06/21/21] ipratropium 0.5 mg-albuterol 3 mg (2.5 mg base)/3 mL nebulization soln 3 ml INHALATION Q4H 12/18/20 [History Last Taken 06/22/21] pantoprazole 40 mg PO DAILY #30 tab 01/12/21 [Rx Last Taken 06/21/21] fluticasone propionate [Flonase] 1 spray INTRANASAL DAILY 02/23/21 [History Last Taken 06/21/21] weqzmzhjzot-grvjzxqur-tffrncxj [Trelegy Ellipta] 1 inh INHALATION DAILY 02/23/21 [History Last Taken 06/22/21] ondansetron HCl [Zofran] 4 mg PO Q8H #7 tab 03/04/21 [Rx Last Taken Unknown] ondansetron 4 mg PO Q6H PRN #7 tab 04/24/21 [Rx Last Taken Unknown] Allergy/AdvReac Type Severity Reaction Status Date / Time No Known Allergies Allergy Verified 04/24/21 10:36 Family History Other Heart disease Hypertension Surgical History History of appendectomy History of inguinal hernia repair History of left heart catheterization (11/12/19) History of lumbosacral spine surgery History of surgery on right wrist Social History Smoking Status: Former smoker substance use type: marijuana ROS ROS ED Constitutional Constitutional ED: Denies chills or fever(s) Eyes Eyes: Denies blurry vision or change in vision ENT ENT ED: Reports rhinorrhea; Denies sore throat Cardiovascular Cardiovascular: Reports chest pain; Denies palpitations Respiratory/Chest Respiratory/Chest: Reports cough and dyspnea Gastrointestinal Gastrointestinal: Denies abdominal pain, nausea or vomiting Genitourinary Genitourinary ED: Denies dysuria or hematuria Musculoskeletal Musculoskeletal: Denies back pain or neck pain Integumentary Denies abscess or rash Neurologic Neurologic: Denies headache(s) or weakness Allergic/Immunologic Allergic/Immunologic ED: Denies mouth swelling or urticaria EXAM Physical Exam Const Vital Signs: 06/21/21 18:14 06/21/21 18:21 06/21/21 18:24 Temperature 98.3 F Temperature Source Oral Pulse Rate 115 H 105 H Respiratory Rate 26 H Blood Pressure 200/143 H 158/103 H Blood Pressure Mean 162 Pulse Ox 89 96 Oxygen Delivery Method Room Air Nasal Cannula Nasal Cannula Oxygen Flow Rate (L/min) 3 2 06/21/21 18:29 06/21/21 18:34 06/21/21 19:24 Temperature Temperature Source Pulse Rate 112 H 119 H 108 H Respiratory Rate 20 H Blood Pressure 165/95 H 150/127 H 106/81 H Blood Pressure Mean 89 Pulse Ox 96 Oxygen Delivery Method Nasal Cannula Oxygen Flow Rate (L/min) 2 Positive well nourished and well developed General Appearance ED: well developed HEENT normocephalic and atraumatic Eyes PERRL and EOMs intact bilaterally Neck supple and no JVD Chest Wall palpation of chest normal Resp normal respiratory effort and clear to auscultation bilaterally Effort and Inspection: Negative for respiratory distress Cardio regular rate, regular rhythm and no murmurs GI normal to inspection, nondistended, normoactive bowel sounds, soft to palpation, non-tender and non-distended Extremity normal to inspection General Extremety ED: Negative for edema or tenderness General Extremity: Negative for edema Neuro oriented x3, CN's II-XII intact bilaterally and no sensory deficits noted Sensorium / Orientation: awake and alert Motor Exam: strength 5/5 throughout Psych mental status grossly normal Heart Score History: Moderately Suspicious ECG: Nonspecific Repolarization Age: >/= 65 years Risk Factors: >/= 3 Risk Factors or History of CAD Troponin: </= Normal Limit Score: 6 MDM MDM MDM Narrative Medical decision making narrative: Patient was given aspirin and nitroglycerin here. CBC and basic metabolic profile were within normal limits. Initial high- sensitivity troponin was normal at 34. 2-hour repeat high-sensitivity troponin was normal at 29. Portable 1 view chest x-ray was obtained. On my interpretation, lung croft show hyperinflation consistent with COPD. There is normal cardiac silhouette. Bony thorax is normal. There is no acute process noted. Radiologist also interpreted the x-ray and agrees. Patient is feeling better on reevaluation. Patient was advised of his findings. Patient has a HEART score of 6. There is no recent stress test within the system. His last cardiac catheterization was 11/12/2019. This showed moderate disease of the first diagonal branch of the left anterior descending artery with up to 60% stenosis in some areas. Because of this, I feel patient would benefit from observation in the hospital. Patient is agreeable with this. Case was discussed with the hospitalist. He will admit the patient for observation. After the patient was seen by the hospitalist, he became diaphoretic and more short of breath. Repeat EKG showed a sinus tachycardia with a rate of 155. There are nonspecific ST-T wave changes but essentially unchanged from previous EKG. Patient was given adenosine 6 mg. Patient's heart rate was slowed. There were no flutter waves noted. Patient returned to a sinus tachycardia in the rate of the 120s. Patient was given a dose of morphine. Patient was also given a DuoNeb aerosol. Patient was given a dose of Lovenox. CTA of the chest was ordered. There evidence of pulmonary embolism. This was interpreted by the radiologist and reviewed by myself. Case was discussed with application internship on- call. He had no further recommendations. He will see the patient tomorrow. Lab Data Attestation: I reviewed the patient's lab results. Labs: Laboratory Results - last 24 hr 06/21/21 06/21/21 06/21/21 18:13 18:13 20:00 WBC 9.1 RBC 5.74 Hgb 16.2 Hct 49.0 MCV 85.4 MCH 28.2 MCHC 33.1 RDW Std Deviation 45.7 H RDW Coeff of Sue 14.7 H Plt Count 295 MPV 7.8 Immature Gran % (Auto) 0.400 Neut % (Auto) 63.4 Lymph % (Auto) 13.1 L [place] % (Auto) 17.9 H Eos % (Auto) 4.2 Baso % (Auto) 1.0 Absolute Neuts (auto) 5.7 Absolute Lymphs (auto) 1.19 Nucleated RBC % 0 Platelet Estimate ADEQUATE RBC Morphology NORM C+C Sodium 136 Potassium 3.9 Chloride 98 Carbon Dioxide 29.0 Anion Gap 9 BUN 9 Creatinine 1.02 Estim Creat Clear Calc 72.56 Est GFR (MDRD) Af Amer 94 Est GFR (MDRD) Non-Af 77 BUN/Creatinine Ratio 8.8 L Glucose 104 Calcium 9.9 Troponin I High Sens 34 29 Radiography Chest X-Ray - ED: 1 View, Read by ED Physician, Read by Radiologist and Chronic Changes Diagnostic Testing: Clinical Impression(s) from Imaging Studies Chest X-Ray 06/21/21 18:35 IMPRESSION: Pulmonary hyperinflation compatible with chronic obstructive pulmonary disease. There are no acute pulmonary abnormalities. at 1902 Reported and signed by: Prakash Hudson MD Electronically Signed: Prakash Hudson MD at 19:01 EDT Tel , Service support , EKG Initial EKG: Attestation: I personally reviewed and interpreted this EKG as follows: Interpretation: Sinus Tachycardia (115) and S-T Depression (V2 through V5) Prior EKG tracings: available for review Prior: Unchanged (03/04/2021) Treatment and Re-Evaluation Vital Sign Attestation:: Vital signs were reviewed prior to admission. They are stable. Discharge Plan Dx/Rx/DC Orders Clinical Impression: Chest pain Disposition Disposition: Acute Care Hospital [facility] Discharge Date/Time: 06/22/21 00:08
[2021-06-21 20:20] LABS: Troponin-I HS 29 pg/mL (3.0-78.0)
--- NOTE | 2021-06-21 21:30 | HP.PCM.HOS_ITS ---
[facility] - General General Date of Admission: 06/21/21 Date of Service: 06/21/21 Chief Complaint: Shortness of breath HPI Narrative BRIGIDA BARCENAS, is a 66 M with a significant history of former tobacco abuse; AZ and COPD who presents to the emergency department with shortness of breath. Associated with symptom is diaphoresis. Patient denies nausea or vomiting. His symptoms started on the same day of presentation. He reported his symptom is consistent with his AZ. At the emergent department patient got more dyspneic. Initial EKG showed sinus rhythm with ST depressions in V2 to V6 repeat EKG showed narrow complex tachycardia with a rate of 155. Patient was given adenosine and rhythm changed to sinus rhythm and later to sinus tach. Patient was given DuoNeb at the emergency department. [facility] Medical History Anxiety Arthritis Back pain Cardiology follow-up encounter Chronic cough COPD (chronic obstructive pulmonary disease) Cyclic vomiting syndrome Depression Epigastric/atypical chest pain Essential hypertension Former smoker Gastric reflux History of diverticulitis History of heart attack History of IBS History of non-ST elevation myocardial infarction (NSTEMI) (11/11/19) Hyperlipidemia Hypertension Marijuana use Nonobstructive atherosclerosis of coronary artery Normal echocardiogram (~11/12/19) On home oxygen therapy Shortness of breath on exertion Spinal stenosis Stroke/cerebrovascular accident Substance abuse Wears dentures Wears glasses Home Medications albuterol sulfate 2.5 mg INHALATION Q4H PRN PRN 11/01/18 [History Last Taken 01/10/21 09:00] aspirin 81 mg PO DAILY@0800 11/01/18 [History Last Taken 01/09/21] cetirizine 10 mg PO DAILY 11/11/19 [History Last Taken 01/09/21] atorvastatin 40 mg PO QHS #90 tab 11/12/19 [Rx Last Taken 01/08/21] diltiazem HCl 120 mg PO DAILY #90 cap 11/12/19 [Rx Last Taken 01/09/21] citalopram 20 mg tablet 20 mg PO DAILY 12/18/20 [History Last Taken 01/08/21] gabapentin 300 mg capsule 300 mg PO BID 12/18/20 [History Last Taken 02/26/21] ipratropium 0.5 mg-albuterol 3 mg (2.5 mg base)/3 mL nebulization soln 3 ml INH ALATION Q4H 12/18/20 [History Last Taken Unknown] pantoprazole 40 mg PO DAILY #30 tab 01/12/21 [Rx Last Taken 02/26/21] fluticasone propionate [Flonase] 1 spray INTRANASAL DAILY 02/23/21 [History Last Taken Unknown] wlqbuevrilk-yokumvgsc-tjtojfcj [Trelegy Ellipta] 1 inh INHALATION DAILY 02/23/21 [History Last Taken Unknown] ondansetron HCl [Zofran] 4 mg PO Q8H #7 tab 03/04/21 [Rx Last Taken Unknown] ondansetron 4 mg PO Q6H PRN #7 tab 04/24/21 [Rx Last Taken Unknown] Allergy/AdvReac Type Severity Reaction Status Date / Time No Known Allergies Allergy Verified 04/24/21 10:36 Family History Other Heart disease Hypertension Surgical History History of appendectomy History of inguinal hernia repair History of left heart catheterization (11/12/19) History of lumbosacral spine surgery History of surgery on right wrist Social History Smoking Status: Former smoker substance use type: marijuana ROS ROS Narrative Constitutional: Denies fever, chills, fatigue, anorexia and change in weight Eyes: Denies blurry vision, change in eye color, change in vision, discharge from eye(s), double vision, erythema, eye pain, loss of vision or other HEENT: Denies abnormal hearing, dysphagia, ear pain, epistaxis, headache(s), hearing loss, nasal congestion, nasal discharge, post nasal drip, sinus pressure, sore throat or other Cardiovascular: Denies chest pain or palpitations. Denies orthopnea. Reports paroxysmal nocturnal dyspnea. Respiratory/Chest: Reports productive cough. Reports shortness of breath. Denies wheezes. Gastrointestinal: Denies abdominal pain, coffee ground emesis, constipation, diarrhea, dyspepsia, hematemesis, hematochezia, loose stools, melena, nausea, vomiting or other Genitourinary: Denies burning urination, difficulty urinating, dysuria, hematuria, nocturia, urinary frequency, urinary hesitancy, urinary incontinence, urinary urgency or other Musculoskeletal: Denies arthralgias, back pain, joint pain, joint stiffness, joint swelling, myalgias, neck pain or other Neurologic: Denies abnormal gait, abnormal speech, confusion, disequilibrium, dizziness, focal weakness, headache(s), numbness, paresthesias, seizure-like activity, seizures, syncope, tingling, tremor(s) or other Psychiatric: Denies homicidal ideation, suicidal ideation or other Endocrinology: Denies change in body appearance, cold intolerance, excessive sweating, heat intolerance, polydipsia, polyuria or other Hematologic/Lymphatic: Denies anemia, easy bleeding, easy bruising, lymphadenopathy or other Integumentary: Denies rashes Allergic/Immunologic: Denies rhinitis, hives, eczema, asthma or other Vital Signs Vital Signs Vital Signs: 06/21/21 18:14 06/21/21 18:21 06/21/21 18:24 Temperature 98.3 F Temperature Source Oral Pulse Rate 115 H 105 H Respiratory Rate 26 H Blood Pressure 200/143 H 158/103 H Blood Pressure Mean 162 Pulse Ox 89 96 Oxygen Delivery Method Room Air Nasal Cannula Nasal Cannula Oxygen Flow Rate (L/min) 3 2 06/21/21 18:29 06/21/21 18:34 06/21/21 19:24 Temperature Temperature Source Pulse Rate 112 H 119 H 108 H Respiratory Rate 20 H Blood Pressure 165/95 H 150/127 H 106/81 H Blood Pressure Mean 89 Pulse Ox 96 Oxygen Delivery Method Nasal Cannula Oxygen Flow Rate (L/min) 2 Weight Weight: 77.1 kg Body Mass Index (BMI) 24.3 Physical Exam Narrative Physical exam: General: Diaphoretic and in respiratory distress. Head: Normocephalic, atraumatic, no tenderness Eyes: PERRLA, EOMI ENT, no trauma, moist mucous membranes, no rhinorrhea Neck: Nontender, full range of motion, no spinal tenderness, deformities, step- off CVS: Tachycardia. S1-S2 present. No murmur, gallop or rub. Respiratory : Tachypnea; using accessory muscles of respiration diminished. chest wall nontender, no wheezing Abdomen: Soft, nontender, nondistended, normal bowel sounds, no masses : Deferred Back: Nontender, no CVA tenderness, no midline spinal tenderness, deformities, step-offs Extremities: Nontender full range of motion, no trauma Skin: Normal color, no trauma, abrasions Neuro: Alert, oriented, cranial nerves II through XII grossly intact. Psychiatry: Anxious. Not depressed. Results Lab / Micro Data Result Diagrams: 06/21/21 18:13 06/21/21 18:13 Labs: Laboratory Results - last 24 hr 06/21/21 18:13: WBC 9.1, RBC 5.74, Hgb 16.2, Hct 49.0, MCV 85.4, MCH 28.2, MCHC 33.1, RDW Std Deviation 45.7 H, RDW Coeff of Sue 14.7 H, Plt Count 295, MPV 7.8, Immature Gran % (Auto) 0.400, Neut % (Auto) 63.4, Lymph % (Auto) 13.1 L, [place] % (Auto) 17.9 H, Eos % (Auto) 4.2, Baso % (Auto) 1.0, Absolute Neuts (auto) 5.7, Absolute Lymphs (auto) 1.19, Nucleated RBC % 0, Platelet Estimate ADEQUATE, RBC Morphology NORM C+C 06/21/21 18:13: Sodium 136, Potassium 3.9, Chloride 98, Carbon Dioxide 29.0, Anion Gap 9, BUN 9, Creatinine 1.02, Estim Creat Clear Calc 72.56, Est GFR (MDRD) Af Amer 94, Est GFR (MDRD) Non-Af 77, BUN/Creatinine Ratio 8.8 L, Glucose 104, Calcium 9.9, Troponin I High Sens 34 06/21/21 20:00: Troponin I High Sens 29 Radiology Impression Chest X-Ray 06/21/21 18:35 IMPRESSION: Pulmonary hyperinflation compatible with chronic obstructive pulmonary disease. There are no acute pulmonary abnormalities. at 1902 Reported and signed by: Prakash Hudson MD Electronically Signed: Prakash Hudson MD at 19:01 EDT Tel , Service support , Assessment & Plan Assessment/Plan (1) Respiratory distress, acute: PLAN: Acute respiratory distress Differential diagnosis includes COPD exacerbation and unstable angina. Patient report that it is reminiscent of his previous heart attack. Solu-Medrol 125 mg x 1 and then [id number]-[id number] ordered. Tessalon Perles as needed ordered. DuoNeb izuzjd-lfk-[id number] ordered. Albuterol as needed ordered. Lovenox therapeutic dose x1 given received full dose aspirin at emergency department. Aspirin 81 mg daily continued. Nitroglycerin paste iwncdd-qmc-rqwzl ordered. Initial high sensitive troponin x2 was negative. Trend. Cardiac cath on 11/12/2019 showed normal left ventricular ejection fraction. Left anterior descending artery diagonal 1 with proximal diffuse disease up to 60%. Emergent department doctor discussed the case with cardiology. Cardiology consult. Chest CTA ordered emergency department. Depression/anxiety Citalopram continued Chronic pain Gabapentin continued DVT prophylaxis Lovnox x 1 and scd ordered Charges/Coding Visit Charges OBSV E&M: 15368 Initial observation care L3
[2021-06-21] MEDS: Morphine 4 MG/ML Syringe IV (22:25)
[2021-06-21] MEDS: Ipratropium/Albuterol Sulfate 3 ML AMPUL.NEB INHALATION (22:27)
[2021-06-21] MEDS: Adenosine 6 MG/2 ML Syringe IV (22:31)
--- NOTE | 2021-06-21 22:32 | EKG12_ITS ---
Test Reason : CP Blood Pressure : / mmHG Vent. Rate : 115 BPM Atrial Rate : 115 BPM P-R Int : 190 ms QRS Dur : 092 ms QT Int : 304 ms P-R-T Axes : 084 078 053 degrees QTc Int : 420 ms Sinus tachycardia Right atrial enlargement ST & T wave abnormality, consider inferior ischemia Abnormal ECG Confirmed by YAQUELIN RIVERA, BRANDI ([id number]), social media editor AYAN GUADALUPE ([id number]) on 06/23/2021 9:20:45 AM Referred By: SARAH Confirmed By:BRANDI JAMISON MD
--- NOTE | 2021-06-21 22:35 | CT_ITS ---
EXAM: CT ANGIOGRAPHY CHEST WITHOUT AND WITH INTRAVENOUS CONTRAST : 1955 CLINICAL INDICATION: Pulmonary embolism TECHNIQUE: Helically acquired angiography images were obtained of the chest without and with intravenous contrast. This CT exam was performed using one or more of the following dose reduction techniques: automated exposure control, adjustment of the mA and/or kV according to patient size, and/or use of iterative reconstruction technique. This report was created using [employer] report generation technology. MIP reconstructed images were created and reviewed. CONTRAST: IV 75mL Isovue-370 COMPARISON: None. FINDINGS: PULMONARY ARTERIES: Unremarkable. Normal in caliber. No evidence of pulmonary embolism. AORTA: Unremarkable. Normal in caliber. No evidence of dissection. GREAT VESSELS OF AORTIC ARCH: Unremarkable. Normal in caliber. No evidence of dissection. LUNGS AND PLEURAL SPACES: There is a spiculated density in the right upper lobe measures 2.9 x 1.6 cm may represent an area of scar however malignancy cannot be excluded. Further evaluation with a PET CT scan may be beneficial. There are emphysematous changes seen within within both lungs. No pleural effusion or thickening. No pneumothorax. HEART: Unremarkable. Heart size is normal. No pericardial effusion. No signs of right heart strain, ratio of right ventricle to left ventricle measures less than 1. MEDIASTINUM: Unremarkable. No mediastinal or hilar adenopathy. Esophagus is unremarkable. No hiatal hernia. THYROID: Unremarkable. No thyroid lesions. BONES/JOINTS: Unremarkable. No suspicious lytic or blastic abnormality. CT/CTA Chest W/WO Contrast IMPRESSION: 1. No evidence of pulmonary embolus. 2. Spiculated lesion in the right upper lobe. This may represent an area of scar however malignancy cannot be excluded if indicated further evaluation with PET CT scan may be beneficial. There are underlying emphysematous changes in both lungs. Individualized dose optimization techniques were used for this CT. at 2349 Reported and signed by: Prakash Hudson MD Electronically Signed: Prakash Hudson MD at 23:48 EDT Tel , Service support ,
[2021-06-21] MEDS: Enoxaparin 80 MG/0.8 ML Syringe SC (22:40)
[2021-06-21] MEDS: MethylPREDNISolone 125 MG/2 ML Vial IV (23:13)
[2021-06-22] VITALS (16 sets, daily range): BP systolic 116–168; BP diastolic 85–108; PULSE 92–106; RESP 16–18; TEMP 36.4–36.7; O2SAT 93–98; BMI 22.5
--- NOTE | 2021-06-22 00:08 | EKG12_ITS ---
Test Reason : CP ADMIN Blood Pressure : / mmHG Vent. Rate : 080 BPM Atrial Rate : 080 BPM P-R Int : 150 ms QRS Dur : 098 ms QT Int : 380 ms P-R-T Axes : 085 074 047 degrees QTc Int : 438 ms Normal sinus rhythm with sinus arrhythmia Normal ECG When compared with ECG of 21-JUN-2021 18:10, MANUAL COMPARISON REQUIRED, DATA IS UNCONFIRMED Confirmed by YAQUELIN RIVERA, BRANDI ([id number]), technical editor LARA IZQUIERDO ([id number]) on 06/23/2021 2:16:43 PM Referred By: ANA Confirmed By:BRANDI JAMISON MD
[2021-06-22] MEDS: Nitroglycerin Oint 1 INCH PACKET TD ×3 (00:35→12:24)
[2021-06-22] MEDS: Ondansetron 4 MG/2 ML Vial IV (00:42)
[2021-06-22] MEDS: Ipratropium/Albuterol Sulfate 3 ML AMPUL.NEB INHALATION ×2 (00:51→05:55)
[2021-06-22] MEDS: Atorvastatin Calcium 40 MG Tablet PO (00:59)
[2021-06-22] MEDS: Gabapentin 300 MG Capsule PO ×2 (00:59→12:24)
[2021-06-22] MEDS: Clopidogrel Bisulfate 300 MG Tablet PO (01:01)
--- NOTE | 2021-06-22 01:31 | PCS.PANDOC ---
PANDEMIC DOCUMENTATION INITIATED: Date: 04/20/2021 Time: 190
[2021-06-22 01:40] LABS: Troponin-I HS 56 pg/mL (3.0-78.0)
[2021-06-22] MEDS: dilTIAZem CD 120 MG Capsule PO (03:12)
[2021-06-22] MEDS: 0.9% Saline Lock 10 ML Syringe IV (05:44)
[2021-06-22] MEDS: Acetaminophen 325 MG Tablet 650 MG PO ×2 (05:47→12:24)
[2021-06-22] MEDS: Clopidogrel Bisulfate 75 MG Tablet PO (08:36)
[2021-06-22] MEDS: Aspirin E.C. 81 MG Tablet PO (08:36)
[2021-06-22] MEDS: Loratadine 10 MG Tablet PO (12:24)
[2021-06-22] MEDS: Pantoprazole Sodium 40 MG Tablet PO (12:24)
[2021-06-22] MEDS: Fluticasone 0.05% 1 SPRAY NASAL.SRY NASAL (12:25)
[2021-06-22] MEDS: Citalopram 20 MG Tablet PO (12:26)
--- NOTE | 2021-06-22 12:26 | STRESSREP_ITS ---
Stress Test Report Pharmacologic myocardial perfusion stress test. 66-year-old male with a history of chest pain. Stress protocol: Resting EKG demonstrates normal sinus rhythm with a rate of 102 bpm resting blood pressure is 152/84 mmHg. 0.4 mg of regadenoson was infused per usual protocol followed by rapid intravenous saline flush injection continuous EKG m onitoring was performed. The maximum heart rate attained was 139 bpm which is 90% of max infected heart rate the maximum workload was 1 metabolic equivalent. At rest there were no ST or T wave changes noted suggest abnormal flow reserve at peak infusion nonspecific ST changes were noted we did not meet the criteria for ischemia. No clinical angina was noted the test was terminated due to completion of the test. Resting blood pressure is 152/84 with a peak blood pressure 178/94 mmHg. Myocardial perfusion protocol. 0 11.8 mCi of technetium 99m sestamibi was injected at rest. 0.4 mg of rega denoson was infused per usual protocol. At peak infusion 33.7 mCi of technetium 99m sestamibi was injected stress images were obtained stress and rest images were reconstructed and compared in the short axis vertical long horizontal long axis. Gated images were also obtained for Perfusion SPECT analysis: Review of the stress images demonstrate normal uptake of tracer noted in all areas of the myocardium the resting images similarly demonstrate normal uptake of tracer noted in all areas of the myocardium. No areas of reversibility are noted to suggest ischemia and no previous infarct is noted. Gated SPECT analysis: The gated ejection fraction is noted to be 66%. Conclusion: Normal pharmacologic myocardial perfusion stress test. Preserved ejection fraction
--- NOTE | 2021-06-22 12:29 | PCM.CONS.C ---
Assessment & Plan Assessment/Plan (1) Chest pain: PLAN: He does have chest discomfort which appears to be atypical. I scheduled him and he underwent a pharmacologic stress test this morning which did not demonstrate any evidence of ischemia. We will therefore continue to manage him with aggressive risk factor modification and medical therapy. I would recommend that we discontinue his diltiazem and place him on Toprol-XL 50 mg a day (2) Nonobstructive atherosclerosis of coronary artery: PLAN: I did review his previous cardiac catheterization and I do agree that we should continue to manage him medically especially in the face of him having a normal stress test. (3) Essential hypertension: PLAN: I would recommend discontinuing the diltiazem and starting him on Toprol-XL 50 mg once a day. Thank you for allowing me to participate in the care of your patient. Please don't hesitate to call if any issues arise. HPI Consult Data Date of Consult: 06/22/21 HPI Narrative HPI Narrative: BRIGIDA BARCENAS, is a 66 M who presents to the emergency room with complaints of chest discomfort. He says that this reminded him of his initial presentation with a myocardial infarction. He denied any dizziness or diaphoresis no near syncope or syncope. There were no EKG changes noted and cardiac enzymes were noted to be normal. He had initially said that he was very tachycardic but it appears that it was a sinus tachycardia. Since being in the hospital he has not had any further chest discomfort. He did undergo cardiac catheterization in November 2019 which demonstrated nonsignificant obstructive disease. [facility] Medical History Anxiety Arthritis Back pain Cardiology follow-up encounter Chronic cough COPD (chronic obstructive pulmonary disease) Cyclic vomiting syndrome Depression Epigastric/atypical chest pain Essential hypertension Former smoker Gastric reflux History of diverticulitis History of heart attack History of IBS History of non-ST elevation myocardial infarction (NSTEMI) (11/11/19) Hyperlipidemia Hypertension Marijuana use Nonobstructive atherosclerosis of coronary artery Normal echocardiogram (~11/12/19) On home oxygen therapy Shortness of breath on exertion Spinal stenosis Stroke/cerebrovascular accident Substance abuse Wears dentures Wears glasses Home Medications albuterol sulfate 2.5 mg INHALATION Q4H PRN PRN 11/01/18 [History Last Taken 06/22/21] aspirin 81 mg PO DAILY@0800 11/01/18 [History Last Taken 06/22/21] cetirizine 10 mg PO DAILY 11/11/19 [History Last Taken 06/21/21] atorvastatin 40 mg PO QHS #90 tab 11/12/19 [Rx Last Taken 06/21/21] diltiazem HCl 120 mg PO DAILY #90 cap 11/12/19 [Rx Last Taken 06/21/21] citalopram 20 mg tablet 20 mg PO DAILY 12/18/20 [History Last Taken 06/21/21] gabapentin 300 mg capsule 300 mg PO BID 12/18/20 [History Last Taken 06/21/21] ipratropium 0.5 mg-albuterol 3 mg (2.5 mg base)/3 mL nebulization soln 3 ml INHALATION Q4H 12/18/20 [History Last Taken 06/22/21] pantoprazole 40 mg PO DAILY #30 tab 01/12/21 [Rx Last Taken 06/21/21] fluticasone propionate [Flonase] 1 spray INTRANASAL DAILY 02/23/21 [History Last Taken 06/21/21] nvmagrurdsk-syzwamucd-aowdxytw [Trelegy Ellipta] 1 inh INHALATION DAILY 02/23/21 [History Last Taken 06/22/21] ondansetron HCl [Zofran] 4 mg PO Q8H #7 tab 03/04/21 [Rx Last Taken Unknown] ondansetron 4 mg PO Q6H PRN #7 tab 04/24/21 [Rx Last Taken Unknown] Allergy/AdvReac Type Severity Reaction Status Date / Time No Known Allergies Allergy Verified 04/24/21 10:36 Family History Other Heart disease Hypertension Surgical History History of appendectomy History of inguinal hernia repair History of left heart catheterization (11/12/19) History of lumbosacral spine surgery History of surgery on right wrist Social History Smoking Status: Former smoker substance use type: marijuana ROS Constitutional Constitutional: Denies fever(s) or weight loss Eyes Eyes: Reports systems reviewed and no addt'l complaints, except as documented ENT HEENT: Reports systems reviewed and no addt'l complaints, except as documented Cardiovascular Cardiovascular: Reports chest pain at rest and chest pain with activity; Denies dyspnea at rest, dyspnea on exertion, edema, palpitations or paroxysmal nocturnal dyspnea Respiratory/Chest Respiratory/Chest: Denies dyspnea on exertion, productive cough, shortness of breath at rest or shortness of breath with exertion Gastrointestinal Gastrointestinal: Denies change in bowel habits, nausea, vomiting or weight changes Genitourinary Genitourinary: Denies difficulty urinating Musculoskeletal Musculoskeletal: Denies joint stiffness or muscle weakness Integumentary Integumentary: Denies lesions Neurologic Neurologic: Denies dizziness or syncope Psychiatric Psychiatric: Denies anxiety Endocrine Endocrinology: Denies excessive sweating or fatigue Hematologic/Lymphatic Hematologic/Lymphatic: Denies anemia Allergic/Immunologic Allergic/Immunologic: Denies seasonal rhinorrhea Physical Exam Const alert, oriented x3 and no apparent distress General Appearance: cooperative HEENT hearing grossly normal bilaterally Head and Scalp: atraumatic Eyes EOMs intact bilaterally Neck General: normal visual inspection Chest inspection of chest normal and palpation of chest normal Resp normal respiratory effort Auscultation: clear to auscultation bilaterally Cardio regular rate, regular rhythm, S1 normal heart sound and S2 normal heart sound Jugular Venous Distention: JVD GI normal to inspection, nondistended, normoactive bowel sounds Extremity normal capillary refill and no pedal edema Peripheral Pulses: Yes pulses 2+ throughout and femoral pulses present Skin no rashes or lesions noted Neuro oriented x3 and CN's II-XII intact bilaterally Psych Appearance: grossly normal and appropriate Objective Data Vital Signs: Vital Signs Temp Pulse Resp BP Pulse Ox 98.1 F 106 H 16 168/108 H 97 06/22/21 12:18 06/22/21 12:18 06/22/21 12:18 06/22/21 12:18 06/22/21 12:18 Oxygen Flow Rate (L/min) 3 Oxygen Delivery Method Nasal Cannula Weight: 156 lb 15.506 oz Body Mass Index (BMI) 22.5 Lab / Micro Data Result Diagrams: 06/21/21 18:13 06/21/21 18:13 Labs: Laboratory Results - last 24 hr 06/21/21 18:13: WBC 9.1, RBC 5.74, Hgb 16.2, Hct 49.0, MCV 85.4, MCH 28.2, MCHC 33.1, RDW Std Deviation 45.7 H, RDW Coeff of Sue 14.7 H, Plt Count 295, MPV 7.8, Immature Gran % (Auto) 0.400, Neut % (Auto) 63.4, Lymph % (Auto) 13.1 L, [place] % (Auto) 17.9 H, Eos % (Auto) 4.2, Baso % (Auto) 1.0, Absolute Neuts (auto) 5.7, Absolute Lymphs (auto) 1.19, Nucleated RBC % 0, Platelet Estimate ADEQUATE, RBC Morphology NORM C+C 06/21/21 18:13: Sodium 136, Potassium 3.9, Chloride 98, Carbon Dioxide 29.0, Anion Gap 9, BUN 9, Creatinine 1.02, Estim Creat Clear Calc 72.56, Est GFR (MDRD) Af Amer 94, Est GFR (MDRD) Non-Af 77, BUN/Creatinine Ratio 8.8 L, Glucose 104, Calcium 9.9, Troponin I High Sens 34 06/21/21 20:00: Troponin I High Sens 29 06/22/21 00:40: Troponin I High Sens 56 Micro: Microbiology 06/21/21 23:25 Nasal Secretion SARS-CoV-2 Antigen (Rapid) - Final Cardiology Labs/Tests 06/21/21 18:13: WBC 9.1, RBC 5.74, Hgb 16.2, Hct 49.0, MCV 85.4, MCH 28.2, MCHC 33.1, Plt Count 295, MPV 7.8, Immature Gran % (Auto) 0.400, Neut % (Auto) 63.4, Lymph % (Auto) 13.1 L, [place] % (Auto) 17.9 H, Eos % (Auto) 4.2, Baso % (Auto) 1.0, Absolute Neuts (auto) 5.7, Nucleated RBC % 0 06/21/21 18:13: Sodium 136, Potassium 3.9, Chloride 98, Carbon Dioxide 29.0, Anion Gap 9, BUN 9, Creatinine 1.02, Est GFR (MDRD) Af Amer 94, Est GFR (MDRD) Non-Af 77, BUN/Creatinine Ratio 8.8 L, Glucose 104, Calcium 9.9 Rhythm: EKG: ECHO: Stress Test: Cardiac Cath: PCI: CT Surgery: Holter monitor: EPS: PPM: CXR: Chest CT Scan: Radiography Diagnostic Testing: Radiology Impression Chest X-Ray 06/21/21 18:35 IMPRESSION: Pulmonary hyperinflation compatible with chronic obstructive pulmonary disease. There are no acute pulmonary abnormalities. at 1902 Reported and signed by: Prakash Hudson MD Electronically Signed: Prakash Hudson MD at 19:01 EDT Tel , Service support , Chest CTA 06/21/21 22:35 IMPRESSION: 1. No evidence of pulmonary embolus. 2. Spiculated lesion in the right upper lobe. This may represent an area of scar however malignancy cannot be excluded if indicated further evaluation with PET CT scan may be beneficial. There are underlying emphysematous changes in both lungs. Individualized dose optimization techniques were used for this CT. at 2349 Reported and signed by: Prakash Hudson MD Electronically Signed: Prakash Hudson MD at 23:48 EDT Tel , Service support ,
--- NOTE | 2021-06-22 12:54 | DCINST_ITS ---
Discharge Instructions Diet Discharge Diet: Low fat / Low cholesterol Activity Discharge Activity: Return to Normal Activity Dressing / Incision Call your doctor if you observe: Shortness of breath, Dizziness, Swelling in the ankles and Chest pain Follow Up Care Please Follow Up With: Fidencio Montenegro DO When: 1-2 weeks Test Results: Test results from this visit will be discussed in further detail at your follow-up appointment. Discharge Plan Admission Admit Date/Time: 06/21/21 21:38 Primary Reason for Your Visit: Chest Pain Attending Provider: Chris Kerns Primary Care Provider: Jordan Rosales Consulting Providers: Viktor Gomez Discharge Orders/Prescriptions Prescriptions: New metoprolol succinate 50 mg Tablet Extended Release 24 Hr 50 mg PO DAILY 30 Days Qty: 30 RF: 0 Continued citalopram 20 mg tablet 20 mg PO DAILY RF: 0 gabapentin 300 mg capsule 300 mg PO BID RF: 0 albuterol sulfate 2.5 MG/3 ML solution for nebulization 2.5 mg INHALATION Q4H PRN PRN (Reason: Shortness Of Breath) RF: 0 aspirin 81 MG tablet,chewable 81 mg PO DAILY@0800 RF: 0 cetirizine 10 MG tablet 10 mg PO DAILY RF: 0 atorvastatin 40 MG tablet 40 mg PO QHS Qty: 90 RF: 0 ipratropium-albuterol 0.5 mg-3 mg(2.5 mg base)/3 mL solution for nebulization 3 ml INHALATION Q4H RF: 0 Trelegy Ellipta 200-62.5-25 mcg blister with device 1 inh INHALATION DAILY RF: 0 fluticasone propionate 50 mcg/actuation [place],Suspension 1 spray INTRANASAL DAILY RF: 0 pantoprazole 40 mg tablet,delayed release (DR/EC) 40 mg PO DAILY Qty: 30 RF: 3 ondansetron HCl [Zofran] 4 mg tablet 4 mg PO Q8H Qty: 7 RF: 0 ondansetron 4 mg tablet,disintegrating 4 mg PO Q6H PRN (Reason: nausea and vomiting) Qty: 7 RF: 0 Discontinued diltiazem HCl 120 MG capsule 120 mg PO DAILY Qty: 90 RF: 0 Referrals / Follow Up: Fidencio Montenegro DO [STAFF PHYSICIAN] - In 1 Week Jordan Rosales MD [Primary Care Provider] - Disposition Disposition (needs filled in before D/C Order can be placed): Home, Self Care
--- NOTE | 2021-06-22 13:06 | DS.PCM_ITS ---
Documented by User: ANAYELI Young 06/22/21 13:12 Providers Date of Admission: 06/21/21 Primary Care Physician: Dr. Jordan Rosales MD Consultations 06/22/21 00:08 Consult: Cardiology Routine Consulting Provider: Viktor Gomez Reason for Consult: Unstable angina EMERGENT Consult: No MD Notified: Yes Date Notified: 06/21/21 Time Notified: 22:23 Method of Notification: Verbal Comments:: ED MD discussed case with accounting supervisor Reason For Visit: CHEST PAIN Diagnosis Discharge Diagnosis (1) Chest pain: Status: Acute Code(s): R07.9 - Chest pain, unspecified (2) Nonobstructive atherosclerosis of coronary artery: Status: Chronic Code(s): I25.10 - Atherosclerotic heart disease of [place] coronary artery without angina pectoris (3) Essential hypertension: Status: Chronic Code(s): I10 - Essential (primary) hypertension Medications at Discharge Home Medications albuterol sulfate 2.5 mg INHALATION Q4H PRN PRN 11/01/18 aspirin 81 mg PO DAILY@0800 11/01/18 cetirizine 10 mg PO DAILY 11/11/19 atorvastatin 40 mg PO QHS #90 tab 11/12/19 citalopram 20 mg tablet 20 mg PO DAILY 12/18/20 gabapentin 300 mg capsule 300 mg PO BID 12/18/20 ipratropium 0.5 mg-albuterol 3 mg (2.5 mg base)/3 mL nebulization soln 3 ml INHALATION Q4H 12/18/20 pantoprazole 40 mg PO DAILY #30 tab 01/12/21 Trelegy Ellipta 1 inh INHALATION DAILY 02/23/21 fluticasone propionate 1 spray INTRANASAL DAILY 02/23/21 ondansetron HCl [Zofran] 4 mg PO Q8H #7 tab 03/04/21 ondansetron 4 mg PO Q6H PRN #7 tab 04/24/21 metoprolol succinate 50 mg PO DAILY 30 Days #30 tab 06/22/21 Hospital Course Operations None Procedures EKG and Stress test Summary of Care Provided Minutes Spent on Discharge: 35 Hospital Course: Patient is a 66-year-old male who presented to the ER on 06/21/2021 with atypical chest pain and increased shortness of breath. Patient states that he wears 3 L nasal cannula oxygen at home at night and as needed however he has needed increasingly during the day. Patient was evaluated by cardiology and underwent a stress test which was negative, however chest CTA shows a new spiculated lesion in the right upper lobe. Discussed case with Dr. Montenegro who recommended the patient follow-up outpatient with him in the office at which time patient will be scheduled for a CT-guided biopsy. Patient will continue to use 3 L nasal cannula at night and as needed. Per cardiology recommendation patient Cardizem will be discontinued and patient will be sent home on Toprol 50 extended release daily. Physical Exam Const alert, oriented x3 and no apparent distress General Appearance: cooperative HEENT normocephalic and head/scalp atraumatic Eyes conjunctivae normal and no scleral icterus Neck supple General: trachea midline Resp normal respiratory effort and normal air movement Auscultation: diminished lung sounds Cardio regular rate, regular rhythm, S1 normal heart sound, S2 normal heart sound and peripheral pulses 2+ throughout Rate: tachycardic GI normal to inspection, nondistended, normoactive bowel sounds, soft to palpation and non-tender Extremity no clubbing, cyanosis or edema General Extremity: no tenderness to palpation of joints or extremities Skin skin turgor normal General Skin Exam: no breakdown Lesions: no lesions Rashes: no rashes Neuro no focal motor deficits and no sensory deficits noted Speech: speech normal Motor Exam: Negative for general weakness Psych affect normal Appearance: appropriate Weight / BMI Weight Weight: 156 lb 15.506 oz Body Mass Index (BMI) 22.5 ABG / Lab / Microbiology Data Result Diagrams: 06/21/21 18:13 06/21/21 18:13 Laboratory: Laboratory Results - last 24 hr 06/21/21 18:13: WBC 9.1, RBC 5.74, Hgb 16.2, Hct 49.0, MCV 85.4, MCH 28.2, MCHC 33.1, RDW Std Deviation 45.7 H, RDW Coeff of Sue 14.7 H, Plt Count 295, MPV 7.8, Immature Gran % (Auto) 0.400, Neut % (Auto) 63.4, Lymph % (Auto) 13.1 L, Addison % (Auto) 17.9 H, Eos % (Auto) 4.2, Baso % (Auto) 1.0, Absolute Neuts (auto) 5.7, Absolute Lymphs (auto) 1.19, Nucleated RBC % 0, Platelet Estimate ADEQUATE, RBC Morphology NORM C+C 06/21/21 18:13: Sodium 136, Potassium 3.9, Chloride 98, Carbon Dioxide 29.0, Anion Gap 9, BUN 9, Creatinine 1.02, Estim Creat Clear Calc 72.56, Est GFR (MDRD) Af Amer 94, Est GFR (MDRD) Non-Af 77, BUN/Creatinine Ratio 8.8 L, Glucose 104, Calcium 9.9, Troponin I High Sens 34 06/21/21 20:00: Troponin I High Sens 29 06/22/21 00:40: Troponin I High Sens 56 Microbiology: Microbiology 06/21/21 23:25 Nasal Secretion SARS-CoV-2 Antigen (Rapid) - Final Radiography Diagnostic Testing: Radiology Impression Chest X-Ray 06/21/21 18:35 IMPRESSION: Pulmonary hyperinflation compatible with chronic obstructive pulmonary disease. There are no acute pulmonary abnormalities. at 1902 Reported and signed by: Prakash Hudson MD Electronically Signed: Prakash Hudson MD at 19:01 EDT Tel , Service support , Chest CTA 06/21/21 22:35 IMPRESSION: 1. No evidence of pulmonary embolus. 2. Spiculated lesion in the right upper lobe. This may represent an area of scar however malignancy cannot be excluded if indicated further evaluation with PET CT scan may be beneficial. There are underlying emphysematous changes in both lungs. Individualized dose optimization techniques were used for this CT. at [id number] Reported and signed by: Prakash Hudson MD Electronically Signed: Prakash Hudson MD at 23:48 EDT Tel , Service support , D/C Instructions Discharge Diet: Low fat / Low cholesterol Call your doctor if you observe: Shortness of breath, Dizziness, Swelling in the ankles and Chest pain Please Follow Up With: Fidencio Montenegro DO When: 1-2 weeks Meaningful Use Info Meaningful Use Diagnoses (Choose all that apply): None applicable Discharge Plan Admission Admit Date/Time: 06/21/21 21:38 Primary Reason for Your Visit: Chest Pain Attending Provider: Chris Kerns Primary Care Provider: Jordan Rosales Consulting Providers: Viktor Gomez Discharge Orders/Prescriptions Prescriptions: New metoprolol succinate 50 mg Tablet Extended Release 24 Hr 50 mg PO DAILY 30 Days Qty: 30 RF: 0 Continued citalopram 20 mg tablet 20 mg PO DAILY RF: 0 gabapentin 300 mg capsule 300 mg PO BID RF: 0 albuterol sulfate 2.5 MG/3 ML solution for nebulization 2.5 mg INHALATION Q4H PRN PRN (Reason: Shortness Of Breath) RF: 0 aspirin 81 MG tablet,chewable 81 mg PO DAILY@0800 RF: 0 cetirizine 10 MG tablet 10 mg PO DAILY RF: 0 atorvastatin 40 MG tablet 40 mg PO QHS Qty: 90 RF: 0 ipratropium-albuterol 0.5 mg-3 mg(2.5 mg base)/3 mL solution for nebulization 3 ml INHALATION Q4H RF: 0 Trelegy Ellipta 200-62.5-25 mcg blister with device 1 inh INHALATION DAILY RF: 0 fluticasone propionate 50 mcg/actuation [place],Suspension 1 spray INTRANASAL DAILY RF: 0 pantoprazole 40 mg tablet,delayed release (DR/EC) 40 mg PO DAILY Qty: 30 RF: 3 ondansetron HCl [Zofran] 4 mg tablet 4 mg PO Q8H Qty: 7 RF: 0 ondansetron 4 mg tablet,disintegrating 4 mg PO Q6H PRN (Reason: nausea and vomiting) Qty: 7 RF: 0 Discontinued diltiazem HCl 120 MG capsule 120 mg PO DAILY Qty: 90 RF: 0 Referrals / Follow Up: Fidencio Montenegro DO [STAFF PHYSICIAN] - In 1 Week Jordan Rosales MD [Primary Care Provider] - Within 2 Weeks Disposition Disposition (needs filled in before D/C Order can be placed): Home, Self Care Documented by User: Dr. Chris Kerns MD 06/22/21 14:34 Providers Date of Admission: 06/21/21 Reason For Visit: CHEST PAIN Medications at Discharge Home Medications albuterol sulfate 2.5 mg INHALATION Q4H PRN PRN 11/01/18 aspirin 81 mg PO DAILY@0800 11/01/18 cetirizine 10 mg PO DAILY 11/11/19 atorvastatin 40 mg PO QHS #90 tab 11/12/19 citalopram 20 mg tablet 20 mg PO DAILY 12/18/20 gabapentin 300 mg capsule 300 mg PO BID 12/18/20 ipratropium 0.5 mg-albuterol 3 mg (2.5 mg base)/3 mL nebulization soln 3 ml INHALATION Q4H 12/18/20 pantoprazole 40 mg PO DAILY #30 tab 01/12/21 Trelegy Ellipta 1 inh INHALATION DAILY 02/23/21 fluticasone propionate 1 spray INTRANASAL DAILY 02/23/21 ondansetron HCl [Zofran] 4 mg PO Q8H #7 tab 03/04/21 ondansetron 4 mg PO Q6H PRN #7 tab 04/24/21 metoprolol succinate 50 mg PO DAILY 30 Days #30 tab 06/22/21 Hospital Course Operations None Summary of Care Provided Minutes Spent on Discharge: 35 Hospital Course: This patient was seen in conjunction with Smitha Nair NP-C . I have independently interviewed and examined the patient and reviewed pertinent historical, laboratory, and other data. Please refer to Smitha Nair NP-Cnote for details of this patient's presentation, findings, and recommendations. I have reviewed Smitha GIORDANOC note and concur with documented findings. In brief, patient is a 66-year-old male who presented with chest pain and shortness of breath. Underwent a nuclear stress test which was negative for stress-induced ischemia. CT of the chest obtained demonstrated a new spiculated lesion in the right upper lobe. Plan is for patient to follow-up with fiorella mckeon as outpatient Hospital course: As documented above ABG / Lab / Microbiology Data Result Diagrams: 06/21/21 18:13 06/21/21 18:13 Discharge Plan Admission Admit Date/Time: 06/21/21 21:38 Primary Reason for Your Visit: Chest Pain Attending Provider: Chris Kerns Primary Care Provider: Jordan Rosales Consulting Providers: Viktor Gomez Discharge Orders/Prescriptions Prescriptions: New metoprolol succinate 50 mg Tablet Extended Release 24 Hr 50 mg PO DAILY 30 Days Qty: 30 RF: 0 Continued citalopram 20 mg tablet 20 mg PO DAILY RF: 0 gabapentin 300 mg capsule 300 mg PO BID RF: 0 albuterol sulfate 2.5 MG/3 ML solution for nebulization 2.5 mg INHALATION Q4H PRN PRN (Reason: Shortness Of Breath) RF: 0 aspirin 81 MG tablet,chewable 81 mg PO DAILY@0800 RF: 0 cetirizine 10 MG tablet 10 mg PO DAILY RF: 0 atorvastatin 40 MG tablet 40 mg PO QHS Qty: 90 RF: 0 ipratropium-albuterol 0.5 mg-3 mg(2.5 mg base)/3 mL solution for nebulization 3 ml INHALATION Q4H RF: 0 Trelegy Ellipta 200-62.5-25 mcg blister with device 1 inh INHALATION DAILY RF: 0 fluticasone propionate 50 mcg/actuation [place],Suspension 1 spray INTRANASAL DAILY RF: 0 pantoprazole 40 mg tablet,delayed release (DR/EC) 40 mg PO DAILY Qty: 30 RF: 3 ondansetron HCl [Zofran] 4 mg tablet 4 mg PO Q8H Qty: 7 RF: 0 ondansetron 4 mg tablet,disintegrating 4 mg PO Q6H PRN (Reason: nausea and vomiting) Qty: 7 RF: 0 Discontinued diltiazem HCl 120 MG capsule 120 mg PO DAILY Qty: 90 RF: 0 Referrals / Follow Up: Fidencio Montenegro DO [STAFF PHYSICIAN] - In 1 Week Jordan Rosales MD [Primary Care Provider] - Within 2 Weeks Disposition Disposition (needs filled in before D/C Order can be placed): Home, Self Care Charges/Coding Visit Charges OBSV E&M: 33893 Observation care discharge Hospital Course Imaging Results Imaging Results: 06/22/21 08:07 Nuclear Stress Test - Chemical [NM] Routine Consultations Consultations: Consultations 06/22/21 00:08 Consult: Cardiology Routine Consulting Provider: Viktor Gomez Reason for Consult: Unstable angina EMERGENT Consult: No MD Notified: Yes Date Notified: 06/21/21 Time Notified: 22:23 Method of Notification: Verbal Comments:: ED MD discussed case with accounting supervisor Operations None
--- NOTE | 2021-06-22 14:35 | NURSING ---
This RN reviewed SN charting
== END 2021-06-22 13:03 | disposition home or self-care (01) ==
LOC: ED 21:37 → PCU 21:45
PROVIDERS: Admitting Provider Hospitalist; Emergency Provider Emergency Medicine; PCP Internal Medicine; Visit Provider Internal Medicine
DX: R07.89 Other chest pain (principal); I10 Essential (primary) hypertension; I25.10 Atherosclerotic heart disease of native coronary artery without angina pectoris; R06.02 Shortness of breath; I25.2 Old myocardial infarction; F41.9 Anxiety disorder, unspecified; M19.90 Unspecified osteoarthritis, unspecified site; J44.9 Chronic obstructive pulmonary disease, unspecified; K21.9 Gastro-esophageal reflux disease without esophagitis; E78.5 Hyperlipidemia, unspecified; R00.0 Tachycardia, unspecified; G89.29 Other chronic pain; F32.A Depression, unspecified; Z99.81 Dependence on supplemental oxygen; Z87.891 Personal history of nicotine dependence; Z79.899 Other long term (current) drug therapy; Z79.82 Long term (current) use of aspirin; Z79.51 Long term (current) use of inhaled steroids
CPT/HCPCS: 36415; 71045; 71275; 78452; 80048; 84484; 85025; 87426; 93005; 93017; 94640; 96372; 96374; 96375; 96376; 99218; 99285; A9500; J7030; Q9967; A4216; G0378; J0153; J2405; J2785

== ENCOUNTER 2021-06-27 10:00 | Inpatient (IN) | payer MEDICARE, SELFPAY ==
[2021-06-27] VITALS (17 sets, daily range): BP systolic 131–178; BP diastolic 83–93; PULSE 88–113; RESP 13–23; TEMP 36.7–37.1; O2SAT 90–96; BMI 21.7
--- NOTE | 2021-06-27 10:16 | RAD_ITS ---
STUDY: X-RAY CHEST REASON FOR EXAM: Male, 66 years old. Dyspnea TECHNIQUE: 2 frontal views of the chest COMPARISON: 06/21/2021 FINDINGS: Heterogeneous opacities in the right lung. Focal nodule in the left midlung may represent a nipple shadow. Normal size heart. Normal mediastinum and jonathan. Normal visualized pulmonary arteries. There is atherosclerotic calcification of the aortic arch with tortuosity. Normal visualized thoracic spine. Normal visualized ribs, clavicles, and shoulders. There is no demonstrated abnormality of the visualized soft tissue structures of the upper abdomen. RAD/Chest 1 View (Portable) IMPRESSION: Heterogeneous opacities in the right lung. Focal nodule in the left midlung may represent a nipple shadow. Findings are nonspecific and may represent pneumonia. Consider repeat imaging with nipple markers and/or chest CT as clinically indicated. Electronically Signed: Daron Guillen MD at 11:15 EDT Tel , Service support ,
--- NOTE | 2021-06-27 10:16 | EKG12_ITS ---
Test Reason : Blood Pressure : / mmHG Vent. Rate : 099 BPM Atrial Rate : 099 BPM P-R Int : 140 ms QRS Dur : 100 ms QT Int : 336 ms P-R-T Axes : 084 078 009 degrees QTc Int : 431 ms Normal sinus rhythm Right atrial enlargement T wave abnormality, consider inferior ischemia Abnormal ECG Confirmed by YAQUELIN RIVERA, BRANDI ([id number]), makeup editor AYAN GUADALUPE ([id number]) on 06/30/2021 8:48:56 AM Referred By: RAFFY Confirmed By:BRANDI JAMISON MD
--- NOTE | 2021-06-27 10:18 | EDS_ITS ---
HPI History of Present Illness Chief Complaint: Shortness of Breath Informant: patient and family Narrative Narrative: 66-year-old male presents the emergency department shortness of breath. Patient states that he was admitted to the hospital this past Tuesday and stayed overnight. He states that he was discharged home. He typically wears 3 L of nasal cannula at night but has been wearing his oxygen 24 hours a day now. He states that he has nasal congestion but does not have enough air to blow his nose. He states that he has not had any fevers but does note that his sputum production when he is able to cough something up is changed to thick yellow. As part of his work-up in the hospital was found to have a new spiculated lesion in the lungs and is to undergo outpatient CT biopsy. [facility] Medical History Anxiety Arthritis Back pain Cardiology follow-up encounter Chronic cough COPD (chronic obstructive pulmonary disease) Cyclic vomiting syndrome Depression Epigastric/atypical chest pain Essential hypertension Former smoker Gastric reflux History of diverticulitis History of heart attack History of IBS History of non-ST elevation myocardial infarction (NSTEMI) (11/11/19) Hyperlipidemia Hypertension Marijuana use Nonobstructive atherosclerosis of coronary artery Normal echocardiogram (~11/12/19) On home oxygen therapy Shortness of breath on exertion Spinal stenosis Stroke/cerebrovascular accident Substance abuse Wears dentures Wears glasses Home Medications albuterol sulfate 2.5 mg INHALATION Q4H PRN PRN 11/01/18 [History Last Taken 06/22/21] aspirin 81 mg PO DAILY@0800 11/01/18 [History Last Taken 06/22/21] cetirizine 10 mg PO DAILY 11/11/19 [History Last Taken 06/21/21] atorvastatin 40 mg PO QHS #90 tab 11/12/19 [Rx Last Taken 06/21/21] citalopram 20 mg tablet 20 mg PO DAILY 12/18/20 [History Last Taken 06/21/21] gabapentin 300 mg capsule 300 mg PO BID 12/18/20 [History Last Taken 06/21/21] ipratropium 0.5 mg-albuterol 3 mg (2.5 mg base)/3 mL nebulization soln 3 ml INHALATION Q4H 12/18/20 [History Last Taken 06/22/21] pantoprazole 40 mg PO DAILY #30 tab 01/12/21 [Rx Last Taken 06/21/21] Trelegy Ellipta 1 inh INHALATION DAILY 02/23/21 [History Last Taken 06/22/21] fluticasone propionate 1 spray INTRANASAL DAILY 02/23/21 [History Last Taken 06/21/21] ondansetron HCl [Zofran] 4 mg PO Q8H #7 tab 03/04/21 [Rx Last Taken Unknown] ondansetron 4 mg PO Q6H PRN #7 tab 04/24/21 [Rx Last Taken Unknown] metoprolol succinate 50 mg PO DAILY 30 Days #30 tab 06/22/21 [Rx Last Taken Unknown] Allergy/AdvReac Type Severity Reaction Status Date / Time No Known Allergies Allergy Verified 06/27/21 10:01 Family History Other Heart disease Hypertension Surgical History History of appendectomy History of inguinal hernia repair History of left heart catheterization (11/12/19) History of lumbosacral spine surgery History of surgery on right wrist Social History Smoking Status: Former smoker substance use type: marijuana ROS ROS ED Constitutional Constitutional ED: Denies chills or weight loss Eyes Eyes: Denies change in vision or diplopia ENT ENT ED: Reports rhinorrhea; Denies ear pain or sore throat Cardiovascular Cardiovascular: Denies chest pain, orthopnea, palpitations or racing heartbeat Respiratory/Chest Respiratory/Chest: Reports cough, dyspnea, dyspnea on exertion and sputum; Denies orthopnea Gastrointestinal Gastrointestinal: Denies abdominal pain, diarrhea, nausea or vomiting Genitourinary Genitourinary ED: Denies dysuria, hematuria or urinary frequency Musculoskeletal Musculoskeletal: Denies arthralgias or myalgias Integumentary Denies abscess or rash Neurologic Neurologic: Denies headache(s) or weakness Psychiatric Psychiatric: Denies anxiety, depression, suicidal ideation or suicidal thoughts Endocrine Endocrinology: Denies polydipsia, polyphagia or polyuria Allergic/Immunologic Allergic/Immunologic ED: Denies mouth swelling, tongue swelling or urticaria EXAM Physical Exam Narrative Exam Narrative: Patient appears tachypneic and uncomfortable at rest. Const Vital Signs: 06/27/21 10:02 06/27/21 10:05 06/27/21 10:41 Temperature 98.7 F 98.7 F Temperature Source Temporal Temporal Pulse Rate 113 H 113 H Respiratory Rate 22 H 22 H Respiratory Effort Respiratory Pattern Blood Pressure 178/92 H 178/92 H Blood Pressure Mean 120 120 Pulse Ox 90 93 93 Oxygen Delivery Method Nasal Cannula Nasal Cannula Nasal Cannula Oxygen Flow Rate (L/min) 3 3 3 06/27/21 10:42 06/27/21 10:47 06/27/21 11:28 Temperature 98.8 F Temperature Source Temporal Pulse Rate 88 104 H Respiratory Rate 20 H 13 Respiratory Effort Short of Breath Respiratory Pattern Tachypnea Normal Blood Pressure 131/93 H Blood Pressure Mean 105 Pulse Ox 94 Oxygen Delivery Method Nasal Cannula Oxygen Flow Rate (L/min) 3 06/27/21 12:01 Temperature 98.8 F Temperature Source Temporal Pulse Rate 100 Respiratory Rate 19 H Respiratory Effort Respiratory Pattern Blood Pressure 131/93 H Blood Pressure Mean 105 Pulse Ox 93 Oxygen Delivery Method Nasal Cannula Oxygen Flow Rate (L/min) 3 Positive well nourished and well developed General Appearance ED: well developed HEENT Reports normocephalic, head/scalp atraumatic and moist mucous membranes Eyes PERRL and EOMs intact bilaterally Neck no lymphadenopathy, supple and no JVD Resp Resp Narrative: Patient is noticeably dyspneic at rest. Diminished lung sounds bilaterally with expiratory wheezes Cardio regular rate, regular rhythm and no murmurs GI normal to inspection, nondistended, normoactive bowel sounds and non-tender Palpation: soft Back/Spine no CVA tenderness and normal ROM Extremity normal to inspection General Extremety ED: Negative for edema General Extremity: Negative for edema Neuro oriented x3 and CN's II-XII intact bilaterally Sensorium / Orientation: alert Motor Exam: strength 5/5 throughout Psych mental status grossly normal Mood & Affect: Negative for depressed or tearful Skin no rashes or lesions noted and no wounds MDM MDM MDM Narrative Medical decision making narrative: White blood count at 11.4. D-dimer unfortunately elevated at 0.54. CTA of the chest does not demonstrate any pulmonary embolism. Noted spiculated lesion which is known to the patient. CO2 35 glucose 131. Normal gap. Covid negative. Interpretation of the chest x-ray is no acute process. Patient received Solu-Medrol and breathing treatments. Due to the white count of 11.4 and the change in sputum azithromycin was added. Repeat examination patient states he is a little bit better. He is still noticeably dyspneic. He is obviously barrel chested. Patient is saturating 94% on 4 L. I believe the patient would benefit from inpatient care. Lab Data Attestation: I reviewed the patient's lab results. Labs: Laboratory Results - last 24 hr 06/27/21 06/27/21 06/27/21 10:30 10:30 10:30 WBC 11.4 H RBC 5.33 Hgb 15.2 Hct 45.3 MCV 85.0 MCH 28.5 MCHC 33.6 RDW Std Deviation 43.5 RDW Coeff of Sue 14.0 Plt Count 346 MPV 8.6 Immature Gran % (Auto) 0.400 Neut % (Auto) 80.7 H Lymph % (Auto) 9.7 L Edwards % (Auto) 7.8 Eos % (Auto) 0.9 Baso % (Auto) 0.5 Absolute Neuts (auto) 9.2 H Absolute Lymphs (auto) 1.10 Nucleated RBC % 0 D-Dimer Quant (PE/DVT) 0.54 H* Sodium 136 Potassium 3.9 Chloride 95 L Carbon Dioxide 35.0 H Anion Gap 6 BUN 17 Creatinine 0.92 Estim Creat Clear Calc 75.83 Est GFR (MDRD) Af Amer 105 Est GFR (MDRD) Non-Af 87 BUN/Creatinine Ratio 18.4 Glucose 131 H Lactic Acid Calcium 9.2 Total Bilirubin 0.60 AST 9 L ALT 18 Alkaline Phosphatase 105 Troponin I High Sens 9 B-Natriuretic Peptide Total Protein 7.8 Albumin 3.7 Globulin 4.1 Albumin/Globulin Ratio 0.9 06/27/21 06/27/21 10:30 10:30 WBC RBC Hgb Hct MCV MCH MCHC RDW Std Deviation RDW Coeff of Sue Plt Count MPV Immature Gran % (Auto) Neut % (Auto) Lymph % (Auto) Edwards % (Auto) Eos % (Auto) Baso % (Auto) Absolute Neuts (auto) Absolute Lymphs (auto) Nucleated RBC % D-Dimer Quant (PE/DVT) Sodium Potassium Chloride Carbon Dioxide Anion Gap BUN Creatinine Estim Creat Clear Calc Est GFR (MDRD) Af Amer Est GFR (MDRD) Non-Af BUN/Creatinine Ratio Glucose Lactic Acid 1.4 Calcium Total Bilirubin AST ALT Alkaline Phosphatase Troponin I High Sens B-Natriuretic Peptide 19.3 Total Protein Albumin Globulin Albumin/Globulin Ratio Radiography Diagnostic Testing: Clinical Impression(s) from Imaging Studies Chest X-Ray 06/27/21 10:16 IMPRESSION: Heterogeneous opacities in the right lung. Focal nodule in the left midlung may represent a nipple shadow. Findings are nonspecific and may represent pneumonia. Consider repeat imaging with nipple markers and/or chest CT as clinically indicated. Electronically Signed: Daron Guillen MD at 11:15 EDT Tel , Service support , Chest CTA 06/27/21 11:03 IMPRESSION: No demonstrated pulmonary embolism or arterial dissection. Similar reidentified emphysematous changes with a focal spiculated mass in the right upper lobe for which tissue sampling and/or PET/CT is advised. Electronically Signed: Daron Guillen MD at 12:15 EDT Tel , Service support , EKG Initial EKG: Attestation: I personally reviewed and interpreted this EKG as follows: Comments: Normal sinus rhythm with a ventricular rate of 99 bpm. Right atrial enlargement. Discharge Plan Dx/Rx/DC Orders Clinical Impression: Acute exacerbation of chronic obstructive pulmonary disease Disposition Disposition: Acute Care Hospital [facility]
[2021-06-27] MEDS: MethylPREDNISolone 125 MG/2 ML Vial IV (10:37)
[2021-06-27 10:41] LABS: Absolute Neutrophil Count 9.2 X10^3/uL (2.0-7.7); Basophil# 0.06 X10^3/uL; Basophil% 0.5 % (0-1); Eosinophils% 0.9 % (0-5); Hematocrit 45.3 % (40-54); Hemoglobin 15.2 g/dL (13.0-16.5); Lymphocyte % 9.7 % (19-41); Mean Corp Hgb Conc 33.6 g/dL (32-36); Mean Corpuscular Hgb 28.5 pg (27.0-32.0); Mean Platelet Vol. 8.6 fl (6.2-12.0); Monocyte# 0.89 X10^3/uL; Monocyte% 7.8 % (0-10); NRBC Flagged by Analyzer 0 % (0-5); Neutrophil # 9.19 X10^3/uL (2.7-7.7); Neutrophil % 80.7 % (47-70); Platelet Count 346 K/mm3 (150-450); RBC Distribution Width SD 43.5 fl (35.1-43.9); Red Blood Count 5.33 M/mm3 (4.6-6.2); White Blood Count 11.4 K/mm3 (4.4-11.0)
[2021-06-27] MEDS: Ipratropium/Albuterol Sulfate 3 ML AMPUL.NEB INHALATION ×4 (10:47→22:08)
[2021-06-27] MEDS: Albuterol 2.5 MG/3 ML VIAL.NEB. INHALATION ×4 (10:47→20:00)
[2021-06-27 10:55] LABS: D-Dimer Quantitative (DVT/PE) 0.54 FEU/ug/m (0.27-0.49)
[2021-06-27 10:56] LABS: BNP,B-Type NATRIURETIC PEPTIDE 19.3 pg/mL (0-100)
[2021-06-27 10:59] LABS: ALB/GLOB Ratio 0.9 RATIO (0.9-2.4); AST(SGOT) 9 U/L (15-37); Alanine Aminotransfer ALT/SGPT 18 U/L (16-61); Albumin, Serum 3.7 g/dL (3.2-5.0); Alkaline Phosphatase 105 U/L (45-117); Anion Gap 6 (5-15); BUN 17 mg/dL (7-18); BUN/Creat Ratio 18.4 RATIO (10-20); Calcium,Total 9.2 mg/dL (8.5-10.1); Chloride 95 mmol/L (98-107); Creatinine, Serum 0.92 mg/dL (0.70-1.30); EST Glomerular Filtration Rate 87 mL/min (>60); Est Glom Filt Rate - Afr Amer 105 mL/min (>60); Estimated Creatinine Clearance 75.83 ml/min; Globulin 4.1 g/dL (2.2-4.2); Glucose 131 mg/dL (74-106); Potassium 3.9 mmol/L (3.5-5.1); Protein, Total 7.8 g/dL (6.4-8.2); Sodium Level 136 mmol/L (136-145); Troponin-I HS 9 pg/mL (3.0-78.0)
--- NOTE | 2021-06-27 11:03 | CT_ITS ---
STUDY: CTA CHEST REASON FOR EXAM: Male, 66 years old. Pulmonary embolism elevated d-dimer RADIATION DOSAGE (If Supplied By Facility): CTDIvol = ( 6.91 ) mGy, DLP = ( 246.51 ) mGycm TECHNIQUE: The examination was performed with the intravenous administration of IV 100mL Isovue-370. Post-processing of the angiographic images was performed, with multiplanar reformation and 3D reconstruction. Individualized dose optimization techniques were used for this CT. COMPARISON: 06/21/2021 FINDINGS: Normal enhancement of the main pulmonary artery and right and left pulmonary arteries. Normal enhancement of the bilateral peripheral pulmonary arteries. There is no demonstrated pulmonary embolism. There is atherosclerotic calcification of the aortic arch with tortuosity. There is no demonstrated aortic dissection. There are calcifications of the coronary arteries. Normal mediastinum. Normal hilar regions. Normal visualized trachea and bronchi. The lungs are well expanded. Diffuse emphysematous disease. Reidentified spiculated lesion in the right upper lobe measures up to 2.7 cm. Normal pleura. Normal chest wall structures. Normal osseous structures. Normal visualized upper abdomen. CT/CTA Chest W/WO Contrast IMPRESSION: No demonstrated pulmonary embolism or arterial dissection. Similar reidentified emphysematous changes with a focal spiculated mass in the right upper lobe for which tissue sampling and/or PET/CT is advised. Electronically Signed: Daron Guillen MD at 12:15 EDT Tel , Service support ,
[2021-06-27 11:10] LABS: Lactic Acid 1.4 mmol/L (0.4-1.9)
--- NOTE | 2021-06-27 12:39 | HP.PCM.HOS_ITS ---
[facility] - General General Date of Admission: 06/27/21 HPI Narrative BRIGIDA BARCENAS, is a 66 M with a PMh as outlined who was admitted via the ED on 06/27/2021 with a complaint of shortness of breath which was worsening. He was seen a week ago for shortness of breath and was discharged the next day. During that admission, he was found to have a spiculated mass in his chest, for which he was supposed to have a biopsy on outpatient basis. Since discharge, he has been getting more short of breath, which is worsening. He has a productive cough, with increased production of yellowish greenish sputum. He denied any fever or chills, chest pain, palpitations, nausea or vomiting. Review of systems was otherwise negative. Vitals in the ED were blood pressure 131/93, pulse rate of 100, respiratory rate of 19 and temperature of 98.8 Fahrenheit with oxygen saturation of 93% on 3L of oxygen, GA of 100, RR of 19 and temp of 98.8F. Chest x-ray showed heterogeneous opacities in the lung with focal nodule in the left midlung which may represent a nipple shadow. CT of the chest showed no evidence of PE or arterial dissection and showed similar reidentified emphysematous changes with a focal spiculated mass in the right upper lobe. He has been admitted to be managed for acute COPD exacerbation. [facility] Medical History Anxiety Arthritis Back pain Cardiology follow-up encounter Chronic cough COPD (chronic obstructive pulmonary disease) Cyclic vomiting syndrome Depression Epigastric/atypical chest pain Essential hypertension Former smoker Gastric reflux History of diverticulitis History of heart attack History of IBS History of non-ST elevation myocardial infarction (NSTEMI) (11/11/19) Hyperlipidemia Hypertension Marijuana use Nonobstructive atherosclerosis of coronary artery Normal echocardiogram (~11/12/19) On home oxygen therapy Shortness of breath on exertion Spinal stenosis Stroke/cerebrovascular accident Substance abuse Wears dentures Wears glasses Home Medications albuterol sulfate 2.5 mg INHALATION Q4H PRN PRN 11/01/18 [History Last Taken 06/22/21] aspirin 81 mg PO DAILY@0800 11/01/18 [History Last Taken 06/22/21] cetirizine 10 mg PO DAILY 11/11/19 [History Last Taken 06/21/21] atorvastatin 40 mg PO QHS #90 tab 11/12/19 [Rx Last Taken 06/21/21] citalopram 20 mg tablet 20 mg PO DAILY 12/18/20 [History Last Taken 06/21/21] gabapentin 300 mg capsule 300 mg PO BID 12/18/20 [History Last Taken 06/21/21] ipratropium 0.5 mg-albuterol 3 mg (2.5 mg base)/3 mL nebulization soln 3 ml INHALATION Q4H 12/18/20 [History Last Taken 06/22/21] pantoprazole 40 mg PO DAILY #30 tab 01/12/21 [Rx Last Taken 06/21/21] Trelegy Ellipta 1 inh INHALATION DAILY 02/23/21 [History Last Taken 06/22/21] fluticasone propionate 1 spray INTRANASAL DAILY 02/23/21 [History Last Taken 06/21/21] ondansetron HCl [Zofran] 4 mg PO Q8H #7 tab 03/04/21 [Rx Last Taken Unknown] ondansetron 4 mg PO Q6H PRN #7 tab 04/24/21 [Rx Last Taken Unknown] metoprolol succinate 50 mg PO DAILY 30 Days #30 tab 06/22/21 [Rx Last Taken Unknown] Allergy/AdvReac Type Severity Reaction Status Date / Time No Known Allergies Allergy Verified 06/27/21 10:01 Family History Other Heart disease Hypertension Surgical History History of appendectomy History of inguinal hernia repair History of left heart catheterization (11/12/19) History of lumbosacral spine surgery History of surgery on right wrist Social History Smoking Status: Former smoker substance use type: marijuana ROS Constitutional Constitutional: Reports fatigue, malaise and weakness; Denies anorexia or fever(s) Eyes Eyes: Denies change in vision ENT HEENT: Denies dysphagia or headache(s) Cardiovascular Cardiovascular: Reports dyspnea on exertion; Denies chest pain, edema, lightheadedness, orthopnea, palpitations, paroxysmal nocturnal dyspnea, rapid heart rate or syncope Respiratory/Chest Respiratory/Chest: Reports cough, dyspnea, excessive phlegm production, productive cough, shortness of breath at rest, shortness of breath with exertion and wheezing; Denies hemoptysis Gastrointestinal Gastrointestinal: Denies abdominal pain, constipation, melena, nausea or vomiting Genitourinary Genitourinary: Denies burning urination or dysuria Musculoskeletal Musculoskeletal: Denies arthralgias, back pain or joint swelling Neurologic Neurologic: Denies confusion, dizziness, focal weakness or numbness Psychiatric Psychiatric: Denies anxiety or depression Endocrine Endocrinology: Reports change in body appearance Vital Signs Vital Signs Vital Signs: 06/27/21 10:02 06/27/21 10:05 06/27/21 10:41 Temperature 98.7 F 98.7 F Temperature Source Temporal Temporal Pulse Rate 113 H 113 H Respiratory Rate 22 H 22 H Respiratory Effort Respiratory Pattern Blood Pressure 178/92 H 178/92 H Blood Pressure Mean 120 120 Pulse Ox 90 93 93 Oxygen Delivery Method Nasal Cannula Nasal Cannula Nasal Cannula Oxygen Flow Rate (L/min) 3 3 3 06/27/21 10:42 06/27/21 10:47 06/27/21 11:28 Temperature 98.8 F Temperature Source Temporal Pulse Rate 88 104 H Respiratory Rate 20 H 13 Respiratory Effort Short of Breath Respiratory Pattern Tachypnea Normal Blood Pressure 131/93 H Blood Pressure Mean 105 Pulse Ox 94 Oxygen Delivery Method Nasal Cannula Oxygen Flow Rate (L/min) 3 06/27/21 12:01 Temperature 98.8 F Temperature Source Temporal Pulse Rate 100 Respiratory Rate 19 H Respiratory Effort Respiratory Pattern Blood Pressure 131/93 H Blood Pressure Mean 105 Pulse Ox 93 Oxygen Delivery Method Nasal Cannula Oxygen Flow Rate (L/min) 3 Weight Weight: 151 lb 11.2 oz Body Mass Index (BMI) 21.7 Physical Exam Const alert and oriented x3 General Appearance: cooperative Orientation / Consciousness: lethargic HEENT normocephalic, head/scalp atraumatic and hearing grossly normal bilaterally HEENT Narrative: dry oral mucosal membranes Eyes PERRL, EOMs intact bilaterally and conjunctivae normal Neck no lymphadenopathy Resp Resp Narrative: tachypneic, hyperinflation of lungs, diminished breath sounds bilaterally, mild wheezing, lung sound very tight. On 3L of oxygen Cardio regular rate, regular rhythm, S1 normal heart sound, S2 normal heart sound and no murmurs GI normal to inspection, nondistended, normoactive bowel sounds, soft to palpation and non-tender Extremity normal to inspection, full ROM and no clubbing, cyanosis or edema Peripheral Pulses: Yes pulses 2+ throughout Skin no rashes or lesions noted Neuro oriented x3, CN's II-XII intact bilaterally and moves all extremities Sensorium / Orientation: awake and alert Psych affect normal Results Lab / Micro Data Result Diagrams: 06/27/21 10:30 06/27/21 10:30 Labs: Laboratory Results - last 24 hr 06/27/21 10:30: WBC 11.4 H, RBC 5.33, Hgb 15.2, Hct 45.3, MCV 85.0, MCH 28.5, MCHC 33.6, RDW Std Deviation 43.5, RDW Coeff of Sue 14.0, Plt Count 346, MPV 8.6, Immature Gran % (Auto) 0.400, Neut % (Auto) 80.7 H, Lymph % (Auto) 9.7 L, [place] % (Auto) 7.8, Eos % (Auto) 0.9, Baso % (Auto) 0.5, Absolute Neuts (auto) 9.2 H, Absolute Lymphs (auto) 1.10, Nucleated RBC % 0 06/27/21 10:30: D-Dimer Quant (PE/DVT) 0.54 H* 06/27/21 10:30: Sodium 136, Potassium 3.9, Chloride 95 L, Carbon Dioxide 35.0 H, Anion Gap 6, BUN 17, Creatinine 0.92, Estim Creat Clear Calc 75.83, Est GFR (MDRD) Af Amer 105, Est GFR (MDRD) Non-Af 87, BUN/Creatinine Ratio 18.4, Glucose 131 H, Calcium 9.2, Total Bilirubin 0.60, AST 9 L, ALT 18, Alkaline Phosphatase 105, Troponin I High Sens 9, Total Protein 7.8, Albumin 3.7, Globulin 4.1, Albumin/Globulin Ratio 0.9 06/27/21 10:30: Lactic Acid 1.4 06/27/21 10:30: B-Natriuretic Peptide 19.3 Micro: Microbiology 06/27/21 10:25 Nasal Secretion SARS-CoV-2 Antigen (Rapid) - Final Radiology Impression Chest X-Ray 06/27/21 10:16 IMPRESSION: Heterogeneous opacities in the right lung. Focal nodule in the left midlung may represent a nipple shadow. Findings are nonspecific and may represent pneumonia. Consider repeat imaging with nipple markers and/or chest CT as clinically indicated. Electronically Signed: Daron Guillen MD at 11:15 EDT Tel , Service support , Chest CTA 06/27/21 11:03 IMPRESSION: No demonstrated pulmonary embolism or arterial dissection. Similar reidentified emphysematous changes with a focal spiculated mass in the right upper lobe for which tissue sampling and/or PET/CT is advised. Electronically Signed: Daron Guillen MD at 12:15 EDT Tel , Service support , Assessment & Plan Assessment/Plan (1) Acute exacerbation of chronic obstructive pulmonary disease: PLAN: #Acute COPD exacerbation * patient was recently admitted a week ago and discharged the next day * has wheezing and lungs feels very tight. * start on IV solumedrol 40mg q8 * IV levofloxacin * breathing treatment with bronchodilators * titrate oxygen to maintain sats >90% * on Trelegy * #Chronic respiratory failure due to COPD * on his baseline 3L of oxygen. * Titrate oxygen to maintain sats >90% * breathing treatment with bronchodilators. * #RIght Lung mass * CT chest from 06/21/2021 showed a spiculated density in the right upper lobe measuring 2.9 x 1.5cm that may represent a scar, but malignancy couldnt be excluded * to follow up with pulmonology on outpatient basis for biopsy. * #Hypertension: on metoprolol. #Hyperlipidemia: on statin #CAD: on aspirin, statin and metoprolol DVT prophylaxis: lovenox Code status: full code * Patient counseled extensively about different types of CODE STATUS including full code, DNR CCA and DNR CCA. Patient wants to be intubated and have CPR if needed. * Total [id number] time 17 minutes. Charges/Coding Visit Charges Inpatient E&M: 68912 Init Hosp L3 Procedures Hospitalists Procedures: 17277 Advncd Care Plan 30 Min
[2021-06-27] MEDS: 0.9% Normal Saline 1,000 ML 125 ML IV ×2 (14:46→21:56)
[2021-06-27 15:06] LABS: Allen Test Positive; Base Excess 8 mmol/L (-2 to +2); Bicarbonate 32.7 mmol/L (22-26); Blood Gas Specimen Type ART; O2 Delivery Device Cannula; PO2 56 mmHG (75-100); SITE R Radial; SO2 87 % (95-99); Total Carbon Dioxide 34 mmol/L; pCO2 55.3 mmHg (35-45); pH 7.38 (7.35-7.45)
--- NOTE | 2021-06-27 15:08 | PCS.PANDOC ---
PANDEMIC DOCUMENTATION INITIATED: Date: 04/20/2021 Time: 190
[2021-06-27] MEDS: Atorvastatin Calcium 40 MG Tablet PO (21:56)
[2021-06-27] MEDS: Gabapentin 300 MG Capsule PO (21:56)
[2021-06-28] VITALS (22 sets, daily range): BP systolic 132–155; BP diastolic 73–90; PULSE 73–104; RESP 18–24; TEMP 36.7–37.1; O2SAT 92–97
[2021-06-28] MEDS: Ipratropium/Albuterol Sulfate 3 ML AMPUL.NEB INHALATION ×6 (02:18→23:15)
[2021-06-28] MEDS: Albuterol 2.5 MG/3 ML VIAL.NEB. INHALATION (03:57)
[2021-06-28] MEDS: 0.9% Saline Lock 10 ML Syringe IV ×3 (05:50→14:27)
[2021-06-28 06:54] LABS: Absolute Lymphocyte Count 1.25 X10^3/uL (0.83-4.51); Absolute Neutrophil Count 15.4 X10^3/uL (2.0-7.7); Basophil# 0.03 X10^3/uL; Basophil% 0.2 % (0-1); Eosinophil# 0.01 X10^3/uL; Eosinophils% 0.1 % (0-5); Hematocrit 39.2 % (40-54); Hemoglobin 12.9 g/dL (13.0-16.5); Lymphocyte # 1.25 X10^3/ul (0.83-4.51); Lymphocyte % 6.9 % (19-41); Mean Corp Hgb Conc 32.9 g/dL (32-36); Mean Corpuscular Hgb 28.2 pg (27.0-32.0); Mean Corpuscular Volume 85.8 fL (80-94); Mean Platelet Vol. 8.8 fl (6.2-12.0); Monocyte# 1.49 X10^3/uL; Monocyte% 8.2 % (0-10); NRBC Flagged by Analyzer 0 % (0-5); Neutrophil # 15.39 X10^3/uL (2.7-7.7); Neutrophil % 84.2 % (47-70); Platelet Count 333 K/mm3 (150-450); RBC Distribution Width SD 44.1 fl (35.1-43.9); Red Blood Count 4.57 M/mm3 (4.6-6.2); White Blood Count 18.2 K/mm3 (4.4-11.0)
[2021-06-28 07:09] LABS: Anion Gap 4 (5-15); BUN 14 mg/dL (7-18); BUN/Creat Ratio 18.1 RATIO (10-20); Calcium,Total 8.7 mg/dL (8.5-10.1); Chloride 100 mmol/L (98-107); Creatinine, Serum 0.77 mg/dL (0.70-1.30); EST Glomerular Filtration Rate 106 mL/min (>60); Est Glom Filt Rate - Afr Amer 129 mL/min (>60); Estimated Creatinine Clearance 69.76 ml/min; Glucose 114 mg/dL (74-106); Sodium Level 137 mmol/L (136-145)
[2021-06-28] MEDS: Budesonide Respules 0.5 MG/2 ML AMPUL.NEB. INHALATION ×2 (07:36→19:22)
[2021-06-28] MEDS: Aspirin 81 MG TAB.CHEW PO (08:18)
[2021-06-28] MEDS: Metoprolol(XL)Succ 50 MG Tablet PO (10:01)
[2021-06-28] MEDS: Pantoprazole Sodium 40 MG Tablet PO (10:01)
[2021-06-28] MEDS: LORazepam 1 MG Tablet PO (10:01)
[2021-06-28] MEDS: Loratadine 10 MG Tablet PO (10:01)
[2021-06-28] MEDS: Gabapentin 300 MG Capsule PO ×2 (10:01→22:03)
[2021-06-28] MEDS: Fluticasone 0.05% 1 SPRAY NASAL.SRY NASAL (10:02)
[2021-06-28] MEDS: levoFLOXacin IV 750 MG/150 ML BAG 100 MG IV (10:15)
[2021-06-28] MEDS: Citalopram 20 MG Tablet PO (10:15)
--- NOTE | 2021-06-28 12:07 | PN.HOSP_ITS ---
Subjective Subjective Patient seen and examined. He does feel better today, but still feels a bit short of breath. He denies chest pain, palpitations, dizziness, nausea or vomiting. Review of systems is otherwise negative. Objective Data Objective Data Vital Signs: Vital Signs Temp Pulse Resp BP Pulse Ox 98.3 F 98 24 H 132/73 H 94 06/28/21 08:19 06/28/21 10:42 06/28/21 10:42 06/28/21 10:01 06/28/21 10:42 Oxygen Flow Rate (L/min) 3 Oxygen Delivery Method Nasal Cannula Weight: 151 lb 10.848 oz Body Mass Index (BMI) 21.7 Intake & Output: Intake and Output for Last 24 Hours 06/26/21 06/27/21 06/28/21 23:59 23:59 23:59 Intake Total 1150.83 / 1150.83 2350 / 2350 Output Total 200 / 200 450 / 450 Balance 950.83 / 950.83 1900 / 1900 Lab / Micro Data Result Diagrams: 06/28/21 06:05 06/28/21 06:05 Labs: Laboratory Results - last 24 hr 06/28/21 06:05: WBC 18.2 H, RBC 4.57 L, Hgb 12.9 L, Hct 39.2 L, MCV 85.8, MCH 28.2, MCHC 32.9, RDW Std Deviation 44.1 H, RDW Coeff of Sue 14.0, Plt Count 333, MPV 8.8, Immature Gran % (Auto) 0.400, Neut % (Auto) 84.2 H, Lymph % (Auto) 6.9 L, [place] % (Auto) 8.2, Eos % (Auto) 0.1, Baso % (Auto) 0.2, Absolute Neuts (auto) 15.4 H, Absolute Lymphs (auto) 1.25, Nucleated RBC % 0 06/28/21 06:05: Sodium 137, Potassium 4.0, Chloride 100, Carbon Dioxide 33.0 H, Anion Gap 4 L, BUN 14, Creatinine 0.77, Estim Creat Clear Calc 69.76, Est GFR (MDRD) Af Amer 129, Est GFR (MDRD) Non-Af 106, BUN/Creatinine Ratio 18.1, Glucose 114 H, Calcium 8.7 Micro: Microbiology 06/27/21 10:40 Mucosa - Nasopharyngeal Respiratory Panel (PCR) - Final 06/27/21 10:25 Nasal Secretion SARS-CoV-2 Antigen (Rapid) - Final ABG Data ABG results: ABG 06/27/21 14:59 Specimen Type ART Sample Site R Radial pH 7.38 Bicarbonate Actual 32.7 H Total CO2 34 Base Excess 8 H O2 Saturation 87 L ABG pCO2 55.3 H ABG pO2 56 L Freddie Test Positive O2 Delivery Device Cannula Liter Flow 3.0 Radiography Diagnostic Testing: Radiology Impression Chest CTA 06/27/21 11:03 IMPRESSION: No demonstrated pulmonary embolism or arterial dissection. Similar reidentified emphysematous changes with a focal spiculated mass in the right upper lobe for which tissue sampling and/or PET/CT is advised. Electronically Signed: Daron Guillen MD at 12:15 EDT Tel , Service support , Physical Exam Const alert, oriented x3 and no apparent distress General Appearance: cooperative Exam Limitations: no limitations HEENT normocephalic, head/scalp atraumatic, hearing grossly normal bilaterally and moist oral mucous membranes Head and Scalp: normocephalic Eyes PERRL, EOMs intact bilaterally and conjunctivae normal Neck no lymphadenopathy Resp Resp Narrative: still has diminished breath sounds bilaterally, mild wheezing, no crackles. On 3L of oxygen by nasal canula Cardio regular rate, regular rhythm, S1 normal heart sound, S2 normal heart sound and no murmurs GI normal to inspection, nondistended, normoactive bowel sounds, soft to palpation and non-tender Extremity normal to inspection, full ROM and no clubbing, cyanosis or edema Peripheral Pulses: Yes pulses 2+ throughout Skin no rashes or lesions noted Neuro oriented x3, CN's II-XII intact bilaterally and moves all extremities Sensorium / Orientation: awake and alert Psych affect normal Assessment & Plan Assessment/Plan (1) Acute exacerbation of chronic obstructive pulmonary disease: PLAN: #Acute COPD exacerbation * feeling better today. * on IV solumedrol and IV levofloxacin * breathing treatment wtih bronchodilators. Titrate oxygen to maintain sats >90% * breathing treatment with bronchodilators. * on Trelegy * #Chronic respiratory failure due to COPD * on his baseline 3L of oxygen. * Titrate oxygen to maintain sats >90% * breathing treatment with bronchodilators. * #RIght Lung mass * CT chest from 06/21/2021 showed a spiculated density in the right upper lobe measuring 2.9 x 1.5cm that may represent a scar, but malignancy couldnt be excluded * to follow up with pulmonology on outpatient basis for biopsy. * #Hypertension: on metoprolol. #Hyperlipidemia: on statin #CAD: on aspirin, statin and metoprolol DVT prophylaxis: lovenox Code status: full code Charges/Coding Visit Charges Inpatient E&M: 98878 Subs Hosp L2
[2021-06-28] MEDS: Atorvastatin Calcium 40 MG Tablet PO (22:03)
[2021-06-29] VITALS (15 sets, daily range): BP systolic 123–141; BP diastolic 70–86; PULSE 64–78; RESP 18–24; TEMP 36.6–37.1; O2SAT 96–98
[2021-06-29] MEDS: Ipratropium/Albuterol Sulfate 3 ML AMPUL.NEB INHALATION ×6 (03:24→23:07)
[2021-06-29] MEDS: 0.9% Saline Lock 10 ML Syringe IV ×2 (05:15→09:17)
[2021-06-29] MEDS: Budesonide Respules 0.5 MG/2 ML AMPUL.NEB. INHALATION (06:55)
[2021-06-29 07:00] LABS: Absolute Lymphocyte Count 1.34 X10^3/uL (0.83-4.51); Absolute Neutrophil Count 14.4 X10^3/uL (2.0-7.7); Basophil# 0.02 X10^3/uL; Basophil% 0.1 % (0-1); Hemoglobin 13.5 g/dL (13.0-16.5); Lymphocyte # 1.34 X10^3/ul (0.83-4.51); Lymphocyte % 7.9 % (19-41); Mean Corp Hgb Conc 32.1 g/dL (32-36); Mean Corpuscular Hgb 28.3 pg (27.0-32.0); Mean Corpuscular Volume 88.1 fL (80-94); Mean Platelet Vol. 8.9 fl (6.2-12.0); Monocyte# 1.04 X10^3/uL; Monocyte% 6.1 % (0-10); NRBC Flagged by Analyzer 0 % (0-5); Neutrophil # 14.43 X10^3/uL (2.7-7.7); Neutrophil % 85.2 % (47-70); Platelet Count 409 K/mm3 (150-450); RBC Distribution Width SD 45.4 fl (35.1-43.9); Red Blood Count 4.77 M/mm3 (4.6-6.2)
[2021-06-29 07:16] LABS: Anion Gap 5 (5-15); BUN 15 mg/dL (7-18); BUN/Creat Ratio 18.8 RATIO (10-20); Chloride 99 mmol/L (98-107); EST Glomerular Filtration Rate 102 mL/min (>60); Est Glom Filt Rate - Afr Amer 124 mL/min (>60); Estimated Creatinine Clearance 87.19 ml/min; Glucose 116 mg/dL (74-106); Potassium 4.2 mmol/L (3.5-5.1); Sodium Level 138 mmol/L (136-145)
[2021-06-29] MEDS: Aspirin 81 MG TAB.CHEW PO (07:22)
[2021-06-29] MEDS: Gabapentin 300 MG Capsule PO ×2 (09:13→21:24)
[2021-06-29] MEDS: Loratadine 10 MG Tablet PO (09:13)
[2021-06-29] MEDS: Pantoprazole Sodium 40 MG Tablet PO (09:14)
[2021-06-29] MEDS: Fluticasone 0.05% 1 SPRAY NASAL.SRY NASAL (09:14)
[2021-06-29] MEDS: Metoprolol(XL)Succ 50 MG Tablet PO (09:14)
[2021-06-29] MEDS: levoFLOXacin IV 750 MG/150 ML BAG 100 MG IV (09:17)
[2021-06-29] MEDS: Citalopram 20 MG Tablet PO (09:17)
--- NOTE | 2021-06-29 12:32 | PN.HOSP_ITS ---
Subjective Subjective Patient seen and examined. He is feeling a bit better today. He feels like he is able to breathe much better. He denies any wheezing, chest pain, palpitations or dizziness, nausea or vomiting. Review of systems otherwise negative. Objective Data Objective Data Vital Signs: Vital Signs Temp Pulse Resp BP Pulse Ox 98.5 F 70 22 H 124/70 H 97 06/29/21 09:05 06/29/21 11:11 06/29/21 11:11 06/29/21 09:05 06/29/21 11:11 Oxygen Flow Rate (L/min) 3 Oxygen Delivery Method Nasal Cannula Weight: 151 lb 10.848 oz Body Mass Index (BMI) 21.7 Intake & Output: Intake and Output for Last 24 Hours 06/27/21 06/28/21 06/29/21 23:59 23:59 23:59 Intake Total 1150.83 / 1150.83 2950 / 2950 450 / 450 Output Total 200 / 200 1250 / 1250 Balance 950.83 / 950.83 1700 / 1700 450 / 450 Lab / Micro Data Result Diagrams: 06/29/21 05:35 06/29/21 05:35 Labs: Laboratory Results - last 24 hr 06/29/21 05:35: WBC 17.0 H, RBC 4.77, Hgb 13.5, Hct 42.0, MCV 88.1, MCH 28.3, MCHC 32.1, RDW Std Deviation 45.4 H, RDW Coeff of Sue 14.0, Plt Count 409, MPV 8.9, Immature Gran % (Auto) 0.700, Neut % (Auto) 85.2 H, Lymph % (Auto) 7.9 L, [place] % (Auto) 6.1, Eos % (Auto) 0.0, Baso % (Auto) 0.1, Absolute Neuts (auto) 14.4 H, Absolute Lymphs (auto) 1.34, Nucleated RBC % 0 06/29/21 05:35: Sodium 138, Potassium 4.2, Chloride 99, Carbon Dioxide 34.0 H, Anion Gap 5, BUN 15, Creatinine 0.80, Estim Creat Clear Calc 87.19, Est GFR (MDRD) Af Amer 124, Est GFR (MDRD) Non-Af 102, BUN/Creatinine Ratio 18.8, Glucose 116 H, Calcium 9.0 Micro: Microbiology 06/27/21 11:05 Blood Culture (Wb) #2 - Left Wrist Blood Culture - Preliminary No growth in 48 hours. 06/27/21 10:30 Blood Culture (Wb) - Anticubital Left Blood Culture - Preliminary No growth in 48 hours. 06/27/21 10:40 Mucosa - Nasopharyngeal Respiratory Panel (PCR) - Final 06/27/21 10:25 Nasal Secretion SARS-CoV-2 Antigen (Rapid) - Final Physical Exam Const alert, oriented x3 and no apparent distress General Appearance: cooperative Exam Limitations: no limitations HEENT normocephalic, head/scalp atraumatic, hearing grossly normal bilaterally and moist oral mucous membranes Head and Scalp: normocephalic Eyes PERRL, EOMs intact bilaterally and conjunctivae normal Neck no lymphadenopathy Resp Resp Narrative: no wheezing, mildly diminished breath sounds bibasally. On 3L of oxygen, which is his baseline. Cardio regular rate, regular rhythm, S1 normal heart sound, S2 normal heart sound and no murmurs GI normal to inspection, nondistended, normoactive bowel sounds, soft to palpation and non-tender Extremity normal to inspection, full ROM and no clubbing, cyanosis or edema Peripheral Pulses: Yes pulses 2+ throughout Skin no rashes or lesions noted Neuro oriented x3, CN's II-XII intact bilaterally and moves all extremities Sensorium / Orientation: awake and alert Psych affect normal Assessment & Plan Assessment/Plan (1) Acute exacerbation of chronic obstructive pulmonary disease: PLAN: #Acute COPD exacerbation * on IV solumedrol and IV levofloxacin * breathing treatment wtih bronchodilators. Titrate oxygen to maintain sats >90% * breathing treatment with bronchodilators. * on Trelegy * feeling much better today, but would appreciate one more day to optimise his breathing * #Chronic respiratory failure due to COPD * on his baseline 3L of oxygen. * Titrate oxygen to maintain sats >90% * breathing treatment with bronchodilators. * #RIght Lung mass * CT chest from 06/21/2021 showed a spiculated density in the right upper lobe measuring 2.9 x 1.5cm that may represent a scar, but malignancy couldnt be excluded * to follow up with pulmonology on outpatient basis for biopsy. * #Hypertension: on metoprolol. #Hyperlipidemia: on statin #CAD: on aspirin, statin and metoprolol DVT prophylaxis: lovenox Code status: full code Disposition: for likely DC tomorrow. Charges/Coding Visit Charges Inpatient E&M: 12385 Subs Hosp L2
--- NOTE | 2021-06-29 15:00 | CASEMGMT ---
RN CM Assessment Introduced role of RN CM to patient. Patient is alert, oriented and able to participate in RN CM Assessment. Care providers, pharmacy, and demographics verified. Admit Dx: Acute COPD Exacerbation Re-Admit: No. Barriers/Issues: Admitted OBS 06/21-06/22/21 for CP (found spiculated mass on chest and supposed to have outpatient biopsy)- Per MD H&P. Patient not aware of having a mass and needing outpatient biopsy during RNCM IA- patient states that his sister had a lumpectomy and getting radiation with [facility]. PCP: Jordan Rosales Specialists: Pulm- Aries, Ortho for Shoulder at [facility], [facility] Preferred Pharmacy: [facility], if [facility] closed then [facility]. Insurance: [facility] Rx Benefit: Yes LNOK: Sister Rosy Kevin LW/HPOA: Both are on file at [facility], HPOA- Ava Barton (Step dtr), Sister - Mya Kevin. Living Arrangements: Lives alone in a [facility], 4 steps to enter home. ADL?s: Independent with ambulation and ADLs. Sister Rosy lives next door and can assist if needed but going through her own medical stuff (see above note). Has a Girlfriend that lives in [facility], a sister that lives in [place] and one sister in [facility]. Transportation: Patient drives DME: Portable O2 tanks-[employer]. Patient owns own Oxygen concentrator x2 that goes up to 5lpm and owns own [employer]. Nebulizer, built in shower seat. HHC: None SNF: None Goal: Home and denies any additional needs, concerns or questions with DC planning or returning home. Aware RNCM will continue to follow should any needs arise. DC PLAN: Home with no anticipated needs identified at this time. FATOU oMrin
--- NOTE | 2021-06-29 17:51 | CASEMGMT ---
Social Work Note Per adult basic studies teacher questions, pt has completed HCPOA and LW and provided documents to [facility]. SW reviewed chart, both HCPOA and LW are on file. Chelsey Mazariegos DERMATOLOGY PHYSICIAN ASSISTANT, JAVASCRIPT PROGRAMMER
[2021-06-29] MEDS: Atorvastatin Calcium 40 MG Tablet PO (21:24)
[2021-06-30] VITALS (9 sets, daily range): BP systolic 124–139; BP diastolic 74–84; PULSE 54–89; RESP 16–20; TEMP 36.7–36.8; O2SAT 95–99
[2021-06-30] MEDS: Ipratropium/Albuterol Sulfate 3 ML AMPUL.NEB INHALATION ×3 (03:43→11:59)
[2021-06-30 05:25] LABS: Absolute Lymphocyte Count 1.36 X10^3/uL (0.83-4.51); Absolute Neutrophil Count 13.4 X10^3/uL (2.0-7.7); Basophil# 0.01 X10^3/uL; Basophil% 0.1 % (0-1); Lymphocyte # 1.36 X10^3/ul (0.83-4.51); Lymphocyte % 8.4 % (19-41); Mean Corp Hgb Conc 33.3 g/dL (32-36); Mean Corpuscular Hgb 28.8 pg (27.0-32.0); Mean Corpuscular Volume 86.3 fL (80-94); Mean Platelet Vol. 8.7 fl (6.2-12.0); Monocyte# 1.17 X10^3/uL; Monocyte% 7.3 % (0-10); NRBC Flagged by Analyzer 0 % (0-5); Neutrophil # 13.42 X10^3/uL (2.7-7.7); Neutrophil % 83.3 % (47-70); Platelet Count 377 K/mm3 (150-450); RBC Distribution Width SD 44.4 fl (35.1-43.9); Red Blood Count 4.52 M/mm3 (4.6-6.2); White Blood Count 16.1 K/mm3 (4.4-11.0)
[2021-06-30 05:54] LABS: Anion Gap 4 (5-15); BUN 16 mg/dL (7-18); BUN/Creat Ratio 21.7 RATIO (10-20); Chloride 98 mmol/L (98-107); Creatinine, Serum 0.74 mg/dL (0.70-1.30); EST Glomerular Filtration Rate 112 mL/min (>60); Est Glom Filt Rate - Afr Amer 136 mL/min (>60); Estimated Creatinine Clearance 69.76 ml/min; Glucose 150 mg/dL (74-106); Potassium 4.3 mmol/L (3.5-5.1); Sodium Level 136 mmol/L (136-145)
[2021-06-30] MEDS: Aspirin 81 MG TAB.CHEW PO (07:36)
[2021-06-30] MEDS: 0.9% Saline Lock 10 ML Syringe IV (10:13)
[2021-06-30] MEDS: levoFLOXacin IV 750 MG/150 ML BAG 100 MG IV (10:14)
[2021-06-30] MEDS: Pantoprazole Sodium 40 MG Tablet PO (10:15)
[2021-06-30] MEDS: Fluticasone 0.05% 1 SPRAY NASAL.SRY NASAL (10:16)
[2021-06-30] MEDS: Gabapentin 300 MG Capsule PO (10:16)
[2021-06-30] MEDS: Citalopram 20 MG Tablet PO (10:16)
[2021-06-30] MEDS: Loratadine 10 MG Tablet PO (10:16)
--- NOTE | 2021-06-30 11:02 | DCINST_ITS ---
Discharge Instructions Diet Discharge Diet: No restrictions Activity Discharge Activity: Return to Normal Activity Weight Bearing Status: Full weight bearing Follow Up Care Test Results: Test results from this visit will be discussed in further detail at your follow-up appointment, if applicable. Discharge Plan Admission Admit Date/Time: 06/27/21 12:57 Primary Reason for Your Visit: exac of COPD Attending Provider: Rey Rodriguez Primary Care Provider: Jordan Rosales Instructions Additional Instructions / Restrictions: Use oxygen at 3 L/min via nasal cannula at home Follow-up with pulmonary medicine regarding your right lung mass Follow-up with a primary care physician in 3 to 4 weeks Discharge Orders/Prescriptions Prescriptions: New prednisone 20 mg tablet 20 mg PO BID Qty: 12 RF: 0 levofloxacin 500 mg tablet 500 mg PO DAILY Qty: 4 RF: 0 Continued citalopram 20 mg tablet 20 mg PO DAILY RF: 0 gabapentin 300 mg capsule 300 mg PO BID RF: 0 albuterol sulfate 2.5 MG/3 ML solution for nebulization 2.5 mg INHALATION Q4H PRN PRN (Reason: Shortness Of Breath) RF: 0 aspirin 81 MG tablet,chewable 81 mg PO DAILY@0800 RF: 0 cetirizine 10 MG tablet 10 mg PO DAILY RF: 0 atorvastatin 40 MG tablet 40 mg PO QHS Qty: 90 RF: 0 Trelegy Ellipta 200-62.5-25 mcg blister with device 1 inh INHALATION DAILY RF: 0 fluticasone propionate 50 mcg/actuation [place],Suspension 1 spray INTRANASAL DAILY RF: 0 pantoprazole 40 mg tablet,delayed release (DR/EC) 40 mg PO DAILY Qty: 30 RF: 3 ondansetron 4 mg tablet,disintegrating 4 mg PO Q6H PRN (Reason: nausea and vomiting) Qty: 7 RF: 0 metoprolol succinate 50 mg Tablet Extended Release 24 Hr 50 mg PO DAILY 30 Days Qty: 30 RF: 0 Discontinued ipratropium-albuterol 0.5 mg-3 mg(2.5 mg base)/3 mL solution for nebulization 3 ml INHALATION Q4H RF: 0 ondansetron HCl [Zofran] 4 mg tablet 4 mg PO Q8H Qty: 7 RF: 0 Referrals / Follow Up: Fidencio Montenegro DO [STAFF PHYSICIAN] - See Referral Note (Dr. Montenegro's/Binh's office will contact you in the next 48 hours regarding an appointment, if you do not hear from them by Tuesday of this week, call the office) Jordan Rosales MD [Primary Care Provider] - Disposition Disposition (needs filled in before D/C Order can be placed): Home, Self Care
--- NOTE | 2021-06-30 12:20 | PHA.DC.MC ---
Pharmacy Service has performed discharge medication reconciliation and counseling for this patient. 1. LEVOFLOXACIN 500MG PO DAILY X 4 DAYS 2. PREDNISONE 20MG PO BID X 4 DAYS, THEN 20MG DAILY X 4 DAYS The patient's discharge medication list was reviewed for discrepancies and discrepancies were resolved. Home Medications albuterol sulfate 2.5 mg INHALATION Q4H PRN PRN 11/01/18 aspirin 81 mg PO DAILY@0800 11/01/18 cetirizine 10 mg PO DAILY 11/11/19 atorvastatin 40 mg PO QHS #90 tab 11/12/19 citalopram 20 mg tablet 20 mg PO DAILY 12/18/20 gabapentin 300 mg capsule 300 mg PO BID 12/18/20 pantoprazole 40 mg PO DAILY #30 tab 01/12/21 Trelegy Ellipta 1 inh INHALATION DAILY 02/23/21 fluticasone propionate 1 spray INTRANASAL DAILY 02/23/21 ondansetron 4 mg PO Q6H PRN #7 tab 04/24/21 metoprolol succinate 50 mg PO DAILY 30 Days #30 tab 06/22/21 levofloxacin 500 mg PO DAILY #4 tab 06/30/21 prednisone 20 mg PO BID #12 tab 06/30/21 The patient was counseled on the following discharge medications and changes in medications for homegoing were reviewed. The Reason for Use, instructions for use, and potential side effects were reviewed for all new medications. The patient's questions regarding all of their medications were answered. The patient was able to verbally demonstrate an understanding of their discharge medications.
--- NOTE | 2021-06-30 20:04 | PCM.DC.SUM ---
Providers Date of Admission: 06/27/21 Date of Discharge: 06/30/21 Primary Care Physician: Dr. Jordan Rosales MD Reason For Visit: ACUTE COPD EXACERBATION Diagnosis Discharge Diagnosis (1) Acute exacerbation of chronic obstructive pulmonary disease: Status: Chronic Code(s): J44.1 - Chronic obstructive pulmonary disease with (acute) exacerbation Plan: Final diagnosis #1 acute exacerbation of chronic obstructive pulmonary disease #2 Acute on chronic hypoxic respiratory failure secondary to COPD exacerbation #3 right upper lobe lung density-etiology unclear #4 essential hypertension #5 coronary artery disease #6 hyperlipidemia Medications at Discharge Home Medications albuterol sulfate 2.5 mg INHALATION Q4H PRN PRN 11/01/18 aspirin 81 mg PO DAILY@0800 11/01/18 cetirizine 10 mg PO DAILY 11/11/19 atorvastatin 40 mg PO QHS #90 tab 11/12/19 citalopram 20 mg tablet 20 mg PO DAILY 12/18/20 gabapentin 300 mg capsule 300 mg PO BID 12/18/20 pantoprazole 40 mg PO DAILY #30 tab 01/12/21 Trelegy Ellipta 1 inh INHALATION DAILY 02/23/21 fluticasone propionate 1 spray INTRANASAL DAILY 02/23/21 ondansetron 4 mg PO Q6H PRN #7 tab 04/24/21 metoprolol succinate 50 mg PO DAILY 30 Days #30 tab 06/22/21 levofloxacin 500 mg PO DAILY #4 tab 06/30/21 lorazepam [Ativan] 0.5 mg PO TID PRN #15 tab 06/30/21 prednisone 20 mg PO BID #12 tab 06/30/21 Hospital Course Operations None Procedures None Summary of Care Provided Minutes Spent on Discharge: 31 Hospital Course: This 66-year-old white male was seen in the emergency department at [facility] with a chief complaint of shortness of breath, patient has chronic hypoxic respiratory failure and wears 3 L of oxygen typically at night but he has been wearing oxygen throughout the day. Patient stated that he was known to have an abnormal spiculated lung lesion on his CT that was done recently. Work-up in the emergency room included a D-dimer which was elevated mildly, CTA of the chest was performed which did not show any pulmonary embolism, again a spiculated lesion was noted to be present in the right lung. Patient was given IV Solu-Medrol and breathing treatments, his white blood cell count was slightly elevated at 11.4, patient was on 4 L in the emergency room. Patient was admitted to [place] [address], given IV Solu-Medrol and aerosol treatments. His respiratory status improved during his hospitalization. On 06/30/2021, patient was seen and examined: On examination he appeared in good health and spirits. Vital signs as documented. Skin warm and dry and without overt rashes. Neck without JVD, neck was supple, trachea midline, thyroid was normal. Lungs clear bilaterally, breath sounds are distant bilaterally. Heart exam notable for regular rhythm, normal sounds and absence of murmurs, rubs or gallops. Abdomen unremarkable and without evidence of organomegaly, masses, or abdominal aortic enlargement. Bowel sounds are present, abdomen is not distended. Extremities nonedematous, no cyanosis was noted, no clubbing was noted. Neuro: Cranial nerves II through XII are grossly intact, no focal motor deficits were noted, sensation to light touch and pinprick intact, motor exam 5/5 throughout. Psych: Patient is alert and oriented x3, he does not appear anxious or depressed, he does not appear agitated. On 06/30/2021, patient was felt to be stable for discharge home, required 3 L of oxygen at rest and on exertion. Weight / BMI Weight Weight: 68.8 kg Body Mass Index (BMI) 21.7 ABG / Lab / Microbiology Data Result Diagrams: 06/30/21 05:04 06/30/21 05:04 Laboratory: Laboratory Results - last 24 hr 06/30/21 05:04: WBC 16.1 H, RBC 4.52 L, Hgb 13.0, Hct 39.0 L, MCV 86.3, MCH 28.8, MCHC 33.3, RDW Std Deviation 44.4 H, RDW Coeff of Sue 14.0, Plt Count 377, MPV 8.7, Immature Gran % (Auto) 0.900, Neut % (Auto) 83.3 H, Lymph % (Auto) 8.4 L, [place] % (Auto) 7.3, Eos % (Auto) 0.0, Baso % (Auto) 0.1, Absolute Neuts (auto) 13.4 H, Absolute Lymphs (auto) 1.36, Nucleated RBC % 0 06/30/21 05:04: Sodium 136, Potassium 4.3, Chloride 98, Carbon Dioxide 34.0 H, Anion Gap 4 L, BUN 16, Creatinine 0.74, Estim Creat Clear Calc 69.76, Est GFR (MDRD) Af Amer 136, Est GFR (MDRD) Non-Af 112, BUN/Creatinine Ratio 21.7 H, Glucose 150 H, Calcium 9.0 Microbiology: Microbiology 06/27/21 11:05 Blood Culture (Wb) #2 - Left Wrist Blood Culture - Preliminary No growth in 48 hours. 06/27/21 10:30 Blood Culture (Wb) - Anticubital Left Blood Culture - Preliminary No growth in 48 hours. 06/27/21 10:40 Mucosa - Nasopharyngeal Respiratory Panel (PCR) - Final 06/27/21 10:25 Nasal Secretion SARS-CoV-2 Antigen (Rapid) - Final D/C Instructions Discharge Diet: No restrictions Weight Bearing Status: Full weight bearing Meaningful Use Info Meaningful Use Diagnoses (Choose all that apply): None applicable Discharge Plan Admission Admit Date/Time: 06/27/21 12:57 Primary Reason for Your Visit: exac of COPD Attending Provider: Rey Rodriguez Primary Care Provider: Jordan Rosales Instructions Additional Instructions / Restrictions: Use oxygen at 3 L/min via nasal cannula at home Follow-up with pulmonary medicine regarding your right lung mass Follow-up with a primary care physician in 3 to 4 weeks Discharge Orders/Prescriptions Prescriptions: New prednisone 20 mg tablet 20 mg PO BID Qty: 12 RF: 0 levofloxacin 500 mg tablet 500 mg PO DAILY Qty: 4 RF: 0 lorazepam [Ativan] 0.5 mg tablet 0.5 mg PO TID PRN (Reason: anxiety) Qty: 15 RF: 0 Continued citalopram 20 mg tablet 20 mg PO DAILY RF: 0 gabapentin 300 mg capsule 300 mg PO BID RF: 0 albuterol sulfate 2.5 MG/3 ML solution for nebulization 2.5 mg INHALATION Q4H PRN PRN (Reason: Shortness Of Breath) RF: 0 aspirin 81 MG tablet,chewable 81 mg PO DAILY@0800 RF: 0 cetirizine 10 MG tablet 10 mg PO DAILY RF: 0 atorvastatin 40 MG tablet 40 mg PO QHS Qty: 90 RF: 0 Trelegy Ellipta 200-62.5-25 mcg blister with device 1 inh INHALATION DAILY RF: 0 fluticasone propionate 50 mcg/actuation [place],Suspension 1 spray INTRANASAL DAILY RF: 0 pantoprazole 40 mg tablet,delayed release (DR/EC) 40 mg PO DAILY Qty: 30 RF: 3 ondansetron 4 mg tablet,disintegrating 4 mg PO Q6H PRN (Reason: nausea and vomiting) Qty: 7 RF: 0 metoprolol succinate 50 mg Tablet Extended Release 24 Hr 50 mg PO DAILY 30 Days Qty: 30 RF: 0 Discontinued ipratropium-albuterol 0.5 mg-3 mg(2.5 mg base)/3 mL solution for nebulization 3 ml INHALATION Q4H RF: 0 ondansetron HCl [Zofran] 4 mg tablet 4 mg PO Q8H Qty: 7 RF: 0 Referrals / Follow Up: Fidencio Montenegro DO [STAFF PHYSICIAN] - See Referral Note (Dr. Montenegro's/Binh's office will contact you in the next 48 hours regarding an appointment, if you do not hear from them by Tuesday of this week, call the office) Jordan Rosales MD [Primary Care Provider] - (APPOINTMENT WITH DR. ROSALES ON JULY 06, 2021 @ 5:35PM.) Disposition Disposition (needs filled in before D/C Order can be placed): Home, Self Care Charges/Coding Visit Charges Inpatient E&M: 63017 Disch Hosp
--- NOTE | 2021-07-01 15:35 | CASEMGMT ---
CASEY SIMON Discharge Follow-Up Phone Call. Diamante: Alejandrina Strata: 3 Discharge Date: 06/30/21 Adm Dx: Acute COPD Exac Call to pt to inquire about how he has been doing since being discharged from the hospital. Pt states, I'm okay and states his breathing is much better than it was. Pt denies having any questions about the discharge instructions or medications. He received the new medications prior to being discharged and is taking as prescribed. He is aware of f/u appt w/Dr Rosales on 07/06 and has f/u appt w/Dr Montenegro 07/09. He states plans to switched PCP's but will go to appt w/Dr Rosales until he can get established w/new PCP. He denies having any questions/concerns/needs. He states, You guys have been a really big help and took great care of me. Alphonse BSN CASEY SIMON
== END 2021-06-30 16:50 | disposition home or self-care (01) | DRG 191 ==
LOC: ED 12:53 → MS3 13:10
PROVIDERS: Admitting Provider Student in an Organized Health Care Education/Training Program; Emergency Provider Emergency Medicine; PCP Internal Medicine; Visit Provider Internal Medicine
DX: J44.1 Chronic obstructive pulmonary disease with (acute) exacerbation (principal); J96.11 Chronic respiratory failure with hypoxia; Z20.822 Contact with and (suspected) exposure to COVID-19; I25.10 Atherosclerotic heart disease of native coronary artery without angina pectoris; I10 Essential (primary) hypertension; E78.5 Hyperlipidemia, unspecified; K58.9 Irritable bowel syndrome, unspecified; M19.90 Unspecified osteoarthritis, unspecified site; K21.9 Gastro-esophageal reflux disease without esophagitis; F32.A Depression, unspecified; F41.9 Anxiety disorder, unspecified; Z99.81 Dependence on supplemental oxygen; Z79.82 Long term (current) use of aspirin; Z79.890 Hormone replacement therapy; Z79.899 Other long term (current) drug therapy; I25.2 Old myocardial infarction; Z86.73 Personal history of transient ischemic attack (TIA), and cerebral infarction without residual deficits; Z87.891 Personal history of nicotine dependence
CPT/HCPCS: 36415; 36600; 71045; 71275; 80048; 80053; 82803; 83605; 83880; 84484; 85025; 85379; 87040; 87426; 87633; 93005; 94640; 94667; 94668; 94762; 97162; 97165; 99251; 99285; J7030; Q9967; A4216; G0463

== ENCOUNTER → 2021-07-24 08:53 | Outpatient (CLI) | payer MEDICARE, SELFPAY ==
[2021-07-21 10:55] LABS: Hematocrit 39.2 % (40-54); Hemoglobin 12.8 g/dL (13.0-16.5); Mean Corp Hgb Conc 32.7 g/dL (32-36); Mean Corpuscular Hgb 28.4 pg (27.0-32.0); Mean Corpuscular Volume 86.9 fL (80-94); Platelet Count 230 K/mm3 (150-450); RBC Distribution Width CV 14.1 % (11.6-14.6); RBC Distribution Width SD 45.4 fl (35.1-43.9); Red Blood Count 4.51 M/mm3 (4.6-6.2); White Blood Count 6.7 K/mm3 (4.4-11.0)
[2021-07-21 11:03] LABS: Prothrombin Time (Protime)PT. 12.9 SECONDS (11.7-14.9)
--- NOTE | 2021-07-24 09:01 | CT_ITS ---
STUDY: CT CHEST WITHOUT CONTRAST REASON FOR EXAM: Male, 66 years old. Lung Nodule RADIATION DOSAGE (If Supplied By Facility): CTDIvol = ( 9.94 ) mGy, DLP = ( 209.45 ) mGycm TECHNIQUE: Transaxial imaging was performed without the administration of intravenous contrast material. Individualized dose optimization techniques were used for this CT. COMPARISON: Comparison is made with prior study 06/27/2021. FINDINGS: The patient was scheduled for percutaneous biopsy of the right upper lobe pulmonary nodule. The previously seen nodular density in the right upper lobe as change in appearance at this time. It is less nodular and less dense as it was on prior study. Further radiographic follow-up or correlation with PET scan is recommended. There is no demonstrated pleural abnormality. CT/Biopsy/Inj or Needle Placement IMPRESSION: CT follow-up or PET scanning is recommended for further evaluation. Electronically Signed: Gabe Barrientos MD at 11:02 EST , Service support ,
[2021-07-24 09:17] VITALS: BP 111/63; PULSE 63; RESP 18; TEMP 37.1; O2SAT 100; BMI 22.9
--- NOTE | 2021-07-24 10:15 | NURSING ---
LUNG MASS CHANGED FROM PREVIOUS IMAGING. DR. BEAUCHAMP TALKED WITH PT AND S.O. TO EXPLAIN CHANGE IN PLAN FOR BIOPSY. DR BEAUCHAMP WILL TALK WITH DR QUINTERO AND RECOMMEND FOLLOWING WITH CT OR PET. PT VERBALIZED UNDERSTANDING.
--- NOTE | 2021-07-24 10:30 | NURSING ---
PT REFUSED WC. WALKED TO ELEVATOR WITH STEADY GAIT.
--- NOTE | 2021-08-03 09:09 | US_ITS ---
EXAM: US SOFT TISSUES HEAD AND NECK, THYROID CLINICAL INDICATION: nodule TECHNIQUE: Greyscale and color doppler imaging was performed of the thyroid gland. This report was created using e[employer] report generation technology. COMPARISON: None. FINDINGS: LEFT THYROID LOBE: Unremarkable. Homogeneous echotexture with normal vascularity. No thyroid nodules are present. RIGHT THYROID LOBE: Unremarkable. Homogeneous echotexture with normal vascularity. No thyroid nodules are present. ISTHMUS: Unremarkable. No thyroid nodules are present. US/Thyroid IMPRESSION: Negative thyroid ultrasound examination. Electronically Signed: Kirk Lima MD (Brooks) at 10:55 EST , Service support ,
== END | disposition home or self-care (01) ==
PROVIDERS: PCP Internal Medicine; Referring Provider Internal Medicine Critical Care Medicine; Visit Provider Internal Medicine Critical Care Medicine
DX: R91.1 Solitary pulmonary nodule (principal); E04.1 Nontoxic single thyroid nodule; Z53.9 Procedure and treatment not carried out, unspecified reason; J96.11 Chronic respiratory failure with hypoxia; J44.9 Chronic obstructive pulmonary disease, unspecified; I25.10 Atherosclerotic heart disease of native coronary artery without angina pectoris; I10 Essential (primary) hypertension; E78.5 Hyperlipidemia, unspecified; R10.13 Epigastric pain; R11.15 Cyclical vomiting syndrome unrelated to migraine; M19.90 Unspecified osteoarthritis, unspecified site; Z79.82 Long term (current) use of aspirin; Z79.899 Other long term (current) drug therapy; Z87.891 Personal history of nicotine dependence; I25.2 Old myocardial infarction; Z86.73 Personal history of transient ischemic attack (TIA), and cerebral infarction without residual deficits
CPT/HCPCS: 32408; 36415; 77012; 85027; 85610; J7040; A4216

== ENCOUNTER → 2021-08-03 09:03 | Outpatient (CLI) | payer MEDICARE, SELFPAY | PROVIDERS: PCP Internal Medicine; Referring Provider Family Medicine; Visit Provider Family Medicine | DX: E04.1 Nontoxic single thyroid nodule (principal) | CPT/HCPCS: 76536 ==

== ENCOUNTER 2021-10-12 14:17 | Outpatient (CLI) | payer MEDICARE, SELFPAY ==
--- NOTE | 2021-10-12 14:21 | CT_ITS ---
STUDY: CT CHEST WITHOUT CONTRAST REASON FOR EXAM: Male, 66 years old. Recent pneumonia. Follow-up examination. RADIATION DOSAGE (If Supplied By Facility): CTDIvol = ( 7.77 ) mGy, DLP = ( 305.38 ) mGycm TECHNIQUE: Transaxial imaging was performed without the administration of intravenous contrast material. Multiplanar coronal and sagittal images were reformatted. Individualized dose optimization techniques were used for this CT. COMPARISON: Comparison is made with prior examination 06/27/2021. FINDINGS: Hyperinflation. Emphysematous changes. This is worse in the upper lobes with areas of centrilobular emphysema. A nodular density in the peripheral medial posterior aspect of the right upper lobe has decreased further in size. It presently measures 8.4 mm x 6.8 mm. There is no demonstrated pleural abnormality. There are calcifications of the coronary arteries. There are multiple small lymph nodes within the mediastinum, which are normal in size and morphology most compatible with reactive lymph hyperplasia. Normal hilar regions. Normal unenhanced pulmonary arteries. There is atherosclerotic calcification of the aortic arch with tortuosity and elongation of the aortic arch and descending thoracic aorta. There are mild degenerative changes of the thoracic spine. There is no demonstrated abnormality of the visualized upper abdomen. CT/Chest without Contrast IMPRESSION: Further decrease in size of the right upper lobe nodule. It presently measures 8.4 mm x 6.8 mm. Hyperinflation and emphysematous changes. Electronically Signed: Gabe Barrientos MD at 15:00 EST ,
== END 2021-10-12 23:59 | disposition home or self-care (01) ==
LOC: CT 14:21
PROVIDERS: PCP Family Medicine; Referring Provider Nurse Practitioner Acute Care; Visit Provider Nurse Practitioner Acute Care
DX: J18.9 Pneumonia, unspecified organism (principal)
CPT/HCPCS: 71250

== ENCOUNTER → 2022-01-11 | Outpatient (CLI) | payer MEDICARE, SELFPAY ==
[2022-01-11 11:50] LABS: Mucous, Urine 0 SEEN /hpf (<or=2+); Squamous Epithelial Cells - UA 0 SEEN /hpf (0-5)
[2022-01-11 15:30] LABS: Absolute Lymphocyte Count 1.68 X10^3/uL (0.83-4.51); Absolute Neutrophil Count 4.9 X10^3/uL (2.0-7.7); Basophil# 0.05 X10^3/uL; Basophil% 0.6 % (0-1); Eosinophil# 0.21 X10^3/uL; Eosinophils% 2.7 % (0-5); Hematocrit 38.5 % (40-54); Hemoglobin 12.2 g/dL (13.0-16.5); Lymphocyte # 1.68 X10^3/ul (0.83-4.51); Lymphocyte % 21.5 % (19-41); Mean Corp Hgb Conc 31.7 g/dL (32-36); Mean Corpuscular Hgb 28.6 pg (27.0-32.0); Mean Corpuscular Volume 90.4 fL (80-94); Mean Platelet Vol. 8.8 fl (6.2-12.0); Monocyte# 0.89 X10^3/uL; Monocyte% 11.4 % (0-10); NRBC Flagged by Analyzer 0 % (0-5); Neutrophil # 4.94 X10^3/uL (2.7-7.7); Neutrophil % 63.4 % (47-70); Platelet Count 289 K/mm3 (150-450); RBC Distribution Width CV 14.2 % (11.6-14.6); RBC Distribution Width SD 46.8 fl (35.1-43.9); Red Blood Count 4.26 M/mm3 (4.6-6.2); White Blood Count 7.8 K/mm3 (4.4-11.0)
[2022-01-11 15:34] LABS: Color, Urine Yellow (Yellow); Glucose, Dipstick Normal (Normal); Ketone-Dipstick Negative (Negative); Leukocyte Esterase-Dipstick 25 /ul (Negative); Nitrite-Dipstick Negative (Negative); Occult Blood-Urine 10 /ul (Negative); Protein-Dipstick 30 mg/dl (Negative); Urine Bilirubin Dipstick Negative (Negative); Urine Clarity Clear (Clear); Urine Urobilinogen Normal (Normal)
[2022-01-11 15:52] LABS: Bacteria RARE /hpf (None Seen); Red Blood Cells-Urine 0-5 SEEN /hpf (0-5); White Blood Cells 0-5 SEEN /hpf (0-5)
[2022-01-11 16:31] LABS: ALB/GLOB Ratio 1.3 RATIO (0.9-2.4); AST(SGOT) 13 U/L (15-37); Alanine Aminotransfer ALT/SGPT 20 U/L (16-61); Albumin, Serum 3.9 g/dL (3.2-5.0); Alkaline Phosphatase 80 U/L (45-117); Anion Gap 5 (5-15); BUN 8 mg/dL (7-18); BUN/Creat Ratio 8.9 RATIO (10-20); Calcium,Total 8.9 mg/dL (8.5-10.1); Chloride 97 mmol/L (98-107); Cholesterol 98 mg/dL (200); EST Glomerular Filtration Rate 90 mL/min (>60); Est Glom Filt Rate - Afr Amer 109 mL/min (>60); Globulin 3.1 g/dL (2.2-4.2); Glucose 92 mg/dL (74-106); High Density Lipoprotein 53 mg/dL; Potassium 4.5 mmol/L (3.5-5.1); Sodium Level 136 mmol/L (136-145); Thyroid Stim Hormone (TSH) 0.77 uIU/mL (0.358-3.74); Triglycerides 43 mg/dL; Very Low Density Lipoprotein 9 mg/dL (5-40)
[2022-01-12 15:31] LABS: Ferritin 54 ng/mL (26-388); Iron 66 ug/dL (65-175); Iron Binding Capacity,Total 307 ug/dL (250-450); PERCENT IRON SATURATION 21.5 % (15.0-55.0)
[2022-01-12 15:41] LABS: Vitamin B12 331 pg/mL (211-911)
== END | disposition home or self-care (01) ==
LOC: MFPLAB 11:48
PROVIDERS: PCP Family Medicine; Visit Provider Family Medicine
DX: D64.9 Anemia, unspecified (principal); I10 Essential (primary) hypertension
CPT/HCPCS: 36415; 80053; 80061; 81001; 82607; 82728; 83540; 83550; 84443; 85025

== ENCOUNTER → 2022-02-03 | Outpatient (CLI) | payer MEDICARE, SELFPAY ==
[2022-02-03 15:41] LABS: Ferritin 61 ng/mL (26-388); Iron 87 ug/dL (65-175); Iron Binding Capacity,Total 334 ug/dL (250-450); PSA,Total - Annual Screen 0.96 ng/mL (0.00-4.00)
[2022-02-03 16:23] LABS: Vitamin B12 325 pg/mL (211-911)
== END | disposition home or self-care (01) ==
LOC: MFPLAB 11:36
PROVIDERS: PCP Family Medicine; Visit Provider Family Medicine
DX: D64.9 Anemia, unspecified (principal); Z12.5 Encounter for screening for malignant neoplasm of prostate
CPT/HCPCS: 36415; 82607; 82728; 83540; 83550; 84153; G0103

== ENCOUNTER → 2022-03-27 | Outpatient (CLI) | payer MEDICARE, SELFPAY ==
--- NOTE | 2022-03-27 09:45 | CT_ITS ---
STUDY: CT Chest W/O Contrast Injection 03/27/2022 5:33 PM REASON FOR EXAM: Male, 67 years old. Lung Nodule follow up Individualized dose optimization techniques were used for this CT. TECHNIQUE: Transaxial imaging was performed withoutIV contrast material. COMPARISON: Oct 12 2021 2:38pm . FINDINGS: There are degenerative changes of the shoulders. There is no pneumothorax. There is no demonstrated pleural abnormality. There are scattered blebs and bullae. This can be seen in pulmonary emphysema. There is a 8.6 mm right upper lobe nodule. SE: 4 IM: 29. This nodule is spiculated. 6.9 mm right upper lobe nodule. SE: 4 IM: 40. This nodule is spiculated. 5.1 mm right upper lobe nodule. SE: 4 IM: 56. This nodule is round. There are calcifications of the coronary arteries. Normal mediastinum. Normal hilar regions. Normal pulmonary arteries. There is atherosclerotic calcification of the aortic arch with tortuosity and elongation of the aortic arch and descending thoracic aorta. There are multi-level degenerative changes of the thoracic spine. There are no acute findings of the upper abdomen. CT/Chest without Contrast IMPRESSION: Largest right upper lobe nodule is stable in size. However, the other 2 nodules in the right upper lobe are slightly larger. ACR Lung CT Screening Reporting T Data System (Lung-RADS) score: 4A - Suspicious. Recommend low-dose CT (LDCT) in 3 months or PET/CT for solid components 8 mm or larger in size. Electronically Signed: Wisam Rodgers MD at 19:12 EDT ,
== END | disposition home or self-care (01) ==
LOC: CT 09:44
PROVIDERS: PCP Family Medicine; Visit Provider Internal Medicine Critical Care Medicine
DX: R91.1 Solitary pulmonary nodule (principal)
CPT/HCPCS: 71250

== ENCOUNTER → 2022-05-14 | Outpatient (CLI) | payer MEDICARE, SELFPAY ==
[2022-05-14 11:56] LABS: Absolute Lymphocyte Count 1.21 X10^3/uL (0.83-4.51); Absolute Neutrophil Count 4.3 X10^3/uL (2.0-7.7); Basophil# 0.05 X10^3/uL; Basophil% 0.8 % (0-1); Eosinophil# 0.26 X10^3/uL; Eosinophils% 3.9 % (0-5); Hemoglobin 12.2 g/dL (13.0-16.5); Lymphocyte # 1.21 X10^3/ul (0.83-4.51); Lymphocyte % 18.2 % (19-41); Mean Corp Hgb Conc 31.3 g/dL (32-36); Mean Corpuscular Hgb 27.8 pg (27.0-32.0); Mean Corpuscular Volume 88.8 fL (80-94); Mean Platelet Vol. 8.4 fl (6.2-12.0); Monocyte# 0.76 X10^3/uL; Monocyte% 11.4 % (0-10); NRBC Flagged by Analyzer 0 % (0-5); Neutrophil # 4.34 X10^3/uL (2.7-7.7); Neutrophil % 65.1 % (47-70); Platelet Count 257 K/mm3 (150-450); RBC Distribution Width CV 13.9 % (11.6-14.6); RBC Distribution Width SD 45.5 fl (35.1-43.9); Red Blood Count 4.39 M/mm3 (4.6-6.2); White Blood Count 6.7 K/mm3 (4.4-11.0)
[2022-05-14 12:29] LABS: ALB/GLOB Ratio 1.1 RATIO (0.9-2.4); AST(SGOT) 15 U/L (15-37); Alanine Aminotransfer ALT/SGPT 20 U/L (16-61); Albumin, Serum 3.6 g/dL (3.2-5.0); Alkaline Phosphatase 85 U/L (45-117); Anion Gap 2 (5-15); BUN 7 mg/dL (7-18); BUN/Creat Ratio 9.2 RATIO (10-20); Calcium,Total 8.7 mg/dL (8.5-10.1); Chloride 95 mmol/L (98-107); Cholesterol 98 mg/dL (200); Creatinine, Serum 0.76 mg/dL (0.70-1.30); EST Glomerular Filtration Rate 109 mL/min (>60); Est Glom Filt Rate - Afr Amer 132 mL/min (>60); Globulin 3.2 g/dL (2.2-4.2); Glucose 79 mg/dL (74-106); High Density Lipoprotein 58 mg/dL; Potassium 4.1 mmol/L (3.5-5.1); Protein, Total 6.8 g/dL (6.4-8.2); Sodium Level 135 mmol/L (136-145); Triglycerides 47 mg/dL; Very Low Density Lipoprotein 9 mg/dL (5-40)
[2022-05-14 14:46] LABS: Ferritin 76 ng/mL (26-388); Iron 111 ug/dL (65-175); Iron Binding Capacity,Total 266 ug/dL (250-450); PERCENT IRON SATURATION 41.7 % (15.0-55.0); Vitamin B12 351 pg/mL (211-911)
== END | disposition home or self-care (01) ==
LOC: MFPLAB 11:03
PROVIDERS: PCP Family Medicine; Referring Provider Family Medicine; Visit Provider Family Medicine
DX: E78.5 Hyperlipidemia, unspecified (principal); D64.9 Anemia, unspecified
CPT/HCPCS: 36415; 80053; 80061; 82607; 82728; 83540; 83550; 85025

== ENCOUNTER → 2022-06-14 | Outpatient (CLI) | payer MEDICARE, SELFPAY ==
--- NOTE | 2022-06-14 14:42 | CT_ITS ---
EXAM: CT CHEST WITHOUT INTRAVENOUS CONTRAST CLINICAL INDICATION: lung nodules increasing in size TECHNIQUE: Helically acquired images were obtained of the chest without intravenous contrast. This CT exam was performed using one or more of the following dose reduction techniques: automated exposure control, adjustment of the mA and/or kV according to patient size, and/or use of iterative reconstruction technique. This report was created using [employer] report generation technology. COMPARISON: 03/27/2022 FINDINGS: LUNGS AND PLEURAL SPACES: There are emphysematous changes in the lung apices. Right upper lobe nodule is unchanged measuring 9 mm. This is seen on series 4 image 33. There is a second spiculated nodule in the right upper lobe which measures 7 mm on today''s exam and is stable. This is seen on series 4 image 44. The third nonspiculated nodule is present in the right upper lobe and measures 5 mm on today''s exam and is unchanged from the exam. No pleural effusion or thickening. No pneumothorax. HEART: Unremarkable. Heart size is normal. No pericardial effusion. No significant coronary artery calcifications. MEDIASTINUM: Unremarkable. No mediastinal or hilar adenopathy. Esophagus is unremarkable. No hiatal hernia. THYROID: Unremarkable. No thyroid lesions. BONES/JOINTS: Unremarkable. No suspicious lytic or blastic abnormality. VASCULATURE: Unremarkable. Thoracic aorta is non-dilated. CT/Chest without Contrast IMPRESSION: 1. Emphysematous changes in both lungs. There are persistent nodules within the right upper lobe which are stable. 2. Lung-RADS score: 2 - Benign Appearance or Behavior. Recommend continued annual screening with low-dose CT (LDCT) in 12 months. Electronically Signed: Prakash Hudson MD at 0:19 EDT ,
== END | disposition home or self-care (01) ==
LOC: CT 14:41
PROVIDERS: PCP Family Medicine; Referring Provider Nurse Practitioner Acute Care; Visit Provider Nurse Practitioner Acute Care
DX: R91.1 Solitary pulmonary nodule (principal)
CPT/HCPCS: 71250